=== PATIENT | male | born 1945 | race Caucasian/White ===

== ENCOUNTER 2016-11-21 13:29 | Outpatient (CLI) | payer MEDICARE ==
[2016-11-21 13:49] LABS: #Basophils 0.1 thou/uL (0.0-0.2); #Eosinphils 0.2 thou/uL (0.0-0.7); #Lymphocytes 2.4 thou/uL (1.20-3.40); #Monocytes 0.6 thou/uL (0.11-0.59); %Basophils 1.8 % (0.0-1.0); %Eosinophils 2.7 % (0.0-10.0); %Lymphocytes 29.1 % (21.0-51.0); %Monocytes 7.1 % (0.0-10.0); %Neutrophils 59.4 % (42.0-75.0); Hemoglobin 11.3 g/dL (14.0-18.0); Mean Corpuscular HGB CONC 31.6 g/dL (32.0-36.0); Mean Corpuscular Hemoglobin 26.9 pg (27.0-31.0); Mean Platelet Volume 5.8 fL (7.4-10.4); Platelet Count 376 thou/uL (130-400); RBC Distribution Width 12.8 % (11.5-14.5); White Blood Cell (WBC) Count 8.4 thou/uL (4.8-10.8)
== END 2016-11-21 13:30 | disposition home or self-care (01) ==
LOC: MADLAB 13:29
PROVIDERS: ATTEND Orthopaedic Surgery
DX: S40.912A Unspecified superficial injury of left shoulder, initial encounter (principal)
CPT/HCPCS: 36415; 85025; 85652; 86140

== ENCOUNTER 2016-12-16 19:00 | Inpatient (IN) | payer MEDICARE ==
[2016-12-16] MEDS ORDERED: HYDROcodone/Acetaminophen 10/325 mg Tablet PO PRN (21:03)
[2016-12-16] MEDS: HYDROcodone/Acetaminophen 10/325 mg Tablet PO PRN (22:07)
[2016-12-16] MEDS: diphenhydrAMINE HCl 25 MG CAP PO PRN (22:30)
[2016-12-17] MEDS: diphenhydrAMINE HCl 25 MG CAP PO PRN ×3 (04:25→20:42)
[2016-12-17] MEDS: HYDROcodone/Acetaminophen 10/325 mg Tablet PO PRN ×4 (04:26→20:38)
[2016-12-17 04:44] LABS: #Basophils 0.1 thou/uL (0.0-0.2); #Eosinphils 0.4 thou/uL (0.0-0.7); #Lymphocytes 2.9 thou/uL (1.20-3.40); #Monocytes 0.5 thou/uL (0.11-0.59); #Neutrophils 2.7 thou/uL (1.40-6.50); %Basophils 1.9 % (0.0-1.0); %Eosinophils 5.5 % (0.0-10.0); %Lymphocytes 43.4 % (21.0-51.0); %Monocytes 8.1 % (0.0-10.0); %Neutrophils 41.1 % (42.0-75.0); Hemoglobin 8.6 g/dL (14.0-18.0); Mean Corpuscular Hemoglobin 29.6 pg (27.0-31.0); Mean Corpuscular Volume 87.1 fl (80.0-94.0); Platelet Count 281 thou/uL (130-400); RBC Distribution Width 14.4 % (11.5-14.5); White Blood Cell (WBC) Count 6.6 thou/uL (4.8-10.8)
[2016-12-17 04:59] LABS: ALT (SGPT) 12 U/L (8-55); AST (SGOT) 20 U/L (5-34); Albumin 3.2 g/dL (3.4-4.8); Alkaline Phosphatase 120 U/L (40-150); Anion Gap 14 mmol/L (10-20); BUN (Urea Nitrogen) 9 mg/dL (8.4-25.7); Bilirubin, Total 0.4 mg/dL (0.2-1.2); Calc. Creatinine Clearance 76 mL/min (70-130); Calcium 9.1 mg/dL (7.8-10.44); Carbon Dioxide 28 mmol/L (23-31); Chloride 102 mmol/L (98-107); Estimated GFR-MDRD 72; Globulin 3.6 g/dL (2.4-3.5); Glucose 101 mg/dL (83-110); Protein, Total 6.8 g/dL (5.8-8.1); Sodium 140 mmol/L (136-145)
[2016-12-17 05:16] LABS: CRP (Inflammatory) 7.08 mg/dL (= or < 0.5)
[2016-12-17 05:17] LABS: Hemoglobin A1c 5.2 % (4.0-6.0)
[2016-12-17] MEDS ORDERED: HYDROcodone/Acetaminophen 10/325 mg Tablet PO PRN ×2 (08:15)
[2016-12-17] MEDS ORDERED: cefTRIAXone\\ROCEPHIN 2 GM VIAL IVPB SCH (08:15)
[2016-12-17] MEDS ORDERED: DIPHENHYDRAMINE HCL 50 MG PO PRN (08:15)
[2016-12-17] MEDS: Multivit, Therapeutic 1 TAB PO SCH (08:56)
[2016-12-17] MEDS: Folic Acid 1 MG TAB PO SCH (08:56)
[2016-12-17] MEDS: Polyethylene Glycol 3350 17 GM Packet PO SCH (08:56)
[2016-12-17] MEDS ORDERED: Multivit, Therapeutic 1 TAB PO SCH (09:00)
[2016-12-17] MEDS ORDERED: Aspirin 325 MG TAB PO SCH (09:00)
[2016-12-17] MEDS ORDERED: Folic Acid 1 MG TAB PO SCH (09:00)
[2016-12-17] MEDS: Aspirin 325 mg Enteric Coated Tablet PO SCH (09:01)
--- NOTE | 2016-12-17 10:24 | HP ---
CHIEF COMPLAINT: Infection in the left shoulder. PRESENT ILLNESS: The patient is a 71-year-old white male who has a history of hypertension, TIAs, c hronic anemia, paroxysmal atrial fibrillation, alcoholism and chronic low back pain. The patient wa s hospitalized at [facility] from 12/11/2016 until 12/16/2016 for an infect ion in the left shoulder. The patient has had chronic pain in the left shoulder from a rotator cuff problem. He had a steroid injection in the shoulder back in 12/2015. The shoulder then developed increased pain and erythema, and required surgical drainage then by Dr. Jean, Orthopedic Surgery. The wound was drained and irrigated and culture revealed Propionibacterium acne. It was felt that the infection at that time was just in the soft tissue. However since that time the patient has doherty d continual pain and has continued to leak fluid and developed a chronic drainage sinus from that le ft shoulder. He was seen by Dr. Lima, another orthopedic surgeon, who admitted him and did an I\ T\D and excision of the sinus tract. It appeared that the wound might be much deeper and he was bro ught back to surgery on 12/13/2016 for a deep left shoulder infection that was felt to involve the j oint. The shoulder was opened and irrigated copiously with 5 liters of fluid and debrided. A drain line was inserted and then removed after 2 days. The patient has had a continual moderate amount o f serous drainage from the wound with the drain it decreased after the drain was removed, but then a fter increased movement it has been draining a little more. He has not been running any fever. The shoulder feels a little better. He was seen in consultation by Infectious Disease physician, Dr. Rosy Barajas who recommended that patient be treated for a 6-week course with IV ceftriaxone 2 grams daily for Propionibacterium acne which was cultured from the wound collected on 04/12/2016. The zeke manuel had a PICC line placed in the right upper arm on 12/12/2016. He was discharged to [facility] to the care home facility on the evening of 12/16/2016. The patient was interviewed and examined on the morning of 12/17/2016. He was able to give me a his tory of what had gone on with his shoulder and he said since his surgery and antibiotics the shoulde r feels a little better, but since the drain has been removed and with the increased movement of the arm, he said he has had increased serous type drainage from that arm. PAST HISTORY: Alcoholism, perforated duodenal ulcer and surgical repair in 2016, paroxysmal atrial fibrillation for which he is no longer taking any medication, diabetes mellitus type 2. The patient said that he had been on medicine for a while, but he had lost about 40 pounds over the last year a nd he has been checking his sugar and it was running around 120 and he had stopped his medication. He also has a history of COPD. The patient smoked for about a 15 year period, but has been off ciga rettes for 15 years. The patient has chronic low back and neck pain. The patient was hospitalized at [facility] on 04/11/2016 to 04/15/2016 for infection of t he left shoulder. While there he had a TIA manifested with weakness in the right arm and hand that resolved within a short period. He underwent CT scan of the brain which showed no acute intracrania l abnormality. CT scan of the chest showed a new lower lobe pulmonary nodule for which it was recom mended he undergo a repeat CT scan. Echocardiogram showed an EF of 55-60% with no intracardiac thro mbus or masses. MRI of the brain did not show any acute infarction or hemorrhage. His carotid Dopp ler studies showed moderate stenosis of the left internal carotid. CT scan of the chest showed a ne w left lower lobe pulmonary nodule, also showed extensive degenerative changes in both shoulders. C T scan in 10/2016 of the cervical spine showed extensive degenerative changes, no fractures. CT sca n of the lumbar spine done in 10/2016 showed degenerative changes of the lumbar spine with diffuse d egenerative disk disease, moderate stenosis at L2-3 and moderate to severe at the L3-4 level and L4- 5 level. Hospitalized in 01/2016 for perforated duodenal ulcer which he underwent surgical repair by surgeon, Dr. Jerome. PRESENT MEDICINES: Aspirin 325 mg daily, ceftriaxone 2 grams IV daily started on 12/13/2016 and jose c l continue for a full 6 weeks, Benadryl 50 mg b.i.d. as needed for allergies, folic acid 1 mg daily, hydrocodone/acetaminophen 10/325 1-2 every 4 hours as needed for pain, multivitamin 1 a day, pantop razole 40 mg daily, MiraLax 17 grams in 8 ounces of water daily, thiamine 100 mg daily. ALLERGIES: No known allergies. REVIEW OF SYSTEMS: GENERAL: The patient said that over the last couple years he has lost about 40 pounds due to change s in his eating. HEAD AND NECK: No complaints. PULMONARY: No shortness of breath. CARDIOVASCULAR: The patient said he has not had any more trouble with atrial fibrillation and he is only taking aspirin for this. : No complaints. GASTROINTESTINAL: No complaints. MUSCULOSKELETAL: The patient has chronic pain in the left shoulder, even prior to the infection. Navin soni also has chronic pain in his neck and low back. ADLs: The patient is independent of his ADLs. HABITS: Tobacco: The patient smoked for about a 15-year period but has been off of cigarettes for 15 years. Alcohol: The patient drinks he said about 4 drinks a day, usually beer and vodka. He sa ys he does this to help control the pain in his back. 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 PHYSICAL EXAMINATION: GENERAL: Shows a pleasant 71-year-old white male who is alert, oriented x3 and appears in no acute distress. He has a dressing with a little bag attached to the left shoulder to catch the drainage. VITAL SIGNS: Shows a temperature of 97 last evening and this morning it is 99, pulse 82, respiratio ns 18, O2 sat 94% on room air, blood pressure 138/66. His weight is 183 pounds. HEAD: Normocephalic and atraumatic. EYES: Pupils were equal, round, and reactive. Sclerae nonicteric. EARS: TMs are clear. NOSE: Normal. MOUTH AND THROAT: Tongue has kind of a whitish coating present. NECK: Carotids are equally strong, no bruits. Thyroid not enlarged. LUNGS: Clear. HEART: Regular rate. ABDOMEN: The patient has a midline scar with excision of the umbilicus. Scars are well healed. Ab domen is soft and nontender. EXTREMITIES: No edema. The patient has a dressing over the left shoulder with a small colostomy ba g attached and a minimal amount of serous drainage in the bag. The patient has reduced range of mot ion. IMPRESSION: 1. Left chronic shoulder infection. A. Cultures from previous drainage in 04/2016 grew Propionibacterium acne. B. Incision and drainage of wound with excision of sinus tract on 12/11/2016. C. Status post left shoulder irrigation, debridement and arthrotomy for deep shoulder infection on 12/13/[address] Lima. D. Scheduled presently on Rocephin IV for a 6 week course. 2. Diabetes mellitus type 2. A. Presently controlled with his history of weight loss with hemoglobin A1c of 5.2 and FBS of 117. 3. Bilateral severe degenerative changes of the shoulders. 4. Paroxysmal atrial fibrillation. 5. Hypertension. 6. Transient ischemic attacks. A. Initially manifested with weakness in the right arm in 04/2016. B. No recurrence. 7. History of chronic anemia. 8. History of chronic kidney disease stage 2. 9. History of alcoholism. 10. History of cigarette abuse, off of cigarettes now for 15 years. 11. Chronic low back pain secondary to lumbar spondylosis with moderate to severe stenosis at L2-L3 , L3-4, and L4-5. 12. Left lower lobe pulmonary nodule noted on CT scan on 04/11/2016. PLAN: The patient has been admitted to [facility] for a 6 week course of IV ceftriaxone. He will receive 2 grams IV daily through the PICC line in the right arm. The patient's diabetes will b e monitored. His blood pressure is mildly elevated, which he will be placed on a low dose of lisino pril. While here repeat CT scan of his chest will be performed. He is due to see Dr. Lima in 2 weeks for recheck of his shoulder and removal of sutures. We will have physical therapy work with t alexandra patient for his generalized strengthening and conditioning. His initial lab done on the morning of 12/17/2016 showed a H\T\H of 8.6 and 25.2, WBC count 6600 wit h 41% segs, 43% lymphocytes, and platelet count of 281,000. His sodium was 140, potassium 4, BUN 9, creatinine 1, glucose 117, hemoglobin A1c 5.2. C-reactive protein 7, albumin 3.2. Sed rate 76%. CODE STATUS: Full code.
[2016-12-17] MEDS ORDERED: cefTRIAXone\\ROCEPHIN 2 GM in Sodium Chloride 0.9% 100 ML IVPB SCH (13:00)
[2016-12-17] MEDS: cefTRIAXone\\ROCEPHIN 2 GM in Sodium Chloride 0.9% 100 ML IVPB SCH (13:21)
[2016-12-17] MEDS ORDERED: Lisinopril 10 MG TAB PO SCH (22:30)
[2016-12-17] MEDS ORDERED: cloNIDine HCl 0.1 MG TAB PO PRN (22:33)
[2016-12-18] MEDS: HYDROcodone/Acetaminophen 10/325 mg Tablet PO PRN ×6 (00:39→23:00)
[2016-12-18] MEDS: diphenhydrAMINE HCl 25 MG CAP PO PRN ×6 (00:40→23:01)
[2016-12-18] MEDS: Multivit, Therapeutic 1 TAB PO SCH (09:07)
[2016-12-18] MEDS: Aspirin 325 mg Enteric Coated Tablet PO SCH (09:07)
[2016-12-18] MEDS: Folic Acid 1 MG TAB PO SCH (09:07)
[2016-12-18] MEDS: Polyethylene Glycol 3350 17 GM Packet PO SCH (09:08)
[2016-12-18] MEDS: Lisinopril 10 MG TAB PO SCH (09:08)
[2016-12-18] MEDS: cefTRIAXone\\ROCEPHIN 2 GM in Sodium Chloride 0.9% 100 ML IVPB SCH (12:29)
--- NOTE | 2016-12-18 15:17 | PRG ---
DATE OF SERVICE: 12/18/2016 SUBJECTIVE: Patient said he is feeling better today. Yesterday, he is worried because he was not r eceiving his blood pressure medicine. He was placed on lisinopril 10 mg that was started last eveni joi. He also had clonidine 0.1 mg p.o. that he does use on a p.r.n. basis, this was reordered. He a lso asked about his diabetic medicines. His diabetic medicines he has not been receiving. He has b een off this for some time with his weight loss. His diabetic control has been excellent with his F BS this morning only 120 and his hemoglobin A1c of 5.2. We will continue just to monitor this and n ot place him on any medication. He also asked about his vitamin, which he is receiving that is foli c acid, thiamine, and a multivitamin. He also said that for a long time he has taken Benadryl along with his [place] to relieve the itch that the hydrocodone causes. OBJECTIVE: GENERAL: The patient is sitting up on the side of the bed. The patient began eating his breakfast. He is alert, talkative, appears very comfortable and in no distress. VITAL SIGNS: His temperature is 97.7, pulse is 68, respirations 20, O2 sat 96% on room air, blood p ressure this morning is pending. Yesterday, it was 138/66. During the evening, it risen to 194/88. LUNGS: Clear. HEART: Regular rate. EXTREMITIES: His incision over the left shoulder, there is no drainage. Dressing is dry. The inci fabrizio extending from the dorsum of the shoulder beginning at the superior aspect of the shoulder exte nding along the anterior shoulder has sutures present and appears to be in good shape with no draina ge. His FBS this morning was 120. Culture taken here from the wound has many RBCs, few WBCs, no or ganisms seen. Culture pending. ASSESSMENT: 1. Left chronic shoulder infection. A. Culture from previous drainage in 04/2016 grew Propionibacterium acne. B. Incision and drainage of wound with excision sinus tract on 12/11/2016. C. Status post left shoulder open with debridement, arthrotomy, and irrigation of the deep infe ction on 12/13/[address] Lima. Natasha. On Rocephin for 6 weeks. E. Improved with no drainage. 2. Diabetes mellitus type 2. A. Presently controlled with his history of weight loss with hemoglobin A1c of 5.2 and FBS of 1 17. B. FBS this morning 120 on no medications. 3. Bilateral severe degenerative changes of the shoulders. 4. Paroxysmal atrial fibrillation. A. Rate controlled on aspirin remains in normal sinus rhythm. 5. Hypertension. 6. Transient ischemic attacks. A. Initially manifested with weakness in the right arm in 04/2016. B. No recurrence. 7. History of chronic anemia. 8. History of chronic kidney disease stage 2. 9. History of alcoholism. 10. History of cigarette abuse, off of cigarettes now for 15 years. 11. Chronic low back pain secondary to lumbar spondylosis with moderate to severe stenosis at L2-L3 , L3-4, and L4-5. 12. Left lower lobe pulmonary nodule noted on CT scan on 04/11/2016. PLAN: Continue present care. Continue IV Rocephin. Physical therapy will be working with the marifer ent. Recheck blood count in the morning and electrolytes.
[2016-12-19] MEDS: HYDROcodone/Acetaminophen 10/325 mg Tablet PO PRN ×5 (04:55→21:13)
[2016-12-19] MEDS: diphenhydrAMINE HCl 25 MG CAP PO PRN ×5 (04:56→21:16)
[2016-12-19 05:23] LABS: Anion Gap 14 mmol/L (10-20); BUN (Urea Nitrogen) 13 mg/dL (8.4-25.7); Calc. Creatinine Clearance 65 mL/min (70-130); Calcium 9.4 mg/dL (7.8-10.44); Carbon Dioxide 26 mmol/L (23-31); Chloride 103 mmol/L (98-107); Estimated GFR-MDRD 60; Glucose 96 mg/dL (83-110); Potassium 4.3 mmol/L (3.5-5.1); Sodium 139 mmol/L (136-145)
[2016-12-19 05:42] LABS: Eosinophils 6 % (0-10); Hemoglobin 9.3 g/dL (14.0-18.0); Lymphocytes 37 % (21-51); MDiff Complete? YES; Mean Corpuscular HGB CONC 32.4 g/dL (32.0-36.0); Mean Corpuscular Hemoglobin 28.4 pg (27.0-31.0); Mean Corpuscular Volume 87.5 fl (80.0-94.0); Mean Platelet Volume 6.1 fL (7.4-10.4); Monocytes 3 % (0-10); Neutrophil 37 % (42-75); PLT Morphology Comment Appears Adequate; Platelet Count 371 thou/uL (130-400); RBC Distribution Width 14.3 % (11.5-14.5); Reactive Lymphocytes 17 % (0-10); Red Blood Cell (RBC) Count 3.29 mill/uL (4.70-6.10); White Blood Cell (WBC) Count 6.8 thou/uL (4.8-10.8)
[2016-12-19] MEDS: Aspirin 325 mg Enteric Coated Tablet PO SCH (09:11)
[2016-12-19] MEDS: Folic Acid 1 MG TAB PO SCH (09:11)
[2016-12-19] MEDS: Multivit, Therapeutic 1 TAB PO SCH (09:11)
[2016-12-19] MEDS: Polyethylene Glycol 3350 17 GM Packet PO SCH (09:12)
[2016-12-19] MEDS: Lisinopril 10 MG TAB PO SCH (09:15)
--- NOTE | 2016-12-19 10:57 | PRG ---
DATE OF SERVICE: 12/19/2016 SUBJECTIVE: The patient said his shoulder still hurts, but not as much. He is not having any drain age from the shoulder. Prior to this surgery and an antibiotics, he had been having drainage in lar ge amounts for months. Overall, he is feeling a little better. OBJECTIVE: The patient is sitting up on the side of his bed. He is alert, talkative, appears in no distress. His vital signs shows a temperature of 97.6, pulse 67, blood pressure 126/61, respiratio ns 20, O2 saturation 97% on room air. His lungs are clear. Heart, regular rate. Incision over the left shoulder is doing well. There is no drainage. There is a little redness to the skin over the inferior aspect of the incision. His lab shows a hemoglobin and hematocrit of 9.3 and 28.8, white cell count 6800 with a sedimentation rate of 76. Sodium 139, potassium 4.3, BUN 13, creatinine 1.19 with a GFR of 60. FBS is 111. ASSESSMENT: 1. Left chronic shoulder infection. A. Culture from previous I\T\D in 04/2016 grew Propionibacterium acne. B. Incision and drainage of wound with excision sinus tract on 12/11/2016. C. Status post left shoulder opening with debridement, arthrotomy and irrigation of deep infection on 12/13/[address] Lima. Natasha. On Rocephin IV for 6 weeks. He improved with no drainage. 2. Diabetes type 2. A. Controlled on diet alone with his history of weight loss. Hemoglobin A1c 5.2. B. FBS this morning 111. 3. Bilateral severe degenerative arthritis in the shoulders. 4. Paroxysmal atrial fibrillation. A. Rate controlled and on aspirin and remains in sinus rhythm. 5. Hypertension. 6. Transient ischemic attack. A. Initially manifest with weakness of right arm in 04/2016. B. No recurrence. 7. Chronic anemia. A. Improved with hemoglobin of 9.3 8. Chronic kidney disease stage 2, GFR 60. 9. History of alcoholism. 10. History of cigarette abuse. Off cigarettes now for over 15 years. 11. Chronic low back pain secondary to lumbar spondylosis with moderate to severe stenosis at L2-3 level, L3-4 level and L4-5 level. 12. Left lower lobe pulmonary nodule noted on CT scan on 04/11/2016. PLAN: Continue present care. We will arrange for CT scan of the chest for followup on the nodule. Continue physical therapy.
[2016-12-19] MEDS: cefTRIAXone\\ROCEPHIN 2 GM in Sodium Chloride 0.9% 100 ML IVPB SCH (12:59)
[2016-12-20] MEDS: HYDROcodone/Acetaminophen 10/325 mg Tablet PO PRN ×5 (03:25→19:51)
[2016-12-20] MEDS: diphenhydrAMINE HCl 25 MG CAP PO PRN ×5 (03:26→19:52)
[2016-12-20] MEDS: Lisinopril 10 MG TAB PO SCH (08:37)
[2016-12-20] MEDS: Polyethylene Glycol 3350 17 GM Packet PO SCH (08:38)
[2016-12-20] MEDS: Folic Acid 1 MG TAB PO SCH (08:38)
[2016-12-20] MEDS: Multivit, Therapeutic 1 TAB PO SCH (08:38)
[2016-12-20] MEDS: Aspirin 325 mg Enteric Coated Tablet PO SCH (08:38)
--- NOTE | 2016-12-20 12:40 | PRG ---
DATE OF SERVICE: 12/20/2016 SUBJECTIVE: The patient said he is doing okay. He has had little bruising over the dorsum of the l eft hand where he has previously had blood drawn. He has a little soreness in the dorsal left forea rm. He said the left shoulder feels about the same. OBJECTIVE: The patient is sitting up in bed, alert, talkative, and appears in no distress. His tem p is 96.9, pulse 65, respirations 20, blood pressure 120/60, O2 saturation 97%. Lungs are clear. H eart; regular rate. Left shoulder; the incision has a small serosanguineous drainage on the dressin g. The shoulder has a little pinkness around the incision, there is a little puffiness to the shoul zafar I suspect from possible buildup of an effusion. The area does not seem to be particularly tende r. The patient has a small bruise on the dorsum of the left hand that has a little greenish discolo ration. His FBS this morning was 91. ASSESSMENT: 1. Left chronic shoulder infection. A. Culture from the previous I\T\D in 04/2016 grew Propionibacterium acne. B. Incision drains the wound with excision of sinus tract on 12/11/2016. C. Status post left shoulder opening with debridement, arthrotomy and irrigation of deep infection on 12/13/2016 with drain that was gradually removed after a couple of days. D. On Rocephin IV for 6 weeks, he developed a little redness and effusion. 2. Diabetes type 2. A. Controlled on diet alone with history of weight loss, hemoglobin A1c 5.2. B. FBS today was 91. 3. 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 4. Paroxysmal atrial fibrillation. A. Rate controlled and on aspirin. The patient remains in sinus rhythm. The patient previously had stopped anticoagulants. 5. Hypertension. 6. Transient ischemic attacks. A. Initially manifest with weakness in the right arm 04/2016. B. No recurrence. 7. Chronic anemia. A. Improved hemoglobin of 9.3. 8. Chronic kidney disease stage 2. Her most recent GFR is 60. 9. History of alcoholism. 10. History of cigarette abuse. Off of cigarettes now for over 15 years. 11. Chronic low back pain secondary to lumbar spondylosis with moderate to severe spinal stenosis a t L2-L3, L3-L4, and L4-5 levels. PLAN: Continue IV antibiotics. Will apply Gaymar pump for moist heat to the left arm, may apply it also to the shoulder. We will observe the shoulder. If it develops increased pinkness or redness or effusion, will need Dr. Lima to recheck him. If this has expanding effusion, may require carri park.
[2016-12-20] MEDS: cefTRIAXone\\ROCEPHIN 2 GM in Sodium Chloride 0.9% 100 ML IVPB SCH (13:33)
[2016-12-21] MEDS: HYDROcodone/Acetaminophen 10/325 mg Tablet PO PRN ×6 (00:19→21:48)
[2016-12-21] MEDS: diphenhydrAMINE HCl 25 MG CAP PO PRN ×6 (00:20→21:49)
[2016-12-21] MEDS: Polyethylene Glycol 3350 17 GM Packet PO SCH (08:08)
[2016-12-21] MEDS: Aspirin 325 mg Enteric Coated Tablet PO SCH (08:08)
[2016-12-21] MEDS: Lisinopril 10 MG TAB PO SCH (08:08)
[2016-12-21] MEDS: Multivit, Therapeutic 1 TAB PO SCH (08:08)
[2016-12-21] MEDS: Folic Acid 1 MG TAB PO SCH (08:08)
[2016-12-21] MEDS: cefTRIAXone\\ROCEPHIN 2 GM in Sodium Chloride 0.9% 100 ML IVPB SCH (12:56)
--- NOTE | 2016-12-21 14:03 | PRG ---
DATE OF SERVICE: 12/21/2016 SUBJECTIVE: The patient states his shoulder feels better today. Nurses said last night, there was a lot of drainage from the shoulder of the serosanguineous fluid. He has had no fever. OBJECTIVE: GENERAL: The patient is sitting on bedside. He is alert and appears comfortable and in no distress . VITAL SIGNS: His temperature is 98.1, pulse 66, blood pressure 105/52, respirations 20, O2 sat 93% on room air. LUNGS: Clear. HEART: Regular rate MUSCULOSKELETAL: Left shoulder, the dressing was removed. There was a small amount of serous drain age on the dressing. The shoulder overall looks better, it is less swelled, did not feel fluctuant, the pinkness is less. There is a little induration on the inferior area below the incision and the re is just a little induration in this region. No fluid to be expressed through the incision, which seems to be healing well. ASSESSMENT: 1. Left chronic shoulder infection. A. Culture from previous I\T\D in 04/2016 grew Propionibacterium acnes. B. Incision and drainage of the wound with excision of the sinus tract on 12/11/2016. C. Status post left shoulder arthrotomy with debridement and irrigation of deep infection on 2016 with a drain in place that was gradually advancing, removed. D. On Rocephin IV for 6 weeks. He developed some increased fluid in the shoulder with some local r edness on 12/20/2016. The area is drenched and shoulder looks better today with less pinkness and l ess swelling as of 12/21. 2. Diabetes type 2. A. Controlled on diet alone with history of weight loss and with hemoglobin A1c of 5.2. FBS 116. 3. 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 4. Paroxysmal atrial fibrillation. A. Rate controlled and on aspirin. The patient remains in sinus rhythm. The patient previously doherty d stopped his anticoagulants. 5. Hypertension. 6. Transient ischemic attack. A. Initially manifest with weakness in the right arm, 04/2016. B. No recurrence. 7. Chronic anemia. A. Improved. 8. Chronic kidney disease stage 2. Most recent GFR was 60. 9. History of alcoholism. 10. History of cigarette abuse, off cigarettes now for over [address] scan of the chest on 04/11/2016 showed a small left lower lobe nodule. 12. Chronic low back pain secondary to lumbar spondylosis with moderate to severe stenosis at L2-L3 , L3-L4 and L4-L5. PLAN: Continue IV antibiotics and shoulder overall looks a little better today. We will visit eduard watts, Thursday with Dr. Lima, arrange for him to see him in followup during this hospitalization. We will arrange for CT scan of the chest for followup on the pulmonary nodule. Dietitian had recomm ended liberalization of diet and switching him to a regular diet, which will be done.
[2016-12-22] MEDS: HYDROcodone/Acetaminophen 10/325 mg Tablet PO PRN ×5 (01:54→21:24)
[2016-12-22] MEDS: diphenhydrAMINE HCl 25 MG CAP PO PRN ×4 (01:55→21:24)
[2016-12-22] MEDS: Folic Acid 1 MG TAB PO SCH (08:10)
[2016-12-22] MEDS: Aspirin 325 mg Enteric Coated Tablet PO SCH (08:10)
[2016-12-22] MEDS: Lisinopril 10 MG TAB PO SCH ×2 (08:10→08:17)
[2016-12-22] MEDS: Multivit, Therapeutic 1 TAB PO SCH (08:10)
[2016-12-22] MEDS: Polyethylene Glycol 3350 17 GM Packet PO SCH (08:11)
--- NOTE | 2016-12-22 09:10 | PRG ---
DATE OF SERVICE: 12/22/2016 SUBJECTIVE: The patient said his shoulder feels better. He said it is not as swelled. He can see more definition in the shoulder. OBJECTIVE: The patient is sitting up on the side of his bed. He is alert and appears comfortable i n no distress. His temp is 97.6, pulse 75, blood pressure 99/54, respirations 18, O2 sat 97%. Lung s are clear. Heart; regular rate. Left shoulder; the swelling continues to reduce. The pinkness i s less around the shoulder and the induration inferior to the incision is resolved. Overall, the sh oulder looks better. There was only a tiny spot of the serous drainage on the dressing. The should er was not tender to palpation. ASSESSMENT: 1. Left chronic shoulder infection. A. Culture from previous incision and drainage in 04/21/2016 grew Propionibacterium acne. B. Incision and drainage of the wound with excision of a sinus tract on 12/11/2016. C. Status post left shoulder arthrotomy with debridement and copious irrigation of the deep infecti on on 12/13/2016 with a drain placed that was advanced and removed. D. On Rocephin IV for 6 weeks. He had developed some increased swelling and redness and induration around the shoulder, this drained some and now overall the shoulder looks better with only a little mild swelling that is decreased and the redness is reduced to just a light pinkness as of 7. 2. Diabetes type 2. A. Controlled on diet alone since his weight loss with a hemoglobin of 5.2. 3. Bilateral severe degenerative arthritis of the shoulder. 4. Paroxysmal atrial fibrillation. A. Rate controlled and on aspirin. The patient remains in sinus rhythm. The patient previously had stopped his anticoagulants. 5. Hypertension. 6. Transient ischemic attack. A. Initially manifest with weakness in the right arm in 04/21/2016. B. No recurrence. 7. Chronic anemia. A. Improved. 8. Chronic kidney disease stage 2, recent GFR 60. 9. History of alcoholism. 10. History of cigarette abuse. Off of cigarettes for [address] of the chest shows a small left lower lobe nodule done on 04/11/2016. 12. Chronic low back pain secondary to lumbar spondylosis with moderate to severe stenosis at L2-3, L3-4 and L4-5. PLAN: The patient's shoulder looks better. The swelling and the redness is all markedly diminished and looks to be resolving. His incision is healing. Sutures are still present. There is no drain age through the wound. We will continue the antibiotics. We will talk to Dr. Lima to give him a n update. He is due to see him on 01/01/2017.
[2016-12-22] MEDS: cefTRIAXone\\ROCEPHIN 2 GM in Sodium Chloride 0.9% 100 ML IVPB SCH (12:10)
[2016-12-23] MEDS: diphenhydrAMINE HCl 25 MG CAP PO PRN ×5 (04:00→20:51)
[2016-12-23] MEDS: HYDROcodone/Acetaminophen 10/325 mg Tablet PO PRN ×5 (04:00→20:51)
[2016-12-23] MEDS: Multivit, Therapeutic 1 TAB PO SCH (09:12)
[2016-12-23] MEDS: Aspirin 325 mg Enteric Coated Tablet PO SCH (09:12)
[2016-12-23] MEDS: Lisinopril 10 MG TAB PO SCH (09:12)
[2016-12-23] MEDS: Folic Acid 1 MG TAB PO SCH (09:12)
[2016-12-23] MEDS: Polyethylene Glycol 3350 17 GM Packet PO SCH (09:21)
--- NOTE | 2016-12-23 09:35 | PRG ---
DATE OF SERVICE: 12/23/2016 SUBJECTIVE: The patient said he is feeling better. Shoulder feels better. There has been no drain age. OBJECTIVE: The patient is sitting up preparing to eat his breakfast. He is alert and appears comfo rtable and in no distress. His temperature is 98.1, pulse 74, respirations 16, O2 saturation 98%, b lood pressure 110/63. His lungs are clear. Heart; regular rate. Left shoulder, there is a little redness around the shoulder. No worse than what it had been. There is no increased swelling and no drainage. His FBS is pending, yesterday it was 96 and before supper 109. ASSESSMENT: 1. Left chronic shoulder infection. A. Culture from the previous incision and drainage on 04/21/2016 group Propionibacterium acne. B. Incision and drainage of the wound with excision of the sinus tract on 12/11/2016. C. Status post left shoulder arthrotomy with debridement and copious irrigation of the deep infecti on on 12/13/2016 with a drain placed and advanced and removed. D. On IV Rocephin for 6 weeks. The increased swelling and redness is gradually abating as of 12/23. 2. Diabetes type 2. A. Controlled on diet alone since his weight loss. Hemoglobin A1c recently was 5.2. 3. 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 4. Paroxysmal atrial fibrillation. A. Rate controlled and on aspirin. Patient had discontinued his anticoagulant. The patient remains in sinus rhythm. 5. Hypertension. 6. Transient ischemic attacks. A. Initially presented with weakness in the right arm 04/21/2016. B. No recurrence. 7. Chronic anemia. 8. Chronic kidney disease stage 2. 9. History of alcoholism. A. Remains off alcohol since admission on 12/11/2016. 10. History of cigarette abuse off cigarettes now for [address] scan of the chest showed small left lower lobe nodule done on 04/11/2016. 11. Chronic low back pain secondary to lumbar spondylosis with moderate to severe stenosis at L2-3, L3-4 and L4-5. PLAN: I visited with Dr. Lima, the orthopedic surgeon, yesterday regarding patient's shoulder. He recommended just continuing exactly what we are doing, including the IV antibiotics. He will be here on the and will see the patient then, remove sutures. If shoulder condition were to get w pat then he will be happy to see him prior to that at his office.
[2016-12-23] MEDS: cefTRIAXone\\ROCEPHIN 2 GM in Sodium Chloride 0.9% 100 ML IVPB SCH (12:46)
[2016-12-24] MEDS: diphenhydrAMINE HCl 25 MG CAP PO PRN ×5 (04:31→21:32)
[2016-12-24] MEDS: HYDROcodone/Acetaminophen 10/325 mg Tablet PO PRN ×5 (04:32→21:32)
[2016-12-24] MEDS: Aspirin 325 mg Enteric Coated Tablet PO SCH (08:48)
[2016-12-24] MEDS: Lisinopril 10 MG TAB PO SCH (08:48)
[2016-12-24] MEDS: Folic Acid 1 MG TAB PO SCH (08:49)
[2016-12-24] MEDS: Multivit, Therapeutic 1 TAB PO SCH (08:49)
[2016-12-24] MEDS: Polyethylene Glycol 3350 17 GM Packet PO SCH (08:49)
[2016-12-24] MEDS: cefTRIAXone\\ROCEPHIN 2 GM in Sodium Chloride 0.9% 100 ML IVPB SCH (13:02)
[2016-12-25] MEDS: diphenhydrAMINE HCl 25 MG CAP PO PRN ×6 (01:42→22:29)
[2016-12-25] MEDS: HYDROcodone/Acetaminophen 10/325 mg Tablet PO PRN ×6 (01:42→22:30)
[2016-12-25] MEDS: Folic Acid 1 MG TAB PO SCH (09:15)
[2016-12-25] MEDS: Lisinopril 10 MG TAB PO SCH (09:15)
[2016-12-25] MEDS: Multivit, Therapeutic 1 TAB PO SCH (09:16)
[2016-12-25] MEDS: Polyethylene Glycol 3350 17 GM Packet PO SCH (09:16)
[2016-12-25] MEDS: Aspirin 325 mg Enteric Coated Tablet PO SCH (09:16)
[2016-12-25] MEDS: cefTRIAXone\\ROCEPHIN 2 GM in Sodium Chloride 0.9% 100 ML IVPB SCH (13:15)
--- NOTE | 2016-12-25 18:03 | PRG ---
DATE OF SERVICE: 12/25/2016 SUBJECTIVE: The patient said he is feeling better. His left shoulder feels better. He is starting to exercise both shoulders more and this is helping him. He has not had any fever. OBJECTIVE: GENERAL: Patient is lying down, head elevated, breathing. He looks very comfortable and in no dist ress. VITAL SIGNS: His temperature is 98.9, pulse 72, blood pressure 116/59, respirations 20, O2 sat 98% on room air. LUNGS: Clear. HEART: Regular rate. EXTREMITIES: No edema on left shoulder. The redness is all fading, resolving. There is still just a little swelling and mild induration inferior to the incision just on the anterior edge of the axi lla. Area is nontender. Motion of the arm is improving. ASSESSMENT: 1. Left chronic shoulder infection. A. Culture from previous incision and drainage on 04/21/2016 grew propionibacterium acne. B. Incision and drainage of the wound with excision of sinus tracts, 12/11/2016. C. Status post left shoulder arthrotomy with debridement and copious irrigation of the deep infecti on on 12/13/2016 with a drain placed that was advanced and removed. D. On IV Rocephin for 6 weeks. E. Improved as of 12/25/2016. 2. Diabetes type 2. A. Controlled on diet alone since his weight loss. Hemoglobin A1c recently was 5.2. 3. 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 4. Paroxysmal atrial fibrillation. A. Rate controlled and on aspirin. Patient discontinues anticoagulant. Patient remains in sinus rh ythm. 5. Hypertension, controlled. 6. Transient ischemic attack. A. Initially presented with weakness in the right arm, 04/21/2016. B. No recurrence. 7. Chronic anemia. 8. Chronic kidney disease stage II. 9. History of alcoholism. A. Remains off the alcohol since admission on 12/11/2016. 10. History of cigarette abuse, off cigarettes for [address] scan of the chest showed small left lower lobe nodule down on 04/11/2016. 12. Chronic low back pain secondary to lumbar spondylosis with moderate to severe stenosis at L2-L3 , L3-L4 and L4-L5. PLAN: The patient continues to improve. We will continue present care. Continue the IV medication . Continue physical therapy. Recheck lab work and sed rate in the morning. We will later arrange for followup CT scan of the chest.
[2016-12-25] MEDS ORDERED: Nitroglycerin 0.4 MG TAB (25 Tab Bottle) ONE (22:37)
[2016-12-26] MEDS: HYDROcodone/Acetaminophen 10/325 mg Tablet PO PRN ×5 (03:36→21:32)
[2016-12-26] MEDS: diphenhydrAMINE HCl 25 MG CAP PO PRN ×3 (03:38→21:33)
[2016-12-26 05:18] LABS: #Basophils 0.1 thou/uL (0.0-0.2); #Eosinphils 0.2 thou/uL (0.0-0.7); #Lymphocytes 2.1 thou/uL (1.20-3.40); #Monocytes 0.6 thou/uL (0.11-0.59); #Neutrophils 2.6 thou/uL (1.40-6.50); %Basophils 1.4 % (0.0-1.0); %Lymphocytes 37.2 % (21.0-51.0); %Monocytes 10.9 % (0.0-10.0); %Neutrophils 46.5 % (42.0-75.0); Hemoglobin 8.4 g/dL (14.0-18.0); Mean Corpuscular HGB CONC 31.6 g/dL (32.0-36.0); Mean Corpuscular Hemoglobin 27.4 pg (27.0-31.0); Mean Corpuscular Volume 86.5 fl (80.0-94.0); Mean Platelet Volume 6.4 fL (7.4-10.4); Platelet Count 236 thou/uL (130-400); RBC Distribution Width 14.2 % (11.5-14.5); Red Blood Cell (RBC) Count 3.08 mill/uL (4.70-6.10); White Blood Cell (WBC) Count 5.7 thou/uL (4.8-10.8)
[2016-12-26 05:35] LABS: Anion Gap 14 mmol/L (10-20); BUN (Urea Nitrogen) 17 mg/dL (8.4-25.7); CRP (Inflammatory) 6.75 mg/dL (= or < 0.5); Calc. Creatinine Clearance 51 mL/min (70-130); Calcium 9.1 mg/dL (7.8-10.44); Carbon Dioxide 24 mmol/L (23-31); Chloride 104 mmol/L (98-107); Estimated GFR-MDRD 59; Glucose 115 mg/dL (83-110); Potassium 4.4 mmol/L (3.5-5.1); Sodium 138 mmol/L (136-145)
[2016-12-26] MEDS: Multivit, Therapeutic 1 TAB PO SCH (07:53)
[2016-12-26] MEDS: Aspirin 325 mg Enteric Coated Tablet PO SCH (07:53)
[2016-12-26] MEDS: Folic Acid 1 MG TAB PO SCH (07:54)
[2016-12-26] MEDS: Lisinopril 10 MG TAB PO SCH (07:55)
[2016-12-26] MEDS: Polyethylene Glycol 3350 17 GM Packet PO SCH (07:57)
--- NOTE | 2016-12-26 10:02 | PRG ---
DATE OF SERVICE: 12/26/2016 SUBJECTIVE: The patient said he feels better today. Last night he was hurting some in the chest an d it extended down a little into the left lateral anterior chest, but resolved with rest and his tsering n medication. Today he feels better. OBJECTIVE: The patient is sitting up eating his breakfast. He appears in no distress. His vital s igns show a temperature of 99.6, pulse 86, blood pressure 126/58, respirations 18, O2 saturation 98% . His lungs are clear. Heart, regular rate. Incision over the left anterior shoulder healing well . There is no drainage on the dressing from the wound. The surrounding redness looks much less and abating. The swelling is resolving. There is a tissue inferior to the incision toward the axilla is looser and not as tight, induration has resolved. His lab shows an H\T\H of 8.4 and 26.6, WBC co unt 5700 with 47% neutrophils, 37% lymphocytes, and platelet count of 238. Sed rate 93. Sodium 138 , potassium 4.4, BUN 17, creatinine 1.2, glucose 115. C-reactive protein 6.75. ASSESSMENT: 1. Left chronic shoulder infection. A. Culture from previous incision and drainage on 04/21/2016 grew Propionibacterium acne. B. Complicated by chronic pain, swelling and drainage. C. Incision drainage of the wound with excision of sinus tract 12/11/2016. D. Status post left shoulder arthrotomy with debridement and copious irrigation of the deep infecti on on 12/13/2016 with a drain placed that was advanced and removed. E. On IV Rocephin for 6 weeks. F. Improved as of 12/26/2016. 2. Diabetes type 2. A. Controlled on diet alone since his weight loss. Hemoglobin A1c recently 5.2. 3. 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 4. Paroxysmal atrial fibrillation. A. Rate controlled and on aspirin. The patient discontinued anticoagulant, remains in sinus rhythm . 5. Hypertension, controlled. 6. Transient ischemic attack. A. Initially presented with weakness in the right arm 04/21/2016. B. No recurrence. 7. Chronic anemia. A. Hemoglobin 8.4 as of 12/26/2016. 8. Chronic kidney disease stage 2. A. GFR 59 as of 12/26/2016. 9. History of alcoholism. A. Remains off alcohol since admission on 12/11/2016. 10. History of cigarette abuse. Off of cigarette for [address] scan of the chest shows small left lower lobe nodule done on 04/11/2016. 12. Chronic low back pain secondary to lumbar spondylosis with moderate to severe stenosis at L2-3, L3-4 and L4-5. PLAN: Continue present care. Continue PT.
[2016-12-26] MEDS: cefTRIAXone\\ROCEPHIN 2 GM in Sodium Chloride 0.9% 100 ML IVPB SCH (12:50)
[2016-12-27] MEDS: HYDROcodone/Acetaminophen 10/325 mg Tablet PO PRN ×5 (01:22→22:08)
[2016-12-27] MEDS: diphenhydrAMINE HCl 25 MG CAP PO PRN ×5 (01:26→22:11)
[2016-12-27] MEDS: Aspirin 325 mg Enteric Coated Tablet PO SCH (07:37)
[2016-12-27] MEDS: Multivit, Therapeutic 1 TAB PO SCH (07:37)
[2016-12-27] MEDS: Polyethylene Glycol 3350 17 GM Packet PO SCH (07:37)
[2016-12-27] MEDS: Lisinopril 10 MG TAB PO SCH (07:38)
[2016-12-27] MEDS: Folic Acid 1 MG TAB PO SCH (07:38)
[2016-12-27] MEDS: cefTRIAXone\\ROCEPHIN 2 GM in Sodium Chloride 0.9% 100 ML IVPB SCH (12:46)
[2016-12-28] MEDS: HYDROcodone/Acetaminophen 10/325 mg Tablet PO PRN ×5 (03:00→21:47)
[2016-12-28] MEDS: diphenhydrAMINE HCl 25 MG CAP PO PRN ×5 (03:04→21:47)
[2016-12-28] MEDS: Folic Acid 1 MG TAB PO SCH (08:58)
[2016-12-28] MEDS: Aspirin 325 mg Enteric Coated Tablet PO SCH (08:58)
[2016-12-28] MEDS: Lisinopril 10 MG TAB PO SCH (08:59)
[2016-12-28] MEDS: Multivit, Therapeutic 1 TAB PO SCH (09:00)
[2016-12-28] MEDS: Polyethylene Glycol 3350 17 GM Packet PO SCH (09:01)
[2016-12-28] MEDS: cefTRIAXone\\ROCEPHIN 2 GM in Sodium Chloride 0.9% 100 ML IVPB SCH (13:00)
[2016-12-29] MEDS: diphenhydrAMINE HCl 25 MG CAP PO PRN ×6 (01:47→22:00)
[2016-12-29] MEDS: HYDROcodone/Acetaminophen 10/325 mg Tablet PO PRN ×6 (01:47→22:00)
--- NOTE | 2016-12-29 08:42 | PRG ---
DATE OF SERVICE: 12/29/2016 SUBJECTIVE: The patient said his shoulder is a little sore, but overall feeling better. The patien t said that he had a form indicating that he had previously had some stools for occult blood that we re positive. He has not had any history that he knows of any gross blood in the stools. It has bee n many years since he had a colonoscopy. The patient was informed about the finding on the CT scan from April, said he did not know there was a little nodule present on that CT scan in that left l ower lobe. 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 OBJECTIVE: The patient is alert, appears very comfortable and in no distress. His temp 97.9, pulse 79, respirations 20, O2 sat 96%, blood pressure 100/57. Lungs are clear. Heart; regular rate. Le ft shoulder, the redness is almost all resolved. There is still just a little edema on the inferior aspect of the incision. The incision is healing well. There is no drainage. Dressing dry. FBS 1 15. ASSESSMENT: 1. Left chronic shoulder infection. A. Culture from previous incision and drainage on 04/21/2016 grew Propionibacterium acne. B. Complicated by chronic pain, swelling, and drainage. C. Incision and drainage of the wound with excision of the sinus tract, 12/11/2016. D. Status post left shoulder arthrotomy with debridement and copious irrigation of the deep infectio n on 12/13/2016 with a drain placed and then advanced and removed. E. On IV Rocephin for 6 weeks, improved as of 12/29/2016. 2. Diabetes type 2. A. Controlled on diet alone since his weight loss. Hemoglobin A1c recently 5.2. FBS today 114. 3. 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 4. Paroxysmal atrial fibrillation. A. Rate controlled and on aspirin. The patient previously had stopped other anticoagulant. 5. Hypertension, controlled. 6. History of transient ischemic attacks. A. Initially presented with weakness in the right arm 04/2016. B. No recurrence. 7. Chronic anemia. A. Hemoglobin 8.4 on 12/26/2016. 8. Chronic kidney disease stage 2. A. GFR 59 as of 12/26/2016. 9. History of alcoholism. A. Remains off of the alcohol since his admission on 12/11/2016. 10. History of cigarette abuse. A. Off of cigarettes for [address] scan of the chest showed small left lower lobe nodule done 04/11/2016. 12. Chronic low back pain secondary to lumbar spondylosis with moderate to severe stenosis at L2-3, L3-4, L4-5. 13. History of positive occult blood. 14. History of asbestos exposure. PLAN: 1. Continue the IV Rocephin. We will repeat stools for occult blood. Later arrange for colonoscop y. 2. We will arrange CT scan of the chest with contrast for left lower lobe nodule on CT scan 016. 3. Patient to see his orthopedic surgeon, Dr. Lima, , 01/01/2017.
[2016-12-29] MEDS: Folic Acid 1 MG TAB PO SCH (09:54)
[2016-12-29] MEDS: Aspirin 325 mg Enteric Coated Tablet PO SCH (09:54)
[2016-12-29] MEDS: Lisinopril 10 MG TAB PO SCH (09:55)
[2016-12-29] MEDS: Multivit, Therapeutic 1 TAB PO SCH (09:55)
[2016-12-29] MEDS: cefTRIAXone\\ROCEPHIN 2 GM in Sodium Chloride 0.9% 100 ML IVPB SCH (13:02)
[2016-12-29] MEDS ORDERED: Iopamidol 370 76% 100 ML VIAL ONE (13:16)
--- NOTE | 2016-12-29 13:57 | CT ---
EXAM: CHEST CT WITH CONTRAST: COMPARISON: 04/11/16. HISTORY: Followup pulmonary nodule. TECHNIQUE: Chest CT is performed with contrast. Coronal reformatted images are submitted for interpretation. FINDINGS: No mediastinal mass, lymphadenopathy, or hematoma. Heart size is normal. No pericardial fluid. Ce ntral pulmonary arteries are patent. Visualized aorta has a normal caliber. No periaortic fat stra nding. Peripheral calcifications associated with a hypodensity involving the posterior superior left kidney measuring 4.8 x 3.9 cm. 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 Interrogation incomplete. There is a 9 mm nonobstructing calculus in the left intrarenal collecting system. There is a hypodensity with a punctate calcification in the right kidney with an attenuation coefficient of 10 Hounsfield units diane ggesting a type II Bosniak cyst measuring 3.3 x 4.5 cm. There are scattered nonspecific central abdominal mesentery lymph nodes. Trachea and central bronchi are patent. Minimal atelectatic changes. There is a 4 mm nodule in the right lower lobe. Additional nodules are not appreciated. No pleural effusion or pneumothorax. The previously noted nodule in the left lower lobe is not appreciated on the current exam. No osteoblastic or osteolytic lesions. There is progression of obstructive change secondary to aseptic left shoulder joint. There is destr uction of the humeral head and glenoid identified. There are reactive lymph nodes in the left axill a. There is a peripherally enhancing centrally hypodense fluid collection measuring 3.2 x 2.3 cm. IMPRESSION: 1. 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 2. Stable 3 mm nodule in the right lower lobe. 3. Interval absence of a previously noted 5 mm nodule in the left lower lobe. 4. Progression of changes secondary to a septic joint involving the left shoulder. There is strand ing of the subcutaneous fat. There is evidence of a joint effusion. There are destructive changes in the proximal humerus and glenoid. There is a well-circumscribed centrally hypodense collection a nterior to the joint space measuring 3.2 x 2.3 cm which may represent a small infected fluid collect ion. Reactive lymph nodes in the left axilla is noted. POS: [facility]
[2016-12-30] MEDS: diphenhydrAMINE HCl 25 MG CAP PO PRN ×6 (02:00→22:08)
[2016-12-30] MEDS: HYDROcodone/Acetaminophen 10/325 mg Tablet PO PRN ×6 (02:00→22:09)
[2016-12-30] MEDS: Polyethylene Glycol 3350 17 GM Packet PO SCH ×2 (07:39→08:46)
[2016-12-30] MEDS: Multivit, Therapeutic 1 TAB PO SCH (08:46)
[2016-12-30] MEDS: Aspirin 325 mg Enteric Coated Tablet PO SCH (08:46)
[2016-12-30] MEDS: Folic Acid 1 MG TAB PO SCH (08:46)
[2016-12-30] MEDS: Lisinopril 10 MG TAB PO SCH (08:46)
[2016-12-30] MEDS: cefTRIAXone\\ROCEPHIN 2 GM in Sodium Chloride 0.9% 100 ML IVPB SCH (13:17)
[2016-12-31] MEDS: diphenhydrAMINE HCl 25 MG CAP PO PRN ×4 (07:29→21:38)
[2016-12-31] MEDS: HYDROcodone/Acetaminophen 10/325 mg Tablet PO PRN ×4 (07:29→21:38)
[2016-12-31] MEDS: Folic Acid 1 MG TAB PO SCH (08:43)
[2016-12-31] MEDS: Aspirin 325 mg Enteric Coated Tablet PO SCH (08:43)
[2016-12-31] MEDS: Multivit, Therapeutic 1 TAB PO SCH (08:43)
[2016-12-31] MEDS: Lisinopril 10 MG TAB PO SCH (08:44)
[2016-12-31] MEDS: Polyethylene Glycol 3350 17 GM Packet PO SCH (08:45)
--- NOTE | 2016-12-31 09:06 | PRG ---
DATE OF SERVICE: 12/31/2016 SUBJECTIVE: The patient said he is feeling better. Last night he slept through the night, did not have to get his 2 a.m. pain medicine. He says he is moving his shoulders a little better. OBJECTIVE: The patient is alert, appears in no distress. His temp 97.4, pulse 84, respirations 16, O2 sat 96% on room air, blood pressure 129/56. Weight 146. Lungs are clear. Heart; regular rate. Left shoulder incision is dry. There is no drainage, no drainage on the dressing. There is only a slight redness around the superior part of the shoulder. The swelling around the shoulder is dimi nishing, he is moving the shoulder a little better. CT scan of the chest showed that the previous n oted nodule in the left lower lobe was not seen. He has some minimal stable appearing nodule of the right lower lobe. There is cyst in the kidney. There are some progressive change in the left shou lder and a little swelling in the subcutaneous tissue and fat. ASSESSMENT: 1. Left chronic shoulder infection. A. Culture from previous incision and drainage on 04/21/2016 grew Propionibacterium acne. B. Complicated by chronic pain, swelling, and drainage. C. Incision and drainage of the wound with excision of the sinus tract on 12/11/2016. D. Status post left shoulder arthrotomy with debridement and copious irrigation of the deep infectio n on 12/13/2016 with a drain placed and advanced and removed. E. On IV Rocephin for 6 weeks, overall the patient is improving. 2. Diabetes type 2, controlled on diet alone since his weight loss. Hemoglobin A1c recently 5.2. 3. 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 4. Paroxysmal atrial fibrillation. A. Rate controlled and on aspirin. The patient previously had stopped anticoagulants. 5. Hypertension, controlled. 6. History of transient ischemic attack. A. Initially presented with weakness in the right arm 04/2016. B. No recurrence. 7. Chronic anemia. 8. Chronic kidney disease stage 2. 9. History of alcoholism. A. Remains off of the alcohol since admission of 12/11/2016. 10. History of cigarette abuse. A. Remains off cigarettes for over 15 years. 11. Left lower lobe nodule seen on CT scan of 04/11/2016, has resolved and not seen on repeat CT sc an from 12/29/2016. 12. Chronic low back pain secondary to lumbar spondylosis with moderate to severe stenosis at L2-3, L3-4, L4-5. 13. History of positive for occult blood. 14. History of asbestos exposure. PLAN: Continue the IV Rocephin. The patient to see his orthopedic surgeon, Dr. Lima, tomorrow 0 01/01/2017. We will repeat lab studies in the morning and recheck sed rate and CRP.
[2016-12-31 09:53] LABS: ALT (SGPT) 17 U/L (8-55); AST (SGOT) 33 U/L (5-34); Albumin 3.8 g/dL (3.4-4.8); Alkaline Phosphatase 107 U/L (40-150); Anion Gap 14 mmol/L (10-20); BUN (Urea Nitrogen) 18 mg/dL (8.4-25.7); Bilirubin, Total 0.3 mg/dL (0.2-1.2); Calc. Creatinine Clearance 52 mL/min (70-130); Carbon Dioxide 25 mmol/L (23-31); Chloride 103 mmol/L (98-107); Estimated GFR-MDRD 60; Globulin 4.2 g/dL (2.4-3.5); Glucose 116 mg/dL (83-110); Potassium 4.1 mmol/L (3.5-5.1); Sodium 138 mmol/L (136-145)
[2016-12-31] MEDS: cefTRIAXone\\ROCEPHIN 2 GM in Sodium Chloride 0.9% 100 ML IVPB SCH (13:52)
[2017-01-01] MEDS: HYDROcodone/Acetaminophen 10/325 mg Tablet PO PRN ×5 (02:00→19:33)
[2017-01-01] MEDS: diphenhydrAMINE HCl 25 MG CAP PO PRN ×5 (02:01→19:34)
[2017-01-01 06:33] LABS: Hemoglobin 8.7 g/dL (14.0-18.0); Mean Corpuscular HGB CONC 31.2 g/dL (32.0-36.0); Mean Corpuscular Hemoglobin 26.7 pg (27.0-31.0); Mean Corpuscular Volume 85.5 fl (80.0-94.0); Mean Platelet Volume 7.2 fL (7.4-10.4); Platelet Count 259 thou/uL (130-400); RBC Distribution Width 13.6 % (11.5-14.5); Red Blood Cell (RBC) Count 3.25 mill/uL (4.70-6.10); White Blood Cell (WBC) Count 5.8 thou/uL (4.8-10.8)
[2017-01-01 07:09] LABS: Eosinophils 2 % (0-10); Lymphocytes 44 % (21-51); MDiff Complete? YES; Manual Diff?? YES; Monocytes 4 % (0-10); Neutrophil 48 % (42-75)
[2017-01-01 07:10] LABS: Anisocytosis SLIGHT = 6-15 cells (100X) (0-5/hpf); PLT Morphology Comment Appears Adequate
[2017-01-01] MEDS: Multivit, Therapeutic 1 TAB PO SCH (08:56)
[2017-01-01] MEDS: Lisinopril 10 MG TAB PO SCH (08:56)
[2017-01-01] MEDS: Polyethylene Glycol 3350 17 GM Packet PO SCH (08:57)
[2017-01-01] MEDS: Folic Acid 1 MG TAB PO SCH (08:57)
[2017-01-01] MEDS: Aspirin 325 mg Enteric Coated Tablet PO SCH (08:57)
[2017-01-01] MEDS: cefTRIAXone\\ROCEPHIN 2 GM in Sodium Chloride 0.9% 100 ML IVPB SCH (12:07)
[2017-01-02] MEDS: diphenhydrAMINE HCl 25 MG CAP PO PRN ×6 (01:13→22:18)
[2017-01-02] MEDS: HYDROcodone/Acetaminophen 10/325 mg Tablet PO PRN ×6 (01:13→22:19)
[2017-01-02] MEDS: Aspirin 325 mg Enteric Coated Tablet PO SCH (08:30)
[2017-01-02] MEDS: Multivit, Therapeutic 1 TAB PO SCH (08:30)
[2017-01-02] MEDS: Lisinopril 10 MG TAB PO SCH (08:30)
[2017-01-02] MEDS: Folic Acid 1 MG TAB PO SCH (08:30)
[2017-01-02] MEDS: Polyethylene Glycol 3350 17 GM Packet PO SCH (08:32)
--- NOTE | 2017-01-02 12:20 | PRG ---
DATE OF SERVICE: 01/02/2017 SUBJECTIVE: The patient said he is feeling better. The shoulder is feeling better. He did see his orthopedic surgeon, Dr. Lima, yesterday. The sutures were removed and Dr. Lima was happy wit h his progress and recommended completion of the 6-week course of the IV antibiotics. He plans on s eeing him in followup on 02/09/2017. OBJECTIVE: The patient is alert and appears very comfortable, in no distress. His temperature is 9 7.6, pulse 81, respirations 18, O2 sat 97% on room air, blood pressure 143/67. Lungs are clear. He art, regular rate. Extremities, no edema. Left shoulder, his incision is healing well, all of the sutures have been removed. There is a little pinkness around the shoulder and a little firmness to the tissue inferior aspect of the incision from some local edema. Overall, the shoulder looks alfredo r. His lab done yesterday showed a hemoglobin of 8.7 and 27.8, WBC count of 5800 with 48% segs, 44% lymphocytes, and platelet count of 258,000. Sed rate stable at 93. His C-reactive protein was 5.5 . ASSESSMENT: 1. Left chronic shoulder infection. A. Culture from previous incision and drainage on 04/21/2016 grew Propionibacterium acne. B. Complicated by chronic pain, swelling and drainage. C. Incision and drainage of the wound with excision of the sinus tract, 12/11/2016. D. Status post left shoulder arthrotomy with debridement and copious irrigation of the deep infectio n on 12/13/2016 with a drain placed and advanced and removed. E. The sutures were removed on 01/01/2017. F. On IV Rocephin for 6 weeks. G. Overall, patient is improving. 2. Diabetes type 2, controlled on diet alone since his weight loss. Hemoglobin A1c recently 5.2. 3. 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 4. Paroxysmal atrial fibrillation. A. Rate controlled and on aspirin. The patient previously had stopped anticoagulants. 5. Hypertension, controlled. 6. History of transient ischemic attack initially presenting with weakness on the right arm 04/2016 . B. No recurrence. 7. Chronic anemia. A. Hemoglobin up to 8.6 as of 01/01/2017. 8. Chronic kidney disease stage 2. 9. History of alcoholism. A. Remains off alcohol since admission on 12/11/2016. 10. History of cigarette abuse. Off cigarettes for at least 15 years. 11. Left lower lobe nodule seen on CT scan 04/11/2016 has resolved, not seen on repeat CT scan on 0 12/29/2016. 12. Chronic low back pain secondary to lumbar spondylosis with moderate to severe stenosis at L2-3, L3-4 and L4-5. 13. History of asbestos exposure. 14. History of positive stool for occult blood. A. Occult blood tests are pending. PLAN: Continue IV Rocephin. Continue physical therapy.
[2017-01-02] MEDS: cefTRIAXone\\ROCEPHIN 2 GM in Sodium Chloride 0.9% 100 ML IVPB SCH (12:38)
[2017-01-03] MEDS: diphenhydrAMINE HCl 25 MG CAP PO PRN ×4 (07:25→20:18)
[2017-01-03] MEDS: HYDROcodone/Acetaminophen 10/325 mg Tablet PO PRN ×4 (07:26→20:17)
[2017-01-03] MEDS: Lisinopril 10 MG TAB PO SCH (08:40)
[2017-01-03] MEDS: Multivit, Therapeutic 1 TAB PO SCH (08:40)
[2017-01-03] MEDS: Folic Acid 1 MG TAB PO SCH (08:40)
[2017-01-03] MEDS: Aspirin 325 mg Enteric Coated Tablet PO SCH (08:40)
[2017-01-03] MEDS: Polyethylene Glycol 3350 17 GM Packet PO SCH (08:40)
[2017-01-03] MEDS: cefTRIAXone\\ROCEPHIN 2 GM in Sodium Chloride 0.9% 100 ML IVPB SCH (13:48)
[2017-01-04] MEDS: HYDROcodone/Acetaminophen 10/325 mg Tablet PO PRN ×6 (00:22→21:32)
[2017-01-04] MEDS: diphenhydrAMINE HCl 25 MG CAP PO PRN ×6 (00:23→21:33)
[2017-01-04] MEDS: Lisinopril 10 MG TAB PO SCH (09:18)
[2017-01-04] MEDS: Multivit, Therapeutic 1 TAB PO SCH (09:18)
[2017-01-04] MEDS: Folic Acid 1 MG TAB PO SCH (09:18)
[2017-01-04] MEDS: Aspirin 325 mg Enteric Coated Tablet PO SCH (09:19)
[2017-01-04] MEDS: Polyethylene Glycol 3350 17 GM Packet PO SCH (09:19)
[2017-01-04] MEDS: cefTRIAXone\\ROCEPHIN 2 GM in Sodium Chloride 0.9% 100 ML IVPB SCH (13:14)
[2017-01-05] MEDS: HYDROcodone/Acetaminophen 10/325 mg Tablet PO PRN ×6 (01:50→23:02)
[2017-01-05] MEDS: diphenhydrAMINE HCl 25 MG CAP PO PRN ×6 (01:51→23:03)
[2017-01-05] MEDS: Lisinopril 10 MG TAB PO SCH (08:34)
[2017-01-05] MEDS: Aspirin 325 mg Enteric Coated Tablet PO SCH (08:34)
[2017-01-05] MEDS: Polyethylene Glycol 3350 17 GM Packet PO SCH (08:34)
[2017-01-05] MEDS: Multivit, Therapeutic 1 TAB PO SCH (08:34)
[2017-01-05] MEDS: Folic Acid 1 MG TAB PO SCH (08:35)
[2017-01-05] MEDS: cefTRIAXone\\ROCEPHIN 2 GM in Sodium Chloride 0.9% 100 ML IVPB SCH (12:46)
--- NOTE | 2017-01-05 13:14 | PRG ---
DATE OF SERVICE: 01/05/2017 SUBJECTIVE: The patient said he is doing alright. He thinks he is moving that left shoulder a mary le more. He said there is a little swelling on the top part of the shoulder, but there has been no drainage. OBJECTIVE: The patient is lying in bed. He is awake, alert. He got up and sat on the side of the bed and looks comfortable. His vital signs show a temperature of 97.7, pulse 80, blood pressure 123 /60, respirations 18, O2 sat 97% on room air. Lungs are clear. Heart, regular rate. Left shoulder , there is a little swelling around the anterior shoulder, a little slight pink to reddish discolora tion. On the superior aspect of the incision there was a little more swelling and for about a centi meter and a half the incision has turned very dark. There is no drainage. Palpation did not disclo se any type of tenderness. His FBS this morning was 100. ASSESSMENT: 1. Left chronic shoulder infection. A. Culture from the previous incision and drainage on 04/21/2016 group Propionibacterium acne. B. Complicated by chronic pain, swelling, and drainage. C. Incision and drainage of the wound with excision of the sinus tract on 12/11/2016. D. Status post left shoulder arthrotomy with debridement and copious irrigation of the deep infecti on on 12/13/2016 with a drain placed and advanced and removed. E. Sutures were removed on 01/01/2017. F. On IV Rocephin for 6 weeks. G: The patient is developing a little increased swelling over the incisions superiorly with a littl e darkening of a centimeter and a half of the most superior portion of the incision as of 01/05/2017 . 2. Diabetes type 2, controlled on diet alone since weight loss. Recent hemoglobin A1c 52. 3. 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 4. Paroxysmal atrial fibrillation. A. Rate controlled and on aspirin. B. Previously stopped his anticoagulants. 5. Hypertension, controlled. 6. History of transient ischemic attack, stable, no recurrence since initial episode in 04/2016 pre senting with temporary weakness on the right side. 7. Chronic anemia. A. Hemoglobin up to 8.6 as of 01/01/2017. 8. Chronic kidney disease stage 2. 9. History of alcoholism. A. Remains off alcohol since 12/11/2016. 10. Left lower lobe nodule seen on CT scan from 04/11/2016. Repeat CT scan of 12/29/2016 showed re solution of his nodule. 11. Chronic low back pain secondary to lumbar spondylosis with moderate to severe stenosis at L2-3, L3-4 and L4-5 level. 12. History of asbestos exposure. 13. History stool for occult blood being positive. A. Occult blood test pending. PLAN: Continue IV antibiotics. Continue to watch this area. If the swelling increases we will arr diya for Dr. Lima to resee the patient.
[2017-01-05] MEDS: Mag-Al Plus 1200 MG/1200 MG/120 MG/30 ML UDCUP PO PRN ×2 (15:16→18:36)
[2017-01-06] MEDS: diphenhydrAMINE HCl 25 MG CAP PO PRN ×5 (02:53→20:13)
[2017-01-06] MEDS: HYDROcodone/Acetaminophen 10/325 mg Tablet PO PRN ×5 (02:53→20:11)
[2017-01-06] MEDS: Mag-Al Plus 1200 MG/1200 MG/120 MG/30 ML UDCUP PO PRN ×2 (08:27→15:19)
[2017-01-06] MEDS: Aspirin 325 mg Enteric Coated Tablet PO SCH (08:29)
[2017-01-06] MEDS: Multivit, Therapeutic 1 TAB PO SCH (08:29)
[2017-01-06] MEDS: Folic Acid 1 MG TAB PO SCH (08:29)
[2017-01-06] MEDS: Lisinopril 10 MG TAB PO SCH (08:29)
[2017-01-06] MEDS: Polyethylene Glycol 3350 17 GM Packet PO SCH (08:31)
--- NOTE | 2017-01-06 09:23 | PRG ---
DATE OF SERVICE: 01/06/2017 SUBJECTIVE: The patient said he is having more soreness in his left shoulder. OBJECTIVE: The patient is sitting up on the side of the bed. He is able to move the left shoulder, but says it just hurts a little more with movement. His vital signs shows temperature of 97.9, pul se 76, blood pressure 132/60, respirations 18, O2 saturation 98% on room air. His left shoulder, th e little increased redness and pinkness that was present yesterday has abated. He still has a swell ing, it is localized, just at the superior aspect of the incision. The area of swelling is about th e size of the tip of the thumb, that is about 1-1/2 - 2 centimeters in diameter and it feels a littl e fluctuant. The incision in that portion is blackish. There is no drainage from that area. ASSESSMENT: 1. Left chronic shoulder infection. A. Culture from previous incision and drainage on 04/21/2016 grew Propionibacterium acne. B. Complicated by chronic pain, swelling and drainage. C. Incision and drainage of the wounds with excision of the sinus tract on 12/11/2016. D. Status post left shoulder arthrotomy with debridement and copious irrigation of the deep infecti on on 12/13/2016 with drain placed and advanced and removed. E. Sutures removed on 01/01/2017. F. On IV Rocephin for 6 weeks, started on 12/11/2016. G. The patient developing increased swelling with an area of fluctuance over the superior aspect of the incision with some increased pain with also a pocket of swelling on the medial side of the inci fabrizio as of 01/06/2017. PLAN: 1. Continue the IV Rocephin. 2. Will arrange for Dr. Lima to recheck on the patient due to the increased swelling with an are a of fluctuance on the superior aspect of the wound.
[2017-01-06] MEDS: cefTRIAXone\\ROCEPHIN 2 GM in Sodium Chloride 0.9% 100 ML IVPB SCH (13:30)
--- NOTE | 2017-01-06 18:17 | PRG ---
DATE OF SERVICE: 01/06/2017 SUBJECTIVE: Just before noon today, patient bumped the right shoulder and the expanding swelled are a on the top of the right shoulder ruptured, the nurse said it drained a large amount of pus and ser osanguineous fluid. Patient says it feels better since this has happened. The nurse , as previousl y instructed, has collected cultures from the wound. I inspected the wound soon after this occurre d and patient has some moderate amount of serous drainage on the small dressing that has been applie d. The most superior aspect of the incision that was blackened has for a length of about 7 mm, and there is a serous drainage coming from this area. The swelling that was over this area ea rlier has flattened out. The patient said the area feels better. There is no surrounding redness. ASSESSMENT: 1. Left chronic shoulder infection. A. Culture from previous incision and drainage on 04/21/2016 grew Propionibacterium acnes. B. Complicated by chronic pain, swelling, and draining sinus tract. C. Incision and drainage of the wound with excision of the sinus tract on 12/11/2016. D. Status post left shoulder arthrotomy with debridement and copious irrigation of the deep infection on 12/13/2016 with drain placed, and advanced and removed. E. Sutures removed on 01/01/2017. F. On IV Rocephin for 6 weeks, started on 12/11/2016. G. The expanding swelling over the left superior aspect of the incision has ruptured and draine d a moderate to large amount of pus and now serosanguineous fluid flattening the area. I susp ect this represents a reopening up of chronic sinus tract. PLAN: Culture, sensitivity, and Gram stain were taken from the wound that opened and drained. I sp mandy with Dr. Lima, orthopedic surgeon, who had been scheduled to see him tomorrow. In visiting w ith him, he wants to delay this a few days to give a chance for the culture and sensitivity to retur n. He will then see the patient to make further decisions on management and more probably confer [facility] Infectious Disease specialist, Dr. Barajas. For now, we will continue to clean the wound and dress this wound with gauze dressing, and for now, we will continue the Rocephin. Any modification in an tibiotics will await results of cultures.
[2017-01-07] MEDS: HYDROcodone/Acetaminophen 10/325 mg Tablet PO PRN (00:09)
[2017-01-07] MEDS: diphenhydrAMINE HCl 25 MG CAP PO PRN ×3 (00:11→20:25)
[2017-01-07] MEDS ORDERED: HYDROcodone/Acetaminophen 7.5/325 mg Tablet PO PRN (06:33)
[2017-01-07] MEDS: Multivit, Therapeutic 1 TAB PO SCH (09:00)
[2017-01-07] MEDS: Folic Acid 1 MG TAB PO SCH (09:00)
[2017-01-07] MEDS: Aspirin 325 mg Enteric Coated Tablet PO SCH (09:00)
[2017-01-07] MEDS: Lisinopril 10 MG TAB PO SCH (09:00)
[2017-01-07] MEDS: HYDROcodone/Acetaminophen 7.5/325 mg Tablet PO PRN ×3 (09:01→19:04)
[2017-01-07] MEDS: Polyethylene Glycol 3350 17 GM Packet PO SCH (09:03)
[2017-01-07] MEDS: cefTRIAXone\\ROCEPHIN 2 GM in Sodium Chloride 0.9% 100 ML IVPB SCH (14:12)
--- NOTE | 2017-01-07 18:47 | PRG ---
DATE OF SERVICE: 01/07/2017 SUBJECTIVE: The patient said he is feeling little better today. The shoulder feels better. OBJECTIVE: GENERAL: The patient is sitting up in bed. He is alert and appears comfortable and in no distress. VITAL SIGNS: Shows a temperature 98.1, pulse 67, blood pressure 104/55, respirations 20, and O2 sat uration 94% on room air. LUNGS: Clear. HEART: Regular rate. EXTREMITIES: Left shoulder, the redness has resolved. The swelling on the superior aspect of the in cision has flattened out. The patient has some moderate amount of serous drainage on the dressing. The culture taken from the drainage from the right shoulder shows moderate amount of epithelial jeannette ls, moderate amount of WBCs, no organism seen, no growth at 12 hours. ASSESSMENT: 1. Left chronic shoulder infection. A. Culture from previous incision and drainage on 04/21/2016, grew propionibacterium acne. B. Complicated by chronic pain, swelling and draining sinus tract. C. Incision and drainage of the wound with excision of the sinus tract on 12/11/2016. D. Status post left shoulder arthrotomy with debridement and copious irrigation of the deep infecti on on 12/13/2016 with drain placed, advanced and removed. E. Cultures taken on 12/11/2016, aerobic and anaerobic had no growth. F. Sutures were removed on 01/01/2017. G. On IV Rocephin for 6 weeks, started on 12/11/2016. H. Expanding swelling over the superior aspect of the incision that ruptured and drained moderate a mount of pus and serosanguineous fluid on 01/06/2017. PLAN: Today, the shoulder looks better. The swelling over the superior aspect of the incision look s better. There is still moderate amount of serous drainage. The culture at 12 hours from the woun d taken on 01/06/2017 has no growth after other information obtained on this. The patient will be s een again by Dr. Lima, the orthopedic surgeon, he probably will arrange for consultation again [facility] Infectious Disease physician, Dr. Barajas. In the interval, we will continue the IV Rocephin and l ocal bandaging of the wound.
[2017-01-08] MEDS: diphenhydrAMINE HCl 25 MG CAP PO PRN ×4 (05:18→22:30)
[2017-01-08] MEDS: HYDROcodone/Acetaminophen 7.5/325 mg Tablet PO PRN ×5 (05:20→22:30)
[2017-01-08] MEDS: Folic Acid 1 MG TAB PO SCH (10:17)
[2017-01-08] MEDS: Aspirin 325 mg Enteric Coated Tablet PO SCH (10:17)
[2017-01-08] MEDS: Lisinopril 10 MG TAB PO SCH (10:17)
[2017-01-08] MEDS: Multivit, Therapeutic 1 TAB PO SCH (10:18)
[2017-01-08] MEDS: Polyethylene Glycol 3350 17 GM Packet PO SCH (10:19)
[2017-01-08 10:21] LABS: #Basophils 0.1 thou/uL (0.0-0.2); #Eosinphils 0.3 thou/uL (0.0-0.7); #Lymphocytes 2.3 thou/uL (1.20-3.40); #Monocytes 0.6 thou/uL (0.11-0.59); %Basophils 2.3 % (0.0-1.0); %Eosinophils 6.1 % (0.0-10.0); %Lymphocytes 42.2 % (21.0-51.0); %Monocytes 11.5 % (0.0-10.0); %Neutrophils 37.9 % (42.0-75.0); Hemoglobin 9.6 g/dL (14.0-18.0); Mean Corpuscular HGB CONC 32.9 g/dL (32.0-36.0); Mean Corpuscular Hemoglobin 27.4 pg (27.0-31.0); Mean Corpuscular Volume 83.4 fl (80.0-94.0); Mean Platelet Volume 6.6 fL (7.4-10.4); Platelet Count 288 thou/uL (130-400); RBC Distribution Width 13.6 % (11.5-14.5); Red Blood Cell (RBC) Count 3.52 mill/uL (4.70-6.10); White Blood Cell (WBC) Count 5.3 thou/uL (4.8-10.8)
[2017-01-08 10:57] LABS: Anion Gap 15 mmol/L (10-20); BUN (Urea Nitrogen) 25 mg/dL (8.4-25.7); Calc. Creatinine Clearance 62 mL/min (70-130); Calcium 9.8 mg/dL (7.8-10.44); Carbon Dioxide 22 mmol/L (23-31); Chloride 104 mmol/L (98-107); Estimated GFR-MDRD 60; Glucose 124 mg/dL (83-110); Potassium 4.3 mmol/L (3.5-5.1); Sodium 137 mmol/L (136-145)
[2017-01-08] MEDS: cefTRIAXone\\ROCEPHIN 2 GM in Sodium Chloride 0.9% 100 ML IVPB SCH (13:21)
[2017-01-09] MEDS: diphenhydrAMINE HCl 25 MG CAP PO PRN ×5 (05:15→21:01)
[2017-01-09] MEDS: HYDROcodone/Acetaminophen 7.5/325 mg Tablet PO PRN ×5 (05:15→21:01)
[2017-01-09] MEDS: Aspirin 325 mg Enteric Coated Tablet PO SCH (09:08)
[2017-01-09] MEDS: Folic Acid 1 MG TAB PO SCH (09:08)
[2017-01-09] MEDS: Multivit, Therapeutic 1 TAB PO SCH (09:09)
[2017-01-09] MEDS: Lisinopril 10 MG TAB PO SCH (09:09)
[2017-01-09] MEDS: Polyethylene Glycol 3350 17 GM Packet PO SCH (09:41)
[2017-01-09] MEDS: cefTRIAXone\\ROCEPHIN 2 GM in Sodium Chloride 0.9% 100 ML IVPB SCH (12:22)
--- NOTE | 2017-01-09 23:06 | PRG ---
DATE OF SERVICE: 01/09/2017 SUBJECTIVE: The patient said his arm is feeling better. He is moving it more. OBJECTIVE: GENERAL: The patient is sitting up on the side of the bed. He is alert, appears very comfortable, in no distress. VITAL SIGNS: Show a temperature of 97.9, pulse 64, blood pressure 114/56, respirations 18, O2 sat 9 5% on room air. LUNGS: Clear. HEART: Regular rate. EXTREMITIES: Left shoulder, but looks much better. There is no redness. The patient has very smal l open area along the most superior aspect of the incision that is no more than 5 mm. This area is flattened and very clean. There is moderate amount of serous drainage on the dressing. The arm was not tender to palpate. LABORATORY DATA: His FBS was 98. Culture from the shoulder has no growth at 3 days. ASSESSMENT: 1. Left chronic shoulder infection. A. Culture from the previous incision and drainage on 04/21/2016, grew Propionibacterium acne. B. Complicated by chronic pain, swelling, and chronic sinus tract. C. Incision and drainage of the wound with excision of the sinus tract on 12/11/2016. D. Status post left shoulder arthrotomy with debridement and copious irrigation of the deep infecti on on 12/13/2016 with drain placement, advanced and removed. E. Culture taken on 12/11/2016, aerobic and anaerobic had no growth. F. Sutures removed 01/01/2017. G. On IV Rocephin for 6 weeks starting on 12/11/2016 and due to complete on 01/22/2017. H. Expanding swelling over the superior aspect of the incision with rupture and drainage on 017. I. Wound continues to drain a serous fluid, but overall, the redness and swelling has resolved and arm looks much better with culture from 01/06/2017, no growth at 3 days. 2. History of diabetes mellitus. A. On no medication and diabetes has not required any treatment since his weight loss from 240 poun ds to 175. PLAN: I visited with patient and let him know that overall his shoulder looks much better. The swe lling and redness has all gone out of it. He continues to have a moderate amount of serous drainage . We will continue the IV antibiotics and we will schedule the patient be rechecked by Dr. Lima for recheck on this wound. In visiting with the patient, he said that he used to weigh 240 pounds, but after his , due to the grief and depression, he lost down to his present weight of arou nd 175. With weight loss, his diabetes has essentially resolved. We will continue the IV Rocephin, continue the physical therapy. The patient seem to be very comfortable on his present pain regimen and doing well on the hydrocodone 7.5. He takes Benadryl with this, which helps. He as an outpati ent was drinking the alcohol to try to help control the pain because he could not get the pain medic ine, suggested that he try to reduce the pain medicine to no more often than every 6 hours, and then this will be a very livable program to use as an outpatient for his chronic pain from his shoulders and his low back.
[2017-01-10] MEDS: HYDROcodone/Acetaminophen 7.5/325 mg Tablet PO PRN ×5 (04:02→20:22)
[2017-01-10] MEDS: diphenhydrAMINE HCl 25 MG CAP PO PRN ×5 (04:02→20:22)
[2017-01-10] MEDS: Folic Acid 1 MG TAB PO SCH (08:58)
[2017-01-10] MEDS: Aspirin 325 mg Enteric Coated Tablet PO SCH (08:58)
[2017-01-10] MEDS: Multivit, Therapeutic 1 TAB PO SCH (08:59)
[2017-01-10] MEDS: Lisinopril 10 MG TAB PO SCH (08:59)
[2017-01-10] MEDS: Polyethylene Glycol 3350 17 GM Packet PO SCH (08:59)
[2017-01-10] MEDS: cefTRIAXone\\ROCEPHIN 2 GM in Sodium Chloride 0.9% 100 ML IVPB SCH (12:29)
[2017-01-11] MEDS: HYDROcodone/Acetaminophen 7.5/325 mg Tablet PO PRN ×4 (07:37→21:19)
[2017-01-11] MEDS: diphenhydrAMINE HCl 25 MG CAP PO PRN ×4 (07:38→21:20)
[2017-01-11] MEDS: Lisinopril 10 MG TAB PO SCH (08:50)
[2017-01-11] MEDS: Multivit, Therapeutic 1 TAB PO SCH (08:50)
[2017-01-11] MEDS: Aspirin 325 mg Enteric Coated Tablet PO SCH (08:51)
[2017-01-11] MEDS: Folic Acid 1 MG TAB PO SCH (08:51)
[2017-01-11] MEDS: Polyethylene Glycol 3350 17 GM Packet PO SCH (08:51)
[2017-01-11] MEDS: cefTRIAXone\\ROCEPHIN 2 GM in Sodium Chloride 0.9% 100 ML IVPB SCH (13:13)
[2017-01-12] MEDS: HYDROcodone/Acetaminophen 7.5/325 mg Tablet PO PRN ×5 (02:55→20:34)
[2017-01-12] MEDS: diphenhydrAMINE HCl 25 MG CAP PO PRN ×4 (02:56→16:12)
[2017-01-12] MEDS: Folic Acid 1 MG TAB PO SCH (09:02)
[2017-01-12] MEDS: Lisinopril 10 MG TAB PO SCH (09:03)
[2017-01-12] MEDS: Aspirin 325 mg Enteric Coated Tablet PO SCH (09:03)
[2017-01-12] MEDS: Polyethylene Glycol 3350 17 GM Packet PO SCH (09:04)
[2017-01-12] MEDS: Multivit, Therapeutic 1 TAB PO SCH (09:04)
--- NOTE | 2017-01-12 11:58 | PRG ---
DATE OF SERVICE: 01/12/2017 SUBJECTIVE: The patient said he is feeling better. He is moving his arm better. He has had no fev er. Nurses report the drainage from that shoulder has been less. OBJECTIVE: Patient is sitting up on the edge of the bed. He is alert and appears very comfortable and in no distress. His vital signs shows a temperature of 97.3, pulse 65, blood pressure 130/66, r espirations 20, O2 sat 96% on room air. His weight 174. Lungs are clear. Heart, regular rate. Hi s left shoulder has no redness. There is moderate amount of serous drainage on the dressing. There is about 5 mm area with the incision, most superiorly is open where the drainage is coming from are a is nontender. ASSESSMENT: 1. Left chronic shoulder infection. A. Culture from previous incision and drainage on 04/21/2016 grew Propionibacterium acne. B. Complicated by chronic pain, swelling, and chronic sinus tract. C. Incision and drainage of the wound with excision of sinus tract on 12/12/2015. D. Status post left shoulder arthrotomy with debridement and copious irrigation of the deep infecti on on 12/13/2016 with drain placed and advanced and removed. E. Culture taken on 12/11/2016, aerobic and anaerobic no growth. F. Sutures removed on 01/01/2017. G. On IV Rocephin for 6 weeks starting on 12/11/2016, will complete on 01/22/2017. H. Expanding area of swelling over the most superior aspect of the incision has ruptured and draine d on 01/06/2017. I. Wound culture taken on 01/06/2017 has no growth. J. Wound looks still draining a moderate amount of serous drainage. Overall, the shoulder looks be tter with no redness and decreased pain as of 01/12/2017. 2. History of diabetes mellitus. A. On no medication and diabetes has not required any treatment since his weight has decreased from 240 to 175. 3. Hypertension, controlled. 4. History of transient ischemic attack. A. Initially presenting with weakness in the right arm on 04/2016. B. No recurrence. 5. Chronic anemia. 6. Chronic kidney disease stage 2. 7. History of alcoholism. A. Patient using alcohol for control of pain. B. He has been off the alcohol since admission on 12/11/2016. 8. Left lower lobe nodule seen on CT scan of 04/11/2016 has resolved and not seen on repeat CT scan on 12/29/2016. 9. Chronic low back pain secondary to lumbar spondylosis with moderate to severe stenosis at L2-L3, L3-L4 and L4-L5 level, history of asbestos exposure, history of positive stools for occult blood. A. First hemoccult stool negative, reported on 01/11/2017. PLAN: Overall, patient is doing better, the shoulder looks better, but he continues to have a littl e serous drainage. We will schedule him to be rechecked by his surgeon when he is here for his clin ic I think later this week. We will continue the IV antibiotics due to continue this to 01/22/2017. Continue physical therapy.
[2017-01-12] MEDS: cefTRIAXone\\ROCEPHIN 2 GM in Sodium Chloride 0.9% 100 ML IVPB SCH (13:50)
[2017-01-12] MEDS ORDERED: diphenhydrAMINE HCl 25 MG CAP ONE (16:05)
[2017-01-13] MEDS: HYDROcodone/Acetaminophen 7.5/325 mg Tablet PO PRN ×5 (03:27→20:56)
[2017-01-13] MEDS: diphenhydrAMINE HCl 25 MG CAP PO PRN ×4 (07:46→20:56)
[2017-01-13] MEDS: Folic Acid 1 MG TAB PO SCH (08:56)
[2017-01-13] MEDS: Lisinopril 10 MG TAB PO SCH (08:56)
[2017-01-13] MEDS: Multivit, Therapeutic 1 TAB PO SCH (08:57)
[2017-01-13] MEDS: Aspirin 325 mg Enteric Coated Tablet PO SCH (08:57)
[2017-01-13] MEDS: Polyethylene Glycol 3350 17 GM Packet PO SCH (08:57)
[2017-01-13] MEDS: Mag-Al Plus 1200 MG/1200 MG/120 MG/30 ML UDCUP PO PRN (09:01)
[2017-01-13] MEDS: cefTRIAXone\\ROCEPHIN 2 GM in Sodium Chloride 0.9% 100 ML IVPB SCH (14:10)
[2017-01-14] MEDS: HYDROcodone/Acetaminophen 7.5/325 mg Tablet PO PRN ×5 (05:09→21:05)
[2017-01-14] MEDS: diphenhydrAMINE HCl 25 MG CAP PO PRN ×5 (05:10→21:05)
[2017-01-14 05:27] LABS: ALT (SGPT) 29 U/L (8-55); AST (SGOT) 45 U/L (5-34); Albumin 3.8 g/dL (3.4-4.8); Alkaline Phosphatase 126 U/L (40-150); Anion Gap 14 mmol/L (10-20); BUN (Urea Nitrogen) 25 mg/dL (8.4-25.7); Bilirubin, Total Less than 0.3 mg/dL (0.2-1.2); Calc. Creatinine Clearance 60 mL/min (70-130); Calcium 9.9 mg/dL (7.8-10.44); Carbon Dioxide 26 mmol/L (23-31); Chloride 104 mmol/L (98-107); Estimated GFR-MDRD 58; Globulin 4.2 g/dL (2.4-3.5); Glucose 111 mg/dL (83-110); Potassium 4.9 mmol/L (3.5-5.1); Sodium 139 mmol/L (136-145)
[2017-01-14 05:36] LABS: Hemoglobin 10.2 g/dL (14.0-18.0); Mean Corpuscular HGB CONC 33.1 g/dL (32.0-36.0); Mean Corpuscular Hemoglobin 27.4 pg (27.0-31.0); Mean Corpuscular Volume 82.8 fl (80.0-94.0); Mean Platelet Volume 6.3 fL (7.4-10.4); Platelet Count 261 thou/uL (130-400); RBC Distribution Width 13.5 % (11.5-14.5); Red Blood Cell (RBC) Count 3.73 mill/uL (4.70-6.10); White Blood Cell (WBC) Count 5.4 thou/uL (4.8-10.8)
[2017-01-14 05:37] LABS: Band 1 % (5-11); Eosinophils 15 % (0-10); Hypochromia SLIGHT = 6-15 cells (100X) (0-5/hpf); Lymphocytes 52 % (21-51); MDiff Complete? YES; Monocytes 2 % (0-10); Neutrophil 30 % (42-75); PLT Morphology Comment Appears Adequate
[2017-01-14 05:38] LABS: RBC Morphology ABNORMAL
[2017-01-14] MEDS: Multivit, Therapeutic 1 TAB PO SCH (09:09)
[2017-01-14] MEDS: Aspirin 325 mg Enteric Coated Tablet PO SCH (09:09)
[2017-01-14] MEDS: Polyethylene Glycol 3350 17 GM Packet PO SCH (09:09)
[2017-01-14] MEDS: Lisinopril 10 MG TAB PO SCH (09:09)
[2017-01-14] MEDS: Folic Acid 1 MG TAB PO SCH (09:09)
[2017-01-14] MEDS: cefTRIAXone\\ROCEPHIN 2 GM in Sodium Chloride 0.9% 100 ML IVPB SCH (13:19)
[2017-01-14] MEDS: Mag-Al Plus 1200 MG/1200 MG/120 MG/30 ML UDCUP PO PRN (17:01)
[2017-01-15] MEDS: diphenhydrAMINE HCl 25 MG CAP PO PRN ×5 (02:48→20:16)
[2017-01-15] MEDS: HYDROcodone/Acetaminophen 7.5/325 mg Tablet PO PRN ×6 (02:49→20:16)
[2017-01-15] MEDS: Polyethylene Glycol 3350 17 GM Packet PO SCH (09:24)
[2017-01-15] MEDS: Lisinopril 10 MG TAB PO SCH (09:25)
[2017-01-15] MEDS: Multivit, Therapeutic 1 TAB PO SCH (09:25)
[2017-01-15] MEDS: Aspirin 325 mg Enteric Coated Tablet PO SCH (09:26)
[2017-01-15] MEDS: Folic Acid 1 MG TAB PO SCH (09:27)
[2017-01-15] MEDS: cefTRIAXone\\ROCEPHIN 2 GM in Sodium Chloride 0.9% 100 ML IVPB SCH (12:22)
[2017-01-16] MEDS: diphenhydrAMINE HCl 25 MG CAP PO PRN ×5 (05:18→23:10)
[2017-01-16] MEDS: HYDROcodone/Acetaminophen 7.5/325 mg Tablet PO PRN ×5 (05:18→23:06)
[2017-01-16] MEDS: Lisinopril 10 MG TAB PO SCH (08:44)
[2017-01-16] MEDS: Aspirin 325 mg Enteric Coated Tablet PO SCH (08:45)
[2017-01-16] MEDS: Folic Acid 1 MG TAB PO SCH (08:45)
[2017-01-16] MEDS: Polyethylene Glycol 3350 17 GM Packet PO SCH (08:46)
[2017-01-16] MEDS: Multivit, Therapeutic 1 TAB PO SCH (08:46)
--- NOTE | 2017-01-16 11:31 | PRG ---
DATE OF SERVICE: 01/16/2017 SUBJECTIVE: The patient said he is doing better. He is using his shoulder more and it is not hurti ng. He said he is still having the drainage from the shoulder, but it is less and it is certainly f ar less than what it was prior to the surgery and washout on 12/13/2016. Patient was due to see Dr. Lima yesterday when he was [facility], but somehow this was mixed up and marifer ent was not taken for this appointment. This is trying to be rescheduled. OBJECTIVE: The patient is sitting up at bedside. He is alert and appears very comfortable, in no d istress. His temperature is 98.3, pulse 70, blood pressure 137/71, respirations 20, O2 sat 96%. Hi s lungs are clear. His heart, regular rate. Left shoulder, there is no redness. The swelling has resolved. On the very superior part of the wound, there is a small opening with a small amount of g ranulation tissue and a moderate amount of serous drainage on the dressing. His lab work from 01/14 showed a white cell count 5400 with 30% segs, 52% lymphocytes. H\T\H of 10.2 and 30.9. His s edimentation rate has dropped to 68. His FBS is 127. His GFR 58. ASSESSMENT: 1. Left chronic shoulder infection. A. Culture from previous incision and drainage on 04/21/2016 grew Propionibacterium acne. B. Complicated by chronic pain, swelling, and chronic sinus tract. C. Incision and drainage of the wound with excision of sinus tract on 01/11/2017. D. Status post left shoulder arthrotomy with debridement and copious irrigation of the deep infecti on on 12/13/2016. Drain was placed and then advanced and removed. E. Culture taken on a 12/11/2016, aerobic and anaerobic, no growth. F. Sutures were removed on 01/01/2017. G. On IV Rocephin for 6 weeks, started on 12/11/2016 and will complete on 01/22/2017. H. Expanding area of swelling over the most superior aspect of the incision that ruptured and drain ed on 01/06/2017. I. Wound cultures taken on 01/06/2017, no growth. J. Wound continues to improve with all the redness resolved, but still has a small amount of serous drainage from the small opening at the superior part of the incision. 2. History of diabetes on no medication. The patient has not required any treatment since his weig ht loss from 240 to 175. Hemoglobin A1c most recently was 5.2. 3. Hypertension, controlled. 4. History of transient ischemic attack. A. Initially presented with weakness in the right arm on 04/29/2016. B. No recurrence. 5. Chronic anemia. A. Improved. Hemoglobin now up to 10.3 6. Chronic kidney disease stage 2. 7. History of alcoholism. A. The patient was using alcohol for control of pain. B. Has been off the alcohol since admission on 12/11/2016. 8. Left lower lobe nodule seen on CT scan from 04/11/2016 has resolved. This was not seen on repea t CT scan on 12/29/2016. 9. Chronic low back pain secondary to lumbar spondylosis with moderate to severe stenosis at L2-L3, L3-L4, and L4-L5. PLAN: Overall, the patient looks better. He continues to have the serous drainage, but this contin ues to diminish. The shoulder looks better, he is using the arm better. He is due to complete the IV ceftriaxone on 01/22/2017 and then will be placed on chronic suppressive antibiotics orally. We will arrange for the patient to be seen by Dr. Lima. Continue physical therapy. The patient's s ed rate has dropped to 63.
[2017-01-16] MEDS: cefTRIAXone\\ROCEPHIN 2 GM in Sodium Chloride 0.9% 100 ML IVPB SCH (13:10)
[2017-01-17] MEDS: diphenhydrAMINE HCl 25 MG CAP PO PRN ×5 (03:08→22:01)
[2017-01-17] MEDS: HYDROcodone/Acetaminophen 7.5/325 mg Tablet PO PRN ×5 (03:09→22:00)
[2017-01-17] MEDS: Multivit, Therapeutic 1 TAB PO SCH (08:52)
[2017-01-17] MEDS: Folic Acid 1 MG TAB PO SCH (08:52)
[2017-01-17] MEDS: Aspirin 325 mg Enteric Coated Tablet PO SCH (08:52)
[2017-01-17] MEDS: Lisinopril 10 MG TAB PO SCH (08:53)
[2017-01-17] MEDS: Polyethylene Glycol 3350 17 GM Packet PO SCH (08:53)
[2017-01-17] MEDS: cefTRIAXone\\ROCEPHIN 2 GM in Sodium Chloride 0.9% 100 ML IVPB SCH (13:38)
[2017-01-18] MEDS: HYDROcodone/Acetaminophen 7.5/325 mg Tablet PO PRN ×5 (03:57→22:07)
[2017-01-18] MEDS: diphenhydrAMINE HCl 25 MG CAP PO PRN ×5 (03:57→22:08)
[2017-01-18] MEDS: Lisinopril 10 MG TAB PO SCH (09:22)
[2017-01-18] MEDS: Folic Acid 1 MG TAB PO SCH (09:22)
[2017-01-18] MEDS: Polyethylene Glycol 3350 17 GM Packet PO SCH (09:22)
[2017-01-18] MEDS: Aspirin 325 mg Enteric Coated Tablet PO SCH (09:22)
[2017-01-18] MEDS: Multivit, Therapeutic 1 TAB PO SCH (09:22)
[2017-01-18] MEDS: cefTRIAXone\\ROCEPHIN 2 GM in Sodium Chloride 0.9% 100 ML IVPB SCH (14:06)
--- NOTE | 2017-01-18 19:13 | PRG ---
DATE OF SERVICE: 01/18/2017 SUBJECTIVE: The patient said that he is feeling better. His shoulder feels better. He is trying t o use a little bit more. He is still having some drainage out of the shoulder, but overall this is far less than what it had been prior to his hospitalization and surgery on 12/11/2016. The patient is scheduled to see Dr. Lima, the orthopedic surgeon, tomorrow and his son will be taking him for that appointment. OBJECTIVE: GENERAL: The patient is sitting up at edge of the bed. Overall, he is feeling very good. VITAL SIGNS: His temperature is 98.2, pulse 69, respirations 20, O2 saturation 95%, blood pressure 110/63. LUNGS: Clear. HEART: Regular rate. EXTREMITIES: His left shoulder, there is no swelling or redness, the most superior aspect of the in cision has a small open area with a small amount of granulation tissue. The dressing that was appli ed yesterday has a 3 cm spot of serosanguineous drainage. Bloods probably coming from some with gra nulation tissue. ASSESSMENT: 1. Left chronic shoulder infection. A. Culture from previous incision and drainage on 04/21/2016 grew Propionibacterium acne. B. Complicated by chronic pain, swelling, and chronic sinus tract. C. Incision and drainage of the wound with excision of sinus tract on 01/11/2017. D. Status post left shoulder arthrotomy with debridement and copious irrigation of the deep infection on 12/13/2016. Drain was placed and then advanced and removed. E. Culture taken on a 12/11/2016, aerobic and anaerobic, no growth. F. Sutures were removed on 01/01/2017. G. On IV Rocephin for 6 weeks, started on 12/11/2016 and will complete on 01/22/2017. H. Expanding area of swelling over the most superior aspect of the incision that ruptured and d rained on 01/06/2017. I. Wound cultures taken on 01/06/2017, no growth. J. Shoulder overall is improved. He still has a small amount of serosanguineous drainage comin g from the wound, but the redness has resolved. The pain in his shoulder is much less and he is moving the shoulder more as of 01/18/2017. 2. History of diabetes on no medication. The patient has not required any treatment since his weig ht loss from 240 to 175. Hemoglobin A1c most recently was 5.2. 3. Hypertension, controlled. 4. History of transient ischemic attack. A. Initially presented with weakness in the right arm on 04/29/2016. B. No recurrence. 5. Chronic anemia. A. Improved. Hemoglobin now up to 10.3 6. Chronic kidney disease stage 2. 7. History of alcoholism. A. The patient was using alcohol for control of pain. B. Has been off the alcohol since admission on 12/11/2016. 8. Left lower lobe nodule seen on CT scan from 04/11/2016 has resolved. This was not seen on repea t CT scan on 12/29/2016. 9. Chronic low back pain secondary to lumbar spondylosis with moderate to severe stenosis at L2-L3, L3-L4, and L4-L5. PLAN: The patient will be continued on ceftriaxone until 01/22/2017. He wants to try to go home la ter that day if possible. The patient will then be switched to oral antibiotic that he will probabl y have to stay on it indefinitely. The patient said at home, when he had it, he would use hydrocodo ne 10/325, one 3-4 times a day and this worked fine for him to control shoulder and low back pain. The patient is scheduled to see Dr. Lima in the morning. His son is going to be taking him there . Continue the physical therapy.
[2017-01-19] MEDS: diphenhydrAMINE HCl 25 MG CAP PO PRN ×4 (07:33→23:14)
[2017-01-19] MEDS: HYDROcodone/Acetaminophen 7.5/325 mg Tablet PO PRN ×4 (07:33→23:14)
[2017-01-19] MEDS: Aspirin 325 mg Enteric Coated Tablet PO SCH (08:53)
[2017-01-19] MEDS: Folic Acid 1 MG TAB PO SCH (08:53)
[2017-01-19] MEDS: Multivit, Therapeutic 1 TAB PO SCH (08:54)
[2017-01-19] MEDS: Lisinopril 10 MG TAB PO SCH (08:54)
[2017-01-19] MEDS: Polyethylene Glycol 3350 17 GM Packet PO SCH (08:55)
[2017-01-19] MEDS: cefTRIAXone\\ROCEPHIN 2 GM in Sodium Chloride 0.9% 100 ML IVPB SCH (14:45)
[2017-01-19 21:04] VITALS: BMI 25.1
[2017-01-20] MEDS: HYDROcodone/Acetaminophen 7.5/325 mg Tablet PO PRN ×3 (07:46→16:29)
[2017-01-20] MEDS: diphenhydrAMINE HCl 25 MG CAP PO PRN ×4 (07:47→20:46)
[2017-01-20] MEDS: Folic Acid 1 MG TAB PO SCH (08:22)
[2017-01-20] MEDS: Aspirin 325 mg Enteric Coated Tablet PO SCH (08:22)
[2017-01-20] MEDS: Multivit, Therapeutic 1 TAB PO SCH (08:22)
[2017-01-20] MEDS: Lisinopril 10 MG TAB PO SCH (08:22)
[2017-01-20] MEDS: Polyethylene Glycol 3350 17 GM Packet PO SCH (08:23)
[2017-01-20] MEDS: cefTRIAXone\\ROCEPHIN 2 GM in Sodium Chloride 0.9% 100 ML IVPB SCH (12:36)
[2017-01-20] MEDS: HYDROcodone/Acetaminophen 10/325 mg Tablet PO PRN (20:45)
--- NOTE | 2017-01-20 23:44 | PRG ---
DATE OF SERVICE: 01/20/2017 SUBJECTIVE: The patient saw Dr. Lima, his orthopedic surgeon yesterday. Dr. Lima was perplex ed by the continuous drainage of the shoulder and has advised the patient that he should complete th e 6-week course of the ceftriaxone which will complete on 01/12. Since all the cultures have had no growth, he does not feel like the patient needs to be continued on any additional long-term antibio tics. After his discharge, he will arrange for an MRI of the shoulder and then follow up. In the i nterval, he will continue and complete the 6-week course of ceftriaxone, completed on 01/12 and then will follow up with Dr. Lima. I talked with the patient and he said that at home he was getting back on hydrocodone 10/325 one 3-4 times a day. We will switch patient off of the 7.5/325 one to t wo every 4 hours to the schedule that he will be on at home. OBJECTIVE: The patient is alert and appears in no distress. His temp is 98.7, pulse 66, respiratio ns 18, O2 sat 96% on room air, and blood pressure 133/65. ASSESSMENT: 1. Left chronic shoulder infection. A. Culture from previous incision and drainage on 04/21/2016 grew Propionibacterium acne. B. Complicated by chronic pain, swelling, and chronic sinus tract. C. Incision and drainage of the wound with excision of sinus tract on 01/11/2017. D. Status post left shoulder arthrotomy with debridement and copious irrigation of the deep infection on 12/13/2016. Drain was placed and then advanced and removed. E. Culture taken on a 12/11/2016, aerobic and anaerobic, no growth. F. Sutures were removed on 01/01/2017. G. On IV Rocephin for 6 weeks, started on 12/11/2016 and will complete on 01/22/2017. H. Expanding area of swelling over the most superior aspect of the incision that ruptured and d rained on 01/06/2017. I. Wound cultures taken on 01/06/2017, no growth. J. The redness and swelling of the shoulder was resolved, but he still has a little serosanguin eous drainage from the most superior portion of the wound as of 01/20/2017. 2. History of diabetes on no medication. The patient has not required any treatment since his weig ht loss from 240 to 175. Hemoglobin A1c most recently was 5.2. 3. Hypertension, controlled. 4. History of transient ischemic attack. A. Initially presented with weakness in the right arm on 04/29/2016. B. No recurrence. 5. Chronic anemia. A. Improved. Hemoglobin now up to 10.3 6. Chronic kidney disease stage 2. 7. History of alcoholism. A. The patient was using alcohol for control of pain. B. Has been off the alcohol since admission on 12/11/2016. 8. Left lower lobe nodule seen on CT scan from 04/11/2016 has resolved. This was not seen on repea t CT scan on 12/29/2016. 9. Chronic low back pain secondary to lumbar spondylosis with moderate to severe stenosis at L2-L3, L3-L4, and L4-L5. PLAN: We will complete the ceftriaxone 6-week course on 01/12/2017 and then probably remove his PIC C line and let him go home later that day. The patient will not be sent out on any antibiotics. In visiting with the patient, he felt he would do fine on the hydrocodone 10/325 one 3-4 times a day. We will switch him to just see how he tolerates this.
[2017-01-21] MEDS: diphenhydrAMINE HCl 25 MG CAP PO PRN ×4 (07:22→23:51)
[2017-01-21] MEDS: HYDROcodone/Acetaminophen 10/325 mg Tablet PO PRN ×4 (07:22→23:51)
[2017-01-21] MEDS: Multivit, Therapeutic 1 TAB PO SCH (08:30)
[2017-01-21] MEDS: Folic Acid 1 MG TAB PO SCH (08:30)
[2017-01-21] MEDS: Aspirin 325 mg Enteric Coated Tablet PO SCH (08:31)
[2017-01-21] MEDS: Lisinopril 10 MG TAB PO SCH (08:31)
[2017-01-21] MEDS: Polyethylene Glycol 3350 17 GM Packet PO SCH (08:32)
[2017-01-21] MEDS: cefTRIAXone\\ROCEPHIN 2 GM in Sodium Chloride 0.9% 100 ML IVPB SCH (12:44)
[2017-01-22] MEDS: HYDROcodone/Acetaminophen 10/325 mg Tablet PO PRN ×2 (06:04→12:57)
[2017-01-22] MEDS: diphenhydrAMINE HCl 25 MG CAP PO PRN ×2 (06:04→12:58)
[2017-01-22 08:10] VITALS: BP 121/58; TEMP 98.5
[2017-01-22] MEDS: Multivit, Therapeutic 1 TAB PO SCH (09:01)
[2017-01-22] MEDS: Aspirin 325 mg Enteric Coated Tablet PO SCH (09:01)
[2017-01-22] MEDS: Lisinopril 10 MG TAB PO SCH (09:01)
[2017-01-22] MEDS: Polyethylene Glycol 3350 17 GM Packet PO SCH (09:02)
[2017-01-22] MEDS: Folic Acid 1 MG TAB PO SCH (09:02)
[2017-01-22] MEDS: cefTRIAXone\\ROCEPHIN 2 GM in Sodium Chloride 0.9% 100 ML IVPB SCH (12:58)
--- NOTE | 2017-01-23 02:21 | DIS ---
DATE OF ADMISSION: 12/16/2016 DATE OF DISCHARGE: 01/22/2017 ADDENDUM: 1. Left chronic shoulder infection. A. Culture from previous incision and drainage on 04/21/2016 grew Propionibacterium acne. B. Complicated by chronic pain, swelling, and chronic sinus tract. C. Incision and drainage of the wound with excision of sinus tract on 01/11/2017. D. Status post left shoulder arthrotomy with debridement and copious irrigation of the deep infection on 12/13/2016. Drain was placed and then advanced and removed. E. Culture taken on a 12/11/2016, aerobic and anaerobic, no growth. F. Sutures were removed on 01/01/2017. G. Completed a 6-week course of IV Rocephin that was started on 12/11/2016 and completed on . H. Expanding area of swelling over the most superior aspect of the incision that ruptured and d rained on 01/06/2017. I. Wound cultures taken on 01/06/2017, no growth. J. Redness has all resolved from the arm. Patient maintains an area of serous drainage from a small opening in the superior aspect of the incision of a serosanguineous drainage and is developing a lit tle bit more swelling in the inferior aspect of the shoulder anteriorly with no redness and no increased pain as o f 01/22/2017. K. Due to have an MRI of the shoulder on 01/23/2017 and then follow up with his surgeon, Dr. Ale atkins. 2. History of diabetes on no medication. The patient has not required any treatment since his weig ht loss from 240 to 175. Hemoglobin A1c most recently was 5.2. 3. Hypertension, controlled. 4. History of transient ischemic attack. A. Initially presented with weakness in the right arm on 04/29/2016. B. No recurrence. 5. Chronic anemia. A. Improved. Hemoglobin now up to 10.3 6. Chronic kidney disease stage 2. 7. History of alcoholism. A. The patient was using alcohol for control of pain. B. Has been off the alcohol since admission on 12/11/2016. 8. Left lower lobe nodule seen on CT scan from 04/11/2016 has resolved. This was not seen on repea t CT scan on 12/29/2016. 9. Chronic low back pain secondary to lumbar spondylosis with moderate to severe stenosis at L2-L3, L3-L4, and L4-L5. SUMMARY: Patient is a 71-year-old white male who has a history of a chronic infection in the left s ulder. He initially underwent an incision and drainage on 04/21/2016 and culture at that time gre w Propionibacterium acne. Following this, the wound seemed to heal, but then developed a chronic dr tang sinus tract, pain, and swelling. He represented to this hospital for increased pain and swel ling and at [facility] on 12/11/2016 underwent an incision and drainage and excision of t he sinus tract on 01/11/2017. Cultures from that procedure had no growth, these were aerobic and an aerobic. He was taken to surgery on 12/13/2016 and underwent a left shoulder arthrotomy with debrid ement of necrotic of any nonviable tissue, copious irrigation and closure of the wound, drain was pl aced and advanced and removed. He was started on IV Rocephin with recommendations from the Orthoped ic Surgeon, Dr. Lima and Infectious Disease Physician, Dr. Barajas, that he remain on IV Rocephin f or a total of 6 weeks. Patient was transferred to [facility] to extended care fo r completion of the 6 weeks of IV antibiotics and was admitted here on 12/16/2016. Historically, zeke manuel had diabetes mellitus, but he had gone over several months after the loss of his , a weigh t loss from 240 to 175. With this tremendous weight loss that he has been able to maintain, his hem oglobin A1c dropped to 5.2 and his FBS is usually around 100-110. He is on no medication. He also has a history of hypertension that has been controlled and a history of a TIA presenting with right- arm weakness in 04/2016. Workup at that time was unrevealing and he has had no recurrence. He has a history of chronic anemia, also has history of some mild chronic kidney disease, stage 2. He has chronic low back pain secondary to lumbar spondylosis with [id number] stenosis at L2-L3, L3- L4, and L4-L5 level. He said that he had been drinking too much alcohol to try to help control the pain prior to his hospitalization. Since his hospitalization, he has had no alcohol and his pain is sues seemed to have been adequately addressed. He also was found in 04/2016 to have a left lower lo be lung nodule. Repeat CT scan on 12/29/2016 showed that this had resolved, it also showed the shou naidaers had severe degenerative changes in both shoulders. HOSPITAL COURSE: Patient was treated with IV Rocephin 2 g daily through a PICC line in the right ar m and completed his 6-week course on 01/22/2017, after this the PICC line from the right arm was rem mariam. During the hospitalization, the incision healed and the sutures were all removed. He did dev elop an area of increased swelling, although over the most superior aspect of the incision that was drained. Culture of this had no growth, the arm gradually looked better and better, the redness and pinkness resolved and the swelling improved. At the last few days prior to his discharge, he did d evelop a little bit more swelling just inferior medial to the incision, but that area was nontender. It is felt that this is all from accumulation of the fluid in the joint. He continued to have ser osanguineous drainage from the most superior small opening in the incision. He has seen Dr. Lima in followup on a couple of occasions, one for remove the sutures and in followup after this drainag e developed and cultures came back with no growth. Dr. Lima has recommended completion of the IV antibiotics and then discharged him on on no antibiotics. He asked him to schedule for an MRI of the left shoulder on 01/23/2017, and then he will see him in followup. He will reevaluate nii colvin and tried to determine why he continues to have this persistent drainage with negative cultures. During his hospitalization, Physical Therapy worked with him and he was fully ambulatory and fully able to manage all his ADLs. His pain from the shoulders and his low back was managed with hydrocod one at home. He said he had used the hydrocodone 10/325 one tablet 3-4 times a day and this is what he will be sent home on. Patient has had no alcohol since his admission and said he had used this for help with control of his pain and he is warned to have not drink any alcohol with pain medicine, which he says he will not do that he will not drink any alcohol. The patient back seemed to be bridget sonably controlled. His diabetes showed very good control. His hemoglobin A1c was 5.2 and his fast ing blood sugars usually were less than 110 on fasting and on no medication and this was due to the marked improvement in his glucose and hemoglobin A1c is secondary to the weight loss. The patient h as chronic anemia. The hemoglobin was in the 8, but by 01/14/2017, it was up to 10.2 with normal in dices and normal white cell count, normal platelet count. His sed rate had been up as high as 104, but on 01/14 it was down to 68. His renal function on 01/14 showed a creatinine of 1.2, BUN 25, and a GFR of 58. His liver studies were normal. Albumin 3.8. By 01/22, patient's condition was stabl e. Such that felt he could be discharged after he completes his last dose of Rocephin and the PICC line removed. DISPOSITION: DIET: Regular diet. ACTIVITIES: As tolerated. Wound care cleaned the left draining wound site on the left shoulder wit h just soap and water daily and apply an overlying dressing and this should be changed daily. MEDICATIONS: Aspirin 325 mg daily; folic acid 1 mg daily; hydrocodone 10/325 one 4 times a day as n eeded, #60 prescribed with no refills; lisinopril 10 mg daily; MiraLax 17 g in 8 ounces of water akbar ly; thiamine 100 mg daily. FOLLOWUP: The patient is scheduled for an MRI of the left shoulder on 01/23/2017, then he will sche dule to see his Orthopedics Surgeon, Dr. Lima. Patient will follow up in my office within 2 week s. CODE STATUS: FULL CODE.
== END 2017-01-22 15:11 | disposition home health service, planned readmission (86) | DRG 550 ==
LOC: UNDOADMIN 19:00 → MADMS 19:00 → UNDOADMIN 12-22 01:01 → MADMS 12-22 01:01
PROVIDERS: ADMIT Family Medicine; ATTEND Family Medicine
DX: M00.812 Arthritis due to other bacteria, left shoulder (principal); I48.0 Paroxysmal atrial fibrillation; J44.9 Chronic obstructive pulmonary disease, unspecified; E11.9 Type 2 diabetes mellitus without complications; I12.9 Hypertensive chronic kidney disease with stage 1 through stage 4 chronic kidney disease, or unspecified chronic kidney disease; B96.89 Other specified bacterial agents as the cause of diseases classified elsewhere; L70.8 Other acne; M54.5 Low back pain; G89.29 Other chronic pain; M13.811 Other specified arthritis, right shoulder; D64.9 Anemia, unspecified; F10.20 Alcohol dependence, uncomplicated; M47.896 Other spondylosis, lumbar region; N18.2 Chronic kidney disease, stage 2 (mild); R63.4 Abnormal weight loss; Z86.73 Personal history of transient ischemic attack (TIA), and cerebral infarction without residual deficits; Z87.891 Personal history of nicotine dependence; Z79.82 Long term (current) use of aspirin; Z68.25 Body mass index [BMI] 25.0-25.9, adult
CPT/HCPCS: 36415; 36416; 71260; 80048; 80053; 82274; 83036; 85025; 85652; 86140; 87070; 87205; A4216; G8978-GP-CI; G8978-GP-CJ; G8979-GP-CI; J0696; J1642; J7050

== ENCOUNTER 2017-05-27 17:18 | Outpatient (CLI) | payer MEDICARE ==
--- NOTE | 2017-05-27 18:19 | RAD ---
FOUR VIEWS OF THE RIGHT SHOULDER 05/27/17 HISTORY: Patient fell six days ago and now has persistent right shoulder pain. FINDINGS: There is prominent right acromioclavicular joint osteoarthritis. There is also right glenohumeral ost eoarthropathy with prominent osteophytes seen. There is irregularity of the superior aspect of the gl enoid with what appears to be a prominent osseous excrescence in this region, but similar appearance was seen on a prior chest x-ray on 02/06/16 and findings are likely related to prominent glenohumeral osteoarthropathy as opposed to an acute fracture. However, given irregularity in this region, an acut e fracture of the superior glenoid cannot be entirely excluded on the basis of this exam. In addition , there appears to be posterior right shoulder dislocation. No additional osseous abnormality is seen . IMPRESSION: 1. Evidence for right posterior shoulder dislocation. 2. Irregularity of the superior aspect of the glenoid which may be related to prominent degenera tive changes, but there is a subtle lucency seen, and while this may be related to prominent degenera tive changes, a superimposed acute fracture cannot be entirely excluded. CT scan of the right shoulde r is recommended for further evaluation. 3. Above findings discussed with Dr. Montgomery on 05/27/[address] scan recommended. POS: [facility]
[2017-05-27 18:27] LABS: #Basophils 0.1 thou/uL (0.0-0.2); #Eosinphils 0.1 thou/uL (0.0-0.7); #Lymphocytes 2.2 thou/uL (1.20-3.40); #Monocytes 0.5 thou/uL (0.11-0.59); #Neutrophils 4.2 thou/uL (1.40-6.50); %Basophils 1.6 % (0.0-1.0); %Eosinophils 1.5 % (0.0-10.0); %Lymphocytes 30.7 % (21.0-51.0); %Monocytes 6.5 % (0.0-10.0); %Neutrophils 59.8 % (42.0-75.0); Hemoglobin 11.5 g/dL (14.0-18.0); Mean Corpuscular HGB CONC 31.1 g/dL (32.0-36.0); Mean Corpuscular Hemoglobin 24.9 pg (27.0-31.0); Mean Corpuscular Volume 80.2 fl (80.0-94.0); Mean Platelet Volume 6.5 fL (7.4-10.4); Platelet Count 349 thou/uL (130-400); RBC Distribution Width 14.5 % (11.5-14.5)
[2017-05-27 18:29] LABS: Manual Diff?? NO
[2017-05-27 18:33] LABS: ALT (SGPT) 12 U/L (8-55); AST (SGOT) 25 U/L (5-34); Albumin 4.1 g/dL (3.4-4.8); Alkaline Phosphatase 109 U/L (40-150); Anion Gap 19 mmol/L (10-20); BUN (Urea Nitrogen) 23 mg/dL (8.4-25.7); Bilirubin, Direct 0.2 mg/dL (0.1-0.3); Bilirubin, Total 0.3 mg/dL (0.2-1.2); Calc. Creatinine Clearance 0 mL/min (70-130); Calcium 9.8 mg/dL (7.8-10.44); Carbon Dioxide 19 mmol/L (23-31); Chloride 103 mmol/L (98-107); Estimated GFR-MDRD 57; Glucose 109 mg/dL (83-110); Potassium 5.1 mmol/L (3.5-5.1); Protein, Total 7.8 g/dL (5.8-8.1); Sodium 136 mmol/L (136-145)
[2017-05-27 20:27] LABS: CRP (Inflammatory) 10.01 mg/dL (= or < 0.5)
== END 2017-05-27 17:19 | disposition home or self-care (01) ==
LOC: MADRAD 17:18
PROVIDERS: ATTEND Family Medicine
DX: M25.511 Pain in right shoulder (principal); D63.8 Anemia in other chronic diseases classified elsewhere; M86.9 Osteomyelitis, unspecified; I10 Essential (primary) hypertension; S43.004A Unspecified dislocation of right shoulder joint, initial encounter
CPT/HCPCS: 36415; 80048; 80076; 85025; 85652; 86140

== ENCOUNTER 2017-05-29 15:01 | Outpatient (CLI) | payer MEDICARE ==
--- NOTE | 2017-06-01 07:32 | CT ---
CT RIGHT SHOULDER NONCONTRAST: HISTORY: Abnormal radiograph. Posterior shoulder dislocation. FINDINGS: There is approximately 50% posterior dislocation of the right humeral head in relation to the glenoid with a small divot where the posterior osseous glenoid abuts the base of the humeral head. Just pos terior to the superior margin of the osseous glenoid, a well-circumscribed 1.7 cm ossification is pre sent and accounts for the lesion seen on recent CT exam. There is osteophytosis of the acromioclavicular and glenohumeral joints. Fluid distends the joint ca psule and projects anteriorly. There is marked elevation of the humeral head with retraction of the muscles and tendons of the supraspinatus and infraspinatus. The subscapularis is also atrophied. IMPRESSION: 1. Chronic-appearing posterior dislocation of the right shoulder with an old, well corticated revers e Bankart osseous fragment. 2. Chronic large rotator cuff tear with retraction and atrophy. 3. Osteoarthritis of the shoulder. POS: [facility]
== END 2017-05-29 15:02 | disposition home or self-care (01) ==
LOC: MADCT 15:01
PROVIDERS: ATTEND Family Medicine
DX: S43.02 Posterior subluxation and dislocation of humerus (principal); R93.8 Abnormal findings on diagnostic imaging of other specified body structures; M75.101 Unspecified rotator cuff tear or rupture of right shoulder, not specified as traumatic; M19.011 Primary osteoarthritis, right shoulder

== ENCOUNTER 2017-07-08 10:30 | Inpatient (IN) | payer MEDICARE ==
[2017-07-08] MEDS ORDERED: HYDROcodone/Acetaminophen 10/325 mg Tablet PO PRN (12:11)
[2017-07-08] MEDS ORDERED: diphenhydrAMINE 25 MG CAP PO PRN (12:11)
[2017-07-08] MEDS: HYDROcodone/Acetaminophen 10/325 mg Tablet PO PRN ×3 (12:37→20:27)
[2017-07-08] MEDS ORDERED: Vancomycin HCl 1 GM in Premix Bag 1 BAG IVPB SCH (16:00)
[2017-07-08] MEDS ORDERED: Sodium Chloride 0.9% 10 ML ONE (16:27)
[2017-07-08] MEDS: Vancomycin HCl 1 GM in Sodium Chloride 0.9% 250 ML 250 ML IVPB SCH (16:30)
--- NOTE | 2017-07-08 20:27 | HP ---
DATE OF ADMISSION: 07/08/2017 CHIEF COMPLAINT: Needs IV antibiotics for an infected right shoulder, but he has had surgery. PRESENT ILLNESS: Patient is a 71-year-old white male who has a history of a chronic infection of the left shoulder. Initially, this began with chronic left shoulder pain for which he received a steroid injection in 12/2015. This later developed an infection in the left shoulder for which he underwent an incision and drainage on 04/21/2016, cultures at that time grew propionibacterium acne. He did well for a while after the I&D, but then gradually developed chronic swelling and drainage from the left shoulder. He was rehospitalized because of this repeat swelling and drainage and underwent an incision and drainage on 12/11/[address] Gilberto Lima, orthopedic surgeon. He was taken back to surgery 2 days later and underwent an arthrotomy with debridement and copious irrigation of the deep infection. Culture taken at that time had no growth. Patient was treated for a 6-week course of IV Rocephin, which the propionibacterium acne was sensitive to per recommendation of Dr. Barajas with Infectious Disease. During that time, he was on the antibiotics. He did develop some increased swelling and drainage from the shoulder that healed back over. Cultures taken of the drainage, had no growth. Upon completion of his 6-week course of IV antibiotics with Rocephin, he was discharged and saw Dr. Lima in followup. MRI of the shoulder was performed, which showed extensive rotator cuff abnormality, fluid in the left shoulder joint and enhanced abnormal signal in the humeral head consistent with osteomyelitis. Patient was readmitted to [facility] on 02/17/[address] Lima operated on the shoulder and did an arthrotomy with irrigation and debridement and curettage and debridement of the humeral head, beads of antibiotics string of vancomycin and tobramycin were placed in the wound. He was taken back again to surgery on 02/19/2017 underwent an incision and drainage of the left shoulder and removal of the seroma and again cleaned out the humeral head with copious washings. Culture at that time grew Staph aureus that was methicillin sensitive. Dr. Barajas, Infectious Disease recommended the patient be treated with IV cefazolin for an 8-week course, along with rifampin. Patient was treated at [facility] for this 8-week course of oral rifampin and IV cefazolin. Patient was transferred to [facility] on 02/23 to 02/24 for this 8-week course and was discharged on 2016. At day 36 on this cefazolin, he developed an urticarial rash that became generalized and was felt to be secondary to adverse reaction to the cefazolin or possibly to rifampin. A consult with Dr. Barajas and cefazolin and rifampin were stopped and he completed the remaining 20 days on vancomycin. Patient did well. The shoulder looks better. There was no drainage and no redness and the swelling resolved. He had very limited motion in that shoulder. Patient was discharged on Cipro 500 mg that he was instructed to take for 3 months and then daily indefinitely. Since his discharge on 04/17/2017, patient has had a fall with dislocation of the right shoulder, necessitating a closed reduction of the right shoulder with general anesthesia that was done by Dr. Lima on 2017. A repeat MRI was done of the left shoulder that showed fluid collection around the left shoulder with probable abscess and further changes and destruction in the humeral head from the osteomyelitis. Patient was readmitted to [facility] on 07/02/[address] Lima took him to surgery for left shoulder osteomyelitis was subcutaneous abscess and failure previous treatment. The shoulder had swelled and become more painful and draining. Patient underwent a left humeral head resection, incision and drainage of the left shoulder wound and abscess and placement with a prostalac antibiotic spacer per antibiotic spacer and then the wound was drained with the cultures, multiple cultures, aerobic, anaerobic, and AFB were taken. The aerobic and anaerobic cultures had no growth. The stains for AFB were negative. AFB cultures pending. The patient did well postop and the wound was healing well. The Two drains were removed from the shoulder. On 07/08/2017, Dr. Barajas has recommended that patient received another 6-week course of antibiotics for this chronic osteomyelitis that initially, he had recommended Rocephin, but in review of his allergies to cefazolin with the severe urticaria. I have spoken with Dr. Barajas today 07/08, reminded him of this allergy and he recommended discontinuation of the vancomycin through his PICC line that was placed in the right arm on 07/07/2017. This vancomycin should be given for 6-week course, which will complete on 07/20/2017. Patient was transferred to [facility] for these IV antibiotics and was admitted on 07/08/2017. Patient was seen and visited with on the day of his admission and he was able to review with me what had occurred. He said he is feeling better. He says he is using his pain medicine about every 4 hours for his shoulder and back pain, which is chronic. Patient said that when he was in the hospital before he had had an episode of atrial fib. He has had no recurrence, so initially he was placed on Eliquis and then due to cost this was switched to Xarelto, but then this too was not affordable. He had seen Dr. Vanessa, control room helper, and he remained in a sinus rhythm. It was elected to cover him with aspirin 325 mg 2 tablets daily as supposed to the Eliquis stopped the Xarelto. Patient has not had any recurrence of this. PAST HISTORY: Hospitalized at [facility] from 07/02/2017 to 2017 for left shoulder osteomyelitis and subcutaneous abscess with failure previous surgeries and IV antibiotics for which he underwent a left humeral head resection and placement of the prostalac antibiotic spacer and was treated with IV vancomycin. A PICC line was placed in the right arm on 07/07/2017. Patient had dislocation of the right shoulder from a fall in 05/30/2017 for which he underwent MRI, which showed severe right rotator cuff arthropathy with posterior shoulder dislocation and glenoid fracture. Patient underwent a closed reduction of that right shoulder. The shoulder is doing better. Hospitalized at [facility] from 03/12/2017 to 04/17/2017 for the chronic osteomyelitis of the left shoulder and underwent an 8-week course of IV antibiotics. Initial 36 days with cefazolin and rifampin that was stopped due to generalized urticaria and 8-week course complete with vancomycin. Patient has a history of diabetes, but has had a significant weight loss and was able to stop all medications. Patient has had a history of paroxysmal atrial fibrillation and has been in sinus rhythm. Could not afford the anticoagulants did not want to take Coumadin has been managed with metoprolol and aspirin. Patient has hypertension. He has a history of anemia of chronic illness, history of alcoholism, but has been off the alcohol during these hospitalizations, COPD, chronic low back pain secondary to lumbar spondylosis with moderate to severe stenosis at L2-L3, L3-L4, L4-L5 level and with chronic pain. Patient has gastroesophageal reflux disease that has been controlled. Patient has a history of a ruptured duodenal ulcer that was repaired. He has had exploratory laparotomy at the age of 14, was not sure for what reason. PRESENT MEDICINES: Aspirin 325 mg 2 daily, diphenhydramine 50 mg b.i.d. as needed, hydrocodone/acetaminophen 10/325 one to two every 4 hours as needed for pain, lisinopril 5 mg daily, lorazepam 1 mg b.i.d., pantoprazole 40 mg daily, vancomycin 1 gram IV daily. ALLERGIES: CEFAZOLIN causes urticaria, RIFAMPIN possible urticaria; was taking the CEFAZOLIN and RIFAMPIN when he had the urticaria. REVIEW OF SYSTEMS: Patient says he has not had any fever. He does not think his weight has changed. Head, neck, eye, nose, and throat: No complaints. Pulmonary: No shortness of breath. Cardiovascular: No chest pain. No palpitation, no racing sensation of the heart. GI occasionally. Patient has some reflux. He has done better with pantoprazole. : No complaints. Musculoskeletal: The patient has very limited motion in the left shoulder, has limitation of motion in the right shoulder, but better since he has had a dislocated right shoulder reduced. HABITS: Patient has a history alcoholism, but has been off the alcohol during these multiple hospitalizations. TOBACCO: None. 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 Patient is a . ADLs: The patient is independent of his ADLs. PHYSICAL EXAMINATION: GENERAL: Shows a pleasant 71-year-old white male who is sitting on the side of his bed. He is alert, talkative, appears comfortable in no distress. VITAL SIGNS: His temperature is 99, pulse 78, respirations 20, O2 sat 96% on room air, blood pressure 152/68. His weight is 181. HEAD: Normocephalic and atraumatic. EYES: Pupils were equal, round, and reactive. Sclerae nonicteric. EARS: TMs are clear. NOSE: Normal. MOUTH AND THROAT: Normal. NECK: Carotids are equal and strong, no bruits. Thyroid not enlarged. LUNGS: Clear. HEART: Regular rate. No murmurs. ABDOMEN: Left shoulder. There is a dressing over the left shoulder. The nurses changed this vertical incision on the anterior left shoulder. He said it had a little serosanguineous drainage from two sites where the Trell-Askew drains had been removed earlier today. There was no surrounding redness. The patient has very limited motion in the left shoulder. Right shoulder, there is a bony crepitation over the shoulder. There is limited motion in that right shoulder. ABDOMEN: Soft, no organomegaly, no areas of tenderness. NEUROLOGIC: Patient alert, oriented x3. He has no focal weakness, but limitations of motion and strength in both upper extremities from the shoulder pathology. IMPRESSION: 1. Chronic osteomyelitis of the left shoulder. A. Status failure to respond to previous I&D's, arthrotomies and debridement of the humeral head and multiple termite treater courses of IV antibiotics including Vancomycin, Rocephin, cefazolin which he had a reaction to with urticaria. B. Status post left humeral head resection and incision and drainage of soft tissue abscess with placement of a Prostalac antibiotic spacer on 07/02/2017 by orthopedic surgeon, Dr. Gilberto Lima. C. Cultures taken at the time of surgery including aerobic, anaerobic have no growth. AFB cultures negative. AFB stains negative. AFB cultures pending. D. Hospitalized for a 6-week course of IV vancomycin, controlled. 2. Hypertension, controlled. 3. Paroxysmal atrial fibrillation. A. Rate controlled. B. On aspirin as could not afford to take Eliquis or Xarelto and never placed on Coumadin. 4. History of transient ischemic attack. A. Initially presented with weakness in the right arm on . B. No recurrence. 5. Anemia of chronic illness. 6. History of alcoholism. A. Patient has been off the alcohol during these recent hospitalizations. 7. Chronic obstructive pulmonary disease. 8. History of diabetes. A. Presently on no medication. B. Hemoglobin A1c on 05/08/2017 was 5.6. 9. Chronic low back pain secondary to lumbar spondylosis with moderate to severe stenosis at L2-L3 level, L3-L4 level and L4-L5 level. 10. Right rotator cuff arthropathy with history of posterior shoulder dislocation and glenoid fracture from a fall 05/2017. A. Status post closed reduction to 06/11/2017. PLAN: Patient has been admitted to [facility] for 6-week course of IV antibiotics. Initially it was recommended that he will be placed on the Rocephin 2 grams IV daily through the PICC line that in the right arm. Patient has a history of significant reaction, urticaria with the cefazolin. Had continued the vancomycin 1 gram IV daily, which would have been reduced recently to daily due to the elevation of his vancomycin level. I spoke with Dr. Barajas and discussed this allergy with him and he has recommended that we continue the vancomycin IV daily for a 6-week course. We will have physical therapy work with patient. We will continue his present medicines. We will check labwork weekly to include CBC, basic metabolic panel, C-reactive protein, sedimentation rate, and vancomycin trough level. CODE STATUS: FULL CODE. MTDD
[2017-07-08] MEDS: Lorazepam 1 MG TAB PO SCH (20:28)
[2017-07-09] MEDS: HYDROcodone/Acetaminophen 10/325 mg Tablet PO PRN ×6 (00:32→23:48)
[2017-07-09 05:05] LABS: #Basophils 0.1 thou/uL (0.0-0.2); #Eosinphils 0.3 thou/uL (0.0-0.7); #Lymphocytes 2.2 thou/uL (1.20-3.40); #Monocytes 0.4 thou/uL (0.11-0.59); #Neutrophils 1.8 thou/uL (1.40-6.50); %Basophils 1.5 % (0.0-1.0); %Eosinophils 5.3 % (0.0-10.0); %Lymphocytes 45.5 % (21.0-51.0); %Neutrophils 38.7 % (42.0-75.0); Hemoglobin 7.6 g/dL (14.0-18.0); Mean Corpuscular HGB CONC 32.4 g/dL (32.0-36.0); Mean Corpuscular Hemoglobin 25.8 pg (27.0-31.0); Mean Corpuscular Volume 79.5 fl (80.0-94.0); Mean Platelet Volume 6.4 fL (7.4-10.4); Platelet Count 203 thou/uL (130-400); Red Blood Cell (RBC) Count 2.97 mill/uL (4.70-6.10); White Blood Cell (WBC) Count 4.8 thou/uL (4.8-10.8)
[2017-07-09 05:16] LABS: ALT (SGPT) 10 U/L (8-55); AST (SGOT) 19 U/L (5-34); Albumin 3.5 g/dL (3.4-4.8); Alkaline Phosphatase 79 U/L (40-150); Anion Gap 13 mmol/L (10-20); BUN (Urea Nitrogen) 16 mg/dL (8.4-25.7); Bilirubin, Total 0.2 mg/dL (0.2-1.2); Calc. Creatinine Clearance 59 mL/min (70-130); Calcium 9.1 mg/dL (7.8-10.44); Carbon Dioxide 25 mmol/L (23-31); Chloride 108 mmol/L (98-107); Estimated GFR-MDRD 54; Globulin 2.8 g/dL (2.4-3.5); Glucose 86 mg/dL (83-110); Potassium 4.5 mmol/L (3.5-5.1); Protein, Total 6.3 g/dL (5.8-8.1); Sodium 141 mmol/L (136-145)
[2017-07-09] MEDS: Metoprolol Tartrate 25 MG TAB PO SCH (08:27)
[2017-07-09] MEDS: Lisinopril 5 MG TAB PO SCH (08:27)
[2017-07-09] MEDS: Aspirin 325 mg Enteric Coated Tablet PO SCH (08:28)
[2017-07-09] MEDS: Lorazepam 1 MG TAB PO SCH ×2 (08:28→20:08)
[2017-07-09] MEDS ORDERED: diphenhydrAMINE 25 MG CAP PO PRN (09:30)
--- NOTE | 2017-07-09 11:09 | PRG ---
DATE OF SERVICE: 07/09/2017 SUBJECTIVE: The patient said he is doing okay. He says his pain is managed. He had no complaint. He has no shortness of breath or chest pain this morning. OBJECTIVE: The patient is sitting up on side of his bed. He is alert, appears very comfortable in n o distress. His temperature was 99.3 during the night, pulse 70, respirations 20, O2 sat 96% on room air, blood pressure 152/68. His left shoulder has a dressing that is dry. There is no staining on the dressing. His lungs were clear. Heart, regular rate. Extremities: No edema. Lab shows an H&H of 76 and 23.6 with white blood cell count of 4800 with 39% segs, 46% lymphocytes, a nd platelet count of 203,000. Sodium 141, potassium 4.5, BUN 16, creatinine of 1.3, GFR 54, glucose 86, albumin 3.5. ASSESSMENT: 1. Chronic osteomyelitis of the left shoulder. A. Status failure to respond to previous I&D's, arthrotomies and debridement of the humeral head and multiple fdc courses of IV antibiotics including Rocephin, cefazolin, which he had a reaction to urticaria and vancomycin. B. Status post left humeral head resection and incision and drainage of soft tissue abscess with hoang cement of a prostalac antibiotic spacer on 07/02/2017 by orthopedic surgeon, Dr. Gilberto Lima. C. Cultures taken at the time of surgery including aerobic, anaerobic have no growth. AFB cultures negative. AFB stains negative. AFB cultures pending. D. Hospitalized for a 6-week course of IV vancomycin, controlled. 2. Hypertension, controlled. 3. Paroxysmal atrial fibrillation. A. Rate controlled. B. On aspirin as could not afford to take Eliquis or Xarelto and never placed on Coumadin. 4. History of transient ischemic attack. A. Initially presented with weakness in the right arm on . B. No recurrence. 5. Anemia of chronic illness. A. Hemoglobin 7.6 as of 07/09/2017 as a result of his chronic anemia and recent surgical resection o f the left proximal humerus. Presently asymptomatic. 6. History of alcoholism. A. Patient has been off the alcohol during these recent hospitalizations. 7. Chronic obstructive pulmonary disease. 8. History of diabetes. A. Presently on no medication. B. Hemoglobin A1c on 05/08/2017 was 5.6. 9. Chronic low back pain secondary to lumbar spondylosis with moderate to severe stenosis at L2-L3 l evel, L3-L4 level and L4-L5 level. 10. Right rotator cuff arthropathy with history of posterior shoulder dislocation and glenoid fractu re from a fall 05/2017. A. Status post closed reduction to 06/11/2017. PLAN: The patient's condition is stable. He is receiving the vancomycin daily through the PICC line in the right arm. We will recheck CBC in the morning. If this is any lower, will require transfusi on. Physical Therapy will see the patient and work with him on general conditioning and gentle range of motion of the arms within his capabilities.
[2017-07-09 12:29] LABS: CRP (Inflammatory) 2.74 mg/dL (= or < 0.5)
[2017-07-09] MEDS: Vancomycin HCl 1 GM in Sodium Chloride 0.9% 250 ML 250 ML IVPB SCH (15:44)
[2017-07-09] MEDS: diphenhydrAMINE 25 MG CAP PO PRN (23:49)
[2017-07-10] MEDS: diphenhydrAMINE 25 MG CAP PO PRN ×4 (03:52→20:20)
[2017-07-10] MEDS: HYDROcodone/Acetaminophen 10/325 mg Tablet PO PRN ×4 (03:53→20:19)
[2017-07-10 05:04] LABS: #Basophils 0.1 thou/uL (0.0-0.2); #Eosinphils 0.3 thou/uL (0.0-0.7); #Monocytes 0.4 thou/uL (0.11-0.59); %Basophils 1.6 % (0.0-1.0); %Eosinophils 6.2 % (0.0-10.0); %Lymphocytes 41.6 % (21.0-51.0); %Monocytes 9.4 % (0.0-10.0); %Neutrophils 41.2 % (42.0-75.0); Hemoglobin 7.7 g/dL (14.0-18.0); Mean Corpuscular HGB CONC 32.4 g/dL (32.0-36.0); Mean Corpuscular Hemoglobin 25.7 pg (27.0-31.0); Mean Corpuscular Volume 79.2 fl (80.0-94.0); Mean Platelet Volume 6.5 fL (7.4-10.4); Platelet Count 217 thou/uL (130-400); RBC Distribution Width 15.2 % (11.5-14.5); White Blood Cell (WBC) Count 4.7 thou/uL (4.8-10.8)
[2017-07-10] MEDS: Lisinopril 5 MG TAB PO SCH (09:17)
[2017-07-10] MEDS: Aspirin 325 mg Enteric Coated Tablet PO SCH (09:17)
[2017-07-10] MEDS: Lorazepam 1 MG TAB PO SCH ×2 (09:17→20:18)
[2017-07-10] MEDS: Metoprolol Tartrate 25 MG TAB PO SCH (09:18)
--- NOTE | 2017-07-10 11:09 | PRG ---
DATE OF SERVICE: 07/10/2017 SUBJECTIVE: The patient said he is doing good today. He was hungry and ate all of his breakfast. Navin soni is working with physical therapy. OBJECTIVE: The patient is sitting up in his bed. He is able to get up and walk around in his room w ith no assistance. He looks very comfortable, in no distress. His temperature is 98, pulse 70, resp irations 16, O2 sat 98% on room air, blood pressure 158/77. Lungs are clear. Heart, regular rate. Dressing over the left shoulder was removed. There is no drainage on the dressing. The incision loo ks like it is healing well. There is no redness. His labs shows H&H of 7.7 and 23.8, white cell cou nt 4700 with an MCV of 79, platelet count of 217, 41% segs, 42% lymphocytes. Sedimentation rate 57. CRP was 2.74. ASSESSMENT: 1. Chronic osteomyelitis of the left shoulder. A. Status failure to respond to previous I&D's, arthrotomies and debridement of the humeral head and multiple jail courses of IV antibiotics including Rocephin, cefazolin, which he had a reaction to urticaria and vancomycin. B. Status post left humeral head resection and incision and drainage of soft tissue abscess with hoang cement of a prostalac antibiotic spacer on 07/02/2017 by orthopedic surgeon, Dr. Gilberto Lima. C. Cultures taken at the time of surgery including aerobic, anaerobic have no growth. AFB cultures negative. AFB stains negative. AFB cultures pending. D. Hospitalized for a 6-week course of IV vancomycin, controlled. E. Left shoulder incision is healing. There is no redness, no drainage as of 07/10/2017. 2. Hypertension, controlled. 3. Paroxysmal atrial fibrillation. A. Rate controlled. B. On aspirin as could not afford to take Eliquis or Xarelto and never placed on Coumadin. 4. History of transient ischemic attack. A. Initially presented with weakness in the right arm on . B. No recurrence. 5. Anemia of chronic illness. A. Hemoglobin 7.6 as of 07/09/2017 as a result of his chronic anemia and recent surgical resection o f the left proximal humerus. Presently asymptomatic. B. Hemoglobin 7.7 as of 07/10/2017. Asymptomatic. 6. History of alcoholism. A. Patient has been off the alcohol during these recent hospitalizations. 7. Chronic obstructive pulmonary disease. 8. History of diabetes. A. Presently on no medication. B. Hemoglobin A1c on 05/08/2017 was 5.6. 9. Chronic low back pain secondary to lumbar spondylosis with moderate to severe stenosis at L2-L3 l evel, L3-L4 level and L4-L5 level. 10. Right rotator cuff arthropathy with history of posterior shoulder dislocation and glenoid fractu re from a fall 05/2017. A. Status post closed reduction to 06/11/2017. PLAN: Continue present care. The patient due to see Dr. Lima, his orthopedic surgeon, in follow up on 07/22/2017 and tentatively remove the sutures unless they are already removed prior to that. W e will continue physical therapy. I talked with the patient about need for as he is improving to gr adually do a cut back on his pain medication. The patient will try to start cutting this. On Thursday07/13/2017 we will start trying a gradual roll back on these pain pills by maybe cutting the interva l to every 5 hours instead of every 4.
[2017-07-10 15:29] LABS: Vancomycin, Trough 14.6 ug/mL
[2017-07-10] MEDS ORDERED: Vancomycin HCl 750 MG VIAL ONE (15:56)
[2017-07-10] MEDS: Vancomycin HCl 1 GM in Sodium Chloride 0.9% 250 ML 250 ML IVPB SCH (16:02)
[2017-07-10] MEDS ORDERED: Sodium Chloride 0.9% 10 ML ONE (18:12)
[2017-07-11] MEDS: diphenhydrAMINE 25 MG CAP PO PRN ×5 (00:14→20:18)
[2017-07-11] MEDS: HYDROcodone/Acetaminophen 10/325 mg Tablet PO PRN ×5 (00:14→20:17)
[2017-07-11] MEDS: Lorazepam 1 MG TAB PO SCH ×2 (07:52→20:16)
[2017-07-11] MEDS: Aspirin 325 mg Enteric Coated Tablet PO SCH (07:53)
[2017-07-11] MEDS: Lisinopril 5 MG TAB PO SCH (07:53)
[2017-07-11] MEDS: Metoprolol Tartrate 25 MG TAB PO SCH (07:53)
[2017-07-11] MEDS: Vancomycin HCl 1 GM in Sodium Chloride 0.9% 250 ML 250 ML IVPB SCH (15:19)
[2017-07-12] MEDS: diphenhydrAMINE 25 MG CAP PO PRN ×5 (00:33→20:09)
[2017-07-12] MEDS: HYDROcodone/Acetaminophen 10/325 mg Tablet PO PRN ×5 (00:33→20:09)
[2017-07-12 05:21] LABS: #Basophils 0.1 thou/uL (0.0-0.2); #Eosinphils 0.3 thou/uL (0.0-0.7); #Lymphocytes 2.1 thou/uL (1.20-3.40); #Monocytes 0.4 thou/uL (0.11-0.59); #Neutrophils 2.3 thou/uL (1.40-6.50); %Basophils 1.8 % (0.0-1.0); %Lymphocytes 40.1 % (21.0-51.0); %Monocytes 8.5 % (0.0-10.0); %Neutrophils 43.6 % (42.0-75.0); Hemoglobin 8.7 g/dL (14.0-18.0); Mean Corpuscular HGB CONC 31.8 g/dL (32.0-36.0); Mean Corpuscular Hemoglobin 25.3 pg (27.0-31.0); Mean Corpuscular Volume 79.4 fl (80.0-94.0); Mean Platelet Volume 6.4 fL (7.4-10.4); Platelet Count 230 thou/uL (130-400); RBC Distribution Width 14.7 % (11.5-14.5); Red Blood Cell (RBC) Count 3.46 mill/uL (4.70-6.10); White Blood Cell (WBC) Count 5.2 thou/uL (4.8-10.8)
[2017-07-12] MEDS: Aspirin 325 mg Enteric Coated Tablet PO SCH (07:49)
[2017-07-12] MEDS: Lisinopril 5 MG TAB PO SCH (07:50)
[2017-07-12] MEDS: Lorazepam 1 MG TAB PO SCH ×2 (07:50→20:09)
[2017-07-12] MEDS: Metoprolol Tartrate 25 MG TAB PO SCH (07:50)
[2017-07-12] MEDS: Vancomycin HCl 1 GM in Sodium Chloride 0.9% 250 ML 250 ML IVPB SCH (15:31)
[2017-07-13] MEDS: HYDROcodone/Acetaminophen 10/325 mg Tablet PO PRN ×4 (04:22→20:23)
[2017-07-13] MEDS: diphenhydrAMINE 25 MG CAP PO PRN ×2 (04:23→20:23)
[2017-07-13] MEDS: Lorazepam 1 MG TAB PO SCH ×2 (08:01→20:23)
[2017-07-13] MEDS: Metoprolol Tartrate 25 MG TAB PO SCH (08:02)
[2017-07-13] MEDS: Aspirin 325 mg Enteric Coated Tablet PO SCH (08:02)
[2017-07-13] MEDS: Lisinopril 5 MG TAB PO SCH (08:02)
--- NOTE | 2017-07-13 08:07 | PRG ---
DATE OF SERVICE: 07/13/2017 SUBJECTIVE: The patient said he noticed a little redness around the left shoulder. He says he still has his chronic pain in both shoulders and low back, very reluctant to do any type of reduction in h is pain medication. He is receiving the hydrocodone about every 4 hours. OBJECTIVE: The patient is sitting up in bed, alert, appears comfortable in no distress. Temp 98.6, pulse 70, respirations 18, O2 sat 94% on room air, blood pressure 167/88. Lungs, clear. Heart, regul ar rate. Left shoulder; the patient has a little redness over the anterior border of the left axilla that extends down into the upper forearm a little bit. That area is a little bit warm. There is no fluctuance in that region. There is no drainage from the incision. His H&H yesterday was up to 8.7 and 27.4, WBC count 5200 with 44% segs, 40% lymphocytes, and platelet count of 230,000. Vancomycin level drawn yesterday pending. ASSESSMENT: 1. Chronic osteomyelitis of the left shoulder. A. Status failure to respond to previous I&D's, arthrotomies and debridement of the humeral head and multiple senior care courses of IV antibiotics including Rocephin, cefazolin, which he had a reaction to urticaria and vancomycin. B. Status post left humeral head resection and incision and drainage of soft tissue abscess with hoang cement of a prostalac antibiotic spacer on 07/02/2017 by orthopedic surgeon, Dr. Gilberto Lima. C. Cultures taken at the time of surgery including aerobic, anaerobic have no growth. AFB cultures negative. AFB stains negative. AFB cultures pending. D. Hospitalized for a 6-week course of IV vancomycin, controlled. E. Left shoulder incision healing. There is some redness over the lower edge of the incision that e xtends to the anterior border of the axilla and a little into the left arm. The area is a little war m. There is no fluctuance as of 07/13/2017. 2. Hypertension, controlled. 3. Paroxysmal atrial fibrillation. A. Rate controlled. B. On aspirin as could not afford to take Eliquis or Xarelto and never placed on Coumadin. 4. History of transient ischemic attack. A. Initially presented with weakness in the right arm on . B. No recurrence. 5. Anemia of chronic illness. A. Hemoglobin 7.6 as of 07/09/2017 as a result of his chronic anemia and recent surgical resection o f the left proximal humerus. Presently asymptomatic. B. Hemoglobin up to 8.7 as of 07/12/2017. Asymptomatic. 6. History of alcoholism. A. Patient has been off the alcohol during these recent hospitalizations. 7. Chronic obstructive pulmonary disease. 8. History of diabetes. A. Presently on no medication. B. Hemoglobin A1c on 05/08/2017 was 5.6. 9. Chronic low back pain secondary to lumbar spondylosis with moderate to severe stenosis at L2-L3 l evel, L3-L4 level and L4-L5 level. 10. Right rotator cuff arthropathy with history of posterior shoulder dislocation and glenoid fractu re from a fall 05/2017. A. Status post closed reduction to 06/11/2017. PLAN: Will continue present care. Will recheck lab work in the morning and watch the area of rednes s. If this increases we will arrange for patient to be rechecked by Dr. Lima.
[2017-07-13 15:27] LABS: Vancomycin, Trough 11.2 ug/mL
[2017-07-13] MEDS: Vancomycin HCl 1 GM in Sodium Chloride 0.9% 250 ML 250 ML IVPB SCH (16:11)
[2017-07-14] MEDS: diphenhydrAMINE 25 MG CAP PO PRN ×2 (03:50→21:28)
[2017-07-14] MEDS: Vancomycin HCl 750 MG in Sodium Chloride 0.9% 250 ML 250 ML IVPB SCH ×2 (03:50→16:08)
[2017-07-14] MEDS: HYDROcodone/Acetaminophen 10/325 mg Tablet PO PRN ×5 (03:50→21:27)
[2017-07-14 05:22] LABS: #Basophils 0.1 thou/uL (0.0-0.2); #Eosinphils 0.3 thou/uL (0.0-0.7); #Monocytes 0.5 thou/uL (0.11-0.59); #Neutrophils 2.1 thou/uL (1.40-6.50); %Basophils 2.9 % (0.0-1.0); %Eosinophils 6.1 % (0.0-10.0); %Lymphocytes 39.5 % (21.0-51.0); %Monocytes 10.5 % (0.0-10.0); Anisocytosis MODERATE=16-30 cells (100X) (0-5/hpf); Elliptocytes SLIGHT = 2-5 cells (100X) (0-1/hpf); Hemoglobin 8.9 g/dL (14.0-18.0); Hypochromia MODERATE=16-30 cells (100X) (0-5/hpf); MDiff Complete? YES; Mean Corpuscular HGB CONC 30.9 g/dL (32.0-36.0); Mean Corpuscular Hemoglobin 24.7 pg (27.0-31.0); Mean Corpuscular Volume 80.1 fl (80.0-94.0); Mean Platelet Volume 6.6 fL (7.4-10.4); PLT Morphology Comment Appears Adequate; Platelet Count 258 thou/uL (130-400); Poikilocytosis MODERATE=16-30 cells (100X) (0-5/hpf); RBC Distribution Width 14.7 % (11.5-14.5); RBC Morphology Abnormal; Red Blood Cell (RBC) Count 3.61 mill/uL (4.70-6.10)
[2017-07-14 05:38] LABS: Anion Gap 15 mmol/L (10-20); BUN (Urea Nitrogen) 14 mg/dL (8.4-25.7); Calc. Creatinine Clearance 67 mL/min (70-130); Calcium 9.5 mg/dL (7.8-10.44); Carbon Dioxide 23 mmol/L (23-31); Chloride 106 mmol/L (98-107); Estimated GFR-MDRD 66; Glucose 106 mg/dL (83-110); Sodium 140 mmol/L (136-145)
--- NOTE | 2017-07-14 08:56 | PRG ---
DATE OF SERVICE: 07/14/2017 SUBJECTIVE: The patient says he feels better, had a good night. OBJECTIVE: The patient lying in bed. He is alert, appears in no distress. His temperature 98, puls e 71, respirations 20, O2 saturation 94% on room air, blood pressure 133/70. Lungs are clear. Heart , regular rate. Left shoulder, the incision is healing. There is no drainage from the incision. Th e redness and pinkness that was just inferior to the incision extending to the anterior axillary fold looks much better. The wound is no longer pink. It is just kind of a brawny color. There is sligh t induration in that area, but no fluctuance. The area is nontender. Lab shows an and shows an H&H of 8.9 and 28.9, white cell count 5000, 41% segs, 40% lymphocytes, and a platelet count of 258,000. Sed rate 77. Sodium 140, potassium 4, BUN 14, creatinine 1.1, GFR 66. CRP pending. Trough level of vancomycin yesterday was 11.2. ASSESSMENT: 1. Chronic osteomyelitis of the left shoulder. A. Status failure to respond to previous I&D's, arthrotomies and debridement of the humeral head and multiple assisted courses of IV antibiotics including Rocephin, cefazolin, which he had a reaction to urticaria and vancomycin. B. Status post left humeral head resection and incision and drainage of soft tissue abscess with placement of a prostalac antibiotic spacer on 07/02/2017 by orthopedic surgeon, Dr. Gilberto atkins. C. Cultures taken at the time of surgery including aerobic, anaerobic have no growth. AFB cultu res negative. AFB stains negative. AFB cultures pending. D. Hospitalized for a 6-week course of IV vancomycin, controlled. E. Left shoulder incision healing. No drainage. The little redness just below the incision to the anterior axillary line is fading and looks better as of 07/14/2017. There is no increased warmth or t enderness. 2. Hypertension, controlled. 3. Paroxysmal atrial fibrillation. A. Rate controlled. B. On aspirin as could not afford to take Eliquis or Xarelto and never placed on Coumadin. 4. History of transient ischemic attack. A. Initially presented with weakness in the right arm on . B. No recurrence. 5. Anemia of chronic illness. A. Hemoglobin 7.6 as of 07/09/2017 as a result of his chronic anemia and recent surgical resecti on of the left proximal humerus. Presently asymptomatic. B. Hemoglobin up to 8.9 as of 07/14/2017. Asymptomatic. 6. History of alcoholism. A. Patient has been off the alcohol during these recent hospitalizations. 7. Chronic obstructive pulmonary disease. 8. History of diabetes. A. Presently on no medication. B. Hemoglobin A1c on 05/08/2017 was 5.6. 9. Chronic low back pain secondary to lumbar spondylosis with moderate to severe stenosis at L2-L3 l evel, L3-L4 level and L4-L5 level. 10. Right rotator cuff arthropathy with history of posterior shoulder dislocation and glenoid fractur e from a fall 05/2017. A. Status post closed reduction to 06/11/2017. PLAN: Continue present care. The pharmacy has adjusted the vancomycin from 1 gram q.24 hours to 75 0 mg every 12 hours in response to a low vancomycin level. Continue physical therapy.
[2017-07-14] MEDS: Metoprolol Tartrate 25 MG TAB PO SCH (09:14)
[2017-07-14] MEDS: Aspirin 325 mg Enteric Coated Tablet PO SCH (09:14)
[2017-07-14] MEDS: Lisinopril 5 MG TAB PO SCH (09:14)
[2017-07-14] MEDS: Lorazepam 1 MG TAB PO SCH ×2 (09:14→21:28)
[2017-07-14 12:20] LABS: CRP (Inflammatory) 4.73 mg/dL (= or < 0.5)
[2017-07-15] MEDS: HYDROcodone/Acetaminophen 10/325 mg Tablet PO PRN ×5 (01:26→19:46)
[2017-07-15] MEDS: diphenhydrAMINE 25 MG CAP PO PRN ×5 (01:27→19:47)
[2017-07-15] MEDS: Vancomycin HCl 750 MG in Sodium Chloride 0.9% 250 ML 250 ML IVPB SCH ×2 (03:26→15:13)
[2017-07-15] MEDS: Lisinopril 5 MG TAB PO SCH (08:03)
[2017-07-15] MEDS: Metoprolol Tartrate 25 MG TAB PO SCH (08:03)
[2017-07-15] MEDS: Lorazepam 1 MG TAB PO SCH ×2 (08:03→21:51)
[2017-07-15] MEDS: Aspirin 325 mg Enteric Coated Tablet PO SCH (08:03)
[2017-07-15] MEDS: Multivit, Therapeutic 1 TAB PO SCH (09:17)
[2017-07-15 15:55] LABS: Vancomycin, Trough 16.9 ug/mL
[2017-07-16] MEDS: HYDROcodone/Acetaminophen 10/325 mg Tablet PO PRN ×5 (01:25→21:56)
[2017-07-16] MEDS: diphenhydrAMINE 25 MG CAP PO PRN ×5 (01:26→21:56)
[2017-07-16] MEDS: Vancomycin HCl 750 MG in Sodium Chloride 0.9% 250 ML 250 ML IVPB SCH ×2 (03:08→15:14)
[2017-07-16] MEDS: Lisinopril 5 MG TAB PO SCH (07:37)
[2017-07-16] MEDS: Aspirin 325 mg Enteric Coated Tablet PO SCH (07:37)
[2017-07-16] MEDS: Metoprolol Tartrate 25 MG TAB PO SCH (07:38)
[2017-07-16] MEDS: Lorazepam 1 MG TAB PO SCH ×2 (07:38→20:19)
[2017-07-16] MEDS: Multivit, Therapeutic 1 TAB PO SCH (07:38)
--- NOTE | 2017-07-16 08:39 | PRG ---
DATE OF SERVICE: 07/16/2017 SUBJECTIVE: The patient said he is doing okay. He still has some pain. He is trying to stretch his hydrocodone a little bit. He says on occasion, he has gone four and a half to 5 hours. He did ask for some tramadol, maybe to use in between. I explained to him at this point, we will need to try to work only with the hydrocodone and gradually taper this as he has continued to improve. We will use the Gaymar pump for his shoulders and his back as this has helped him. OBJECTIVE: The patient is alert, talkative, appears very comfortable, in no distress. Temp 98.1, pu lse 80, respirations 20, O2 saturation 97% on room air, blood pressure 130/67. Lungs are clear. Hea rt; regular rate. Left shoulder incision healing well. The patient has just a little brawny discolo ration of the skin of the area of the anterior axillary fold, a little into the upper arm. The indur ation is much less and is soft. There is no fluctuance. The area is nontender and there is no incre ased heat. His vancomycin level yesterday, trough level was up to 16.9 which is in therapeutic range for osteomyelitis on the vancomycin 750 mg IV q.12 hours. ASSESSMENT: 1. Chronic osteomyelitis of the left shoulder. A. Status failure to respond to previous I&D's, arthrotomies and debridement of the humeral head and multiple alf courses of IV antibiotics including Rocephin, cefazolin, which he had a reaction to urticaria and vancomycin. B. Status post left humeral head resection and incision and drainage of soft tissue abscess with placement of a prostalac antibiotic spacer on 07/02/2017 by orthopedic surgeon, Dr. Gilberto atkins. C. Cultures taken at the time of surgery including aerobic, anaerobic have no growth. AFB cultu res negative. AFB stains negative. AFB cultures pending. D. Hospitalized for a 6-week course of IV vancomycin, controlled. E. The left shoulder incision healing. There is no drainage. The patient is a little mild on b rawny discoloration of the skin over the anterior axillary fold. There is no fluctuance and the area is not warm or ten zafar. Overall looks better as of 07/16/2017. 2. Hypertension, controlled. 3. Paroxysmal atrial fibrillation. A. Rate controlled. B. On aspirin as could not afford to take Eliquis or Xarelto and never placed on Coumadin. 4. History of transient ischemic attack. A. Initially presented with weakness in the right arm on . B. No recurrence. 5. Anemia of chronic illness. A. Hemoglobin 7.6 as of 07/09/2017 as a result of his chronic anemia and recent surgical resecti on of the left proximal humerus. Presently asymptomatic. B. Hemoglobin up to 8.9 as of 07/14/2017. Asymptomatic. 6. History of alcoholism. A. Patient has been off the alcohol during these recent hospitalizations. 7. Chronic obstructive pulmonary disease. 8. History of diabetes. A. Presently on no medication. B. Hemoglobin A1c on 05/08/2017 was 5.6. 9. Chronic low back pain secondary to lumbar spondylosis with moderate to severe stenosis at L2-L3 l evel, L3-L4 level and L4-L5 level. 10. Right rotator cuff arthropathy with history of posterior shoulder dislocation and glenoid fractur e from a fall 05/2017. A. Status post closed reduction to 06/11/2017. PLAN: We will continue present care. I have asked the patient to try to stretch his hydrocodone out . At a little later date we will try to increase the interval between pain pills, but at this time w ill let him try to voluntarily do this. I will not add the tramadol. We will use the Gaymar pump on his back or shoulders as he needs. In the past this has been beneficial. Continue the TRI moreira
[2017-07-17] MEDS: HYDROcodone/Acetaminophen 10/325 mg Tablet PO PRN ×5 (02:04→19:42)
[2017-07-17] MEDS: diphenhydrAMINE 25 MG CAP PO PRN ×5 (02:05→19:42)
[2017-07-17] MEDS: Vancomycin HCl 750 MG in Sodium Chloride 0.9% 250 ML 250 ML IVPB SCH ×2 (03:27→15:31)
[2017-07-17] MEDS: Lisinopril 5 MG TAB PO SCH (08:13)
[2017-07-17] MEDS: Aspirin 325 mg Enteric Coated Tablet PO SCH (08:13)
[2017-07-17] MEDS: Lorazepam 1 MG TAB PO SCH ×2 (08:14→19:45)
[2017-07-17] MEDS: Metoprolol Tartrate 25 MG TAB PO SCH (08:14)
[2017-07-17] MEDS: Multivit, Therapeutic 1 TAB PO SCH (08:14)
--- NOTE | 2017-07-17 09:50 | PRG ---
DATE OF SERVICE: 07/17/2017 SUBJECTIVE: The patient said he is doing okay today. He is using the Gaymar pump for moist heat to different areas of the soreness and it does help. The patient has asked for a day pass tomorrow whic h will be given. OBJECTIVE: The patient is sitting up on the side of the bed. He is alert, appears comfortable in no distress. His temperature 98.2, pulse 69, respirations 20, O2 saturation 94% on room air, blood pre ssure 102/53. Lungs are clear. Heart, regular rate. Extremities, no edema. Left shoulder incision healing well. There is no drainage. There is no redness, nor increased heat, a little induration j ust inferior to the incision is softening. There is no fluctuance nor tenderness. Overall, the shou lder looks better. ASSESSMENT: 1. Chronic osteomyelitis of the left shoulder. A. Status failure to respond to previous I&D's, arthrotomies and debridement of the humeral head and multiple residential courses of IV antibiotics including Rocephin, cefazolin, which he had a reaction to urticaria and vancomycin. B. Status post left humeral head resection and incision and drainage of soft tissue abscess with placement of a prostalac antibiotic spacer on 07/02/2017 by orthopedic surgeon, Dr. Gilberto atkins. C. Cultures taken at the time of surgery including aerobic, anaerobic have no growth. AFB cultu res negative. AFB stains negative. AFB cultures pending. D. Hospitalized for a 6-week course of IV vancomycin, controlled. E. The left shoulder incision healing. There is no drainage. The patient is a little mild on b rawny discoloration of the skin over the anterior axillary fold. There is no fluctuance and the area is not warm or ten zafar. Overall looks better as of 07/17/2017. 2. Hypertension, controlled. 3. Paroxysmal atrial fibrillation. A. Rate controlled. B. On aspirin as could not afford to take Eliquis or Xarelto and never placed on Coumadin. 4. History of transient ischemic attack. A. Initially presented with weakness in the right arm on . B. No recurrence. 5. Anemia of chronic illness. A. Hemoglobin 7.6 as of 07/09/2017 as a result of his chronic anemia and recent surgical resecti on of the left proximal humerus. Presently asymptomatic. B. Hemoglobin up to 8.9 as of 07/14/2017. Asymptomatic. 6. History of alcoholism. A. Patient has been off the alcohol during these recent hospitalizations. 7. Chronic obstructive pulmonary disease. 8. History of diabetes. A. Presently on no medication. B. Hemoglobin A1c on 05/08/2017 was 5.6. 9. Chronic low back pain secondary to lumbar spondylosis with moderate to severe stenosis at L2-L3 l evel, L3-L4 level and L4-L5 level. 10. Right rotator cuff arthropathy with history of posterior shoulder dislocation and glenoid fractur e from a fall 05/2017. A. Status post closed reduction to 06/11/2017. PLAN: Continue present care. Continue to use the Gaymar pump as needed. Continue the IV vancomycin . The patient may go out tomorrow for a day pass. He will be gone in between time for his vancomyci n injections.
[2017-07-18] MEDS: diphenhydrAMINE 25 MG CAP PO PRN ×3 (00:20→20:51)
[2017-07-18] MEDS: HYDROcodone/Acetaminophen 10/325 mg Tablet PO PRN ×4 (00:21→19:30)
[2017-07-18 03:32] LABS: Vancomycin, Trough 16.3 ug/mL
[2017-07-18] MEDS: Vancomycin HCl 750 MG in Sodium Chloride 0.9% 250 ML 250 ML IVPB SCH ×3 (03:53→19:29)
[2017-07-18] MEDS: Lorazepam 1 MG TAB PO SCH ×2 (08:32→20:51)
[2017-07-18] MEDS: Aspirin 325 mg Enteric Coated Tablet PO SCH (08:32)
[2017-07-18] MEDS: Metoprolol Tartrate 25 MG TAB PO SCH (08:32)
[2017-07-18] MEDS: Lisinopril 5 MG TAB PO SCH (08:33)
[2017-07-18] MEDS: Multivit, Therapeutic 1 TAB PO SCH (08:33)
[2017-07-19] MEDS: HYDROcodone/Acetaminophen 10/325 mg Tablet PO PRN ×4 (05:25→19:54)
[2017-07-19] MEDS: diphenhydrAMINE 25 MG CAP PO PRN ×2 (05:27→19:56)
[2017-07-19] MEDS: Vancomycin HCl 750 MG in Sodium Chloride 0.9% 250 ML 250 ML IVPB SCH ×2 (05:28→16:09)
[2017-07-19] MEDS: Multivit, Therapeutic 1 TAB PO SCH (09:01)
[2017-07-19] MEDS: Aspirin 325 mg Enteric Coated Tablet PO SCH (09:01)
[2017-07-19] MEDS: Lorazepam 1 MG TAB PO SCH ×2 (09:02→19:55)
[2017-07-19] MEDS: Metoprolol Tartrate 25 MG TAB PO SCH (09:02)
[2017-07-19] MEDS: Lisinopril 5 MG TAB PO SCH (09:02)
[2017-07-20] MEDS: diphenhydrAMINE 25 MG CAP PO PRN ×5 (02:44→20:51)
[2017-07-20] MEDS: HYDROcodone/Acetaminophen 10/325 mg Tablet PO PRN ×5 (02:44→20:51)
[2017-07-20 03:27] LABS: Vancomycin, Trough 16.8 ug/mL
[2017-07-20] MEDS: Vancomycin HCl 750 MG in Sodium Chloride 0.9% 250 ML 250 ML IVPB SCH ×2 (04:03→16:02)
[2017-07-20] MEDS: Aspirin 325 mg Enteric Coated Tablet PO SCH (08:22)
[2017-07-20] MEDS: Lorazepam 1 MG TAB PO SCH ×2 (08:23→20:51)
[2017-07-20] MEDS: Lisinopril 5 MG TAB PO SCH (08:23)
[2017-07-20] MEDS: Metoprolol Tartrate 25 MG TAB PO SCH (08:23)
[2017-07-20] MEDS: Multivit, Therapeutic 1 TAB PO SCH (08:23)
--- NOTE | 2017-07-20 09:23 | PRG ---
DATE OF SERVICE: 07/20/2017 SUBJECTIVE: The patient said he is doing good. His shoulder is feeling pretty good. He did go home for a few hours on a pass on Thursday07/18/2017 and enjoyed it. He is due to be seen in follow up by Dr. Lima, his orthopedic surgeon, on 07/22/2017. OBJECTIVE: The patient is sitting up in bed. He is alert, appears comfortable in no distress. Temp 98.6, pulse 81, respirations 20, O2 saturation 97% on room air, blood pressure 146/64. Lungs are cl ear. Heart, regular rate. The left shoulder incision is healing well. There is just a little mild discoloration of the skin, a brawnsy color, but there is no increased heat. The skin is a little sof ter. There is minimal induration. There is no drainage, no swelling in the shoulder. His last vanc omycin level on 07/20/2017 was 16.8, which in a therapeutic range with him on vancomycin 750 mg twice a day. ASSESSMENT: 1. Chronic osteomyelitis of the left shoulder. A. Status failure to respond to previous I&D's, arthrotomies and debridement of the humeral head and multiple moth exterminator courses of IV antibiotics including Rocephin, cefazolin, which he had a reaction to urticaria and vancomycin. B. Status post left humeral head resection and incision and drainage of soft tissue abscess with placement of a prostalac antibiotic spacer on 07/02/2017 by orthopedic surgeon, Dr. Gilberto atkins. C. Cultures taken at the time of surgery including aerobic, anaerobic have no growth. AFB cultu res negative. AFB stains negative. AFB cultures pending. D. Hospitalized for a 6-week course of IV vancomycin, controlled. E. Incision on the left shoulder healing. There is no drainage. The patient's vancomycin level is therapeutic as of 07/20/2017. 2. Hypertension, controlled. 3. Paroxysmal atrial fibrillation. A. Rate controlled. B. On aspirin as could not afford to take Eliquis or Xarelto and never placed on Coumadin. 4. History of transient ischemic attack. A. Initially presented with weakness in the right arm on . B. No recurrence. 5. Anemia of chronic illness. A. Hemoglobin 7.6 as of 07/09/2017 as a result of his chronic anemia and recent surgical resecti on of the left proximal humerus. Presently asymptomatic. B. Hemoglobin up to 8.9 as of 07/14/2017. Asymptomatic. 6. History of alcoholism. A. Patient has been off the alcohol during these recent hospitalizations. 7. Chronic obstructive pulmonary disease. 8. History of diabetes. A. Presently on no medication. B. Hemoglobin A1c on 05/08/2017 was 5.6. 9. Chronic low back pain secondary to lumbar spondylosis with moderate to severe stenosis at L2-L3 l evel, L3-L4 level and L4-L5 level. 10. Right rotator cuff arthropathy with history of posterior shoulder dislocation and glenoid fractur e from a fall 05/2017. A. Status post closed reduction to 06/11/2017. PLAN: Continue present care. Continue the IV vancomycin. The patient is scheduled to see Dr. Edgardo putnam on Thursday07/22/2017.
[2017-07-21] MEDS: HYDROcodone/Acetaminophen 10/325 mg Tablet PO PRN ×6 (00:54→23:57)
[2017-07-21] MEDS: diphenhydrAMINE 25 MG CAP PO PRN ×6 (00:54→23:56)
[2017-07-21] MEDS: Vancomycin HCl 750 MG in Sodium Chloride 0.9% 250 ML 250 ML IVPB SCH ×2 (04:08→16:12)
[2017-07-21] MEDS: Lisinopril 5 MG TAB PO SCH (08:23)
[2017-07-21] MEDS: Metoprolol Tartrate 25 MG TAB PO SCH (08:24)
[2017-07-21] MEDS: Lorazepam 1 MG TAB PO SCH ×2 (08:24→20:00)
[2017-07-21] MEDS: Aspirin 325 mg Enteric Coated Tablet PO SCH (08:24)
[2017-07-21] MEDS: Multivit, Therapeutic 1 TAB PO SCH (08:24)
[2017-07-22] MEDS: Vancomycin HCl 750 MG in Sodium Chloride 0.9% 250 ML 250 ML IVPB SCH ×2 (03:53→17:27)
[2017-07-22] MEDS: diphenhydrAMINE 25 MG CAP PO PRN ×5 (03:54→22:04)
[2017-07-22] MEDS: HYDROcodone/Acetaminophen 10/325 mg Tablet PO PRN ×5 (03:55→22:04)
[2017-07-22] MEDS: Multivit, Therapeutic 1 TAB PO SCH (07:59)
[2017-07-22] MEDS: Lorazepam 1 MG TAB PO SCH ×2 (08:00→20:53)
[2017-07-22] MEDS: Lisinopril 5 MG TAB PO SCH (08:01)
[2017-07-22] MEDS: Aspirin 325 mg Enteric Coated Tablet PO SCH (08:01)
[2017-07-22] MEDS: Metoprolol Tartrate 25 MG TAB PO SCH (08:02)
--- NOTE | 2017-07-22 08:40 | PRG ---
DATE OF SERVICE: 07/22/2017 SUBJECTIVE: The patient said his shoulder is feeling a little better. He has no complaint this morn ing. OBJECTIVE: The patient is alert, walking around in his room ad sakshi. He appears very comfortable, in no distress. His vital signs show a temperature of 98.1, pulse 79, respirations 20, O2 sat 96% on r oom air, blood pressure 124/65. Lungs are clear. Heart; regular rate. Left shoulder incision heali ng well. There is no drainage. There is very light purplish discoloration of the skin just along th e anterior axillary fold. The tissue is softening up. The area is nontender. Overall, the shoulder looks better. There is no effusion. His last vancomycin trough level on 07/20/2017 was 16.8, which remains therapeutic. ASSESSMENT: 1. Chronic osteomyelitis of the left shoulder. A. Status failure to respond to previous I&D's, arthrotomies and debridement of the humeral head and multiple jail courses of IV antibiotics including Rocephin, cefazolin, which he had a reaction to urticaria and vancomycin. B. Status post left humeral head resection and incision and drainage of soft tissue abscess with placement of a prostalac antibiotic spacer on 07/02/2017 by orthopedic surgeon, Dr. Gilberto atkins. C. Cultures taken at the time of surgery including aerobic, anaerobic have no growth. AFB cultu res negative. AFB stains negative. AFB cultures pending. D. Hospitalized for a 6-week course of IV vancomycin, controlled. E. The incision of the left shoulder healing. There is no drainage. The shoulder looks better with no effusion. Vancomycin level therapeutic as of 07/22/2017. 2. Hypertension, controlled. 3. Paroxysmal atrial fibrillation. A. Rate controlled. B. On aspirin as could not afford to take Eliquis or Xarelto and never placed on Coumadin. 4. History of transient ischemic attack. A. Initially presented with weakness in the right arm on . B. No recurrence. 5. Anemia of chronic illness. A. Hemoglobin 7.6 as of 07/09/2017 as a result of his chronic anemia and recent surgical resecti on of the left proximal humerus. Presently asymptomatic. B. Hemoglobin up to 8.9 as of 07/14/2017. Asymptomatic. 6. History of alcoholism. A. Patient has been off the alcohol during these recent hospitalizations. 7. Chronic obstructive pulmonary disease. 8. History of diabetes. A. Presently on no medication. B. Hemoglobin A1c on 05/08/2017 was 5.6. 9. Chronic low back pain secondary to lumbar spondylosis with moderate to severe stenosis at L2-L3 l evel, L3-L4 level and L4-L5 level. 10. Right rotator cuff arthropathy with history of posterior shoulder dislocation and glenoid fractur e from a fall 05/2017. A. Status post closed reduction to 06/11/2017. PLAN: The patient overall seems to be improving. We will continue present care. Continue the IV va ncomycin. The patient is scheduled to see Dr. Lima, his orthopedic surgeon, this afternoon. We w ill recheck a CBC, CMP, sed rate and CRP tomorrow.
[2017-07-22 10:56] LABS: ALT (SGPT) 12 U/L (8-55); AST (SGOT) 22 U/L (5-34); Albumin 3.9 g/dL (3.4-4.8); Alkaline Phosphatase 83 U/L (40-150); Anion Gap 16 mmol/L (10-20); BUN (Urea Nitrogen) 15 mg/dL (8.4-25.7); Bilirubin, Total 0.2 mg/dL (0.2-1.2); Calc. Creatinine Clearance 0 mL/min (70-130); Calcium 9.5 mg/dL (7.8-10.44); Carbon Dioxide 23 mmol/L (23-31); Chloride 107 mmol/L (98-107); Estimated GFR-MDRD 56; Globulin 3.7 g/dL (2.4-3.5); Glucose 115 mg/dL (83-110); Potassium 4.4 mmol/L (3.5-5.1); Protein, Total 7.6 g/dL (5.8-8.1); Sodium 142 mmol/L (136-145)
[2017-07-23] MEDS: HYDROcodone/Acetaminophen 10/325 mg Tablet PO PRN ×5 (04:27→21:00)
[2017-07-23] MEDS: diphenhydrAMINE 25 MG CAP PO PRN ×5 (04:28→21:00)
[2017-07-23] MEDS: Vancomycin HCl 750 MG in Sodium Chloride 0.9% 250 ML 250 ML IVPB SCH ×2 (04:30→16:14)
--- NOTE | 2017-07-23 08:43 | PRG ---
DATE OF SERVICE: 07/23/2017 SUBJECTIVE: The patient said he is doing alright this morning, just having some pain in his low back . He had an appointment with Dr. Lima, his orthopedic surgeon, yesterday. Sutures were removed. Dr. Lima was very happy with his progress and recommended completion of the IV vancomycin and he will see him in followup in about 6 weeks. OBJECTIVE: The patient is alert and appears in no distress. His vital signs shows a temperature 98. 1, pulse 83, respirations 20, O2 sat 95% on room air, blood pressure 153/63. Lungs are clear. Heart; regular rate. Left shoulder, sutures have been removed and the incision is Steri-Stripped. T here is no redness, no drainage, no effusion. There is still a very light purple discoloration of th e skin just below the incision, but this is fading and every day looks better. His lab done yesterda y showed a sodium 142, potassium of 4.4, BUN 15, creatinine 1.26, GFR 56. FBS 115, C-reactive protei n is pending. ASSESSMENT: 1. Chronic osteomyelitis of the left shoulder. A. Status failure to respond to previous I&D's, arthrotomies and debridement of the humeral head and multiple shelter courses of IV antibiotics including Rocephin, cefazolin, which he had a reaction to urticaria and vancomycin. B. Status post left humeral head resection and incision and drainage of soft tissue abscess with placement of a prostalac antibiotic spacer on 07/02/2017 by orthopedic surgeon, Dr. Gilberto atkins. C. Cultures taken at the time of surgery including aerobic, anaerobic have no growth. AFB cultu res negative. AFB stains negative. AFB cultures pending. D. Hospitalized for a 6-week course of IV vancomycin, controlled. E. Incision is healing well. Sutures were removed on 07/22/[address] Lima. There is no dr santoyo. There is no redness, a little slight light purplish discoloration on the inferior aspect of the incision is fading as of 07/23/2017. 2. Hypertension, controlled. 3. Paroxysmal atrial fibrillation. A. Rate controlled. B. On aspirin as could not afford to take Eliquis or Xarelto and never placed on Coumadin. 4. History of transient ischemic attack. A. Initially presented with weakness in the right arm on . B. No recurrence. 5. Anemia of chronic illness. A. Hemoglobin 7.6 as of 07/09/2017 as a result of his chronic anemia and recent surgical resecti on of the left proximal humerus. Presently asymptomatic. B. Hemoglobin up to 8.9 as of 07/14/2017. Asymptomatic. 6. History of alcoholism. A. Patient has been off the alcohol during these recent hospitalizations. 7. Chronic obstructive pulmonary disease. 8. History of diabetes. A. Presently on no medication. B. Hemoglobin A1c on 05/08/2017 was 5.6. 9. Chronic low back pain secondary to lumbar spondylosis with moderate to severe stenosis at L2-L3 l evel, L3-L4 level and L4-L5 level. 10. Right rotator cuff arthropathy with history of posterior shoulder dislocation and glenoid fractur e from a fall 05/2017. A. Status post closed reduction to 06/11/2017. PLAN: Continue present care. Lab for the day including CBC, CRP, sed rate pending. Continue physic al therapy.
[2017-07-23] MEDS: Multivit, Therapeutic 1 TAB PO SCH (08:44)
[2017-07-23] MEDS: Aspirin 325 mg Enteric Coated Tablet PO SCH (08:44)
[2017-07-23] MEDS: Lorazepam 1 MG TAB PO SCH ×2 (08:45→20:20)
[2017-07-23] MEDS: Lisinopril 5 MG TAB PO SCH (08:45)
[2017-07-23] MEDS: Metoprolol Tartrate 25 MG TAB PO SCH (08:45)
[2017-07-23 09:59] LABS: %Basophils 1.4 % (0.0-1.0); %Eosinophils 5.5 % (0.0-10.0); %Lymphocytes 35.9 % (21.0-51.0); %Monocytes 7.2 % (0.0-10.0); Hemoglobin 8.5 g/dL (14.0-18.0); Mean Corpuscular HGB CONC 31.5 g/dL (32.0-36.0); Mean Corpuscular Hemoglobin 24.6 pg (27.0-31.0); Mean Corpuscular Volume 78.1 fL (80.0-94.0); Mean Platelet Volume 6.4 fL (7.4-10.4); Platelet Count 259 thou/uL (130-400); RBC Distribution Width 14.1 % (11.5-14.5); Red Blood Cell (RBC) Count 3.46 mill/uL (4.70-6.10); White Blood Cell (WBC) Count 5.3 thou/uL (4.8-10.8)
[2017-07-23 10:00] LABS: #Basophils 0.1 thou/uL (0.0-0.2); #Eosinphils 0.3 thou/uL (0.0-0.7); #Lymphocytes 1.9 thou/uL (1.20-3.40); #Monocytes 0.4 thou/uL (0.11-0.59); #Neutrophils 2.6 thou/uL (1.40-6.50)
[2017-07-24] MEDS: HYDROcodone/Acetaminophen 10/325 mg Tablet PO PRN ×5 (01:03→20:16)
[2017-07-24] MEDS: diphenhydrAMINE 25 MG CAP PO PRN ×5 (01:03→20:15)
[2017-07-24] MEDS: Vancomycin HCl 750 MG in Sodium Chloride 0.9% 250 ML 250 ML IVPB SCH ×2 (04:20→15:52)
[2017-07-24] MEDS: Multivit, Therapeutic 1 TAB PO SCH (09:03)
[2017-07-24] MEDS: Aspirin 325 mg Enteric Coated Tablet PO SCH (09:03)
[2017-07-24] MEDS: Lisinopril 5 MG TAB PO SCH (09:03)
[2017-07-24] MEDS: Metoprolol Tartrate 25 MG TAB PO SCH (09:03)
[2017-07-24] MEDS: Lorazepam 1 MG TAB PO SCH ×2 (09:04→20:15)
[2017-07-25] MEDS: Vancomycin HCl 750 MG in Sodium Chloride 0.9% 250 ML 250 ML IVPB SCH ×2 (03:36→16:02)
[2017-07-25] MEDS: HYDROcodone/Acetaminophen 10/325 mg Tablet PO PRN ×4 (03:37→20:24)
[2017-07-25] MEDS: diphenhydrAMINE 25 MG CAP PO PRN ×4 (03:37→20:24)
[2017-07-25] MEDS: Lorazepam 1 MG TAB PO SCH ×2 (07:56→20:24)
[2017-07-25] MEDS: Metoprolol Tartrate 25 MG TAB PO SCH (07:57)
[2017-07-25] MEDS: Aspirin 325 mg Enteric Coated Tablet PO SCH (07:57)
[2017-07-25] MEDS: Multivit, Therapeutic 1 TAB PO SCH (07:57)
[2017-07-25] MEDS: Lisinopril 5 MG TAB PO SCH (07:58)
--- NOTE | 2017-07-25 18:15 | PRG ---
DATE OF SERVICE: 07/25/2017 SUBJECTIVE: The patient said he is doing better. His shoulder is feeling better. 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 Shoulders are still have some pain, but overall improved. He is still using h is pain medicine. The patient wants to go on a pass for a few hours tomorrow, which he can do. OBJECTIVE: GENERAL: The patient is alert, appears very comfortable and in no distress. VITAL SIGNS: Show a temperature of 97.9, pulse 75, blood pressure 153/73, earlier 134/73, respiratio ns 18, O2 sat 94% on room air. LUNGS: Clear. HEART: Regular rate. EXTREMITIES: Left shoulder incision healing well. There is no redness or drainage. There is a mary le pinkness around the shoulder, but the tissue is getting softer. There is no effusion. No areas o f fluctuance. ASSESSMENT: 1. Chronic osteomyelitis of the left shoulder. A. Incision healing well. Sutures removed on 07/22/[address] Lima. Overall, the shoulder looks better. There is slight pinkness to the surrounding tissue and tissue is softer as of 07/25/2017. B. Status post left humeral head resection and incision and drainage of soft tissue abscess with placement of a prostalac antibiotic spacer on 07/02/2017 by orthopedic surgeon, Dr. Gilberto atkins. C. Cultures taken at the time of surgery including aerobic, anaerobic have no growth. AFB cultu res negative. AFB stains negative. AFB cultures pending. D. Hospitalized for a 6-week course of IV vancomycin, controlled. E. Incision is healing well. Sutures were removed on 07/22/[address] Lima. There is no dr santoyo. There is no redness, a little slight light purplish discoloration on the inferior aspect of the incision is fading as of 07/23/2017. 2. Hypertension, controlled. 3. Paroxysmal atrial fibrillation. A. Rate controlled. B. On aspirin as could not afford to take Eliquis or Xarelto and never placed on Coumadin. 4. History of transient ischemic attack. A. Initially presented with weakness in the right arm on . B. No recurrence. 5. Anemia of chronic illness. A. Hemoglobin 7.6 as of 07/09/2017 as a result of his chronic anemia and recent surgical resecti on of the left proximal humerus. Presently asymptomatic. B. Hemoglobin up to 8.9 as of 07/14/2017. Asymptomatic. 6. History of alcoholism. A. Patient has been off the alcohol during these recent hospitalizations. 7. Chronic obstructive pulmonary disease. 8. History of diabetes. A. Presently on no medication. B. Hemoglobin A1c on 05/08/2017 was 5.6. 9. Chronic low back pain secondary to lumbar spondylosis with moderate to severe stenosis at L2-L3 l evel, L3-L4 level and L4-L5 level. 10. Right rotator cuff arthropathy with history of posterior shoulder dislocation and glenoid fractur e from a fall 05/2017. A. Status post closed reduction to 06/11/2017. PLAN: Continue IV vancomycin. Continue present care.
[2017-07-26] MEDS: diphenhydrAMINE 25 MG CAP PO PRN ×4 (01:19→20:38)
[2017-07-26] MEDS: HYDROcodone/Acetaminophen 10/325 mg Tablet PO PRN ×4 (01:19→20:38)
[2017-07-26] MEDS ORDERED: Vancomycin HCl 750 MG VIAL ONE (04:09)
[2017-07-26] MEDS: Vancomycin HCl 750 MG in Sodium Chloride 0.9% 250 ML 250 ML IVPB SCH ×2 (04:18→15:36)
[2017-07-26] MEDS: Aspirin 325 mg Enteric Coated Tablet PO SCH (08:15)
[2017-07-26] MEDS: Lorazepam 1 MG TAB PO SCH ×2 (08:16→20:37)
[2017-07-26] MEDS: Multivit, Therapeutic 1 TAB PO SCH (08:16)
[2017-07-26] MEDS: Metoprolol Tartrate 25 MG TAB PO SCH (08:16)
[2017-07-26] MEDS: Lisinopril 5 MG TAB PO SCH (08:16)
[2017-07-27] MEDS: Vancomycin HCl 750 MG in Sodium Chloride 0.9% 250 ML 250 ML IVPB SCH ×2 (03:32→16:05)
[2017-07-27] MEDS: diphenhydrAMINE 25 MG CAP PO PRN ×5 (03:33→19:55)
[2017-07-27] MEDS: HYDROcodone/Acetaminophen 10/325 mg Tablet PO PRN ×5 (03:33→19:55)
[2017-07-27] MEDS: Lorazepam 1 MG TAB PO SCH ×2 (07:34→19:55)
[2017-07-27] MEDS: Aspirin 325 mg Enteric Coated Tablet PO SCH (07:35)
[2017-07-27] MEDS: Lisinopril 5 MG TAB PO SCH (07:36)
[2017-07-27] MEDS: Metoprolol Tartrate 25 MG TAB PO SCH (07:36)
[2017-07-27] MEDS: Multivit, Therapeutic 1 TAB PO SCH (07:36)
--- NOTE | 2017-07-27 08:55 | PRG ---
DATE OF SERVICE: 07/27/2017 SUBJECTIVE: The patient said he is doing alright this morning, has a little soreness in his shoulder and chronic pain in his back, but he is managing in controlling this. OBJECTIVE: The patient is alert, appears comfortable in no distress. His temp 97.9, pulse 66, respi rations 20, O2 sat 96%, blood pressure 138/64. Lungs are clear. Heart, regular rate. Left shoulder incision healing well. There is no effusion. There is no redness. There is a mild pink discolorat ion around the wound, but this is gradually diminishing. The tissue is softer. The patient's vancomycin level as of 07/27/2017 was 18, which is still in a therapeutic range for the osteomyelitis. ASSESSMENT: 1. Chronic osteomyelitis of the left shoulder. A. Incision healing well. Sutures removed on 07/22/[address] Lima. Overall, the shoulder l ooks better. There is slight pinkness to the surrounding tissue and tissue is softer as of 07/25/2017. B. Status post left humeral head resection and incision and drainage of soft tissue abscess with placement of a prostalac antibiotic spacer on 07/02/2017 by orthopedic surgeon, Dr. Gilberto atkins. C. Cultures taken at the time of surgery including aerobic, anaerobic have no growth. AFB cultur es negative. AFB stains negative. AFB cultures pending. D. Hospitalized for a 6-week course of IV vancomycin, controlled. E. Incision healing well. There is no redness or drainage. Overall, the shoulder looks better. Vancomycin level is therapeutic at 18. 2. Hypertension, controlled. 3. Paroxysmal atrial fibrillation. A. Rate controlled. B. On aspirin as could not afford to take Eliquis or Xarelto and never placed on Coumadin. 4. History of transient ischemic attack. A. Initially presented with weakness in the right arm on . B. No recurrence. 5. Anemia of chronic illness. A. Hemoglobin 7.6 as of 07/09/2017 as a result of his chronic anemia and recent surgical resecti on of the left proximal humerus. Presently asymptomatic. B. Hemoglobin up to 8.9 as of 07/14/2017. Asymptomatic. 6. History of alcoholism. A. Patient has been off the alcohol during these recent hospitalizations. 7. Chronic obstructive pulmonary disease. 8. History of diabetes. A. Presently on no medication. B. Hemoglobin A1c on 05/08/2017 was 5.6. 9. Chronic low back pain secondary to lumbar spondylosis with moderate to severe stenosis at L2-L3 l evel, L3-L4 level and L4-L5 level. 10. Right rotator cuff arthropathy with history of posterior shoulder dislocation and glenoid fractur e from a fall 05/2017. A. Status post closed reduction to 06/11/2017. PLAN: Continue present care. Continue IV vancomycin. The patient scheduled for a 6-week course of this which will complete on 08/20/2017.
[2017-07-28] MEDS: Vancomycin HCl 750 MG in Sodium Chloride 0.9% 250 ML 250 ML IVPB SCH ×2 (03:47→16:01)
[2017-07-28] MEDS: diphenhydrAMINE 25 MG CAP PO PRN ×6 (03:48→20:36)
[2017-07-28] MEDS: HYDROcodone/Acetaminophen 10/325 mg Tablet PO PRN ×6 (03:51→20:36)
[2017-07-28] MEDS: Multivit, Therapeutic 1 TAB PO SCH (08:04)
[2017-07-28] MEDS: Metoprolol Tartrate 25 MG TAB PO SCH (08:04)
[2017-07-28] MEDS: Aspirin 325 mg Enteric Coated Tablet PO SCH (08:04)
[2017-07-28] MEDS: Lisinopril 5 MG TAB PO SCH (08:05)
[2017-07-28] MEDS: Lorazepam 1 MG TAB PO SCH ×2 (08:06→20:36)
[2017-07-29] MEDS: diphenhydrAMINE 25 MG CAP PO PRN ×6 (00:32→21:03)
[2017-07-29] MEDS: HYDROcodone/Acetaminophen 10/325 mg Tablet PO PRN ×6 (00:32→21:03)
[2017-07-29] MEDS: Vancomycin HCl 750 MG in Sodium Chloride 0.9% 250 ML 250 ML IVPB SCH ×2 (03:54→16:14)
[2017-07-29] MEDS: Aspirin 325 mg Enteric Coated Tablet PO SCH (08:29)
[2017-07-29] MEDS: Lorazepam 1 MG TAB PO SCH ×2 (08:30→21:03)
[2017-07-29] MEDS: Metoprolol Tartrate 25 MG TAB PO SCH (08:30)
[2017-07-29] MEDS: Multivit, Therapeutic 1 TAB PO SCH (08:30)
[2017-07-29] MEDS: Lisinopril 5 MG TAB PO SCH (08:30)
[2017-07-29 13:42] LABS: ALT (SGPT) 11 U/L (8-55); AST (SGOT) 19 U/L (5-34); Albumin 3.8 g/dL (3.4-4.8); Alkaline Phosphatase 93 U/L (40-150); Anion Gap 17 mmol/L (10-20); BUN (Urea Nitrogen) 15 mg/dL (8.4-25.7); Bilirubin, Total 0.2 mg/dL (0.2-1.2); Calc. Creatinine Clearance 63 mL/min (70-130); Calcium 9.6 mg/dL (7.8-10.44); Carbon Dioxide 24 mmol/L (23-31); Chloride 104 mmol/L (98-107); Estimated GFR-MDRD 61; Globulin 3.5 g/dL (2.4-3.5); Glucose 159 mg/dL (83-110); Potassium 4.1 mmol/L (3.5-5.1); Protein, Total 7.3 g/dL (5.8-8.1); Sodium 141 mmol/L (136-145)
--- NOTE | 2017-07-29 14:37 | PRG ---
DATE OF SERVICE: 07/29/2017 SUBJECTIVE: The patient thinks he is doing pretty good, says shoulder is doing better. OBJECTIVE: GENERAL: The patient is lying in bed. He is alert, appears very comfortable, in no distress. VITAL SIGNS: Temperature 97.8, pulse 70, blood pressure 119/60, respirations 18 and O2 sat 96% on ro om air. LUNGS: Clear. HEART: Regular rate. EXTREMITIES: Left shoulder, there is no effusion present. Incision healing. There is no drainage. The patient has a very slight pinkish discoloration of the skin, but this is looking better every da y. Tissue is becoming softer. ASSESSMENT: 1. Chronic osteomyelitis of the left shoulder. A. Incision healing well. Sutures removed on 07/22/[address] Lima. Overall, the shoulder l ooks better. There is slight pinkness to the surrounding tissue and tissue is softer as of 07/25/2017. B. Status post left humeral head resection and incision and drainage of soft tissue abscess with placement of a prostalac antibiotic spacer on 07/02/2017 by orthopedic surgeon, Dr. Gilberto atkins. C. Cultures taken at the time of surgery including aerobic, anaerobic have no growth. AFB cultur es negative. AFB stains negative. AFB cultures pending. D. Hospitalized for a 6-week course of IV vancomycin, controlled. E. Incision healing. There is no redness nor drainage. Shoulder has no effusion. Continues to improve. Continues on his 6-week course of IV vancomycin as of 07/29. 2. Hypertension, controlled. 3. Paroxysmal atrial fibrillation. A. Rate controlled. B. On aspirin as could not afford to take Eliquis or Xarelto and never placed on Coumadin. 4. History of transient ischemic attack. A. Initially presented with weakness in the right arm on . B. No recurrence. 5. Anemia of chronic illness. A. Hemoglobin 7.6 as of 07/09/2017 as a result of his chronic anemia and recent surgical resecti on of the left proximal humerus. Presently asymptomatic. B. Hemoglobin up to 8.9 as of 07/14/2017. Asymptomatic. 6. History of alcoholism. A. Patient has been off the alcohol during these recent hospitalizations. 7. Chronic obstructive pulmonary disease. 8. History of diabetes. A. Presently on no medication. B. Hemoglobin A1c on 05/08/2017 was 5.6. 9. Chronic low back pain secondary to lumbar spondylosis with moderate to severe stenosis at L2-L3 l evel, L3-L4 level and L4-L5 level. 10. Right rotator cuff arthropathy with history of posterior shoulder dislocation and glenoid fractur e from a fall 05/2017. A. Status post closed reduction to 06/11/2017. PLAN: Continue present care of this with patient about reducing the interval of his pain medicine. He said he would like to put this off until early next week. We will try since he is doing overall b richie to reduce the interval of his pain medicine to 5 hour intervals.
[2017-07-30] MEDS: diphenhydrAMINE 25 MG CAP PO PRN ×4 (01:55→20:35)
[2017-07-30] MEDS: HYDROcodone/Acetaminophen 10/325 mg Tablet PO PRN ×4 (01:55→20:34)
[2017-07-30] MEDS: Vancomycin HCl 750 MG in Sodium Chloride 0.9% 250 ML 250 ML IVPB SCH ×2 (03:27→15:57)
[2017-07-30 06:49] LABS: Hemoglobin 8.4 g/dL (14.0-18.0); Mean Corpuscular HGB CONC 30.7 g/dL (32.0-36.0); Mean Corpuscular Hemoglobin 23.8 pg (27.0-31.0); Mean Corpuscular Volume 77.7 fL (80.0-94.0); White Blood Cell (WBC) Count 5.6 thou/uL (4.8-10.8)
[2017-07-30 06:50] LABS: #Basophils 0.1 thou/uL (0.0-0.2); #Eosinphils 0.3 thou/uL (0.0-0.7); #Lymphocytes 2.2 thou/uL (1.20-3.40); #Monocytes 0.4 thou/uL (0.11-0.59); #Neutrophils 2.6 thou/uL (1.40-6.50); %Basophils 1.8 % (0.0-1.0); %Eosinophils 5.4 % (0.0-10.0); %Lymphocytes 38.4 % (21.0-51.0); %Monocytes 7.7 % (0.0-10.0); %Neutrophils 46.8 % (42.0-75.0); Mean Platelet Volume 6.6 fL (7.4-10.4); Platelet Count 287 thou/uL (130-400); RBC Distribution Width 13.9 % (11.5-14.5)
[2017-07-30] MEDS: Multivit, Therapeutic 1 TAB PO SCH (07:55)
[2017-07-30] MEDS: Aspirin 325 mg Enteric Coated Tablet PO SCH (07:55)
[2017-07-30] MEDS: Lorazepam 1 MG TAB PO SCH ×2 (07:55→20:35)
[2017-07-30] MEDS: Lisinopril 5 MG TAB PO SCH (07:55)
[2017-07-30] MEDS: Metoprolol Tartrate 25 MG TAB PO SCH (07:55)
[2017-07-31] MEDS: HYDROcodone/Acetaminophen 10/325 mg Tablet PO PRN ×5 (03:38→22:03)
[2017-07-31] MEDS: diphenhydrAMINE 25 MG CAP PO PRN ×5 (03:40→22:04)
[2017-07-31] MEDS: Vancomycin HCl 750 MG in Sodium Chloride 0.9% 250 ML 250 ML IVPB SCH ×2 (03:42→15:48)
[2017-07-31] MEDS: Multivit, Therapeutic 1 TAB PO SCH (09:44)
[2017-07-31] MEDS: Aspirin 325 mg Enteric Coated Tablet PO SCH (09:45)
[2017-07-31] MEDS: Lorazepam 1 MG TAB PO SCH ×2 (09:46→20:11)
[2017-07-31] MEDS: Lisinopril 5 MG TAB PO SCH (09:46)
[2017-07-31] MEDS: Metoprolol Tartrate 25 MG TAB PO SCH (09:47)
[2017-07-31] MEDS ORDERED: Nitroglycerin 0.4 MG TAB (25 Tab Bottle) ONE (10:58)
[2017-07-31 12:19] LABS: CKMB 0.8 ng/mL (0-6.6); Troponin I Less than 0.010 ng/mL (< 0.028)
--- NOTE | 2017-07-31 12:24 | PRG ---
DATE OF SERVICE: 07/31/2017 SUBJECTIVE: This morning, the patient had an episode of a sharp shooting pain in the left anterior c hest just around the nipple area. It has had seemed to get worse with deep inspiration and patient w as given a nitroglycerin. He did not see really remarkable change, but the pain is gradually fading and resolving. The patient said that just a little soreness that he has had before there, but this m orning it seemed to be more accentuated. OBJECTIVE: GENERAL: Presently, patient is lying in bed, looks comfortable in no distress and not really having any pain. VITAL SIGNS: His temperature was 98.5, pulse 90, blood pressure 119/60, O2 sat 98%. LUNGS: His lungs were clear. HEART: Regular rate. CHEST WALL: The patient has some mild tenderness just medial to the left nipple. There is no rednes s, no bony crepitation or air crepitation. His electrocardiogram shows normal sinus rhythm with a rate of 98. The EKG is normal. ASSESSMENT: Episode of chest pain, musculoskeletal origin. PLAN: Pain is all resolving. We will check set of cardiac enzymes. The patient is presently comfor table.
--- NOTE | 2017-07-31 15:01 | PRG ---
DATE OF SERVICE: 07/31/2017 SUBJECTIVE: The patient said he is doing fine. He had no complaint, he says he still has some pain in the shoulders and in the low back, but this is managed. He is up ad sakshi. OBJECTIVE: The patient is alert, appears comfortable in no distress. His temperature is 98.6, pulse 76, respirations 20, O2 saturation 94%, blood pressure 120/63. His lungs are clear. Heart; regular rate. Left shoulder, there is no effusion present. Incision is healing well. There is no drainage . The is a little mild pinkness to the tissue, but unchanged. His lab from yesterday shows an H&H o f 8.4 and 27.2, white blood cell count 5600 with 47% segs, 38% lymphocytes, and platelet count of 287 . Sed rate down to 70, CRP down to 3.67, sodium 141, potassium 4.1, BUN 15, creatinine 1.18, GFR 61. Glucose 159. Last vancomycin level from 07/27/2017 was 18, which is therapeutic. ASSESSMENT: 1. Chronic osteomyelitis of the left shoulder. A. Incision healing well. Sutures removed on 07/22/[address] Lima. Overall, the shoulder l ooks better. There is slight pinkness to the surrounding tissue and tissue is softer as of 07/25/2017. B. Status post left humeral head resection and incision and drainage of soft tissue abscess with placement of a prostalac antibiotic spacer on 07/02/2017 by orthopedic surgeon, Dr. Gilberto atkins. C. Cultures taken at the time of surgery including aerobic, anaerobic have no growth. AFB cultur es negative. AFB stains negative. AFB cultures pending. D. Hospitalized for a 6-week course of IV vancomycin, controlled. E. Gradual improvement. Sed rate down to 70, CRP down to 3.65. He remains on the IV vancomycin with therapeutic trough level as of 07/31/2017. 2. Hypertension, controlled. 3. Paroxysmal atrial fibrillation. A. Rate controlled. B. On aspirin as could not afford to take Eliquis or Xarelto and never placed on Coumadin. 4. History of transient ischemic attack. A. Initially presented with weakness in the right arm on . B. No recurrence. 5. Anemia of chronic illness. A. Hemoglobin 7.6 as of 07/09/2017 as a result of his chronic anemia and recent surgical resecti on of the left proximal humerus. Presently asymptomatic. B. Hemoglobin of 8.4 as of 07/31/2017, asymptomatic. 6. History of alcoholism. A. Patient has been off the alcohol during these recent hospitalizations. 7. Chronic obstructive pulmonary disease. 8. History of diabetes. A. Presently on no medication. B. Hemoglobin A1c on 05/08/2017 was 5.6. 9. Chronic low back pain secondary to lumbar spondylosis with moderate to severe stenosis at L2-L3 l evel, L3-L4 level and L4-L5 level. 10. Right rotator cuff arthropathy with history of posterior shoulder dislocation and glenoid fractur e from a fall 05/2017. A. Status post closed reduction to 06/11/2017. PLAN: Continue the IV vancomycin scheduled to complete 6-week course on 08/20/2017.
[2017-08-01] MEDS: HYDROcodone/Acetaminophen 10/325 mg Tablet PO PRN ×5 (02:05→19:39)
[2017-08-01] MEDS: diphenhydrAMINE 25 MG CAP PO PRN ×5 (02:05→19:39)
[2017-08-01] MEDS: Vancomycin HCl 750 MG in Sodium Chloride 0.9% 250 ML 250 ML IVPB SCH ×2 (03:00→15:40)
[2017-08-01] MEDS: Aspirin 325 mg Enteric Coated Tablet PO SCH (08:40)
[2017-08-01] MEDS: Lisinopril 5 MG TAB PO SCH (08:40)
[2017-08-01] MEDS: Lorazepam 1 MG TAB PO SCH ×2 (08:41→20:30)
[2017-08-01] MEDS: Metoprolol Tartrate 25 MG TAB PO SCH (08:41)
[2017-08-01] MEDS: Multivit, Therapeutic 1 TAB PO SCH (08:41)
[2017-08-02] MEDS: HYDROcodone/Acetaminophen 10/325 mg Tablet PO PRN ×5 (02:06→23:38)
[2017-08-02] MEDS: diphenhydrAMINE 25 MG CAP PO PRN ×5 (02:07→23:39)
[2017-08-02] MEDS: Vancomycin HCl 750 MG in Sodium Chloride 0.9% 250 ML 250 ML IVPB SCH ×2 (03:07→15:34)
[2017-08-02] MEDS: Lorazepam 1 MG TAB PO SCH ×2 (09:14→20:49)
[2017-08-02] MEDS: Lisinopril 5 MG TAB PO SCH (09:15)
[2017-08-02] MEDS: Metoprolol Tartrate 25 MG TAB PO SCH (09:15)
[2017-08-02] MEDS: Aspirin 325 mg Enteric Coated Tablet PO SCH (09:15)
[2017-08-02] MEDS: Multivit, Therapeutic 1 TAB PO SCH (09:15)
[2017-08-02 15:46] LABS: Vancomycin, Trough 16.6 ug/mL
[2017-08-03] MEDS: HYDROcodone/Acetaminophen 10/325 mg Tablet PO PRN ×4 (04:27→19:49)
[2017-08-03] MEDS: diphenhydrAMINE 25 MG CAP PO PRN ×3 (04:27→19:49)
[2017-08-03] MEDS: Vancomycin HCl 750 MG in Sodium Chloride 0.9% 250 ML 250 ML IVPB SCH ×2 (04:28→16:01)
[2017-08-03] MEDS ORDERED: HYDROcodone/Acetaminophen 10/325 mg Tablet PO PRN (08:07)
[2017-08-03] MEDS: Lorazepam 1 MG TAB PO SCH ×2 (08:49→20:24)
[2017-08-03] MEDS: Multivit, Therapeutic 1 TAB PO SCH (08:50)
[2017-08-03] MEDS: Aspirin 325 mg Enteric Coated Tablet PO SCH (08:50)
[2017-08-03] MEDS: Lisinopril 5 MG TAB PO SCH (08:50)
[2017-08-03] MEDS: Metoprolol Tartrate 25 MG TAB PO SCH (08:50)
--- NOTE | 2017-08-03 09:46 | PRG ---
DATE OF SERVICE: 08/03/2017 SUBJECTIVE: The patient says he is doing good. He is feeling better. His shoulder feels better. Navin soni has not had any more episodes of left anterior chest pain. OBJECTIVE: The patient is lying in bed, alert, appears very comfortable, and in no distress. His vi tresa signs show a temperature of 97.9, pulse 72, respirations 18, O2 saturation 97%, blood pressure 12 4/57. His lungs are clear. Heart, regular rate. Left shoulder, there is no effusion. There is no tenderness. There is no increased warmth or discoloration to the skin. ASSESSMENT: 1. Chronic osteomyelitis of the left shoulder. A. Continued gradual improvement and continues on his 6-week course of vancomycin as of 8, completion 08/20/2017. B. Status post left humeral head resection and incision and drainage of soft tissue abscess with placement of a prostalac antibiotic spacer on 07/02/2017 by orthopedic surgeon, Dr. Gilberto atkins. C. Cultures taken at the time of surgery including aerobic, anaerobic have no growth. AFB cultur es negative. AFB stains negative. AFB cultures pending. D. Hospitalized for a 6-week course of IV vancomycin, controlled. E. Gradual improvement. Sed rate down to 70, CRP down to 3.65. He remains on the IV vancomycin with therapeutic trough level as of 07/31/2017. 2. Hypertension, controlled. 3. Paroxysmal atrial fibrillation. A. Rate controlled. B. On aspirin as could not afford to take Eliquis or Xarelto and never placed on Coumadin. 4. History of transient ischemic attack. A. Initially presented with weakness in the right arm on . B. No recurrence. 5. Anemia of chronic illness. A. Hemoglobin 7.6 as of 07/09/2017 as a result of his chronic anemia and recent surgical resecti on of the left proximal humerus. Presently asymptomatic. B. Hemoglobin of 8.4 as of 07/31/2017, asymptomatic. 6. History of alcoholism. A. Patient has been off the alcohol during these recent hospitalizations. 7. Chronic obstructive pulmonary disease. 8. History of diabetes. A. Presently on no medication. B. Hemoglobin A1c on 05/08/2017 was 5.6. 9. Chronic low back pain secondary to lumbar spondylosis with moderate to severe stenosis at L2-L3 l evel, L3-L4 level and L4-L5 level. 10. Right rotator cuff arthropathy with history of posterior shoulder dislocation and glenoid fractur e from a fall 05/2017. A. Status post closed reduction to 06/11/2017. 11. Episode of left anterior chest wall pain on 07/31/2017 with negative cardiac enzymes and normal E KG. A. No recurrence as of 07/31/2017. PLAN: Continue present care visit with patient about the need to try to cut back on pain medication. He is willing. We will reduce the hydrocodone to no more often than every 5 hours. We will try to gradually shift him down to no more often than every 6 hours.
[2017-08-03 22:49] VITALS: BMI 26.3
[2017-08-04] MEDS: HYDROcodone/Acetaminophen 10/325 mg Tablet PO PRN ×5 (01:04→21:15)
[2017-08-04] MEDS: diphenhydrAMINE 25 MG CAP PO PRN ×5 (01:04→21:16)
[2017-08-04] MEDS: Vancomycin HCl 750 MG in Sodium Chloride 0.9% 250 ML 250 ML IVPB SCH ×2 (03:41→16:17)
[2017-08-04] MEDS: Multivit, Therapeutic 1 TAB PO SCH (08:18)
[2017-08-04] MEDS: Aspirin 325 mg Enteric Coated Tablet PO SCH (08:18)
[2017-08-04] MEDS: Lorazepam 1 MG TAB PO SCH ×2 (08:18→20:06)
[2017-08-04] MEDS: Lisinopril 5 MG TAB PO SCH (08:18)
[2017-08-04] MEDS: Metoprolol Tartrate 25 MG TAB PO SCH (08:18)
[2017-08-05] MEDS ORDERED: Vancomycin HCl 750 MG VIAL ONE (03:09)
[2017-08-05] MEDS: Vancomycin HCl 750 MG in Sodium Chloride 0.9% 250 ML 250 ML IVPB SCH ×2 (03:22→15:57)
[2017-08-05] MEDS: HYDROcodone/Acetaminophen 10/325 mg Tablet PO PRN ×4 (03:22→19:46)
[2017-08-05] MEDS: diphenhydrAMINE 25 MG CAP PO PRN ×4 (03:22→19:47)
[2017-08-05] MEDS: Metoprolol Tartrate 25 MG TAB PO SCH (08:20)
[2017-08-05] MEDS: Multivit, Therapeutic 1 TAB PO SCH (08:21)
[2017-08-05] MEDS: Aspirin 325 mg Enteric Coated Tablet PO SCH (08:22)
[2017-08-05] MEDS: Lorazepam 1 MG TAB PO SCH ×2 (08:22→20:31)
[2017-08-05] MEDS: Lisinopril 5 MG TAB PO SCH (08:22)
[2017-08-05 09:29] LABS: ALT (SGPT) 12 U/L (8-55); AST (SGOT) 18 U/L (5-34); Albumin 3.8 g/dL (3.4-4.8); Alkaline Phosphatase 83 U/L (40-150); Anion Gap 14 mmol/L (10-20); BUN (Urea Nitrogen) 23 mg/dL (8.4-25.7); Bilirubin, Total 0.3 mg/dL (0.2-1.2); Calc. Creatinine Clearance 72 mL/min (70-130); Calcium 9.7 mg/dL (7.8-10.44); Carbon Dioxide 24 mmol/L (23-31); Chloride 106 mmol/L (98-107); Estimated GFR-MDRD 70; Globulin 3.5 g/dL (2.4-3.5); Glucose 134 mg/dL (83-110); Potassium 4.1 mmol/L (3.5-5.1); Protein, Total 7.3 g/dL (5.8-8.1); Sodium 140 mmol/L (136-145)
--- NOTE | 2017-08-05 15:02 | PRG ---
DATE OF SERVICE: 08/05/2017 SUBJECTIVE: The patient said he is doing good. He is still up ad sakshi. He is having no problems wit h his injections. His pain medicine has been reduced to no more often than every 5 hours, which he s eemed to be tolerating. OBJECTIVE: The patient is alert, appears very comfortable, in no distress. His temperature 98, puls e 78, respirations 20, O2 sat 96% on room air, blood pressure 136/81. Lungs are clear. Heart; regul ar rate. Left shoulder; no effusion, no redness, no increased heat. Incision well healed. Very mcbride ited range of motion. The patient's last vancomycin trough level on 08/02/2017 was 16.6. ASSESSMENT: 1. Chronic osteomyelitis of the left shoulder. A. Continued gradual improvement and continues on his 6-week course of vancomycin as of 08/01/19 18, completion 08/20/2017. B. Status post left humeral head resection and incision and drainage of soft tissue abscess with placement of a prostalac antibiotic spacer on 07/02/2017 by orthopedic surgeon, Dr. Gilberto atkins. C. Cultures taken at the time of surgery including aerobic, anaerobic have no growth. AFB cultu res negative. AFB stains negative. AFB cultures pending. D. Hospitalized for a 6-week course of IV vancomycin, controlled. E. Continued gradual improvement. Vancomycin trough level remains in a therapeutic level as of 08/05/2017. 2. Hypertension, controlled. 3. Paroxysmal atrial fibrillation. A. Rate controlled. B. On aspirin as could not afford to take Eliquis or Xarelto and never placed on Coumadin. 4. History of transient ischemic attack. A. Initially presented with weakness in the right arm on . B. No recurrence. 5. Anemia of chronic illness. A. Hemoglobin 7.6 as of 07/09/2017 as a result of his chronic anemia and recent surgical resecti on of the left proximal humerus. Presently asymptomatic. B. Hemoglobin of 8.4 as of 07/31/2017, asymptomatic. 6. History of alcoholism. A. Patient has been off the alcohol during these recent hospitalizations. 7. Chronic obstructive pulmonary disease. 8. History of diabetes. A. Presently on no medication. B. Hemoglobin A1c on 05/08/2017 was 5.6. 9. Chronic low back pain secondary to lumbar spondylosis with moderate to severe stenosis at L2-L3 l evel, L3-L4 level and L4-L5 level. 10. Right rotator cuff arthropathy with history of posterior shoulder dislocation and glenoid fractur e from a fall 05/2017. A. Status post closed reduction to 06/11/2017. 11. Episode of left anterior chest wall pain on 07/31/2017 with negative cardiac enzymes and normal E KG. A. No recurrence as of 08/05/2017. PLAN: Continue present care. Continue IV vancomycin, target day for completion of the vancomycin is 08/20/2017.
[2017-08-06] MEDS: HYDROcodone/Acetaminophen 10/325 mg Tablet PO PRN ×4 (03:18→19:08)
[2017-08-06] MEDS: diphenhydrAMINE 25 MG CAP PO PRN ×4 (03:19→19:09)
[2017-08-06] MEDS: Vancomycin HCl 750 MG in Sodium Chloride 0.9% 250 ML 250 ML IVPB SCH ×2 (04:03→15:57)
[2017-08-06 05:59] LABS: #Basophils 0.1 thou/uL (0.0-0.2); #Eosinphils 0.3 thou/uL (0.0-0.7); #Lymphocytes 2.1 thou/uL (1.20-3.40); #Monocytes 0.3 thou/uL (0.11-0.59); #Neutrophils 2.7 thou/uL (1.40-6.50); %Basophils 1.7 % (0.0-1.0); %Eosinophils 5.9 % (0.0-10.0); %Monocytes 5.7 % (0.0-10.0); %Neutrophils 48.7 % (42.0-75.0); Hemoglobin 8.8 g/dL (14.0-18.0); Mean Corpuscular HGB CONC 32.9 g/dL (32.0-36.0); Mean Corpuscular Hemoglobin 25.1 pg (27.0-31.0); Mean Corpuscular Volume 76.5 fL (80.0-94.0); Mean Platelet Volume 6.8 fL (7.4-10.4); Platelet Count 221 thou/uL (130-400); RBC Distribution Width 14.1 % (11.5-14.5); White Blood Cell (WBC) Count 5.5 thou/uL (4.8-10.8)
[2017-08-06 06:00] LABS: Anisocytosis SLIGHT = 6-15 cells (100X) (0-5/hpf); Hypochromia MODERATE=16-30 cells (100X) (0-5/hpf); Ovalocytes MODERATE= 6-15 cells (100X) (0-1/hpf); PLT Morphology Comment Appears Adequate; Poikilocytosis SLIGHT = 6-15 cells (100X) (0-5/hpf); RBC Morphology Abnormal
[2017-08-06] MEDS: Lorazepam 1 MG TAB PO SCH ×2 (08:11→20:02)
[2017-08-06] MEDS: Aspirin 325 mg Enteric Coated Tablet PO SCH (08:11)
[2017-08-06] MEDS: Lisinopril 5 MG TAB PO SCH (08:11)
[2017-08-06] MEDS: Multivit, Therapeutic 1 TAB PO SCH (08:12)
[2017-08-06] MEDS: Metoprolol Tartrate 25 MG TAB PO SCH (08:12)
[2017-08-07] MEDS: diphenhydrAMINE 25 MG CAP PO PRN ×5 (01:16→22:49)
[2017-08-07] MEDS: HYDROcodone/Acetaminophen 10/325 mg Tablet PO PRN ×5 (01:16→22:48)
[2017-08-07] MEDS: Vancomycin HCl 750 MG in Sodium Chloride 0.9% 250 ML 250 ML IVPB SCH ×2 (03:01→16:01)
[2017-08-07] MEDS: Aspirin 325 mg Enteric Coated Tablet PO SCH (09:01)
[2017-08-07] MEDS: Lisinopril 5 MG TAB PO SCH (09:02)
[2017-08-07] MEDS: Multivit, Therapeutic 1 TAB PO SCH (09:02)
[2017-08-07] MEDS: Lorazepam 1 MG TAB PO SCH ×2 (09:02→20:29)
[2017-08-07] MEDS: Metoprolol Tartrate 25 MG TAB PO SCH (09:03)
--- NOTE | 2017-08-07 12:59 | PRG ---
DATE OF SERVICE: 08/07/2017 SUBJECTIVE: The patient said he is doing better. He is feeling better. He is tolerating the reduct ion in the pain medicine to no more often than every 5 hours. He says he is not even taking it that often. He did ask for a pass to go out either Thursday or Thursday. OBJECTIVE: GENERAL: The patient is alert, appears very comfortable and in no distress. VITAL SIGNS: His vital signs show a temperature of 99, pulse 74, blood pressure 136/76, respirations were 20, O2 sat 95% on room air. LUNGS: Clear. HEART: Regular rate. MUSCULOSKELETAL: Left shoulder, there is no increased heat, no effusion. Incision healed. There is no redness. He has limited range of motion in that left shoulder. ASSESSMENT: 1. Chronic osteomyelitis of the left shoulder. A. Continued gradual improvement and continues on his 6-week course of vancomycin as of 08/01/19 18, completion 08/20/2017. B. Status post left humeral head resection and incision and drainage of soft tissue abscess with placement of a prostalac antibiotic spacer on 07/02/2017 by orthopedic surgeon, Dr. Gilberto atkins. C. Cultures taken at the time of surgery including aerobic, anaerobic have no growth. AFB cultu res negative. AFB stains negative. AFB cultures pending. D. Hospitalized for a 6-week course of IV vancomycin, controlled. E. Continual gradual improvement. Vancomycin trough levels remained therapeutic. The patient's CRP and sed rate are still elevated as of 08/07/2017. 2. Hypertension, controlled. 3. Paroxysmal atrial fibrillation. A. Rate controlled. B. On aspirin as could not afford to take Eliquis or Xarelto and never placed on Coumadin. 4. History of transient ischemic attack. A. Initially presented with weakness in the right arm on . B. No recurrence. 5. Anemia of chronic illness. A. Hemoglobin 7.6 as of 07/09/2017 as a result of his chronic anemia and recent surgical resecti on of the left proximal humerus. Presently asymptomatic. B. Hemoglobin of 8.4 as of 07/31/2017, asymptomatic. 6. History of alcoholism. A. Patient has been off the alcohol during these recent hospitalizations. 7. Chronic obstructive pulmonary disease. 8. History of diabetes. A. Presently on no medication. B. Hemoglobin A1c on 05/08/2017 was 5.6. 9. Chronic low back pain secondary to lumbar spondylosis with moderate to severe stenosis at L2-L3 l evel, L3-L4 level and L4-L5 level. 10. Right rotator cuff arthropathy with history of posterior shoulder dislocation and glenoid fractur e from a fall 05/2017. A. Status post closed reduction to 06/11/2017. 11. Episode of left anterior chest wall pain on 07/31/2017 with negative cardiac enzymes and normal E KG. A. No recurrence as of 08/07/2017. PLAN: Overall, patient is doing well. He is scheduled to continue to complete his vancomycin 6-week course on 08/20/2017. Will need to be placed on oral antibiotics for suppression. Next week, we wi ll again cut back on the interval of his pain medicine to 6 hours, which he thinks he will be able to do fine. The patient will be able to go out for a pass either tomorrow, Thursday or Thursday.
[2017-08-08] MEDS: diphenhydrAMINE 25 MG CAP PO PRN ×4 (03:53→22:30)
[2017-08-08] MEDS: HYDROcodone/Acetaminophen 10/325 mg Tablet PO PRN ×4 (03:53→22:30)
[2017-08-08] MEDS: Vancomycin HCl 750 MG in Sodium Chloride 0.9% 250 ML 250 ML IVPB SCH ×2 (03:54→15:28)
[2017-08-08] MEDS: Aspirin 325 mg Enteric Coated Tablet PO SCH (07:28)
[2017-08-08] MEDS: Lorazepam 1 MG TAB PO SCH ×2 (07:29→21:03)
[2017-08-08] MEDS: Multivit, Therapeutic 1 TAB PO SCH (07:29)
[2017-08-08] MEDS: Lisinopril 5 MG TAB PO SCH (07:29)
[2017-08-08] MEDS: Metoprolol Tartrate 25 MG TAB PO SCH (07:29)
[2017-08-09] MEDS: diphenhydrAMINE 25 MG CAP PO PRN ×2 (03:30→08:33)
[2017-08-09] MEDS: HYDROcodone/Acetaminophen 10/325 mg Tablet PO PRN ×2 (03:30→08:31)
[2017-08-09] MEDS: Vancomycin HCl 750 MG in Sodium Chloride 0.9% 250 ML 250 ML IVPB SCH ×2 (03:32→17:10)
[2017-08-09 06:02] VITALS: TEMP 97.7
[2017-08-09] MEDS: Multivit, Therapeutic 1 TAB PO SCH (08:30)
[2017-08-09] MEDS: Lisinopril 5 MG TAB PO SCH (08:31)
[2017-08-09] MEDS: Aspirin 325 mg Enteric Coated Tablet PO SCH (08:32)
[2017-08-09] MEDS: Metoprolol Tartrate 25 MG TAB PO SCH (08:33)
[2017-08-09] MEDS: Lorazepam 1 MG TAB PO SCH (08:33)
[2017-08-09 08:35] VITALS: BP 136/76
[2017-08-09 17:20] LABS: Vancomycin, Trough 18.1 ug/mL
--- NOTE | 2017-08-10 13:58 | DIS ---
DATE OF ADMISSION: 07/08/2017 LEFT AGAINST MEDICAL ADVICE: 08/09/2017 FINAL DIAGNOSES: 1. Chronic osteomyelitis of the left shoulder. A. Continued gradual improvement and continues on his 6-week course of vancomycin as of 08/01/19 18, completion 08/20/2017. B. Status post left humeral head resection and incision and drainage of soft tissue abscess with placement of a prostalac antibiotic spacer on 07/02/2017 by orthopedic surgeon, Dr. Gilberto atkins. C. Cultures taken at the time of surgery including aerobic, anaerobic have no growth. AFB cultu res negative. AFB stains negative. AFB cultures pending. D. Hospitalized for a 6-week course of IV vancomycin, controlled. E. Continual gradual improvement. Vancomycin trough levels remained therapeutic. The patient's CRP and sed rate are still elevated as of 08/07/2017. F. Completed 31 days of a 42-day schedule of vancomycin. The patient decided that he had had en ough and left AMA on 08/09/2017. 2. Hypertension, controlled. 3. Paroxysmal atrial fibrillation. A. Rate controlled. B. On aspirin as could not afford to take Eliquis or Xarelto and never placed on Coumadin. 4. History of transient ischemic attack. A. Initially presented with weakness in the right arm on . B. No recurrence. 5. Anemia of chronic illness. A. Hemoglobin 7.6 as of 07/09/2017 as a result of his chronic anemia and recent surgical resecti on of the left proximal humerus. Presently asymptomatic. B. Hemoglobin of 8.4 as of 07/31/2017, asymptomatic. 6. History of alcoholism. A. The patient took a short pass from the hospital on 08/09/2017 and came back inebriated and de cided to leave the hospital AMA as of 08/09/2017. 7. Chronic obstructive pulmonary disease. 8. History of diabetes. A. Presently on no medication. B. Hemoglobin A1c on 05/08/2017 was 5.6. 9. Chronic low back pain secondary to lumbar spondylosis with moderate to severe stenosis at L2-L3 l evel, L3-L4 level and L4-L5 level. 10. Right rotator cuff arthropathy with history of posterior shoulder dislocation and glenoid fractur e from a fall 05/2017. A. Status post closed reduction to 06/11/2017. 11. Episode of left anterior chest wall pain on 07/31/2017 with negative cardiac enzymes and normal E KG. A. No recurrence as of 08/07/2017. SUMMARY: The patient is a 71-year-old white male who has a history of chronic infection of the left shoulder that began with an injection of steroids in the shoulder in 12/2015. Since then he has had recurring abscess of the shoulder requiring repeat drainage. He has required arthrotomy and washouts of the shoulder and prolonged courses of IV antibiotics. Eventually he developed extensive osteomye litis of the left shoulder was subcutaneous abscess and failure to all previous treatment efforts. T he patient was hospitalized at [facility] on 07/02/2017 and underwent left humeral head re section, incision and drainage of the left shoulder wound and abscess and placement of a prosthetic a ntibiotic spacer. Multiple cultures of the wound had no growth. AFB stains were negative. AFB cult ures were pending. The Infectious Disease physician recommended a 6-week course of IV Rocephin. The patient had allergies to the cefazolin was severe urticaria. Dr. Barajas subsequently recommended the patient be treated with a 6-week course of IV vancomycin. A PICC line was placed in his right arm o n 07/07/2017 and the patient was transferred to [facility] extended care. The patient has a hi story of diabetes, but this has been controlled on diet alone. He had gone through a period of exten sive weight loss and with the weight loss the diabetes did not require any treatment. He also has a history of paroxysmal atrial fibrillation. He was not able to afford the Eliquis or Xarelto and did not want to take Coumadin. He subsequently has been treated with aspirin. He has a history of anemi a of chronic illness. He has COPD and a history of alcoholism. He has chronic low back pain seconda ry to lumbar spondylosis with moderate to severe stenosis at L2-3, L3-4 and L4-5 levels. He has had a right rotator cuff arthropathy and history of posterior shoulder dislocation and glenoid fracture f rom a fall in 05/30/2017. This required a closed reduction on 06/11/2017. The patient was admitted to [facility] for a 6-week course of IV antibiotics on 07/08/2017. Th e patient's vancomycin dosage was administered through his PICC line and dose was adjusted to keep hi s vancomycin trough level in a therapeutic range. The patient's incision gradually healed and after 2 weeks, Dr. Lima removed his sutures and the incision all healed. Overall, the left shoulder loo ked very well. There was no redness, no effusion. He had very limited motion in that left shoulder. His pain gradually decreased, although he had still the chronic pain in his right shoulder and righ t low back. His pain was managed initially with his hydrocodone 10/325 and he was taking this pretty regularly every 4 hours. This was reduced to every 5 hours as his pain was diminishing and he seeme d to tolerate this fine, with the intent to gradually move this back to every 6 hours. He was given lorazepam 1 mg twice a day if needed for any anxiety. Overall, he improved. He has anemia of chroni c illness and during his hospitalization for his surgery required transfusions. His hemoglobin has r emained stable in the 8s during this admission. The patient had an episode of anterior chest wall pa in on 07/31/2017. His cardiac enzymes were negative. His EKG was normal. He had no recurrence of t his. The patient was gradually progressing and was allowed on several occasions short passes from [facility] which he complied with. On 08/09/2017 for Maria, he was also allowed a pass in between h is dose of antibiotics. When he returned from his pass he was very belligerent toward the nurses, ve ry mouthy to the nurses. His speech was slow. He was threatening to ofelia because the shoulder had be en infected. He was very verbally assaultive with the nurses and the laborer shellfish processing. With his permission, a blood alcohol level was done and was elevated to 182 mg per deciliter. Due to the alcoholic inebr iation his pain medicine lorazepam was ordered not to be given and repeat alcohol level would be draw n the following morning. Once this had returned to normal and levels were negative, then these medic vernon could be resumed for his pain and anxiety. The patient later decided that he had had enough and he wanted his PICC line out. He did not want any more antibiotics, he had had enough and he was ravi ving AMA. The nursing cloth napping supervisor visited with him and explained the potential consequences, but he s aid he was leaving. He asked that his PICC line be removed. Family member came and would pick him u p and had asked that patient follow back up with his surgeon, Dr. Lima and Dr. Barajas. The patient was not discharged on any medication. The patient left AMA. The patient only completed 31 of the 42 days of the vancomycin.
== END 2017-08-09 19:57 | disposition left against medical advice (07) | DRG 541 ==
LOC: MADMS 10:30
PROVIDERS: ADMIT Family Medicine; ATTEND Family Medicine
DX: M86.612 Other chronic osteomyelitis, left shoulder (principal); I48.0 Paroxysmal atrial fibrillation; D63.8 Anemia in other chronic diseases classified elsewhere; G89.29 Other chronic pain; F10.229 Alcohol dependence with intoxication, unspecified; E11.9 Type 2 diabetes mellitus without complications; J44.9 Chronic obstructive pulmonary disease, unspecified; I10 Essential (primary) hypertension; M47.896 Other spondylosis, lumbar region; M48.061 Spinal stenosis, lumbar region without neurogenic claudication; K21.9 Gastro-esophageal reflux disease without esophagitis; M19.011 Primary osteoarthritis, right shoulder; R07.89 Other chest pain; Y90.6 Blood alcohol level of 120-199 mg/100 ml; Z86.73 Personal history of transient ischemic attack (TIA), and cerebral infarction without residual deficits; Z88.1 Allergy status to other antibiotic agents; Z79.82 Long term (current) use of aspirin; Z79.899 Other long term (current) drug therapy
CPT/HCPCS: 36415; 80048; 80053; 80202; 80307; 82553; 84484; 85025; 85652; 86140; A4216; G8978-GP-CI; G8979-GP-CI; J1642; J3370; J7050

== ENCOUNTER 2017-08-17 14:53 | Inpatient (IN) | payer MEDICARE ==
[2017-08-17] MEDS ORDERED: Prevnar 13-Val Conj/PF 0.5 ML SYRINGE IM ONE (18:45)
[2017-08-17] MEDS ORDERED: HYDROcodone/Acetaminophen 7.5/325 mg Tablet PO PRN (20:11)
[2017-08-17] MEDS: Docusate 100 MG CAP PO SCH (20:26)
[2017-08-17] MEDS: HYDROcodone/Acetaminophen 7.5/325 mg Tablet PO PRN (20:26)
[2017-08-17] MEDS: Heparin 5,000 UNITS/ML VIAL SC SCH (20:28)
[2017-08-17] MEDS: diphenhydrAMINE 25 MG CAP PO PRN (20:29)
[2017-08-17] MEDS: Vancomycin HCl 750 MG in Sodium Chloride 0.9% 250 ML 250 ML IVPB SCH (20:31)
[2017-08-18] MEDS: diphenhydrAMINE 25 MG CAP PO PRN ×6 (00:19→21:08)
[2017-08-18] MEDS: HYDROcodone/Acetaminophen 7.5/325 mg Tablet PO PRN ×6 (00:19→21:10)
[2017-08-18 02:40] VITALS: BMI 27.3
[2017-08-18] MEDS: Vancomycin HCl 750 MG in Sodium Chloride 0.9% 250 ML 250 ML IVPB SCH ×2 (07:58→19:57)
[2017-08-18] MEDS: Docusate 100 MG CAP PO SCH ×2 (07:59→21:08)
[2017-08-18] MEDS: Lisinopril 5 MG TAB PO SCH (07:59)
[2017-08-18] MEDS: Multivit, Therapeutic 1 TAB PO SCH (07:59)
[2017-08-18] MEDS: Aspirin 325 MG TAB PO SCH (08:00)
[2017-08-18] MEDS: Heparin 5,000 UNITS/ML VIAL SC SCH ×2 (08:00→21:08)
[2017-08-18] MEDS ORDERED: Metoprolol Tartrate 25 MG TAB PO SCH (09:00)
[2017-08-18] MEDS: Metoprolol Tartrate 25 MG TAB PO SCH ×2 (09:02→21:07)
--- NOTE | 2017-08-18 11:14 | HP ---
CHIEF COMPLAINT: Infection in the left shoulder. PRESENT ILLNESS: The patient is a 71-year-old white male who has a history of a chronic infection in the left shoulder. Initially, this began with chronic pain in the shoulder for which he received a steroid injection in 12/2015. This later developed an infection of the shoulder for which he underwe nt an incision and drainage on 04/21/2016. At that time the cultures grew propionibacterium acne. Navin soni did well for a while after the incision and drainage, but then developed chronic swelling and drain age from the shoulder. He was rehospitalized for this and underwent incision and drainage on [address] Gilberto Lima, orthopedic surgeon. Two days later, he was taken back to surgery for fur ther debridement including arthrotomy, copious irrigation of the deep infection, culture then showed no growth. The patient received a 6 week course of IV Rocephin, presumably for the propionibacterium acne per recommendations of Dr. Barajas, Infectious Disease. Following a 6-week course of antibiotics he developed again swelling in the shoulder. MRI showed extensive rotator cuff abnormality and flui d in the left shoulder joint and enhanced signal in the humeral head consistent with an osteomyelitis . The patient was readmitted on 02/17/[address] Lima did have another arthrotomy with irrigati on and debridement, curettage and debridement of the humeral head with application of antibiotic bead s of vancomycin, tobramycin in the wound. He required repeat operation on 02/19/2017 for incision an d drainage of the seroma and again the humeral head was copiously irrigated. Culture at that time gr ew Staph aureus sensitive to methicillin. Dr. Barajas, Infectious Disease recommended an 8-week course of IV cefazolin. The patient received the cefazolin and oral rifampin, but developed an extensive u rticarial rash from the antibiotics. His antibiotics were stopped after 36 days of the cefazolin and the rifampin was stopped. He was placed on vancomycin and completed 20 additional days. The patien t did well and the shoulder looked better. He was discharged on Cipro. After that, he had a fall an d dislocated his right shoulder that required a closed reduction on 06/11/2017. Repeat MRI done of t he left shoulder at that time due to increasing swelling of the shoulder showed fluid collection arou nd the shoulder with probable abscess and changes of the humeral head consistent with osteomyelitis. The patient was readmitted at [facility] on 07/02/2017 for osteomyelitis of the shoulder th at had failed repeated antibiotics and surgeries. The patient underwent drainage of the soft tissue abscess and then underwent left humeral head resection and placement of an antibiotic spacer. Multip le cultures, aerobic, anaerobic, and AFB stain and cultures were taken. Cultures had no growth. AFB stains were negative. AFB cultures pending. The patient was recommended to receive a 6-week course of IV vancomycin for the osteomyelitis. He was transferred to [facility] for the IV antibiotic s to be given through a PICC line in the right arm. The patient was hospitalized at [facility] from 07/08/2017 to 08/09/2017. He completed 31 of 42 days scheduled vancomycin. He had been given a pass on 08/09/2017, but he came back very inebriated with a blood alcohol level of 182. He was barry y belligerent. His pain medicine and lorazepam was all to be held until the alcohol completely clear ed from his system. The patient became more belligerent and opted to leave [place] on 08/09/2017. The p atient after he sobered up gradually became very weak and was nauseated, was aching, got to where he felt like he was going to . He was readmitted to [facility] on 08/12/2017 until 2007 for dehydration secondary to narcotic withdrawal prompted by him leaving [facility] agains t medical advice after being inebriated. He also was noted to have increasing puffiness around the l eft shoulder. The patient was hospitalized there, rehydrated, started back on a reduced dose of narc otics with resolution of his symptoms. He was re-seen by Dr. Lima, his orthopedic surgeon, and Dr Deshawn Barajas, his Infectious Disease doctor. MRI of the left shoulder was again done that was showing jericho e fluid collection. An ultrasound-guided aspiration of the left shoulder was done on 08/16/2017 and 30 mL of blood tinged brown fluid was aspirated and sent for culture and examination. The culture doherty d no growth at 24 hours. There were a few WBCs on microscopic exam and RBCs, no organisms were seen. His AFB cultures have come back with no growth. Dr. Barajas, Infectious Disease physician, has recom mended that the patient completed his 6-week course of vancomycin, which will require an additional 4 days here at [facility] and then be placed on doxycycline 100 mg b.i.d. indefinitely. The pat ient is due to be followed back up with Dr. Barajas and Dr. Lima. The patient was admitted late af ternoon of the day of admission at [facility]. The patient was seen early on the morning of 08/18/2017. The patient reviewed with me what had happe aaron to him since he left the hospital here at [facility] on 08/09/2017. He was very apologetic and said he felt much better. He said when he reentered [facility] he thought he was going to , he was very dehydrated and was withdrawing from the narcotics. He is doing much better. He is on a reduced dose of the hydrocodone and he is not on the lorazepam. He is feeling better and he is very agreeable not to go out on any passes and very committed to not going back on the alcohol. He understands that he will receive 4 days of the IV vancomycin and then be switched to oral doxycycl ine with an anticipated discharge of Thursday08/22/2017. The patient said he feels better. He said his shoulder is just a little sore from the aspiration. PAST HISTORY: Last hospitalized at [facility] from 08/12/2017 to 08/17/2017 for dehydrati on from acute narcotic withdrawal from his leaving the hospital AM without any narcotics. Subsequen tly, he has had some puffiness in the shoulder. MRI showed fluid collection, aspiration done on 12/2017 showed 30 mL of a blood tinged brown fluid that has no growth to date. He was transferred to [facility] on 08/17/2017 for 4 days of IV vancomycin completing his 6 week course. Hospitalize d at [facility] from 07/08/2017 until 08/09/2017 for chronic osteomyelitis of the left shoulder . Receiving IV vancomycin through a right PICC line, left [place] on 08/09/2017 after he became intoxica michelle on a home pass with alcoholic intoxication. He left the hospital AMA, had completed 31 of 42 day s of IV vancomycin. Hospitalized at [facility] from 07/02/2017 to 07/08/2017 for left magdalena ulder osteomyelitis and subcutaneous abscess with failed previous surgeries and IV antibiotics for wh ich he underwent a left humeral head resection and placement of a Prostalac antibiotic spacer and the n was placed on IV vancomycin. PICC line placed in the right arm 07/07/2017. Dislocation of the rig ht shoulder from a fall on 05/30/2017, MRI of that shoulder showed severe right rotator cuff arthropa thy and posterior shoulder dislocation with glenoid fracture. [facility] from 03/12/2017 to 04/17/2017 for chronic osteomyelitis of the left shoulde r, underwent an 8-week course of IV antibiotics. The initial 36 days with cefazolin for methicillin sensitive Staph and rifampin, but this was switched to vancomycin due to an urticarial eruption and c ompleted the 8-week course with vancomycin. The patient has a history of diabetes, but had significa nt weight loss after the loss of his spouse and the diabetes no longer required any medication. He h as a history of paroxysmal atrial fibrillation for which he has been in sinus rhythm. He could not a fford anticoagulants and did not want to take Coumadin. He has been managed with metoprolol and aspi rin. The patient has hypertension, anemia of chronic illness, history of alcoholism, COPD, chronic l ow back pain secondary to lumbar spondylosis with moderate to severe stenosis at L2-3, L3-4, and L4-5 , GERD, history of a ruptured duodenal ulcer and repair. He had exploratory laparotomy at the age of 14, but unsure for what reason. PRESENT MEDICATIONS: Vancomycin 1 gram IV through a PICC line in the right arm q.12h., will complete a 6-week course on 08/21/2017, lisinopril 5 mg daily, docusate sodium 100 mg b.i.d., Benadryl 25 mg every 4 hours as needed, usually takes this with his pain medicine, hydrocodone/acetaminophen 7.5/325 one or 2 every 4 hours as needed, metoprolol tartrate 12.5 mg b.i.d., presently only taking once a d ay, multivitamin daily. ALLERGIES: CEFAZOLIN causes urticaria. RIFAMPIN possible urticaria. The patient was taken the rifa mpin along with the cefazolin when he developed the urticaria. REVIEW OF SYSTEMS: The patient said he has had no fever. He said he has lost a little weight recent ly, but has regained this. HEAD AND NECK: No complaints. PULMONARY: No complaints. GASTROINTESTINAL: The patient said he has been just a little nauseated the last few days, but this g etting a lot better. : No complaints. MUSCULOSKELETAL: The patient has chronic low back pain, left shoulder is feeling better. He has barry y limited motion in both shoulders. HABITS: The patient has a history of alcoholism and on a pass on 08/09/2017 from the hospital had be come inebriated with alcohol, left the hospital AMA. Tobacco; none. 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 He is a . PHYSICAL EXAMINATION: GENERAL: Shows a very pleasant 71-year-old white male who was in his room sitting up on the side of the bed. He is an alert, oriented x3, talkative, and appears comfortable in no distress. VITAL SIGNS: His temp 97.1, pulse 85, respirations 18, O2 sat 97% on room air, blood pressure 124/59 . His weight is 184. HEAD: Normocephalic and atraumatic. EYES: Pupils were equal, round, and reactive. Sclerae nonicteric. EARS: TMs are clear. NOSE: Normal. MOUTH AND THROAT: Normal. NECK: Carotids are equal and strong, no bruits. Thyroid not enlarged. LUNGS: Clear. HEART: Regular rate. ABDOMEN: Soft, nontender. SHOULDERS: Left shoulder; incision is well healed. There is a small puncture site with the skin a l ittle blue around this. There is no drainage. There is no increased heat. The patient has very mcbride ited motion of the left shoulder. Right shoulder, there is no redness, swelling, very limited motion . EXTREMITIES: Lower extremities: No edema. NEURO: Alert, oriented x3. Affect seems happy. There is no focal weakness. IMPRESSION: 1. Chronic osteomyelitis of the left shoulder. A. Failure to respond to previous I&Ds, arthrotomies and debridement of the humeral head and multipl e long courses of IV antibiotics including vancomycin, Rocephin, and cefazolin. Cefazolin caused an urticarial eruption and was stopped. B. Status post left humeral head resection and incision and drainage of soft tissue abscess with hoang cement of a Prostalac antibiotic spacer on 07/02/2017 by orthopedic surgeon, Dr. Gilberto Lima. C. Cultures taken at the time of surgery on 07/02/2017 including aerobic, anaerobic have no growth. AFB cultures are negative. AFB stains negative D. Completed 31 of 42-day course of IV vancomycin and left the hospital against medical advice after he had been out on a pass and was inebriated, interrupting the 6-week course. Readmitted to [facility] on 08/12/2017 until 08/17/2017 IV antibiotics with vancomycin reinitiated. E. He was fluid collection in the left shoulder, ultrasound guided aspiration on 08/16/2017 had a b rown serosanguineous fluid that has no growth. F. Admitted at [facility] on 08/17/2017 for 4 days more of IV vancomycin completing his 6-wee k course of vancomycin. 2. Hypertension, controlled. 3. Paroxysmal atrial fibrillation. A. Rate controlled. B. On aspirin. Could not afford the Eliquis or Xarelto and did not want to take Coumadin. C. Presently asymptomatic. 4. History of transient ischemic attacks. A. Initially presenting with weakness in the right arm in 04/2016. B. No recurrence. 5. Anemia of chronic illness. 6. History of alcoholism. A. Episode of alcoholic inebriation when he was out from the hospital on a pass on 08/09/2017, and r eturning to the hospital he left against medical advice. B. Readmitted to the hospital at [facility] from 08/12/2017 to 08/17/2017 with dehydratio n from narcotic withdrawal after leaving the hospital AMA on 08/09/2017. C. Presently off the alcohol and committed to remaining off. 7. Chronic obstructive pulmonary disease. 8. History of diabetes. A. Presently on no medication. B. Hemoglobin A1c on 05/08/2017 was 5.6. 9. Chronic low back pain secondary to lumbar spondylosis with moderate to severe stenosis at L2-3, L 3-4 and L4-5 level. 10. Right rotator cuff arthropathy with history of posterior shoulder dislocation and glenoid fractu re from a fall requiring closed reduction on 06/11/2017. PLAN: The patient has been readmitted to [facility] for 4 days of IV vancomycin, which will co mplete his 6-week course of vancomycin. There was a little fluid collection in the shoulder that was aspirated and to date no growth. The patient will complete his vancomycin on 08/21/2017, anticipate removal of the PICC line on 08/22/2017 and placement on oral antibiotics using doxycycline 100 mg b. i.d. indefinitely. Once he goes home he will need to follow up with Dr. Lima, his orthopedic surg zion and Dr. Barajas his Infectious Disease physician. While in the hospital the patient will not be gi tej any passes since he got into trouble with alcohol on the last pass. His narcotics have been redu camille, the lorazepam has been stopped. The patient is on heparin for DVT prophylaxis. See orders.
[2017-08-18 19:34] LABS: Vancomycin, Trough 19.8 ug/mL
[2017-08-19] MEDS: HYDROcodone/Acetaminophen 7.5/325 mg Tablet PO PRN ×6 (01:10→22:10)
[2017-08-19] MEDS: diphenhydrAMINE 25 MG CAP PO PRN ×6 (01:11→22:09)
[2017-08-19 05:28] LABS: ALT (SGPT) 14 U/L (8-55); AST (SGOT) 18 U/L (5-34); Albumin 3.8 g/dL (3.4-4.8); Alkaline Phosphatase 84 U/L (40-150); Anion Gap 16 mmol/L (10-20); BUN (Urea Nitrogen) 19 mg/dL (8.4-25.7); Bilirubin, Total 0.4 mg/dL (0.2-1.2); Calc. Creatinine Clearance 64 mL/min (70-130); Calcium 9.4 mg/dL (7.8-10.44); Carbon Dioxide 22 mmol/L (23-31); Chloride 108 mmol/L (98-107); Estimated GFR-MDRD 58; Globulin 3.1 g/dL (2.4-3.5); Glucose 121 mg/dL (83-110); Potassium 4.6 mmol/L (3.5-5.1); Protein, Total 6.9 g/dL (5.8-8.1); Sodium 141 mmol/L (136-145)
[2017-08-19 05:34] LABS: #Neutrophils 2.7 thou/uL (1.40-6.50); %Basophils 1.8 % (0.0-1.0); %Eosinophils 4.5 % (0.0-10.0); %Lymphocytes 39.5 % (21.0-51.0); %Monocytes 9.4 % (0.0-10.0); %Neutrophils 44.8 % (42.0-75.0); Hemoglobin 8.2 g/dL (14.0-18.0); Hypochromia SLIGHT = 6-15 cells (100X) (0-5/hpf); MDiff Complete? YES; Mean Corpuscular HGB CONC 32.9 g/dL (32.0-36.0); Mean Corpuscular Hemoglobin 24.7 pg (27.0-31.0); Mean Corpuscular Volume 74.9 fl (80.0-94.0); Mean Platelet Volume 6.7 fL (7.4-10.4); Microcytosis SLIGHT = 6-15 cells (100X) (0-5/hpf); Ovalocytes SLIGHT = 2-5 cells (100X) (0-1/hpf); PLT Morphology Comment Appears Adequate; Platelet Count 230 thou/uL (130-400); RBC Distribution Width 15.7 % (11.5-14.5); RBC Morphology Abnormal; Red Blood Cell (RBC) Count 3.33 mill/uL (4.70-6.10)
[2017-08-19] MEDS: Metoprolol Tartrate 25 MG TAB PO SCH ×2 (08:24→20:07)
[2017-08-19] MEDS: Vancomycin HCl 750 MG in Sodium Chloride 0.9% 250 ML 250 ML IVPB SCH ×2 (08:24→19:59)
[2017-08-19] MEDS: Lisinopril 5 MG TAB PO SCH (08:24)
[2017-08-19] MEDS: Aspirin 325 MG TAB PO SCH (08:24)
[2017-08-19] MEDS: Multivit, Therapeutic 1 TAB PO SCH (08:24)
[2017-08-19] MEDS: Heparin 5,000 UNITS/ML VIAL SC SCH ×2 (08:25→20:00)
[2017-08-19] MEDS: Docusate 100 MG CAP PO SCH ×2 (08:26→20:01)
[2017-08-19] MEDS ORDERED: Ferrous Sulfate 325 MG TAB PO SCH (08:30)
[2017-08-19] MEDS: Ferrous Sulfate 325 MG TAB PO SCH ×2 (09:21→17:05)
[2017-08-19 11:37] LABS: Hemoglobin A1c 5.7 % (4.0-6.0)
[2017-08-19 12:17] LABS: CRP (Inflammatory) 4.86 mg/dL (= or < 0.5)
--- NOTE | 2017-08-19 13:45 | PRG ---
DATE OF SERVICE: 08/19/2017 SUBJECTIVE: The patient said he is doing alright, but he noticed that there is a little increased pu ffiness in that left shoulder and he feels just a little soreness. There has been no drainage. OBJECTIVE: The patient is sitting up on the side of the bed, working on his computer. He is alert, appears very comfortable, and was talkative. Vital signs show a temperature 98.6, pulse 73, respirat ions 20, O2 saturation 97% on room air, blood pressure 126/59. Lungs are clear. Heart, regular rate . Lower extremities, no edema. Left shoulder, well-healed. Part of the left shoulder, just above t he axillary fold, anteriorly there is increasing puffiness with some increasing effusion in the left shoulder. The puncture site is kind of purplish, but is sealed over. There is no drainage from this . The distention is more than yesterday. There is no increased heat. LABORATORY DATA: Labs shows an H and H of 8.2 and 24.9, white cell count 6000, with 45% segs, 40% ly mphocytes, and a platelet count of 230,000. Sed rate 60. Sodium 141, potassium 4.6, BUN 19, creatin ine 1.2, glucose 121. Liver panel normal. Albumin 3.8. C-reactive protein pending. Vancomycin tro ugh level 19.8. ASSESSMENT: 1. Chronic osteomyelitis of the left shoulder. A. Failure to respond to previous I&Ds, arthrotomies and debridement of the humeral head and multipl e long courses of IV antibiotics including vancomycin, Rocephin, and cefazolin. Cefazolin caused an urticarial eruption and was stopped. B. Status post left humeral head resection and incision and drainage of soft tissue abscess with hoang cement of a Prostalac antibiotic spacer on 07/02/2017 by orthopedic surgeon, Dr. Gilberto Lima. C. Cultures taken at the time of surgery on 07/02/2017 including aerobic, anaerobic have no growth. AFB cultures are negative. AFB stains negative D. Completed 31 of 42-day course of IV vancomycin and left the hospital against medical advice after he had been out on a pass and was inebriated, interrupting the 6-week course. Readmitted to [facility] on 08/12/2017 until 08/17/2017 IV antibiotics with vancomycin reinitiated. E. He was fluid collection in the left shoulder, ultrasound guided aspiration on 08/16/2017 had a b rown serosanguineous fluid that has no growth. F. [facility] 08/17[facility]2017 for 4 days more of IV vancomycin completing his 6-wee k course of vancomycin. G. Increase in effusion of the left shoulder. 2. Hypertension, controlled. 3. Paroxysmal atrial fibrillation. A. Rate controlled. B. On aspirin. Could not afford the Eliquis or Xarelto and did not want to take Coumadin. C. Presently asymptomatic. 4. History of transient ischemic attacks. A. Initially presenting with weakness in the right arm in 04/2016. B. No recurrence. 5. Anemia of chronic illness. A. Hemoglobin 8.4 as of 08/19/2017. 6. History of alcoholism. A. Episode of alcoholic inebriation when he was out from the hospital on a pass on 08/09/2017, and r eturning to the hospital he left against medical advice. B. Readmitted to the hospital at [facility] from 08/12/2017 to 08/17/2017 with dehydratio n from narcotic withdrawal after leaving the hospital AMA on 08/09/2017. C. Presently off the alcohol and committed to remaining off. 7. Chronic obstructive pulmonary disease. 8. History of diabetes. A. Presently on no medication. B. Hemoglobin A1c on 05/08/2017 was 5.6. 9. Chronic low back pain secondary to lumbar spondylosis with moderate to severe stenosis at L2-3, L 3-4 and L4-5 level. 10. Right rotator cuff arthropathy with history of posterior shoulder dislocation and glenoid fractu re from a fall requiring closed reduction on 06/11/2017. PLAN: We will check a serum ferritin level. We will try patient on iron supplementation. Continue the IV vancomycin. The patient has 3 remaining days and then will be switched to doxycycline orally. We will arrange for patient after his discharge to be rechecked by his orthopedic surgeon. He does have the expanding effusion on that left shoulder today. There has been no growth from the aspirate of the shoulder at 72 hours. This wound may spontaneously drain if this continues to enlarge.
[2017-08-20] MEDS: diphenhydrAMINE 25 MG CAP PO PRN ×6 (02:10→22:46)
[2017-08-20] MEDS: HYDROcodone/Acetaminophen 7.5/325 mg Tablet PO PRN ×6 (02:10→22:45)
[2017-08-20 07:24] LABS: #Neutrophils 2.4 thou/uL (1.40-6.50); %Basophils 1.6 % (0.0-1.0); %Eosinophils 5.2 % (0.0-10.0); %Monocytes 10.6 % (0.0-10.0); %Neutrophils 40.6 % (42.0-75.0); Hemoglobin 8.8 g/dL (14.0-18.0); Mean Corpuscular HGB CONC 32.4 g/dL (32.0-36.0); Mean Corpuscular Hemoglobin 24.5 pg (27.0-31.0); Mean Corpuscular Volume 75.5 fL (80.0-94.0); Mean Platelet Volume 5.9 fL (7.4-10.4); Platelet Count 253 thou/uL (130-400); RBC Distribution Width 15.9 % (11.5-14.5); Red Blood Cell (RBC) Count 3.58 mill/uL (4.70-6.10); White Blood Cell (WBC) Count 5.9 thou/uL (4.8-10.8)
[2017-08-20 07:25] LABS: #Basophils 0.1 thou/uL (0.0-0.2); #Eosinphils 0.3 thou/uL (0.0-0.7); #Lymphocytes 2.5 thou/uL (1.20-3.40); #Monocytes 0.6 thou/uL (0.11-0.59); Hypochromia SLIGHT = 6-15 cells (100X) (0-5/hpf); Macrocytosis SLIGHT = 6-15 cells (100X) (0-5/hpf); Microcytosis SLIGHT = 6-15 cells (100X) (0-5/hpf); Ovalocytes SLIGHT = 2-5 cells (100X) (0-1/hpf); PLT Morphology Comment Appears Adequate
[2017-08-20] MEDS: Vancomycin HCl 750 MG in Sodium Chloride 0.9% 250 ML 250 ML IVPB SCH ×2 (08:47→20:06)
[2017-08-20] MEDS: Aspirin 325 MG TAB PO SCH (08:49)
[2017-08-20] MEDS: Metoprolol Tartrate 25 MG TAB PO SCH ×2 (08:50→20:12)
[2017-08-20] MEDS: Lisinopril 5 MG TAB PO SCH (08:50)
[2017-08-20] MEDS: Ferrous Sulfate 325 MG TAB PO SCH ×2 (08:50→17:04)
[2017-08-20] MEDS: Multivit, Therapeutic 1 TAB PO SCH (08:50)
[2017-08-20] MEDS: Docusate 100 MG CAP PO SCH ×2 (08:50→20:11)
[2017-08-20] MEDS: Heparin 5,000 UNITS/ML VIAL SC SCH ×2 (08:58→20:10)
--- NOTE | 2017-08-20 09:58 | PRG ---
DATE OF SERVICE: 08/20/2017 SUBJECTIVE: The patient says he is feeling alright, he just has a little pressure sensation in the l eft shoulder. There has been no drainage from the shoulder. He has had no fever. OBJECTIVE: The patient is sitting up on side of the bed. He is alert, looks comfortable, in no dist ress. His temperature is 97.9, pulse 68, respirations 20, O2 saturation 97% on room air, blood press ure 125/72. Lungs were clear. Heart, regular rate. Lower extremities, no edema. His left shoulder incision well healed. There is no redness. There is no increased heat. The shoulder is developing enlarging effusion of the shoulder. The shoulder though was nontender. The puncture site when the shoulder was aspirated recently is purplish and a little distended, but no drainage from this. Cultu re from the aspirate of the shoulder done on 08/15/2017 has no growth at 72 hours. A new dressing wa s applied to the previous puncture site from the joint aspiration. ASSESSMENT: 1. Chronic osteomyelitis of the left shoulder. A. Failure to respond to previous I&Ds, arthrotomies and debridement of the humeral head and multipl e long courses of IV antibiotics including vancomycin, Rocephin, and cefazolin. Cefazolin caused an urticarial eruption and was stopped. B. Status post left humeral head resection and incision and drainage of soft tissue abscess with hoang cement of a Prostalac antibiotic spacer on 07/02/2017 by orthopedic surgeon, Dr. Gilberto Lima. C. Cultures taken at the time of surgery on 07/02/2017 including aerobic, anaerobic have no growth. AFB cultures are negative. AFB stains negative D. Completed 31 of 42-day course of IV vancomycin and left the hospital against medical advice after he had been out on a pass and was inebriated, interrupting the 6-week course. Readmitted to [facility] on 08/12/2017 until 08/17/2017 IV antibiotics with vancomycin reinitiated. E. Left shoulder developing gradually enlarging effusion with no increased heat or redness as of 04/2018. The ultrasound guided aspiration done on 08/15/2017 has no growth. F. Admitted at [facility] on 08/17/2017 for 4 days of IV vancomycin to complete his 6-week co urse of vancomycin. The patient will complete the 6-week course tomorrow 08/21/2017. G. Effusion on the left shoulder mildly larger as of 08/20/2017. 2. Hypertension, controlled. 3. Paroxysmal atrial fibrillation. A. Rate controlled. B. On aspirin. Could not afford the Eliquis or Xarelto and did not want to take Coumadin. C. Presently asymptomatic. 4. History of transient ischemic attacks. A. Initially presenting with weakness in the right arm in 04/2016. B. No recurrence. 5. Anemia of chronic illness. A. Hemoglobin 8.4 as of 08/19/2017. 6. History of alcoholism. A. Episode of alcoholic inebriation when he was out from the hospital on a pass on 08/09/2017, and r eturning to the hospital he left against medical advice. B. Readmitted to the hospital at [facility] from 08/12/2017 to 08/17/2017 with dehydratio n from narcotic withdrawal after leaving the hospital AMA on 08/09/2017. C. Presently off the alcohol and committed to remaining off. 7. Chronic obstructive pulmonary disease. 8. History of diabetes. A. Presently on no medication. B. Hemoglobin A1c on 05/08/2017 was 5.6. 9. Chronic low back pain secondary to lumbar spondylosis with moderate to severe stenosis at L2-3, L 3-4 and L4-5 level. 10. Right rotator cuff arthropathy with history of posterior shoulder dislocation and glenoid fractu re from a fall requiring closed reduction on 06/11/2017. PLAN: Continue the IV vancomycin. This will complete tomorrow. The patient will later follow up [facility] Dr. Lima, his orthopedic surgeon, and his Infectious Disease physician, Dr. Barajas.
[2017-08-20 17:11] LABS: Iron 22 ug/dL (65-175); Iron Binding Capacity, Total 336 mcg/dL (261-462)
[2017-08-20 19:22] LABS: Vancomycin, Trough 19.4 ug/mL
[2017-08-21] MEDS: HYDROcodone/Acetaminophen 7.5/325 mg Tablet PO PRN ×6 (02:45→23:37)
[2017-08-21] MEDS: diphenhydrAMINE 25 MG CAP PO PRN ×6 (02:45→23:37)
[2017-08-21] MEDS: Vancomycin HCl 750 MG in Sodium Chloride 0.9% 250 ML 250 ML IVPB SCH ×2 (06:59→19:38)
[2017-08-21] MEDS: Ferrous Sulfate 325 MG TAB PO SCH (06:59)
[2017-08-21] MEDS: Lisinopril 5 MG TAB PO SCH (08:35)
[2017-08-21] MEDS: Heparin 5,000 UNITS/ML VIAL SC SCH ×2 (08:35→20:48)
[2017-08-21] MEDS: Multivit, Therapeutic 1 TAB PO SCH (08:35)
[2017-08-21] MEDS: Aspirin 325 MG TAB PO SCH (08:35)
[2017-08-21] MEDS: Docusate 100 MG CAP PO SCH ×2 (08:35→20:49)
[2017-08-21] MEDS: Metoprolol Tartrate 25 MG TAB PO SCH ×2 (08:36→20:49)
--- NOTE | 2017-08-21 11:24 | PRG ---
DATE OF SERVICE: 08/21/2017 SUBJECTIVE: The patient said he is feeling better. He said he is still aware of the little swelling in the left shoulder. He says it really does not cause him much pain. He still takes his pain medi cine, though for his chronic low back pain and some discomfort in the shoulders, but this seems to be well controlled. He is looking forward to his discharge in the morning. OBJECTIVE: The patient is sitting up on the side of the bed. He is alert, appears very comfortable, in no distress. His temp 98.1, pulse 68, respirations 16, O2 sat 97 on room air, blood pressure 150 /70. Earlier it was 133/63. Lungs were clear. Heart, regular rate. Extremities, no edema. Left s houlder incision healed. The patient has some puffiness on the anterior left shoulder from the effus ion. This looks about like it was yesterday. There is no redness or increased heat. His serum ferr itin level was 45, TIBC 336. Serum iron 22. Vancomycin trough level was last done on 08/20/2017 and it was 19.4. ASSESSMENT: 1. Chronic osteomyelitis of the left shoulder. A. Failure to respond to previous I&Ds, arthrotomies and debridement of the humeral head and multipl e long courses of IV antibiotics including vancomycin, Rocephin, and cefazolin. Cefazolin caused an urticarial eruption and was stopped. B. Status post left humeral head resection and incision and drainage of soft tissue abscess with hoang cement of a Prostalac antibiotic spacer on 07/02/2017 by orthopedic surgeon, Dr. Gilberto Lima. C. Cultures taken at the time of surgery on 07/02/2017 including aerobic, anaerobic have no growth. AFB cultures are negative. AFB stains negative D. Completed 31 of 42-day course of IV vancomycin and left the hospital against medical advice after he had been out on a pass and was inebriated, interrupting the 6-week course. Readmitted to [facility] on 08/12/2017 until 08/17/2017 IV antibiotics with vancomycin reinitiated. E. Left shoulder developing gradually enlarging effusion with no increased heat or redness as of 04/2018. The ultrasound guided aspiration done on 08/15/2017 has no growth. F. Admitted at [facility] on 08/17/2017 for 4 days of IV vancomycin to complete his 6-week co urse of vancomycin. The patient will complete the 6-week course tomorrow 08/21/2017. G. Effusion of the left shoulder stable as of 08/21/2017. 2. Hypertension, controlled. 3. Paroxysmal atrial fibrillation. A. Rate controlled. B. On aspirin. Could not afford the Eliquis or Xarelto and did not want to take Coumadin. C. Presently asymptomatic. 4. History of transient ischemic attacks. A. Initially presenting with weakness in the right arm in 04/2016. B. No recurrence. 5. Anemia of chronic illness secondary to chronic inflammation. A. Hemoglobin 8.8 on 08/20/2017, serum ferritin level 45. 6. History of alcoholism. A. Episode of alcoholic inebriation when he was out from the hospital on a pass on 08/09/2017, and r eturning to the hospital he left against medical advice. B. Readmitted to the hospital at [facility] from 08/12/2017 to 08/17/2017 with dehydratio n from narcotic withdrawal after leaving the hospital AMA on 08/09/2017. C. Presently off the alcohol and committed to remaining off. 7. Chronic obstructive pulmonary disease. 8. History of diabetes. A. Presently on no medication. B. Hemoglobin A1c on 05/08/2017 was 5.6. 9. Chronic low back pain secondary to lumbar spondylosis with moderate to severe stenosis at L2-3, L 3-4 and L4-5 level. 10. Right rotator cuff arthropathy with history of posterior shoulder dislocation and glenoid fractu re from a fall requiring closed reduction on 06/11/2017. PLAN: The patient will receive his last dose of IV vancomycin this evening. In the morning we will remove the PICC line and place him on doxycycline 100 mg b.i.d. and then he will be discharged and fo llow up with Dr. Barajas, Infectious Disease physician and Dr. Lima, his orthopedic surgeon.
--- NOTE | 2017-08-21 15:35 | DIS ---
DATE OF ADMISSION: 08/17/2017 DATE OF DISCHARGE: 08/20/2017 FINAL DIAGNOSES: 1. Chronic osteomyelitis of the left shoulder. A. Failure to respond to previous I&Ds, arthrotomies and debridement of the humeral head and multipl e long courses of IV antibiotics including vancomycin, Rocephin, and cefazolin. Cefazolin caused an urticarial eruption and was stopped. B. Status post left humeral head resection and incision and drainage of soft tissue abscess with hoang cement of a Prostalac antibiotic spacer on 07/02/2017 by orthopedic surgeon, Dr. Gliberto Lima. C. Cultures taken at the time of surgery on 07/02/2017 including aerobic, anaerobic have no growth. AFB cultures are negative. AFB stains negative D. Completed 31 of 42-day course of IV vancomycin and left the hospital against medical advice after he had been out on a pass and was inebriated, interrupting the 6-week course. Readmitted to [facility] [place] on 08/12/2017 until 08/17/2017 IV antibiotics with vancomycin reinitiated. E. Left shoulder developing gradually enlarging effusion with no increased heat or redness as of 04/2018. The ultrasound guided aspiration done on 08/15/2017 has no growth. F. Admitted at [facility] on 08/17/2017 for 4 days of IV vancomycin to complete his 6-week co urse of vancomycin. The patient will complete the 6-week course tomorrow 08/21/2017. G. Fusion of the left shoulder, stable as of 08/21/2017. 2. Hypertension, controlled. 3. Paroxysmal atrial fibrillation. A. Rate controlled. B. On aspirin. Could not afford the Eliquis or Xarelto and did not want to take Coumadin. C. Presently asymptomatic. 4. History of transient ischemic attacks. A. Initially presenting with weakness in the right arm in 04/2016. B. No recurrence. 5. Anemia of chronic illness secondary to chronic inflammation. A. Hemoglobin 8.8 on 08/20/2017 with a serum ferritin of 46. 6. History of alcoholism. A. Episode of alcoholic inebriation when he was out from the hospital on a pass on 08/09/2017, and r eturning to the hospital he left against medical advice. B. Readmitted to the hospital at [facility] from 08/12/2017 to 08/17/2017 with dehydratio n from narcotic withdrawal after leaving the hospital AMA on 08/09/2017. C. Presently off the alcohol and committed to remaining off. 7. Chronic obstructive pulmonary disease. 8. History of diabetes. A. Presently on no medication. B. Hemoglobin A1c on 05/08/2017 was 5.6. 9. Chronic low back pain secondary to lumbar spondylosis with moderate to severe stenosis at L2-3, L 3-4 and L4-5 level. 10. Right rotator cuff arthropathy with history of posterior shoulder dislocation and glenoid fractu re from a fall requiring closed reduction on 06/11/2017. SUMMARY: The patient is a 71-year-old white male who was rehospitalized at [facility] in [facility] medical center on 08/17/2017 to complete a 6-week course of IV vancomycin for chronic osteomyelitis of his left shoulder. This 6-week course of IV vancomycin was initiated on 07/08/2017, but was interrupted when left on a pass and come back very inebriated and elected to leave the hospital against medical a dvice on 08/10/2017. He required readmission at [facility] on 08/13/2017 with dehydration, nausea, generalized pain that was felt to be secondary to his narcotic withdrawal. He was readmitted at [facility], hydrated and replaced on his narcotics for his chronic pain from his shoul ders and severe degenerative back disease. He did very well and was reevaluated by his orthopedic diane rgeon, Dr. Lima, and his Infectious Disease physician, Dr. Barajas, who recommended that he complete his 6-week course of IV vancomycin for the osteomyelitis of the left shoulder. The patient had a re peat CT scan of the left shoulder that showed an effusion. This was re-aspirated removing 30 mL of b rown serosanguineous fluid that has had no growth. This was done on 08/15/2017 with removal of 30 mL of fluid. The patient was transferred to [facility] to [facility] on 08/17/2017 for an add ition of 4 days of IV vancomycin, which will complete his 6-week course of IV vancomycin. A PICC moshe e was placed in his right arm prior to his admission here at [facility]. The plans are upon co mpletion of the vancomycin, place him on doxycycline 100 mg b.i.d. indefinitely. The patient has a history of chronic osteomyelitis of the left shoulder. He has failed response to p revious incision and drainage. Arthrotomies with debridement and washout and multiple long courses o f IV antibiotics including vancomycin, Rocephin, and cefazolin. The cefazolin had to be stopped due to urticarial eruption. The patient eventually required resection of the left humeral head and incis ion and drainage of soft tissue abscess and placement of the Prostalac Antibiotic Spacer on [address] Lima. The cultures from the shoulder including aerobic and anaerobic had been negative. The AFB stains have been negative and the AFB cultures have been negative. Re-aspiration of the fus ion of the left shoulder on 08/15/2017 has had no growth. The patient readmitted to [facility] to complete the 6-week course of IV antibiotics. The patient is receiving his lower dose of hydroco done for his severe lumbar spondylosis with moderate to severe stenosis at the L2-L3, L3-L4 and L4-L5 level and also for the chronic osteomyelitis of the left shoulder and right rotator cuff arthropathy . HOSPITAL COURSE: The patient was readmitted to [facility] on 08/17/2017. He had a PICC line i n the right arm through he was receiving vancomycin 1 gram IV q.12 hours. This was scheduled for an additional 4 days, to be completed on the evening of 08/21/2017. The patient received this without a ny difficulty. His trough levels were therapeutic. His sedimentation rate on 08/19/2017 was 60 and his CRP was 4.86. The patient has anemia of chronic illness from his chronic inflammation. His last H and H on 08/20/2017 was 8.8 and his serum ferritin level was 46. The patient had no problems duri ng his hospitalization. He was apologetic for his behavior during last admission where he had gone o n a pass and came back inebriated and then left AMA. The patient's pain has been well controlled in the hospital on a lower dose of hydrocodone. He has been receiving the hydrocodone/acetaminophen 7.5 /325 two tablets about every 4 hours as needed. He will be discharged on the hydrocodone. The inten tion is for the patient to receive his last dose of vancomycin on the evening of 08/21/2017 and on morning of 08/22/2017. His PICC line will be stopped and he will be placed on doxycycline 100 mg b .i.d. and then he will be discharged in follow up with Dr. Lima, orthopedic surgeon and Dr. Barajas, Infectious Disease physician. DISPOSITION: DIET: Regular diet. Warned the patient not to drink any alcohol. ACTIVITIES: As tolerated. MEDICATIONS: Doxycycline 100 mg b.i.d. indefinitely, aspirin 325 mg daily, diphenhydramine 25 mg ailyn ry 4 hours as needed and usually takes this with his pain medicine, docusate sodium 100 mg b.i.d., hy drocodone/acetaminophen 7.5/325 1-2 every 6 hours as needed for pain, lisinopril 5 mg daily, multivit melissa 1 a day. FOLLOW UP: The patient will need to be seen by Dr. Lima within 2 weeks, his orthopedic surgeon; Natasha Barajas, his Infectious Disease physician within 2 weeks. We will see the patient follow up in 2 we eks.
[2017-08-22] MEDS: HYDROcodone/Acetaminophen 7.5/325 mg Tablet PO PRN (05:44)
[2017-08-22] MEDS: diphenhydrAMINE 25 MG CAP PO PRN (05:45)
[2017-08-22 06:41] VITALS: TEMP 98.7
[2017-08-22] MEDS: Vancomycin HCl 750 MG in Sodium Chloride 0.9% 250 ML 250 ML IVPB SCH (07:45)
[2017-08-22] MEDS: Metoprolol Tartrate 25 MG TAB PO SCH (07:46)
[2017-08-22] MEDS: Aspirin 325 MG TAB PO SCH (07:46)
[2017-08-22] MEDS: Docusate 100 MG CAP PO SCH (07:46)
[2017-08-22] MEDS: Lisinopril 5 MG TAB PO SCH (07:47)
[2017-08-22] MEDS: Multivit, Therapeutic 1 TAB PO SCH (07:47)
[2017-08-22] MEDS: Heparin 5,000 UNITS/ML VIAL SC SCH (07:47)
[2017-08-22 08:52] VITALS: BP 129/67
[2017-08-22] MEDS ORDERED: Doxycycline 100 MG CAP PO SCH (09:00)
--- NOTE | 2017-08-22 09:57 | PRG ---
DATE OF SERVICE: 08/22/2017 SUBJECTIVE: The patient received his last dose of IV vancomycin last evening and completed a 6-week course. This morning, he was started on the doxycycline. He says he is feeling fine. He is ready t o go home. OBJECTIVE: GENERAL: The patient is alert, appears comfortable in no distress. VITAL SIGNS: Temperature is 98.7, pulse 76, respirations 16, O2 sat 98% on room air, blood pressure 120/60. LUNGS: Clear. HEART: Regular rate. EXTREMITIES: No edema. Left shoulder, the effusion that is apparent anteriorly is stable. ASSESSMENT AND PLAN: The patient is doing very well. Has completed a 6-week course of vancomycin an d has started his doxycycline 100 mg twice a day, which he will take indefinitely. Arrangements have been made for his appointment to see Dr. Lima and Dr. Barajas. See discharge summary. PICC line w ill be removed prior to his discharge.
== END 2017-08-22 11:15 | disposition home or self-care (01) | DRG 638 ==
LOC: MADMS 16:15
PROVIDERS: ADMIT Family Medicine; ATTEND Family Medicine
DX: E11.69 Type 2 diabetes mellitus with other specified complication (principal); M86.612 Other chronic osteomyelitis, left shoulder; I48.0 Paroxysmal atrial fibrillation; D63.8 Anemia in other chronic diseases classified elsewhere; I10 Essential (primary) hypertension; F10.20 Alcohol dependence, uncomplicated; M47.896 Other spondylosis, lumbar region; M48.061 Spinal stenosis, lumbar region without neurogenic claudication; K21.9 Gastro-esophageal reflux disease without esophagitis; Z86.73 Personal history of transient ischemic attack (TIA), and cerebral infarction without residual deficits; E11.618 Type 2 diabetes mellitus with other diabetic arthropathy; M25.412 Effusion, left shoulder
CPT/HCPCS: 36415; 80053; 80202; 82728; 83036; 83540; 83550; 85025; 85652; 86140; A4216; J1644; J3370; J7050

== ENCOUNTER 2017-09-23 13:16 | Inpatient (IN) | payer MEDICARE ==
[2017-09-23] MEDS ORDERED: HYDROcodone/Acetaminophen 7.5/325 mg Tablet PO PRN ×2 (18:30→19:18)
[2017-09-23] MEDS: HYDROcodone/Acetaminophen 7.5/325 mg Tablet PO PRN ×2 (19:21→23:20)
[2017-09-23] MEDS: cefTRIAXone\\ROCEPHIN 2 GM VIAL IVPB SCH (19:22)
[2017-09-23] MEDS: Famotidine 20 MG TAB PO SCH (20:03)
[2017-09-24] MEDS: HYDROcodone/Acetaminophen 7.5/325 mg Tablet PO PRN ×2 (03:20→07:21)
[2017-09-24 05:42] LABS: ALT (SGPT) 13 U/L (8-55); AST (SGOT) 18 U/L (5-34); Albumin 3.5 g/dL (3.4-4.8); Alkaline Phosphatase 83 U/L (40-150); Anion Gap 14 mmol/L (10-20); BUN (Urea Nitrogen) 12 mg/dL (8.4-25.7); Bilirubin, Total Less than 0.2 mg/dL (0.2-1.2); Calc. Creatinine Clearance 72 mL/min (70-130); Calcium 9.7 mg/dL (7.8-10.44); Carbon Dioxide 25 mmol/L (23-31); Chloride 106 mmol/L (98-107); Estimated GFR-MDRD 72; Globulin 2.9 g/dL (2.4-3.5); Potassium 4.1 mmol/L (3.5-5.1); Protein, Total 6.4 g/dL (5.8-8.1); Sodium 141 mmol/L (136-145)
[2017-09-24 05:45] LABS: Glucose 98 mg/dL (83-110)
[2017-09-24 05:49] LABS: #Basophils 0.1 thou/uL (0.0-0.2); #Eosinphils 0.4 thou/uL (0.0-0.7); #Lymphocytes 2.5 thou/uL (1.20-3.40); #Monocytes 0.4 thou/uL (0.11-0.59); #Neutrophils 2.2 thou/uL (1.40-6.50); %Basophils 1.6 % (0.0-1.0); %Eosinophils 7.4 % (0.0-10.0); %Lymphocytes 45.1 % (21.0-51.0); %Monocytes 6.6 % (0.0-10.0); %Neutrophils 39.2 % (42.0-75.0); Hemoglobin 7.7 g/dL (14.0-18.0); Mean Corpuscular HGB CONC 32.9 g/dL (32.0-36.0); Mean Corpuscular Hemoglobin 24.9 pg (27.0-31.0); Mean Corpuscular Volume 75.6 fl (80.0-94.0); Platelet Count 237 thou/uL (130-400); RBC Distribution Width 15.6 % (11.5-14.5); Red Blood Cell (RBC) Count 3.11 mill/uL (4.70-6.10); White Blood Cell (WBC) Count 5.6 thou/uL (4.8-10.8)
[2017-09-24 05:50] LABS: Anisocytosis MODERATE=16-30 cells (100X) (0-5/hpf); Hypochromia MODERATE=16-30 cells (100X) (0-5/hpf); MDiff Complete? YES; Microcytosis SLIGHT = 6-15 cells (100X) (0-5/hpf); PLT Morphology Comment Appears Adequate; Poikilocytosis MODERATE=16-30 cells (100X) (0-5/hpf); RBC Morphology Abnormal
--- NOTE | 2017-09-24 06:27 | HP ---
Admitted to [facility] on 09/23/2017. 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 PRESENT ILLNESS: The patient is a 71-year-old white male who has a history of chronic osteomyelitis of the left shoulder involving the humeral head and some of the glenoid. This was initiated from a s teroid injection in 12/2015. He has undergone multiple procedures for this initially with I and Ds a nd later I and Ds with arthrotomies and repeated courses of IV antibiotics. Initially cultures grew a Propionibacterium acne sensitive to Rocephin, which he has received on several courses. He subsequ ently has grown methicillin-sensitive Staph aureus from the wound for which he has been treated again with prolonged IV antibiotics. After each course, he has had gradual reaccumulation of fluid in the left shoulder and MRI has shown fluid on the shoulder and evidence of osteoarthritis. The patient's orthopedic surgeon, Dr. Gilberto Lima who has picked up on the patient much after the infection had started and has had arthrotomies on several occasions. Eventually with these recurrent infections, the patient underwent a left humeral head resection and incision and drainage of soft tissue abscess with placement of Prostalac antibiotic spacer on 07/02/2017. Cultures at that time including anaerob ic, aerobic, and AFB cultures were all negative. He was hospitalized afterwards with a 6-week course of IV vancomycin. The patient continued to have elevation in sed rate and CRPs and gradually had re currence of fluid in the joint. He required rehospitalization on 08/26 until 09/01 for septic should er and required wound to be reopened, the spacer was removed, and the wound was copiously washed out. The patient's subcutaneous tissue and skin were left open and a wound VAC was placed. He was then transferred to [facility] for wound care with the wound VAC where he remained until 09/18/19. He was on doxycycline 100 mg b.i.d. and Augmentin 875 mg twice a day. The wound initially impro chavo, but then on 09/17, the center part of the wound developed serosanguineous yellow-tinged fluid th at had burst through the center part of the wound. Wound was probed with a cotton swab and deep into the joint space. The patient was transferred back to [facility] where he was admitted fr 09/17/2017 until 09/23/2017. He underwent initial re-opening of the wound on 09/18/2017 with debr idement, washout, and application of a wound VAC by Dr. Lima's partner [facility]. Patient was taken back to surgery again on 09/21/2017 for the septic left shoulder with chronic osteomyelitis and the wound was irrigated and debrided with resection of the proximal humerus. The wound was cultured and then a wound VAC was applied deep in the wound with the intention of the wound being left open and healed by secondary intention with the use of the wound VAC. The patient's cult ure from the wound grew Staph epidermidis that was sensitive to vancomycin and Serratia marcescens, w hich was sensitive to Rocephin and Cipro. Patient was seen again by Infectious Disease physician, Dr Deshawn Barajas who recommended that patient remained on the IV Rocephin 2 grams daily and vancomycin 1.25 grams IV daily until 11/17/2017. After that, he will be placed on Cipro and minocycline for an other 3 months. During this time, he is to have weekly CBC, CMP, CRP, and sed rate, and he will be s een in followup by Dr. Barajas and Dr. Lima. The patient has been doing well after the surgery, jus t having pain in that left shoulder and he was transferred to [facility] for IV antibiotics unt ca 11/17 and also for wound VAC care. The patient was seen soon after his arrival and said that his shoulder is little sore, but he has bee n doing okay. It seemed to be past history, most recent hospitalization at [facility] 09/17/2017 until 09/23/2017 for a chronic osteomyelitis of the left shoulder involving the humeral head and glenoid and so for recurrent septic joint with cultures growing Staph epi, sensitive to vanc omycin and Serratia marcescens, sensitive to Rocephin and Cipro. Patient underwent initial opening o f the wound, washout, debridement on 09/18 and then on 09/21 through another opening the wound, irrig ation and debridement, resection of the proximal humerus and cultures and application of a wound VAC. The patient has had multiple other surgeries and long courses of hospitalizations for this chronic osteomyelitis. He underwent left humeral head resection with placement of Prostalac antibiotic space r on 07/02/[address] Gilberto Lima. On 08/26 due to recurrent septic shoulder, he underwent arthr otomy with removal of the Prostalac antibiotic spacer. See his previous history and physical and dis charge summary for more complete outline of his care for the shoulder. The patient also has a histor y of alcoholism and during his hospitalization, he has been off the alcohol, but during the admission from 07/08 to 08/09/2017, he had gone out on past and came back inebriated with very high alcohol le jeffrey and he left the hospital AMA. He subsequently was readmitted at [facility] from 08/13 to 08/17 for dehydration and withdrawal symptoms that he had not had any of his pain medication with hydration and his symptoms all abated. Patient also has a history of hypertension, paroxysmal atria l fibrillation that is rate controlled. He has been only on aspirin. He could not afford Eliquis or Xarelto and did not want to take Coumadin. The rate has been controlled. He has had a TIA in 04/29 16, presented with weakness in the right arm. He has had no recurrence. He has a chronic normocytic anemia, COPD, chronic pain from his shoulders and from lumbar spondylosis with tltyttwn-av-htqicy st enosis at L2-L3, L3-L4, and L4-L5 level. The patient has chronic rotator cuff arthrotomy of the righ t shoulder and had a fall resulting in a posterior dislocation of right shoulder in 05/30/2017. He u nderwent a closed reduction on 06/11/2017. Patient has a history of diabetes mellitus type 2, but doherty d significant weight loss, which resulted in normalization of his blood sugar and hemoglobin A1c, has not required any medication for treatment. Patient has had gastroesophageal reflux disease, history of a ruptured duodenal ulcer that was repaired, exploratory laparotomy at the age of 14, not sure fo r what reason. PRESENT MEDICATIONS: Vancomycin 1.25 grams IV daily, initiated 09/18/2017, will need to continue unt il 11/17/2017. Rocephin 2 grams IV daily, initiated around 09/18, will need to continue until 2017. Aspirin 325 mg daily, Pepcid 20 mg b.i.d., [place] 7.5 mg 1 every 4 hours as needed, lisinopril 5 mg daily, Lopressor 25 mg daily, multivitamin daily, Florastor 250 mg daily, Zoloft 50 mg daily. ALLERGIES: CEFAZOLIN, causes urticaria; RIFAMPIN, possible urticaria. The patient was taken both th jay if urticaria occurs. He has since been able to take Rocephin without any difficulty. REVIEW OF SYSTEMS: The patient has had no fever. Head and Neck: No complaints. Pulmonary: No com plaints. Cardiovascular: No chest pain. Gastrointestinal: No complaints. Musculoskeletal: The p atient is very limited motion in both of his shoulders. He has some chronic pain in the shoulders an d he has chronic low back pain that he controls with hydrocodone. HABITS: Tobacco none. Alcohol: The patient has a history of alcohol abuse. He says he has used th is to help control some of his chronic pain. During his hospitalization, he has been off the alcohol , but had episodes where he became inebriated when taking the break during the hospitalization and le ft AMA on 08/09/2017. SOCIAL HISTORY: The patient is a . 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 Ordinarily, he can manage his ADLs, but needs help with his instrumental ADLs. PHYSICAL EXAMINATION: GENERAL: A 71-year-old white male who is sitting on his hospital bed. He is alert, talkative, orien michelle x3, and recognizes me. He was able to review with me the history of what has occurred most recen tly during this hospitalization in [place]. VITAL SIGNS: Temperature of 98.1, blood pressure 122/80, respirations 20, O2 saturation 97%. The pa tient had additional falls and came in 0130 hours. HEAD: Normocephalic. EYES: Pupils are equal, round, and reactive. EARS: TMs are clear. NOSE: Normal. MOUTH AND THROAT: Normal. NECK: Regular rhythm, no bruits. Thyroid not enlarged. LUNGS: Clear. HEART: Irregularly irregular rhythm. ABDOMEN: Soft. No organomegaly nor areas of tenderness. EXTREMITIES: Lower extremities, no edema. Shoulders have very limited motion, particularly in the l eft shoulder. On the left shoulder, the patient has a wound with a wound VAC present, some wound cou ld be inspected. Pictures were taken to see the pictures. The patient has a very large wound from t he left anterior shoulder extending down the proximal shaft of the arm, the proximal area extends juan c p into the joint and the wound VAC had gone down deep into the joint. This will be replaced with wet -to-dry dressing for tonight and physical therapy. We will replace the wound VAC in the morning. Ra dial pulse present in the arms. NEUROLOGIC: The patient is alert, oriented x3, has a weakness in his arms from the recent surgery. Otherwise, no focal weakness. IMPRESSION: 1. Recurrent septic left shoulder with a history of a chronic osteomyelitis of the left humerus and glenoid. A. Hospitalized at [facility] from 09/17 until 09/23/2017, where he underwent a left shou lder irrigation, debridement, and wound VAC placement. Then on 09/21/2017, he underwent repeat surge ry on the left shoulder with irrigation and debridement and resection of the proximal humeral osteomy elitis, wound left open, and wound VAC placed. B. Cultures from the wound from 09/18, grew Serratia marcescens, sensitive to Rocephin and se Keila cond organism that grew Staphylococcus epidermidis, sensitive to vancomycin. C. We will require the Rocephin 2 grams IV daily and vancomycin 1.25 grams daily until 11/17/2017. The open wound will require wound care with wound VAC. 2. Chronic osteomyelitis of the left shoulder. A. Initiated from a steroid injection in 12/2015. B. Has undergone repeated incision and drainage and arthrotomies. C. Has undergone multiple courses of IV antibiotics. D. Cultures initially grew Propionibacterium acne, but subsequent cultures have been negative up unt il cultures taken on 09/18/2017. E. Status post left humeral head resection and placement of a Prostalac antibiotic spacer 07/02/2017 . F. Status post recurrence of septic joint, requiring reopening of the wound with removal of the Pros talac spacer. G. Again recurrent septic shoulder, requiring further resection of the proximal shaft, it is mention ed under #1 on 09/18 and 09/21/2017. 3. Hypertension, controlled. 4. Paroxysmal atrial fibrillation. A. On aspirin and could not afford to take Eliquis or Xarelto and did not want to take Coumadin. 5. History of transient ischemic attack. A. Initially presented with weakness of the right arm on 04/10/2016. B. No recurrence. 6. Normocytic anemia, chronic. 7. History of alcoholism. 8. Chronic obstructive pulmonary disease. 9. History of diabetes. A. Presently on no medication. B. Hemoglobin A1c and glucose have normalized since patient went through a large weight loss. Hemog lobin A1c in 04/26 was 5.6. 10. Chronic low back pain secondary to lumbar spondylosis and ihginsmv-ne-njvztx stenosis at the L2- L3 level, L3-L4 level, and L4-L5 level. 11. Right rotator cuff arthrotomy with very limited motion in the right shoulder. 12. Depression. PLAN: The patient has been transferred to [facility] for wound care using the wound VAC with t he intent to allow this recurrent infection to heal by secondary intention. The patient's cultures t rod on 09/18/2017, grew the Staph epi, sensitive to vancomycin and the Serratia marcescens, sensitiv e to Rocephin and Cipro. The patient will be on the vancomycin and the Rocephin until 09/17/2017. H e will require weekly CBC, CMP, sed rate, and CRP. He will need to see Dr. Lima in followup and a lso Dr. Barajas. See orders.
[2017-09-24] MEDS ORDERED: HYDROcodone/Acetaminophen 10/325 mg Tablet PO PRN (07:37)
[2017-09-24] MEDS ORDERED: Prevnar 13-Val Conj/PF 0.5 ML SYRINGE IM ONE (09:00)
[2017-09-24] MEDS: Lisinopril 5 MG TAB PO SCH (09:02)
[2017-09-24] MEDS: Famotidine 20 MG TAB PO SCH ×2 (09:02→19:44)
[2017-09-24] MEDS: Aspirin 325 MG TAB PO SCH (09:02)
[2017-09-24] MEDS: Metoprolol Tartrate 25 MG TAB PO SCH (09:03)
[2017-09-24] MEDS: Multivit, Therapeutic 1 TAB PO SCH (09:03)
[2017-09-24] MEDS: Saccharomyces boulardii 250 MG CAP PO SCH (09:03)
[2017-09-24] MEDS: diphenhydrAMINE 25 MG CAP PO PRN ×4 (09:07→23:21)
[2017-09-24] MEDS: HYDROcodone/Acetaminophen 10/325 mg Tablet PO PRN ×4 (11:24→23:22)
--- NOTE | 2017-09-24 11:44 | PRG ---
DATE OF SERVICE: 09/24/2017 SUBJECTIVE: The patient said he has been very sore in the shoulder. The hydrocodone/ acetaminophen of 7.5/325, 1-2, said it is not holding him. He said he had been receiving the 10/325. He said that after all the surgery, he has been more sore than usual and with the dressing changes. He would lik e to go back to the 10s at least for a few days. OBJECTIVE: GENERAL: The patient is sitting up in bed. He is alert and appears in no distress. VITAL SIGNS: Shows a temperature of 97.3, pulse 76, respirations 18, O2 sat 97% on room air, blood p ressure 127/59, sed rate 69. LUNGS: Clear. HEART: Regular rate. EXTREMITIES: Left shoulder, dressing on that. His wound VAC has arrived and physical therapy will r edress the wound today and apply the wound VAC. Lower extremities, no edema. LABORATORY DATA: Shows H and H of 7.7 and 23.5, white cell count 5300 with 40% segs, 45% lymphocytes , platelet count 237. Sodium 141, potassium 4.1, BUN 12, creatinine 1.01, GFR 72. C-reactive protei n pending and sed rate pending. CRP pending. ASSESSMENT: 1. Recurrent septic left shoulder with a history of a chronic osteomyelitis of the left humerus and glenoid. A. Hospitalized at [facility] from 09/17 until 09/23/2017, where he underwent a left shou lder irrigation, debridement, and wound VAC placement. Then on 09/21/2017, he underwent repeat surge ry on the left shoulder with irrigation and debridement and resection of the proximal humeral osteomy elitis, wound left open, and wound VAC placed. B. Cultures from the wound from 09/18, grew Serratia marcescens, sensitive to Rocephin and Cipro, se cond organism that grew Staphylococcus epidermidis, sensitive to vancomycin. C. We will require the Rocephin 2 grams IV daily and vancomycin 1.25 grams daily until 11/17/2017. The open wound will require wound care with wound VAC. 2. Chronic osteomyelitis of the left shoulder. A. Initiated from a steroid injection in 12/2015. B. Has undergone repeated incision and drainage and arthrotomies. C. Has undergone multiple courses of IV antibiotics. D. Cultures initially grew Propionibacterium acne, but subsequent cultures have been negative up unt il cultures taken on 09/18/2017. E. Status post left humeral head resection and placement of a Prostalac antibiotic spacer 07/02/2017 . F. Status post recurrence of septic joint, requiring reopening of the wound with removal of the Pros talac spacer. G. Again recurrent septic shoulder, requiring further resection of the proximal shaft, it is mention ed under #1 on 09/18 and 09/21/2017. 3. Hypertension, controlled. 4. Paroxysmal atrial fibrillation. A. On aspirin and could not afford to take Eliquis or Xarelto and did not want to take Coumadin. 5. History of transient ischemic attack. A. Initially presented with weakness of the right arm on 04/10/2016. B. No recurrence. 6. Normocytic anemia, chronic. A. Some drop in the hemoglobin to 7.7 from recent surgery as of 09/24/2017. 7. History of alcoholism. 8. Chronic obstructive pulmonary disease. 9. History of diabetes. A. Presently on no medication. B. Hemoglobin A1c and glucose have normalized since patient went through a large weight loss. Hemog lobin A1c in 04/26 was 5.6. 10. Chronic low back pain secondary to lumbar spondylosis and txxcevep-aq-ofzhwg stenosis at the L2- L3 level, L3-L4 level, and L4-L5 level. 11. Right rotator cuff arthrotomy with very limited motion in the right shoulder. 12. Depression. PLAN: The patient's pain is not quite adequately controlled. We will boost his medicine up to the h ydrocodone/acetaminophen 10/325, 1-2 every 4 hours as needed for pain. We will use this at least for a few days and then start cutting back. The wound VAC will be initiated today. On his arrival last night, the wound VAC have not arrived and wet-to-dry packing was used until the wound VAC can be vlad lied today. EKG will be done this morning.
[2017-09-24 11:47] LABS: CRP (Inflammatory) 2.77 mg/dL (= or < 0.5)
[2017-09-24] MEDS ORDERED: Sterile Water Irrigation 250 ML BOT ONE (12:00)
[2017-09-24] MEDS: cefTRIAXone\\ROCEPHIN 2 GM VIAL IVPB SCH (18:05)
[2017-09-24] MEDS: Senokot S 8.6-50 MG TAB PO PRN (19:31)
[2017-09-25] MEDS: diphenhydrAMINE 25 MG CAP PO PRN ×6 (03:36→23:57)
[2017-09-25] MEDS: HYDROcodone/Acetaminophen 10/325 mg Tablet PO PRN ×6 (03:37→23:57)
[2017-09-25] MEDS: Saccharomyces boulardii 250 MG CAP PO SCH (07:44)
[2017-09-25] MEDS: Senokot S 8.6-50 MG TAB PO PRN (07:44)
[2017-09-25] MEDS: Aspirin 325 MG TAB PO SCH (07:44)
[2017-09-25] MEDS: Multivit, Therapeutic 1 TAB PO SCH (07:45)
[2017-09-25] MEDS: Metoprolol Tartrate 25 MG TAB PO SCH (07:45)
[2017-09-25] MEDS: Lisinopril 5 MG TAB PO SCH (07:46)
[2017-09-25] MEDS: Famotidine 20 MG TAB PO SCH ×2 (07:46→19:58)
[2017-09-25 08:18] LABS: Vancomycin, Trough 17.5 ug/mL
[2017-09-25] MEDS: Vancomycin HCl 500 MG in Sodium Chloride 0.9% 100 ML IVPB SCH (09:55)
[2017-09-25] MEDS: Vancomycin HCl 750 MG in Sodium Chloride 0.9% 250 ML 250 ML IVPB SCH (09:56)
[2017-09-25 11:08] LABS: #Basophils 0.1 thou/uL (0.0-0.2); #Eosinphils 0.5 thou/uL (0.0-0.7); #Lymphocytes 2.9 thou/uL (1.20-3.40); #Monocytes 0.4 thou/uL (0.11-0.59); #Neutrophils 2.3 thou/uL (1.40-6.50); %Basophils 1.6 % (0.0-1.0); %Eosinophils 8.4 % (0.0-10.0); %Lymphocytes 46.4 % (21.0-51.0); %Monocytes 7.2 % (0.0-10.0); %Neutrophils 36.5 % (42.0-75.0); Anisocytosis SLIGHT = 6-15 cells (100X) (0-5/hpf); Elliptocytes SLIGHT = 2-5 cells (100X) (0-1/hpf); Hypochromia SLIGHT = 6-15 cells (100X) (0-5/hpf); MDiff Complete? YES; Mean Corpuscular HGB CONC 31.2 g/dL (32.0-36.0); Mean Corpuscular Hemoglobin 23.8 pg (27.0-31.0); Mean Corpuscular Volume 76.3 fl (80.0-94.0); Mean Platelet Volume 5.5 fL (7.4-10.4); Microcytosis SLIGHT = 6-15 cells (100X) (0-5/hpf); Platelet Count 284 thou/uL (130-400); Poikilocytosis SLIGHT = 6-15 cells (100X) (0-5/hpf); RBC Distribution Width 15.5 % (11.5-14.5); Red Blood Cell (RBC) Count 3.35 mill/uL (4.70-6.10); White Blood Cell (WBC) Count 6.2 thou/uL (4.8-10.8)
[2017-09-25] MEDS: cefTRIAXone\\ROCEPHIN 2 GM VIAL IVPB SCH (18:11)
[2017-09-26] MEDS: diphenhydrAMINE 25 MG CAP PO PRN ×5 (04:10→20:31)
[2017-09-26] MEDS: HYDROcodone/Acetaminophen 10/325 mg Tablet PO PRN ×5 (04:10→20:32)
[2017-09-26] MEDS: Multivit, Therapeutic 1 TAB PO SCH (08:19)
[2017-09-26] MEDS: Saccharomyces boulardii 250 MG CAP PO SCH (08:19)
[2017-09-26] MEDS: Aspirin 325 MG TAB PO SCH (08:19)
[2017-09-26] MEDS: Famotidine 20 MG TAB PO SCH ×2 (08:19→20:31)
[2017-09-26] MEDS: Metoprolol Tartrate 25 MG TAB PO SCH (08:19)
[2017-09-26] MEDS: Lisinopril 5 MG TAB PO SCH (08:19)
[2017-09-26] MEDS: Vancomycin HCl 750 MG in Sodium Chloride 0.9% 250 ML 250 ML IVPB SCH (09:00)
[2017-09-26] MEDS: Vancomycin HCl 500 MG in Sodium Chloride 0.9% 100 ML IVPB SCH (10:02)
[2017-09-26] MEDS: cefTRIAXone\\ROCEPHIN 2 GM VIAL IVPB SCH (19:20)
[2017-09-27] MEDS: HYDROcodone/Acetaminophen 10/325 mg Tablet PO PRN ×6 (00:45→23:58)
[2017-09-27] MEDS: diphenhydrAMINE 25 MG CAP PO PRN ×6 (00:46→23:58)
[2017-09-27] MEDS: Aspirin 325 MG TAB PO SCH (09:15)
[2017-09-27] MEDS: Metoprolol Tartrate 25 MG TAB PO SCH (09:15)
[2017-09-27] MEDS: Lisinopril 5 MG TAB PO SCH (09:16)
[2017-09-27] MEDS: Multivit, Therapeutic 1 TAB PO SCH (09:16)
[2017-09-27] MEDS: Famotidine 20 MG TAB PO SCH ×2 (09:16→19:57)
[2017-09-27] MEDS: Saccharomyces boulardii 250 MG CAP PO SCH (09:17)
[2017-09-27] MEDS: Vancomycin HCl 500 MG in Sodium Chloride 0.9% 100 ML IVPB SCH (10:53)
[2017-09-27] MEDS: Vancomycin HCl 750 MG in Sodium Chloride 0.9% 250 ML 250 ML IVPB SCH (10:53)
--- NOTE | 2017-09-27 13:56 | PRG ---
DATE OF SERVICE: 09/25/2017 SUBJECTIVE: The patient said he is doing okay. He did request Senokot S to take 2 daily as needed. He has been more constipated. Usually, this works well for him. He said there was no drainage in t he wound VAC. This morning, he says his appetite is good. He is enjoying the food here. OBJECTIVE: GENERAL: The patient lying in bed, vancomycin is infusing. He looks comfortable. VITAL SIGNS: His vital signs show a temperature of 98.2, pulse 82, respirations 20, O2 sat 95% on ro om air, and blood pressure 116/58. LABORATORY DATA: CBC has been ordered for followup on the report of hemoglobin of 7.7 yesterday, but is pending. Vancomycin trough level today was 17.7, which is therapeutic for the osteomyelitis. ASSESSMENT: 1. Recurrent septic left shoulder with a history of a chronic osteomyelitis of the left humerus and glenoid. A. Hospitalized at [facility] from 09/17 until 09/23/2017, where he underwent a left shou lder irrigation, debridement, and wound VAC placement. Then on 09/21/2017, he underwent repeat surge ry on the left shoulder with irrigation and debridement and resection of the proximal humeral osteomy elitis, wound left open, and wound VAC placed. B. Cultures from the wound from 09/18, grew Serratia marcescens, sensitive to Rocephin and Cipro, se cond organism that grew Staphylococcus epidermidis, sensitive to vancomycin. C. We will require the Rocephin 2 grams IV daily and vancomycin 1.25 grams daily until 11/17/2017. The open wound will require wound care with wound VAC. D. The patient remains afebrile. There is no drainage in the wound VAC today. IV Rocephin and vanc omycin. He receives daily as of 09/25/2017. 2. Chronic osteomyelitis of the left shoulder. A. Initiated from a steroid injection in 12/2015. B. Has undergone repeated incision and drainage and arthrotomies. C. Has undergone multiple courses of IV antibiotics. D. Cultures initially grew Propionibacterium acne, but subsequent cultures have been negative up unt il cultures taken on 09/18/2017. E. Status post left humeral head resection and placement of a Prostalac antibiotic spacer 07/02/2017 . F. Status post recurrence of septic joint, requiring reopening of the wound with removal of the Pros talac spacer. G. Again recurrent septic shoulder, requiring further resection of the proximal shaft, it is mention ed under #1 on 09/18 and 09/21/2017. 3. Hypertension, controlled. 4. Paroxysmal atrial fibrillation. A. On aspirin and could not afford to take Eliquis or Xarelto and did not want to take Coumadin. B. EKG on 09/24/2017 showed atrial fibrillation with a rare PVC with a rate of 73. C. Rate controlled as of 09/25/2017. 5. History of transient ischemic attack. A. Initially presented with weakness of the right arm on 04/10/2016. B. No recurrence. 6. Normocytic anemia, chronic. A. Some drop in the hemoglobin to 7.7 from recent surgery as of 09/24/2017. 7. History of alcoholism. 8. Chronic obstructive pulmonary disease. 9. History of diabetes. A. Presently on no medication. B. Hemoglobin A1c and glucose have normalized since patient went through a large weight loss. Hemog lobok A1c in 04/26 was 5.6. 10. Chronic low back pain secondary to lumbar spondylosis and nvyyhrnh-qt-codzdu stenosis at the L2- L3 level, L3-L4 level, and L4-L5 level. 11. Right rotator cuff arthrotomy with very limited motion in the right shoulder. 12. Depression. PLAN: Continue the IV Rocephin and vancomycin. Continue wound VAC care. Repeat CBC ordered, luke snow
[2017-09-27] MEDS: cefTRIAXone\\ROCEPHIN 2 GM VIAL IVPB SCH (19:05)
[2017-09-28] MEDS: diphenhydrAMINE 25 MG CAP PO PRN ×4 (04:04→19:48)
[2017-09-28] MEDS: HYDROcodone/Acetaminophen 10/325 mg Tablet PO PRN ×4 (04:05→19:48)
[2017-09-28] MEDS: Famotidine 20 MG TAB PO SCH ×2 (09:22→20:29)
[2017-09-28] MEDS: Lisinopril 5 MG TAB PO SCH (09:22)
[2017-09-28] MEDS: Multivit, Therapeutic 1 TAB PO SCH (09:22)
[2017-09-28] MEDS: Metoprolol Tartrate 25 MG TAB PO SCH (09:22)
[2017-09-28] MEDS: Saccharomyces boulardii 250 MG CAP PO SCH (09:22)
[2017-09-28] MEDS: Aspirin 325 MG TAB PO SCH (09:22)
[2017-09-28 10:11] LABS: #Basophils 0.1 thou/uL (0.0-0.2); #Eosinphils 0.5 thou/uL (0.0-0.7); #Lymphocytes 2.9 thou/uL (1.20-3.40); #Monocytes 0.4 thou/uL (0.11-0.59); #Neutrophils 3.1 thou/uL (1.40-6.50); %Basophils 1.8 % (0.0-1.0); %Eosinophils 6.8 % (0.0-10.0); %Lymphocytes 41.3 % (21.0-51.0); %Monocytes 5.9 % (0.0-10.0); %Neutrophils 44.3 % (42.0-75.0); Hemoglobin 7.7 g/dL (14.0-18.0); Mean Corpuscular HGB CONC 31.1 g/dL (32.0-36.0); Mean Corpuscular Hemoglobin 23.5 pg (27.0-31.0); Mean Corpuscular Volume 75.3 fl (80.0-94.0); Mean Platelet Volume 5.2 fL (7.4-10.4); Platelet Count 308 thou/uL (130-400); RBC Distribution Width 15.1 % (11.5-14.5); White Blood Cell (WBC) Count 6.9 thou/uL (4.8-10.8)
[2017-09-28 10:12] LABS: Anisocytosis SLIGHT = 6-15 cells (100X) (0-5/hpf); Microcytosis SLIGHT = 6-15 cells (100X) (0-5/hpf)
[2017-09-28 10:13] LABS: Hypochromia SLIGHT = 6-15 cells (100X) (0-5/hpf); PLT Morphology Comment Appears Adequate; Poikilocytosis SLIGHT = 6-15 cells (100X) (0-5/hpf)
[2017-09-28 10:14] LABS: Vancomycin, Trough 18.8 ug/mL
[2017-09-28] MEDS ORDERED: Sterile Water Irrigation 250 ML BOT ONE (10:32)
[2017-09-28] MEDS: Vancomycin HCl 500 MG in Sodium Chloride 0.9% 100 ML IVPB SCH (10:48)
[2017-09-28] MEDS: Vancomycin HCl 750 MG in Sodium Chloride 0.9% 250 ML 250 ML IVPB SCH (10:48)
--- NOTE | 2017-09-28 15:29 | PRG ---
DATE OF SERVICE: 09/28/2017 SUBJECTIVE: The patient said he is doing okay, but he has a lot of soreness up in that left shoulder . Said there has been a lot more drainage from the shoulder and the wound VAC. OBJECTIVE: GENERAL: The patient is lying in bed. He is alert and appears comfortable in no distress. VITAL SIGNS: His vital signs show a temperature 98.4, pulse 83, blood pressure 126/61, respirations were 18, O2 sat 97% on room air, blood pressure 126/61. SKIN: Wound VAC drainage is 350 mL of serosanguineous fluid that is gathered over a 3-day period. T he dressing over the left shoulder is clear. The dressing over the left shoulder that is the wound V AC is intact. There is no surrounding redness. LUNGS: Clear. HEART: Regular rate. EXTREMITIES: No edema. LABORATORY DATA: His hemoglobin is 7.7, hematocrit 24.3, white cell count 6900 with 44% segs, 41% ly mphocytes, and platelet count of 308. His trough level on the vancomycin is 18.8. ASSESSMENT: 1. Recurrent septic left shoulder with a history of a chronic osteomyelitis of the left humerus and glenoid. A. Hospitalized at [facility] from 09/17 until 09/23/2017, where he underwent a left shou lder irrigation, debridement, and wound VAC placement. Then on 09/21/2017, he underwent repeat surge ry on the left shoulder with irrigation and debridement and resection of the proximal humeral osteomy elitis, wound left open, and wound VAC placed. B. Cultures from the wound from 09/18, grew Serratia marcescens, sensitive to Rocephin and se roel Pedraza organism that grew Staphylococcus epidermidis, sensitive to vancomycin. C. We will require the Rocephin 2 grams IV daily and vancomycin 1.25 grams daily until 11/17/2017. The open wound will require wound care with wound VAC. D. The patient remains afebrile. The patient has had 350 mL of serosanguineous drainage in the woun d VAC for a 3-day period as of 09/28/2017. 2. Chronic osteomyelitis of the left shoulder. A. Initiated from a steroid injection in 12/2015. B. Has undergone repeated incision and drainage and arthrotomies. C. Has undergone multiple courses of IV antibiotics. D. Cultures initially grew Propionibacterium acne, but subsequent cultures have been negative up unt il cultures taken on 09/18/2017. E. Status post left humeral head resection and placement of a Prostalac antibiotic spacer 07/02/2017 . F. Status post recurrence of septic joint, requiring reopening of the wound with removal of the Pros talac spacer. G. Again recurrent septic shoulder, requiring further resection of the proximal shaft, it is mention ed under #1 on 09/18 and 09/21/2017. 3. Hypertension, controlled. 4. Paroxysmal atrial fibrillation. A. On aspirin and could not afford to take Eliquis or Xarelto and did not want to take Coumadin. B. EKG on 09/24/2017 showed atrial fibrillation with a rare PVC with a rate of 73. C. Rate controlled as of 09/25/2017. 5. History of transient ischemic attack. A. Initially presented with weakness of the right arm on 04/10/2016. B. No recurrence. 6. Normocytic anemia, chronic. A. Some drop in the hemoglobin to 7.7 from recent surgery as of 09/24/2017. 7. History of alcoholism. 8. Chronic obstructive pulmonary disease. 9. History of diabetes. A. Presently on no medication. B. Hemoglobin A1c and glucose have normalized since patient went through a large weight loss. Hemog lobin A1c in 04/26 was 5.6. 10. Chronic low back pain secondary to lumbar spondylosis and bpukfgvl-pc-izigew stenosis at the L2- L3 level, L3-L4 level, and L4-L5 level. 11. Right rotator cuff arthrotomy with very limited motion in the right shoulder. 12. Depression. PLAN: Continue the IV Rocephin and vancomycin. Continue wound VAC therapy. Urge the patient be as active within his comfort. We will recheck CBC with his chronic anemia.
[2017-09-28] MEDS: cefTRIAXone\\ROCEPHIN 2 GM VIAL IVPB SCH (19:47)
[2017-09-29] MEDS: HYDROcodone/Acetaminophen 10/325 mg Tablet PO PRN ×6 (01:22→22:38)
[2017-09-29] MEDS: diphenhydrAMINE 25 MG CAP PO PRN ×5 (01:23→22:38)
[2017-09-29] MEDS: Aspirin 325 MG TAB PO SCH (09:26)
[2017-09-29] MEDS: Saccharomyces boulardii 250 MG CAP PO SCH (09:26)
[2017-09-29] MEDS: Lisinopril 5 MG TAB PO SCH (09:27)
[2017-09-29] MEDS: Famotidine 20 MG TAB PO SCH ×2 (09:27→20:21)
[2017-09-29] MEDS: Metoprolol Tartrate 25 MG TAB PO SCH (09:27)
[2017-09-29] MEDS: Multivit, Therapeutic 1 TAB PO SCH (09:27)
[2017-09-29] MEDS: Vancomycin HCl 750 MG in Sodium Chloride 0.9% 250 ML 250 ML IVPB SCH (12:05)
[2017-09-29] MEDS: Vancomycin HCl 500 MG in Sodium Chloride 0.9% 100 ML IVPB SCH (13:22)
[2017-09-29] MEDS: cefTRIAXone\\ROCEPHIN 2 GM VIAL IVPB SCH (18:36)
[2017-09-30] MEDS: diphenhydrAMINE 25 MG CAP PO PRN ×5 (02:47→23:47)
[2017-09-30] MEDS: HYDROcodone/Acetaminophen 10/325 mg Tablet PO PRN ×6 (02:47→23:47)
[2017-09-30] MEDS: Aspirin 325 MG TAB PO SCH (08:44)
[2017-09-30] MEDS: Lisinopril 5 MG TAB PO SCH (08:45)
[2017-09-30] MEDS: Multivit, Therapeutic 1 TAB PO SCH (08:45)
[2017-09-30] MEDS: Famotidine 20 MG TAB PO SCH ×2 (08:45→19:29)
[2017-09-30] MEDS: Metoprolol Tartrate 25 MG TAB PO SCH (08:45)
[2017-09-30] MEDS: Saccharomyces boulardii 250 MG CAP PO SCH (08:46)
[2017-09-30] MEDS: Vancomycin HCl 750 MG in Sodium Chloride 0.9% 250 ML 250 ML IVPB SCH (10:08)
[2017-09-30] MEDS: Vancomycin HCl 500 MG in Sodium Chloride 0.9% 100 ML IVPB SCH (10:14)
[2017-09-30] MEDS: cefTRIAXone\\ROCEPHIN 2 GM VIAL IVPB SCH (18:18)
[2017-09-30 18:41] LABS: ALT (SGPT) 12 U/L (8-55); AST (SGOT) 17 U/L (5-34); Albumin 3.7 g/dL (3.4-4.8); Alkaline Phosphatase 83 U/L (40-150); Anion Gap 15 mmol/L (10-20); BUN (Urea Nitrogen) 29 mg/dL (8.4-25.7); Bilirubin, Total 0.2 mg/dL (0.2-1.2); Calc. Creatinine Clearance 58 mL/min (70-130); Calcium 9.2 mg/dL (7.8-10.44); Carbon Dioxide 22 mmol/L (23-31); Chloride 106 mmol/L (98-107); Estimated GFR-MDRD 58; Globulin 3.1 g/dL (2.4-3.5); Glucose 129 mg/dL (83-110); Potassium 4.4 mmol/L (3.5-5.1); Protein, Total 6.8 g/dL (5.8-8.1); Sodium 139 mmol/L (136-145)
[2017-10-01] MEDS: diphenhydrAMINE 25 MG CAP PO PRN ×5 (03:30→20:52)
[2017-10-01] MEDS: HYDROcodone/Acetaminophen 10/325 mg Tablet PO PRN ×5 (03:30→20:53)
[2017-10-01 06:15] LABS: #Basophils 0.1 thou/uL (0.0-0.2); #Eosinphils 0.4 thou/uL (0.0-0.7); #Lymphocytes 2.5 thou/uL (1.20-3.40); #Monocytes 0.5 thou/uL (0.11-0.59); #Neutrophils 3.1 thou/uL (1.40-6.50); %Basophils 1.7 % (0.0-1.0); %Monocytes 7.6 % (0.0-10.0); %Neutrophils 46.7 % (42.0-75.0); Anisocytosis SLIGHT = 6-15 cells (100X) (0-5/hpf); Elliptocytes SLIGHT = 2-5 cells (100X) (0-1/hpf); Hemoglobin 7.2 g/dL (14.0-18.0); Hypochromia SLIGHT = 6-15 cells (100X) (0-5/hpf); MDiff Complete? YES; Mean Corpuscular HGB CONC 30.8 g/dL (32.0-36.0); Mean Corpuscular Hemoglobin 23.3 pg (27.0-31.0); Mean Corpuscular Volume 75.4 fl (80.0-94.0); Microcytosis SLIGHT = 6-15 cells (100X) (0-5/hpf); Platelet Count 275 thou/uL (130-400); Poikilocytosis SLIGHT = 6-15 cells (100X) (0-5/hpf); RBC Distribution Width 15.6 % (11.5-14.5); Red Blood Cell (RBC) Count 3.09 mill/uL (4.70-6.10); White Blood Cell (WBC) Count 6.7 thou/uL (4.8-10.8)
[2017-10-01] MEDS: Multivit, Therapeutic 1 TAB PO SCH (09:09)
[2017-10-01] MEDS: Lisinopril 5 MG TAB PO SCH (09:09)
[2017-10-01] MEDS: Famotidine 20 MG TAB PO SCH ×2 (09:10→20:52)
[2017-10-01] MEDS: Saccharomyces boulardii 250 MG CAP PO SCH (09:10)
[2017-10-01] MEDS: Aspirin 325 MG TAB PO SCH (09:10)
[2017-10-01] MEDS: Metoprolol Tartrate 25 MG TAB PO SCH (09:11)
[2017-10-01 09:31] LABS: Vancomycin, Trough 19.3 ug/mL
[2017-10-01] MEDS: Vancomycin HCl 750 MG in Sodium Chloride 0.9% 250 ML 250 ML IVPB SCH (10:14)
[2017-10-01] MEDS: Vancomycin HCl 500 MG in Sodium Chloride 0.9% 100 ML IVPB SCH (10:14)
--- NOTE | 2017-10-01 11:11 | PRG ---
DATE OF SERVICE: 09/30/2017 SUBJECTIVE: The patient said he is doing okay. He is eating good. The patient said his pain medici ne helps. He was wondering about a shop dressing change. He is far enough out and has been tolerati ng this fine with the oral medicines recommended that he be sure he has pain medicine orally at least an hour before the dressing change. OBJECTIVE: GENERAL: The patient is sitting up the bedside. He is alert, appears very comfortable, in no distre ss. VITAL SIGNS: Temp 98.2, pulse 108, respirations 18, O2 saturation 97% on room air, blood pressure 13 2/62. LUNGS: Clear. HEART: Regular rate with occasional ectopic beat. EXTREMITIES: Left shoulder, the patient is wound VAC attached to the vacuum pump that is functioning well. There is 200 mL of serosanguineous fluid in the collection chamber and there is serosanguineo us drainage in the tubing. There is no surrounding erythema around the dressing. Lower extremities have no edema. ASSESSMENT: 1. Recurrent septic left shoulder with a history of a chronic osteomyelitis of the left humerus and glenoid. A. Hospitalized at [facility] from 09/17 until 09/23/2017, where he underwent a left shou lder irrigation, debridement, and wound VAC placement. Then on 09/21/2017, he underwent repeat surge ry on the left shoulder with irrigation and debridement and resection of the proximal humeral osteomy elitis, wound left open, and wound VAC placed. B. Cultures from the wound from 09/18, grew Serratia marcescens, sensitive to Rocephin and Cipro, se cond organism that grew Staphylococcus epidermidis, sensitive to vancomycin. C. We will require the Rocephin 2 grams IV daily and vancomycin 1.25 grams daily until 11/17/2017. The open wound will require wound care with wound VAC. D. The patient remains afebrile. The patient has a 200 mL serosanguineous drainage and the wound VA C chamber for a 2-day period as of 09/30/2017. 2. Chronic osteomyelitis of the left shoulder. A. Initiated from a steroid injection in 12/2015. B. Has undergone repeated incision and drainage and arthrotomies. C. Has undergone multiple courses of IV antibiotics. D. Cultures initially grew Propionibacterium acne, but subsequent cultures have been negative up unt il cultures taken on 09/18/2017. E. Status post left humeral head resection and placement of a Prostalac antibiotic spacer 07/02/2017 . F. Status post recurrence of septic joint, requiring reopening of the wound with removal of the Pros talac spacer. G. Again recurrent septic shoulder, requiring further resection of the proximal shaft, it is mention ed under #1 on 09/18 and 09/21/2017. 3. Hypertension, controlled. 4. Paroxysmal atrial fibrillation. A. On aspirin and could not afford to take Eliquis or Xarelto and did not want to take Coumadin. B. EKG on 09/24/2017 showed atrial fibrillation with a rare PVC with a rate of 73. C. Rate controlled as of 09/30/2017. 5. History of transient ischemic attack. A. Initially presented with weakness of the right arm on 04/10/2016. B. No recurrence. 6. Normocytic anemia, chronic. A. Some drop in the hemoglobin to 7.7 from recent surgery as of 09/24/2017. 7. History of alcoholism. 8. Chronic obstructive pulmonary disease. 9. History of diabetes. A. Presently on no medication. B. Hemoglobin A1c and glucose have normalized since patient went through a large weight loss. Hemog lobin A1c in 04/26 was 5.6. 10. Chronic low back pain secondary to lumbar spondylosis and xwyfvwxm-lk-wtcwdn stenosis at the L2- L3 level, L3-L4 level, and L4-L5 level. 11. Right rotator cuff arthrotomy with very limited motion in the right shoulder. 12. Depression. A. Improved. PLAN: The patient is stable. He continues to receive the IV Rocephin and vancomycin. He continues to have a large amount of serosanguineous drainage from the shoulder. Continue the wound VAC care of your patient. We will continue on the ceftriaxone and the vancomycin until 11/17/2017. We will rep eat his weekly lab tomorrow.
[2017-10-01] MEDS: cefTRIAXone\\ROCEPHIN 2 GM VIAL IVPB SCH (18:17)
[2017-10-02] MEDS: diphenhydrAMINE 25 MG CAP PO PRN ×6 (01:30→21:18)
[2017-10-02] MEDS: HYDROcodone/Acetaminophen 10/325 mg Tablet PO PRN ×6 (01:30→21:17)
[2017-10-02] MEDS: Saccharomyces boulardii 250 MG CAP PO SCH (09:04)
[2017-10-02] MEDS: Multivit, Therapeutic 1 TAB PO SCH (09:04)
[2017-10-02] MEDS: Lisinopril 5 MG TAB PO SCH (09:04)
[2017-10-02] MEDS: Famotidine 20 MG TAB PO SCH ×2 (09:04→21:18)
[2017-10-02] MEDS: Aspirin 325 MG TAB PO SCH (09:04)
[2017-10-02] MEDS: Metoprolol Tartrate 25 MG TAB PO SCH (09:05)
[2017-10-02] MEDS: Vancomycin HCl 750 MG in Sodium Chloride 0.9% 250 ML 250 ML IVPB SCH (10:14)
[2017-10-02] MEDS: Vancomycin HCl 500 MG in Sodium Chloride 0.9% 100 ML IVPB SCH (10:16)
[2017-10-02] MEDS: Ferrous Sulfate 325 MG TAB PO SCH (17:16)
[2017-10-02] MEDS: cefTRIAXone\\ROCEPHIN 2 GM VIAL IVPB SCH (18:05)
[2017-10-02] MEDS ORDERED: Nitroglycerin 0.4 MG TAB (25 Tab Bottle) ONE (18:44)
[2017-10-02] MEDS ORDERED: Nitroglycerin 0.4 MG TAB (25 Tab Bottle) SL SCH (19:15)
[2017-10-02 19:25] LABS: CKMB 1.3 ng/mL (0-6.6)
[2017-10-03] MEDS: HYDROcodone/Acetaminophen 10/325 mg Tablet PO PRN ×5 (01:41→20:32)
[2017-10-03] MEDS: diphenhydrAMINE 25 MG CAP PO PRN ×5 (01:42→20:32)
[2017-10-03 06:35] LABS: #Basophils 0.1 thou/uL (0.0-0.2); #Eosinphils 0.4 thou/uL (0.0-0.7); #Lymphocytes 2.9 thou/uL (1.20-3.40); #Monocytes 0.5 thou/uL (0.11-0.59); #Neutrophils 2.6 thou/uL (1.40-6.50); %Basophils 2.1 % (0.0-1.0); %Eosinophils 6.6 % (0.0-10.0); %Lymphocytes 43.7 % (21.0-51.0); %Neutrophils 39.6 % (42.0-75.0); Anisocytosis MODERATE=16-30 cells (100X) (0-5/hpf); Hypochromia MODERATE=16-30 cells (100X) (0-5/hpf); MDiff Complete? YES; Mean Corpuscular HGB CONC 31.1 g/dL (32.0-36.0); Mean Corpuscular Hemoglobin 23.2 pg (27.0-31.0); Mean Corpuscular Volume 74.8 fl (80.0-94.0); Mean Platelet Volume 5.3 fL (7.4-10.4); Microcytosis MODERATE=15-30 cells (100X) (0-5/hpf); PLT Morphology Comment Appears Adequate; Platelet Count 318 thou/uL (130-400); RBC Distribution Width 15.4 % (11.5-14.5); Red Blood Cell (RBC) Count 3.46 mill/uL (4.70-6.10); White Blood Cell (WBC) Count 6.5 thou/uL (4.8-10.8)
[2017-10-03] MEDS: Ferrous Sulfate 325 MG TAB PO SCH ×2 (08:02→16:19)
[2017-10-03] MEDS: Famotidine 20 MG TAB PO SCH ×2 (08:03→20:33)
[2017-10-03] MEDS: Saccharomyces boulardii 250 MG CAP PO SCH (08:03)
[2017-10-03] MEDS: Multivit, Therapeutic 1 TAB PO SCH (08:03)
[2017-10-03] MEDS: Aspirin 325 MG TAB PO SCH (08:03)
[2017-10-03] MEDS: Metoprolol Tartrate 25 MG TAB PO SCH (08:03)
[2017-10-03] MEDS: Lisinopril 5 MG TAB PO SCH (08:04)
[2017-10-03] MEDS: Vancomycin HCl 750 MG in Sodium Chloride 0.9% 250 ML 250 ML IVPB SCH (10:29)
[2017-10-03] MEDS: Vancomycin HCl 500 MG in Sodium Chloride 0.9% 100 ML IVPB SCH (10:30)
--- NOTE | 2017-10-03 11:15 | PRG ---
DATE OF SERVICE: 10/02/2017 SUBJECTIVE: The patient thinks he is doing alright. He had no new complaint. OBJECTIVE: The patient is sitting up in bed. He is alert, appears in no distress. His temp 97.9, p ulse 103, blood pressure 132/91, respirations 16, O2 sat 95% on room air. His lungs were clear. Hea rt; irregular regular rhythm with adequate ventricular response. Extremities, no edema. Physical th erapy undressed the wound. The subcutaneous tissue looks excellent with excellent granulation tissue . The deep pocket was able be exposed by gently the upper granulation tissue that was sta rting to adhere. The patient still had 320 mL of a serosanguineous drainage in the wound VAC. Physi kassi therapist was instructed to ensure that the wound VAC is placed in the deep pocket and not in the superficial part of the wound. If the superficial part of the wound begins to close then there will be a deep pocket that will not be exteriorized and he will reaccumulate a large pocket of fluid. Ga be fully understood and was able to pack the wound deep with the wound VAC and this will help keep th e superficial part of the wound open, so that hopefully this will all heal by secondary intention fro m the deep recesses of the pocket to superficial. His lab done 10/01/2017 showed a H&H of 7.2 and 23 .3, white cell count 6700 with 67% segs, 38% lymphocytes, platelet count of 275,000. Sed rate has dr opped from 69-60. Sodium 139, potassium 4.4, BUN 29, creatinine 1.23, glucose 129, GFR 58. C-reacti ve protein has dropped from 2.7 to 1.9. This was at 3.12 on admission. Vancomycin trough level is 1 9.3, that was done yesterday. ASSESSMENT: 1. Recurrent septic left shoulder with a history of a chronic osteomyelitis of the left humerus and glenoid. A. Hospitalized at [facility] from 09/17 until 09/23/2017, where he underwent a left shou lder irrigation, debridement, and wound VAC placement. Then on 09/21/2017, he underwent repeat surge ry on the left shoulder with irrigation and debridement and resection of the proximal humeral osteomy elitis, wound left open, and wound VAC placed. B. Cultures from the wound from 09/18, grew Serratia marcescens, sensitive to Rocephin and Cipro, se cond organism that grew Staphylococcus epidermidis, sensitive to vancomycin. C. We will require the Rocephin 2 grams IV daily and vancomycin 1.25 grams daily until 11/17/2017. The open wound will require wound care with wound VAC. D. The patient remains afebrile. Wound drainage in the wound VAC is 320 mL of a serosanguineous flu id for 3 day period as of 10/02/2017. Wound looks clean. Sed rate down to 60. CRP down to 1.9. 2. Chronic osteomyelitis of the left shoulder. A. Initiated from a steroid injection in 12/2015. B. Has undergone repeated incision and drainage and arthrotomies. C. Has undergone multiple courses of IV antibiotics. D. Cultures initially grew Propionibacterium acne, but subsequent cultures have been negative up unt il cultures taken on 09/18/2017. E. Status post left humeral head resection and placement of a Prostalac antibiotic spacer 07/02/2017 . F. Status post recurrence of septic joint, requiring reopening of the wound with removal of the Pros talac spacer. G. Again recurrent septic shoulder, requiring further resection of the proximal shaft, it is mention ed under #1 on 09/18 and 09/21/2017. H. Improved. Sed rate down to 60 and CRP down to 1.9 with serosanguineous drainage from the wound a s of 10/02/2017. 3. Hypertension, controlled. 4. Paroxysmal atrial fibrillation. A. On aspirin and could not afford to take Eliquis or Xarelto and did not want to take Coumadin. B. EKG on 09/24/2017 showed atrial fibrillation with a rare PVC with a rate of 73. C. Rate controlled as of 10/02/2017. 5. History of transient ischemic attack. A. Initially presented with weakness of the right arm on 04/10/2016. B. No recurrence. 6. Normocytic anemia, chronic. A. Some drop in the hemoglobin to 7.7 from recent surgery as of 09/24/2017. B. Hemoglobin 7.2 as of 10/01/2017. 7. History of alcoholism. 8. Chronic obstructive pulmonary disease. 9. History of diabetes. A. Presently on no medication. B. Hemoglobin A1c and glucose have normalized since patient went through a large weight loss. Hemog lobin A1c in 04/26 was 5.6. 10. Chronic low back pain secondary to lumbar spondylosis and njghfkjy-my-peafor stenosis at the L2- L3 level, L3-L4 level, and L4-L5 level. 11. Right rotator cuff arthrotomy with very limited motion in the right shoulder. 12. Depression. A. Improved. PLAN: Continue the IV vancomycin and Rocephin until 11/17/2017. Continue the wound VAC. Examine th e wound with therapist during the change and wound will be packed into the deep pocket of the wound t o prevent superficial layers from closing over the deep pocket. We will continue to monitor his hemo globin, if it drops any further will need transfusion. We will arrange a consult for patient to be r echecked by his manager retirement, Dr. Vanessa and the patient will need a follow up with Dr. Lima who h ad asked to see him a month from his date he was admitted here. Continue with weekly follow up on th e blood work and continue follow up on vancomycin trough levels at least weekly.
[2017-10-03] MEDS: cefTRIAXone\\ROCEPHIN 2 GM VIAL IVPB SCH (18:00)
[2017-10-04] MEDS: HYDROcodone/Acetaminophen 10/325 mg Tablet PO PRN ×5 (01:21→20:27)
[2017-10-04] MEDS: diphenhydrAMINE 25 MG CAP PO PRN ×5 (01:21→20:28)
[2017-10-04] MEDS: Multivit, Therapeutic 1 TAB PO SCH (08:06)
[2017-10-04] MEDS: Metoprolol Tartrate 25 MG TAB PO SCH (08:06)
[2017-10-04] MEDS: Lisinopril 5 MG TAB PO SCH (08:06)
[2017-10-04] MEDS: Ferrous Sulfate 325 MG TAB PO SCH ×2 (08:06→16:17)
[2017-10-04] MEDS: Aspirin 325 MG TAB PO SCH (08:06)
[2017-10-04] MEDS: Famotidine 20 MG TAB PO SCH ×2 (08:06→20:28)
[2017-10-04] MEDS: Saccharomyces boulardii 250 MG CAP PO SCH (08:06)
[2017-10-04 09:25] LABS: Vancomycin, Trough 19.4 ug/mL
[2017-10-04] MEDS: Vancomycin HCl 500 MG in Sodium Chloride 0.9% 100 ML IVPB SCH (09:41)
[2017-10-04] MEDS: Vancomycin HCl 750 MG in Sodium Chloride 0.9% 250 ML 250 ML IVPB SCH (09:42)
--- NOTE | 2017-10-04 12:00 | PRG ---
DATE OF SERVICE: 10/03/2017 SUBJECTIVE: Patient said he is tired today. Yesterday late afternoon, he had an episode of pain in his upper anterior chest that he said, he thought maybe coming from the left shoulder. Nurses gave h im a nitroglycerin tablet and gradually this pain went away. He underwent cardiac enzymes that showe d troponin of 0.010 and CK-MB of 1.3. Patient's EKG showed atrial fibrillation with a rate of 85, on ly nonspecific ST-T wave changes. He has had no recurrence of the pain in his chest. He said he thi nks it is coming from his shoulder. Patient said he is tired today. He thought he had a little drai nage from under the dressing, but nurses said the dressing has been dry and the wound VAC does not sh ow any evidence of any leak. OBJECTIVE: GENERAL: The patient looks tired. He is a little pale, but no acute distress. VITAL SIGNS: His temperature is 97.2, pulse 96, respirations 18, O2 sat 97% on room air, blood press ure 136/82. LUNGS: Clear. HEART: Irregular regular rhythm. EXTREMITIES: No edema. The dressing over the left shoulder has the foam that sealed with overlying clear sealing dressing and the tubing was attached. There is some small amount of serosanguineous dr santoyo in the collection container of the bag. LABORATORY DATA: His hemoglobin is up to 8 and 25.8, white cell count 6,500 with 40% segs, 44% lymph ocytes, platelet count of 318. ASSESSMENT: 1. Recurrent septic left shoulder with a history of a chronic osteomyelitis of the left humerus and glenoid. A. Hospitalized at [facility] from 09/17 until 09/23/2017, where he underwent a left shou lder irrigation, debridement, and wound VAC placement. Then on 09/21/2017, he underwent repeat surge ry on the left shoulder with irrigation and debridement and resection of the proximal humeral osteomy elitis, wound left open, and wound VAC placed. B. Cultures from the wound from 09/18, grew Serratia marcescens, sensitive to Rocephin and Ciprose cond organism that grew Staphylococcus epidermidis, sensitive to vancomycin. C. We will require the Rocephin 2 grams IV daily and vancomycin 1.25 grams daily until 11/17/2017. The open wound will require wound care with wound VAC. D. Please put patient remains afebrile. He continues to have serosanguineous drainage from the woun d VAC as of 10/03/2017. 2. Chronic osteomyelitis of the left shoulder. A. Initiated from a steroid injection in 12/2015. B. Has undergone repeated incision and drainage and arthrotomies. C. Has undergone multiple courses of IV antibiotics. D. Cultures initially grew Propionibacterium acne, but subsequent cultures have been negative up unt il cultures taken on 09/18/2017. E. Status post left humeral head resection and placement of a Prostalac antibiotic spacer 07/02/2017 . F. Status post recurrence of septic joint, requiring reopening of the wound with removal of the Pros talac spacer. G. Again recurrent septic shoulder, requiring further resection of the proximal shaft, it is mention ed under #1 on 09/18 and 09/21/2017. H. Improved. Sed rate down to 60 and CRP down to 1.9 with serosanguineous drainage from the wound a s of 10/02/2017. 3. Hypertension, controlled. 4. Paroxysmal atrial fibrillation. A. On aspirin and could not afford to take Eliquis or Xarelto and did not want to take Coumadin. B. EKG on 09/24/2017 showed atrial fibrillation with a rare PVC with a rate of 73. C. EKG on 10/02/2017 still shows atrial fibrillation with rate of 85. Poor candidate for anticoagul ation due to the severe anemia and also patient is not wanting to go on anticoagulants. 5. History of transient ischemic attack. A. Initially presented with weakness of the right arm on 04/10/2016. B. No recurrence. 6. Normocytic anemia, chronic. A. Some drop in the hemoglobin to 7.7 from recent surgery as of 09/24/2017. B. Hemoglobin 7.2 as of 10/01/2017. 7. History of alcoholism. 8. Chronic obstructive pulmonary disease. 9. History of diabetes. A. Presently on no medication. B. Hemoglobin A1c and glucose have normalized since patient went through a large weight loss. Hemog lobin A1c in 04/26 was 5.6. 10. Chronic low back pain secondary to lumbar spondylosis and pzxybtcp-xt-vmpzul stenosis at the L2- L3 level, L3-L4 level, and L4-L5 level. 11. Right rotator cuff arthrotomy with very limited motion in the right shoulder. 12. Depression. A. Improved. 13. Episode of chest pain on the late evening of 10/02/2017. A. Etiology probable musculoskeletal, probably coming from the left shoulder. B. Cardiac enzymes were normal. EKG showed the atrial fib. C. No recurrence as of 10/03/2017. PLAN: Continue present care. Continue IV antibiotics. Continue wound VAC care.
[2017-10-04] MEDS: cefTRIAXone\\ROCEPHIN 2 GM VIAL IVPB SCH (18:07)
[2017-10-05] MEDS: HYDROcodone/Acetaminophen 10/325 mg Tablet PO PRN ×6 (00:28→20:56)
[2017-10-05] MEDS: diphenhydrAMINE 25 MG CAP PO PRN ×6 (00:29→20:57)
[2017-10-05] MEDS: Famotidine 20 MG TAB PO SCH ×2 (08:38→20:57)
[2017-10-05] MEDS: Multivit, Therapeutic 1 TAB PO SCH (08:38)
[2017-10-05] MEDS: Ferrous Sulfate 325 MG TAB PO SCH ×2 (08:38→16:48)
[2017-10-05] MEDS: Metoprolol Tartrate 25 MG TAB PO SCH (08:39)
[2017-10-05] MEDS: Saccharomyces boulardii 250 MG CAP PO SCH (08:39)
[2017-10-05] MEDS: Lisinopril 5 MG TAB PO SCH (08:39)
[2017-10-05] MEDS: Aspirin 325 MG TAB PO SCH (08:39)
[2017-10-05] MEDS ORDERED: Vancomycin HCl 750 MG VIAL ONE (10:10)
[2017-10-05] MEDS: Vancomycin HCl 750 MG in Sodium Chloride 0.9% 250 ML 250 ML IVPB SCH (10:19)
[2017-10-05] MEDS: Vancomycin HCl 500 MG in Sodium Chloride 0.9% 100 ML IVPB SCH (10:20)
--- NOTE | 2017-10-05 15:53 | PRG ---
DATE OF SERVICE: 10/05/2017 SUBJECTIVE: The patient says he is doing okay today. Nurses report no problems. OBJECTIVE: The patient lying in bed. Physical therapist, Axel, is changing the dressing on his left shoulder, so we have an opportunity to look at this. Patient's vital signs show a temperature of 98 , pulse 95, respirations 18, O2 sat 95% on room air, blood pressure 134/76. His lungs were clear. H eart has a regular rate. Extremities, no edema. The left shoulder, the wound VAC has been removed. There is no surrounding redness. The patient had approximately 200 mL of a serosanguineous drainage in the wound VAC collecting system. The wound on the shoulder looks better. He has good granulatio n tissue of the more superficial tissue. The deeper wound, there is a tendency for the lateral edges of the wound to adhere. These were gently so that we could see down into the deep recesse s of the wound. The deep wound recesses also look better and dry cleaner presser. The physical therapy is packi ng now with the wound VAC system that are moistened and easily slid down into the wound recesse s, more superficial areas are being kept , so these will not adhere and cover the deep reces ses. ASSESSMENT: 1. Recurrent septic left shoulder with a history of a chronic osteomyelitis of the left humerus and glenoid. A. Hospitalized at [facility] from 09/17 until 09/23/2017, where he underwent a left shou lder irrigation, debridement, and wound VAC placement. Then on 09/21/2017, he underwent repeat surge ry on the left shoulder with irrigation and debridement and resection of the proximal humeral osteomy elitis, wound left open, and wound VAC placed. B. Cultures from the wound from 09/18, grew Serratia marcescens, sensitive to Rocephin and Cipro, se cond organism that grew Staphylococcus epidermidis, sensitive to vancomycin. C. We will require the Rocephin 2 grams IV daily and vancomycin 1.25 grams daily until 11/17/2017. The open wound will require wound care with wound VAC. D. The patient remains afebrile. The wound continues to drain a serosanguineous drainage of about 2 00 mL for the last 72 hours with wound looking very clean as of 10/05/2017. 2. Chronic osteomyelitis of the left shoulder. A. Initiated from a steroid injection in 12/2015. B. Has undergone repeated incision and drainage and arthrotomies. C. Has undergone multiple courses of IV antibiotics. D. Cultures initially grew Propionibacterium acne, but subsequent cultures have been negative up unt il cultures taken on 09/18/2017. E. Status post left humeral head resection and placement of a Prostalac antibiotic spacer 07/02/2017 . F. Status post recurrence of septic joint, requiring reopening of the wound with removal of the Pros talac spacer. G. Again recurrent septic shoulder, requiring further resection of the proximal shaft, it is mention ed under #1 on 09/18 and 09/21/2017. H. Improved. Sed rate down to 60 and CRP down to 1.9 with serosanguineous drainage from the wound a s of 10/02/2017. 3. Hypertension, controlled. 4. Paroxysmal atrial fibrillation. A. On aspirin and could not afford to take Eliquis or Xarelto and did not want to take Coumadin. B. EKG on 09/24/2017 showed atrial fibrillation with a rare PVC with a rate of 73. C. EKG on 10/02/2017 still shows atrial fibrillation with rate of 85. Poor candidate for anticoagul ation due to the severe anemia and also patient is not wanting to go on anticoagulants. D. The patient has a regular rate with a pulse of 95 as of 10/05/2017. 5. History of transient ischemic attack. A. Initially presented with weakness of the right arm on 04/10/2016. B. No recurrence. 6. Normocytic anemia, chronic. A. Some drop in the hemoglobin to 7.7 from recent surgery as of 09/24/2017. B. Hemoglobin up to 8.0 as of 10/04/2017. 7. History of alcoholism. 8. Chronic obstructive pulmonary disease. 9. History of diabetes. A. Presently on no medication. B. Hemoglobin A1c and glucose have normalized since patient went through a large weight loss. Hemog lobin A1c in 04/26 was 5.6. 10. Chronic low back pain secondary to lumbar spondylosis and ulrcypjd-de-ywarwq stenosis at the L2- L3 level, L3-L4 level, and L4-L5 level. 11. Right rotator cuff arthrotomy with very limited motion in the right shoulder. 12. Depression. A. Improved. 13. Episode of chest pain on the late evening of 10/02/2017. A. Etiology probable musculoskeletal, probably coming from the left shoulder. B. Cardiac enzymes were normal. EKG showed the atrial fib. C. No recurrence as of 10/05/2017. PLAN: Continue the IV vancomycin and ceftriaxone. Continue the wound VAC changes, dressing changes every third day, ensuring that the wound is packed into the deep recesses.
[2017-10-05] MEDS: cefTRIAXone\\ROCEPHIN 2 GM VIAL IVPB SCH (18:03)
[2017-10-06] MEDS: HYDROcodone/Acetaminophen 10/325 mg Tablet PO PRN ×6 (00:58→22:02)
[2017-10-06] MEDS: diphenhydrAMINE 25 MG CAP PO PRN ×6 (00:58→22:03)
[2017-10-06] MEDS: Saccharomyces boulardii 250 MG CAP PO SCH (08:26)
[2017-10-06] MEDS: Aspirin 325 MG TAB PO SCH (08:26)
[2017-10-06] MEDS: Ferrous Sulfate 325 MG TAB PO SCH ×2 (08:26→17:05)
[2017-10-06] MEDS: Metoprolol Tartrate 25 MG TAB PO SCH (08:26)
[2017-10-06] MEDS: Multivit, Therapeutic 1 TAB PO SCH (08:26)
[2017-10-06] MEDS: Lisinopril 5 MG TAB PO SCH (08:26)
[2017-10-06] MEDS: Famotidine 20 MG TAB PO SCH ×2 (08:27→20:42)
[2017-10-06] MEDS: Vancomycin HCl 500 MG in Sodium Chloride 0.9% 100 ML IVPB SCH (11:16)
[2017-10-06] MEDS: Vancomycin HCl 750 MG in Sodium Chloride 0.9% 250 ML 250 ML IVPB SCH (11:17)
[2017-10-06] MEDS: cefTRIAXone\\ROCEPHIN 2 GM VIAL IVPB SCH (18:03)
[2017-10-07] MEDS: HYDROcodone/Acetaminophen 10/325 mg Tablet PO PRN ×5 (03:32→20:27)
[2017-10-07] MEDS: diphenhydrAMINE 25 MG CAP PO PRN ×5 (03:32→20:28)
[2017-10-07] MEDS: Ferrous Sulfate 325 MG TAB PO SCH ×2 (07:44→16:28)
[2017-10-07] MEDS: Saccharomyces boulardii 250 MG CAP PO SCH (07:44)
[2017-10-07] MEDS: Metoprolol Tartrate 25 MG TAB PO SCH (07:45)
[2017-10-07] MEDS: Lisinopril 5 MG TAB PO SCH (07:45)
[2017-10-07] MEDS: Multivit, Therapeutic 1 TAB PO SCH (07:45)
[2017-10-07] MEDS: Famotidine 20 MG TAB PO SCH ×2 (07:45→20:27)
[2017-10-07] MEDS: Aspirin 325 MG TAB PO SCH (07:46)
[2017-10-07 09:54] LABS: ALT (SGPT) 19 U/L (8-55); AST (SGOT) 25 U/L (5-34); Alkaline Phosphatase 97 U/L (40-150); Anion Gap 17 mmol/L (10-20); BUN (Urea Nitrogen) 30 mg/dL (8.4-25.7); Bilirubin, Total 0.2 mg/dL (0.2-1.2); Calc. Creatinine Clearance 61 mL/min (70-130); Calcium 9.8 mg/dL (7.8-10.44); Carbon Dioxide 22 mmol/L (23-31); Chloride 106 mmol/L (98-107); Estimated GFR-MDRD 59; Globulin 3.1 g/dL (2.4-3.5); Glucose 132 mg/dL (83-110); Potassium 4.6 mmol/L (3.5-5.1); Protein, Total 7.1 g/dL (5.8-8.1); Sodium 140 mmol/L (136-145)
[2017-10-07] MEDS: Vancomycin HCl 500 MG in Sodium Chloride 0.9% 100 ML IVPB SCH (11:02)
[2017-10-07] MEDS: Vancomycin HCl 750 MG in Sodium Chloride 0.9% 250 ML 250 ML IVPB SCH (11:02)
--- NOTE | 2017-10-07 15:22 | PRG ---
DATE OF SERVICE: 10/07/2017 SUBJECTIVE: The patient said that he did not rest well last night. He was up a lot. Apparently, th ere was a leak around the wound VAC and the system was signaling frequently. This was stabilized. T here has been no more leakage. The patient, due to have dressing change, today. The patient said he has had soreness up in the left shoulder. OBJECTIVE: GENERAL: The patient is alert, appears in no distress. VITAL SIGNS: His temperature is 98.4, pulse 93, blood pressure 113/58, respirations 20, O2 saturatio n 97% on room air. His weight is stable at 174. LUNGS: Clear. HEART: Irregularly irregular rhythm with adequate ventricular response. Left shoulder, the wound VA C is present and well-sealed with no leakage. EXTREMITIES: No edema. ASSESSMENT: 1. Recurrent septic left shoulder with a history of a chronic osteomyelitis of the left humerus and glenoid. A. Hospitalized at [facility] from 09/17 until 09/23/2017, where he underwent a left shou lder irrigation, debridement, and wound VAC placement. Then on 09/21/2017, he underwent repeat surge ry on the left shoulder with irrigation and debridement and resection of the proximal humeral osteomy elitis, wound left open, and wound VAC placed. B. Cultures from the wound from 09/18, grew Serratia marcescens, sensitive to Rocephin and Cipro, se cond organism that grew Staphylococcus epidermidis, sensitive to vancomycin. C. We will require the Rocephin 2 grams IV daily and vancomycin 1.25 grams daily until 11/17/2017. The open wound will require wound care with wound VAC. D. The patient remains afebrile. The wound continues to drain a serosanguineous fluid of approximat joi 150 mL over the last 48 hours as of 10/07/2017. 2. Chronic osteomyelitis of the left shoulder. A. Initiated from a steroid injection in 12/2015. B. Has undergone repeated incision and drainage and arthrotomies. C. Has undergone multiple courses of IV antibiotics. D. Cultures initially grew Propionibacterium acne, but subsequent cultures have been negative up unt il cultures taken on 09/18/2017. E. Status post left humeral head resection and placement of a Prostalac antibiotic spacer 07/02/2017 . F. Status post recurrence of septic joint, requiring reopening of the wound with removal of the Pros talac spacer. G. Again recurrent septic shoulder, requiring further resection of the proximal shaft, it is mention ed under #1 on 09/18 and 09/21/2017. H. Improved. Sed rate down to 60 and CRP down to 1.9 with serosanguineous drainage from the wound a s of 10/02/2017. 3. Hypertension, controlled. 4. Paroxysmal atrial fibrillation. A. On aspirin and could not afford to take Eliquis or Xarelto and did not want to take Coumadin. B. EKG on 09/24/2017 showed atrial fibrillation with a rare PVC with a rate of 73. C. EKG on 10/02/2017 still shows atrial fibrillation with rate of 85. Poor candidate for anticoagul ation due to the severe anemia and also patient is not wanting to go on anticoagulants. D. The patient has irregularly irregular rhythm with a rate of 93. 5. History of transient ischemic attack. A. Initially presented with weakness of the right arm on 04/10/2016. B. No recurrence. 6. Normocytic anemia, chronic. A. Some drop in the hemoglobin to 7.7 from recent surgery as of 09/24/2017. B. Hemoglobin up to 8.0 as of 10/04/2017. 7. History of alcoholism. 8. Chronic obstructive pulmonary disease. 9. History of diabetes. A. Presently on no medication. B. Hemoglobin A1c and glucose have normalized since patient went through a large weight loss. Hemog lobin A1c in 04/26 was 5.6. 10. Chronic low back pain secondary to lumbar spondylosis and ecftqagg-fj-htnfdg stenosis at the L2- L3 level, L3-L4 level, and L4-L5 level. 11. Right rotator cuff arthrotomy with very limited motion in the right shoulder. 12. Depression. A. Improved. 13. Episode of chest pain on the late evening of 10/02/2017. A. Etiology probable musculoskeletal, probably coming from the left shoulder. B. Cardiac enzymes were normal. EKG showed the atrial fib. C. No recurrence as of 10/05/2017. PLAN: Continue IV vancomycin and Rocephin. We will recheck his weekly lab tomorrow including sed ra te, CRP, CBC, and CMP. He is getting weekly trough levels on the vancomycin, last one on 10/04 was 1 9.4. We will , provide moist heat to use to help with achy points of his back and shoulder. Co ntinue the wound VAC.
[2017-10-07] MEDS: cefTRIAXone\\ROCEPHIN 2 GM VIAL IVPB SCH (18:00)
[2017-10-08] MEDS: HYDROcodone/Acetaminophen 10/325 mg Tablet PO PRN ×6 (00:27→21:56)
[2017-10-08] MEDS: diphenhydrAMINE 25 MG CAP PO PRN ×6 (00:27→21:56)
[2017-10-08 05:30] LABS: #Basophils 0.1 thou/uL (0.0-0.2); #Eosinphils 0.4 thou/uL (0.0-0.7); #Monocytes 0.5 thou/uL (0.11-0.59); #Neutrophils 2.5 thou/uL (1.40-6.50); %Basophils 1.6 % (0.0-1.0); %Eosinophils 7.1 % (0.0-10.0); %Lymphocytes 35.5 % (21.0-51.0); %Monocytes 9.5 % (0.0-10.0); %Neutrophils 46.3 % (42.0-75.0); Hemoglobin 7.6 g/dL (14.0-18.0); Mean Corpuscular HGB CONC 31.1 g/dL (32.0-36.0); Mean Corpuscular Hemoglobin 23.2 pg (27.0-31.0); Mean Corpuscular Volume 74.6 fl (80.0-94.0); Mean Platelet Volume 5.7 fL (7.4-10.4); Platelet Count 268 thou/uL (130-400); RBC Distribution Width 15.6 % (11.5-14.5); Red Blood Cell (RBC) Count 3.28 mill/uL (4.70-6.10); White Blood Cell (WBC) Count 5.5 thou/uL (4.8-10.8)
[2017-10-08 05:36] LABS: Hypochromia MODERATE=16-30 cells (100X) (0-5/hpf); Microcytosis MARKED = >30 cells (100X) (0-5/hpf)
[2017-10-08 05:37] LABS: Anisocytosis MODERATE=16-30 cells (100X) (0-5/hpf); Poikilocytosis SLIGHT = 6-15 cells (100X) (0-5/hpf)
[2017-10-08] MEDS: Famotidine 20 MG TAB PO SCH ×2 (08:19→21:56)
[2017-10-08] MEDS: Multivit, Therapeutic 1 TAB PO SCH (08:19)
[2017-10-08] MEDS: Ferrous Sulfate 325 MG TAB PO SCH ×2 (08:20→17:47)
[2017-10-08] MEDS: Saccharomyces boulardii 250 MG CAP PO SCH (08:20)
[2017-10-08] MEDS: Metoprolol Tartrate 25 MG TAB PO SCH (08:20)
[2017-10-08] MEDS: Aspirin 325 MG TAB PO SCH (08:20)
[2017-10-08] MEDS: Lisinopril 5 MG TAB PO SCH (08:20)
[2017-10-08] MEDS: Senokot S 8.6-50 MG TAB PO PRN (08:23)
[2017-10-08] MEDS: Vancomycin HCl 500 MG in Sodium Chloride 0.9% 100 ML IVPB SCH (10:21)
[2017-10-08] MEDS: Vancomycin HCl 750 MG in Sodium Chloride 0.9% 250 ML 250 ML IVPB SCH (10:21)
[2017-10-08] MEDS ORDERED: Activase 2 MG VIAL CATH SCH ×2 (10:45→11:30)
[2017-10-08] MEDS ORDERED: Sterile Water 10 ML ONE (13:27)
[2017-10-08] MEDS: cefTRIAXone\\ROCEPHIN 2 GM VIAL IVPB SCH (17:48)
[2017-10-09] MEDS: HYDROcodone/Acetaminophen 10/325 mg Tablet PO PRN ×5 (02:11→21:30)
[2017-10-09] MEDS: diphenhydrAMINE 25 MG CAP PO PRN ×4 (02:13→17:12)
[2017-10-09] MEDS: Lisinopril 5 MG TAB PO SCH (09:12)
[2017-10-09] MEDS: Ferrous Sulfate 325 MG TAB PO SCH ×2 (09:13→17:12)
[2017-10-09] MEDS: Aspirin 325 MG TAB PO SCH (09:13)
[2017-10-09] MEDS: Famotidine 20 MG TAB PO SCH ×2 (09:13→21:29)
[2017-10-09] MEDS: Metoprolol Tartrate 25 MG TAB PO SCH (09:13)
[2017-10-09] MEDS: Saccharomyces boulardii 250 MG CAP PO SCH (09:13)
[2017-10-09] MEDS: Multivit, Therapeutic 1 TAB PO SCH (09:13)
[2017-10-09 09:28] LABS: Vancomycin, Trough 20.2 ug/mL
[2017-10-09] MEDS: Vancomycin HCl 500 MG in Sodium Chloride 0.9% 100 ML IVPB SCH (10:37)
[2017-10-09] MEDS: Vancomycin HCl 750 MG in Sodium Chloride 0.9% 250 ML 250 ML IVPB SCH (10:37)
--- NOTE | 2017-10-09 12:23 | PRG ---
DATE OF SERVICE: 10/09/2017 SUBJECTIVE: The physical therapist has changed the wound today after 48 hours. He said that the wou nd looks better. The deep recess pocket is smaller. He has more trouble dressing this because the s ize is diminishing. The rest of the wound looks very clean. There is no odor. This was repacked wi th the foam for the wound VAC, even into the deep recesses. The drainage over the last 48 hours has been probably 50 mL of serosanguineous fluid, it is kind of thick and frothy. Overall, the drainage is getting less and less. The patient is very restless. He said he is wanting to explore alternativ es, he just cannot see himself staying here until November for the completion of the IV antibiotics. He is wanting to look at alternatives. OBJECTIVE: The patient is sitting up in bed. He is alert, appears comfortable in no distress. Temp 98.1, pulse 97, blood pressure 118/60, respirations 19, O2 sat 97%, blood pressure 118/60. Lungs ar e clear. Heart, regular rate. The patient has a new foam dressing connected to the wound VAC. Ther e is no surrounding redness. Extremities; no edema. His lab done yesterday shows H&H of 7.6 and 24.4, white cell count 5500 with 46% segs, 36% lymphocyte s, and platelet count of 268,000. Sed rate down to 48. His sodium 140, potassium 4.6, BUN 30, creat inine 1.2, GFR 59, stable. Glucose 132. His CRP has gone up from 1.9 to 3.7. ASSESSMENT: 1. Recurrent septic left shoulder with a history of a chronic osteomyelitis of the left humerus and glenoid. A. Hospitalized at [facility] from 09/17 until 09/23/2017, where he underwent a left shou lder irrigation, debridement, and wound VAC placement. Then on 09/21/2017, he underwent repeat surge ry on the left shoulder with irrigation and debridement and resection of the proximal humeral osteomy elitis, wound left open, and wound VAC placed. B. Cultures from the wound from 09/18, grew Serratia marcescens, sensitive to Rocephin and Ciprose cond organism that grew Staphylococcus epidermidis, sensitive to vancomycin. C. We will require the Rocephin 2 grams IV daily and vancomycin 1.25 grams daily until 11/17/2017. The open wound will require wound care with wound VAC. D. The patient remains afebrile. The wound is improved. The deep recess is smaller. The serosangu ineous fluid is much less, less than 50 mL for the last 48 hours as of 10/09/2017. 2. Chronic osteomyelitis of the left shoulder. A. Initiated from a steroid injection in 12/2015. B. Has undergone repeated incision and drainage and arthrotomies. C. Has undergone multiple courses of IV antibiotics. D. Cultures initially grew Propionibacterium acne, but subsequent cultures have been negative up unt il cultures taken on 09/18/2017. E. Status post left humeral head resection and placement of a Prostalac antibiotic spacer 07/02/2017 . F. Status post recurrence of septic joint, requiring reopening of the wound with removal of the Pros talac spacer. G. Again recurrent septic shoulder, requiring further resection of the proximal shaft, it is mention ed under #1 on 09/18 and 09/21/2017. H. Improved with diminished size of the deep recess and decreased drainage. Sed rate is down to 48, but CRP up to 3.7 as of 10/09/2017. 3. Hypertension, controlled. 4. Paroxysmal atrial fibrillation. A. On aspirin and could not afford to take Eliquis or Xarelto and did not want to take Coumadin. B. EKG on 09/24/2017 showed atrial fibrillation with a rare PVC with a rate of 73. C. EKG on 10/02/2017 still shows atrial fibrillation with rate of 85. Poor candidate for anticoagul ation due to the severe anemia and also patient is not wanting to go on anticoagulants. D. The patient continues to have an irregular regular rhythm with controlled rate as of 10/09/2017. 5. History of transient ischemic attack. A. Initially presented with weakness of the right arm on 04/10/2016. B. No recurrence. 6. Normocytic anemia, chronic. A. Some drop in the hemoglobin to 7.7 from recent surgery as of 09/24/2017. B. Hemoglobin up to 8.0 as of 10/04/2017. C. Hemoglobin 7.6 as of 10/08/2017. 7. History of alcoholism. 8. Chronic obstructive pulmonary disease. 9. History of diabetes. A. Presently on no medication. B. Hemoglobin A1c and glucose have normalized since patient went through a large weight loss. Hem lobin A1c in 04/26 was 5.6. 10. Chronic low back pain secondary to lumbar spondylosis and dkzlpqwv-gb-uxiarm stenosis at the L2- L3 level, L3-L4 level, and L4-L5 level. 11. Right rotator cuff arthrotomy with very limited motion in the right shoulder. 12. Depression. A. Improved. 13. Episode of chest pain on the late evening of 10/02/2017. A. Etiology probable musculoskeletal, probably coming from the left shoulder. B. Cardiac enzymes were normal. EKG showed the atrial fib. C. No recurrence as of 10/09/2017. PLAN: Continue the IV vancomycin and Rocephin, continue the wound VAC care. I visited and listened to the patient. He is becoming very restless with the repeated prolonged hospitalization and he just does not think he can stay in the hospital setting as recommended into November. We will arrange for hi m to revisit with Dr. Barajas, his Infectious Disease physician and also Dr. Lima for further recomm endations because he is asking for alternative. We will also conferred with home health to see if th is care with the continuation of the IV antibiotics and wound VAC could be done at home with home [facility]. We will recheck a CBC on Thursday10/12/2017 and continue the weekly sedimentation rate, CRP, CBC and CMV.
[2017-10-09] MEDS: cefTRIAXone\\ROCEPHIN 2 GM VIAL IVPB SCH (19:48)
[2017-10-10] MEDS: HYDROcodone/Acetaminophen 10/325 mg Tablet PO PRN ×5 (01:51→22:07)
[2017-10-10] MEDS: diphenhydrAMINE 25 MG CAP PO PRN ×5 (01:53→22:05)
[2017-10-10] MEDS: Lisinopril 5 MG TAB PO SCH (08:32)
[2017-10-10] MEDS: Famotidine 20 MG TAB PO SCH ×2 (08:32→20:04)
[2017-10-10] MEDS: Multivit, Therapeutic 1 TAB PO SCH (08:32)
[2017-10-10] MEDS: Saccharomyces boulardii 250 MG CAP PO SCH (08:33)
[2017-10-10] MEDS: Ferrous Sulfate 325 MG TAB PO SCH ×2 (08:33→18:10)
[2017-10-10] MEDS: Metoprolol Tartrate 25 MG TAB PO SCH (08:33)
[2017-10-10] MEDS: Aspirin 325 MG TAB PO SCH (08:33)
[2017-10-10] MEDS: Vancomycin HCl 500 MG in Sodium Chloride 0.9% 100 ML IVPB SCH (11:17)
[2017-10-10] MEDS: Vancomycin HCl 750 MG in Sodium Chloride 0.9% 250 ML 250 ML IVPB SCH (11:17)
[2017-10-10] MEDS: cefTRIAXone\\ROCEPHIN 2 GM VIAL IVPB SCH (19:24)
[2017-10-11] MEDS: diphenhydrAMINE 25 MG CAP PO PRN ×5 (02:21→23:13)
[2017-10-11] MEDS: HYDROcodone/Acetaminophen 10/325 mg Tablet PO PRN ×5 (02:21→23:12)
[2017-10-11] MEDS: Ferrous Sulfate 325 MG TAB PO SCH ×2 (07:09→18:00)
[2017-10-11] MEDS: Multivit, Therapeutic 1 TAB PO SCH (09:30)
[2017-10-11] MEDS: Metoprolol Tartrate 25 MG TAB PO SCH (09:30)
[2017-10-11] MEDS: Aspirin 325 MG TAB PO SCH (09:30)
[2017-10-11] MEDS: Lisinopril 5 MG TAB PO SCH (09:30)
[2017-10-11] MEDS: Famotidine 20 MG TAB PO SCH ×2 (09:31→21:03)
[2017-10-11] MEDS: Saccharomyces boulardii 250 MG CAP PO SCH (09:31)
[2017-10-11] MEDS: Vancomycin HCl 500 MG in Sodium Chloride 0.9% 100 ML IVPB SCH (12:00)
[2017-10-11] MEDS: Vancomycin HCl 750 MG in Sodium Chloride 0.9% 250 ML 250 ML IVPB SCH (12:00)
[2017-10-11] MEDS: cefTRIAXone\\ROCEPHIN 2 GM VIAL IVPB SCH (19:28)
[2017-10-12] MEDS: HYDROcodone/Acetaminophen 10/325 mg Tablet PO PRN ×4 (03:13→21:56)
[2017-10-12] MEDS: diphenhydrAMINE 25 MG CAP PO PRN ×4 (03:13→21:57)
[2017-10-12 06:20] LABS: #Basophils 0.1 thou/uL (0.0-0.2); #Eosinphils 0.4 thou/uL (0.0-0.7); #Lymphocytes 2.1 thou/uL (1.20-3.40); #Monocytes 0.6 thou/uL (0.11-0.59); %Eosinophils 8.3 % (0.0-10.0); %Lymphocytes 40.9 % (21.0-51.0); %Monocytes 11.4 % (0.0-10.0); %Neutrophils 37.5 % (42.0-75.0); Hemoglobin 7.8 g/dL (14.0-18.0); Mean Corpuscular HGB CONC 30.4 g/dL (32.0-36.0); Mean Corpuscular Hemoglobin 22.9 pg (27.0-31.0); Mean Corpuscular Volume 75.4 fl (80.0-94.0); Mean Platelet Volume 5.8 fL (7.4-10.4); Platelet Count 242 thou/uL (130-400); Red Blood Cell (RBC) Count 3.41 mill/uL (4.70-6.10); White Blood Cell (WBC) Count 5.2 thou/uL (4.8-10.8)
[2017-10-12 06:24] LABS: Anisocytosis MARKED = >30 cells (100X) (0-5/hpf); Hypochromia MARKED = >30 cells (100X) (0-5/hpf); Microcytosis MODERATE=15-30 cells (100X) (0-5/hpf); Poikilocytosis SLIGHT = 6-15 cells (100X) (0-5/hpf); Target Cells MODERATE= 6-15 cells (100X) (0-1/hpf)
[2017-10-12] MEDS: Ferrous Sulfate 325 MG TAB PO SCH ×2 (07:38→17:29)
[2017-10-12] MEDS: Famotidine 20 MG TAB PO SCH ×2 (09:09→20:55)
[2017-10-12] MEDS: Aspirin 325 MG TAB PO SCH (09:09)
[2017-10-12] MEDS: Metoprolol Tartrate 25 MG TAB PO SCH (09:09)
[2017-10-12] MEDS: Lisinopril 5 MG TAB PO SCH (09:10)
[2017-10-12] MEDS: Multivit, Therapeutic 1 TAB PO SCH (09:10)
[2017-10-12] MEDS: Saccharomyces boulardii 250 MG CAP PO SCH (09:10)
[2017-10-12] MEDS: Vancomycin HCl 750 MG in Sodium Chloride 0.9% 250 ML 250 ML IVPB SCH (11:21)
[2017-10-12] MEDS: Vancomycin HCl 500 MG in Sodium Chloride 0.9% 100 ML IVPB SCH (11:21)
--- NOTE | 2017-10-12 14:56 | PRG ---
DATE OF SERVICE: 10/12/2017 SUBJECTIVE: The patient said he is doing alright this morning, just a little sore in the shoulder. He seems very comfortable and was not agitated today. Home health did visit with him and said that piedad alexandraindy could arrange for him to receive the IV antibiotics in the home through his PICC line and do the wound VAC therapy. 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 The patient told Janene, the nurse, that he just would like to stay here another 2 weeks and then reevaluate whether to finish things up at home. Arrangements are being made for him to res ee Dr. Barajas and Dr. Lima. OBJECTIVE: The patient looks comfortable in no distress this morning His temperature is 98.1, pulse 83, respirations 18, O2 sat 96% on room air, blood pressure 113/57. Lungs are clear. Heart irregula r regular rhythm with adequate ventricular response. Extremities, no edema. The wound VAC is well s ealed on the left shoulder. There is no surrounding redness, no swelling. The patient has 250 mL of serosanguineous fluid in his wound VAC, this is probably a 5-day collection. His H&H today is 7.8 a nd 25.7, white cell count 5200 with 38% segs, 41% lymphocytes, and a platelet count of 242,000. ASSESSMENT: 1. Recurrent septic left shoulder with a history of a chronic osteomyelitis of the left humerus and glenoid. A. Hospitalized at [facility] from 09/17 until 09/23/2017, where he underwent a left shou lder irrigation, debridement, and wound VAC placement. Then on 09/21/2017, he underwent repeat surge ry on the left shoulder with irrigation and debridement and resection of the proximal humeral osteomy elitis, wound left open, and wound VAC placed. B. Cultures from the wound from 09/18, grew Serratia marcescens, sensitive to Rocephin and Ciprose cond organism that grew Staphylococcus epidermidis, sensitive to vancomycin. C. We will require the Rocephin 2 grams IV daily and vancomycin 1.25 grams daily until 11/17/2017. The open wound will require wound care with wound VAC. D. The patient remains afebrile. The wound will be dressed today. He has had 250 mL of serosanguin eous drainage over the last 5 days as of 10/12/2017. Dressing due to be changed today. 2. Chronic osteomyelitis of the left shoulder. A. Initiated from a steroid injection in 12/2015. B. Has undergone repeated incision and drainage and arthrotomies. C. Has undergone multiple courses of IV antibiotics. D. Cultures initially grew Propionibacterium acne, but subsequent cultures have been negative up unt il cultures taken on 09/18/2017. E. Status post left humeral head resection and placement of a Prostalac antibiotic spacer 07/02/2017 . F. Status post recurrence of septic joint, requiring reopening of the wound with removal of the Pros talac spacer. G. Again recurrent septic shoulder, requiring further resection of the proximal shaft, it is mention ed under #1 on 09/18 and 09/21/2017. H. Improved with diminished size of the deep recess and decreased drainage. Sed rate is down to 48, but CRP up to 3.7 as of 10/09/2017. 3. Hypertension, controlled. 4. Paroxysmal atrial fibrillation. A. On aspirin and could not afford to take Eliquis or Xarelto and did not want to take Coumadin. B. EKG on 09/24/2017 showed atrial fibrillation with a rare PVC with a rate of 73. C. EKG on 10/02/2017 still shows atrial fibrillation with rate of 85. Poor candidate for anticoagul ation due to the severe anemia and also patient is not wanting to go on anticoagulants. D. Remains in irregular, irregular rhythm with adequate rate as of 10/12/2017. 5. History of transient ischemic attack. A. Initially presented with weakness of the right arm on 04/10/2016. B. No recurrence. 6. Normocytic anemia, chronic. A. Some drop in the hemoglobin to 7.7 from recent surgery as of 09/24/2017. B. Hemoglobin up to 8.0 as of 10/04/2017. C. Hemoglobin 7.6 as of 10/08/2017. 7. History of alcoholism. 8. Chronic obstructive pulmonary disease. 9. History of diabetes. A. Presently on no medication. B. Hemoglobin A1c and glucose have normalized since patient went through a large weight loss. Hemog lobin A1c in 04/26 was 5.6. 10. Chronic low back pain secondary to lumbar spondylosis and yfmcjdaa-iw-gvoodo stenosis at the L2- L3 level, L3-L4 level, and L4-L5 level. 11. Right rotator cuff arthrotomy with very limited motion in the right shoulder. 12. Depression. A. Improved. 13. Episode of chest pain on the late evening of 10/02/2017. A. Etiology probable musculoskeletal, probably coming from the left shoulder. B. Cardiac enzymes were normal. EKG showed the atrial fib. C. No recurrence as of 10/09/2017. PLAN: The patient seems to be doing good. We will continue the wound VAC. Continue the IV antibiot ics. The patient knows that there is an option for attempted in home therapy, but for right now he i s happy just to stay put.
[2017-10-12] MEDS: cefTRIAXone\\ROCEPHIN 2 GM VIAL IVPB SCH (19:11)
[2017-10-13] MEDS: HYDROcodone/Acetaminophen 10/325 mg Tablet PO PRN ×4 (02:22→17:13)
[2017-10-13] MEDS: diphenhydrAMINE 25 MG CAP PO PRN ×4 (02:24→17:12)
[2017-10-13] MEDS: Famotidine 20 MG TAB PO SCH (08:38)
[2017-10-13] MEDS: Aspirin 325 MG TAB PO SCH (08:39)
[2017-10-13] MEDS: Lisinopril 5 MG TAB PO SCH (08:39)
[2017-10-13] MEDS: Saccharomyces boulardii 250 MG CAP PO SCH (08:39)
[2017-10-13] MEDS: Ferrous Sulfate 325 MG TAB PO SCH ×2 (08:39→17:13)
[2017-10-13] MEDS: Multivit, Therapeutic 1 TAB PO SCH (08:39)
[2017-10-13] MEDS: Metoprolol Tartrate 25 MG TAB PO SCH (08:39)
[2017-10-13 09:19] LABS: Vancomycin, Trough 17.8 ug/mL
[2017-10-13] MEDS: Vancomycin HCl 500 MG in Sodium Chloride 0.9% 100 ML IVPB SCH (11:16)
[2017-10-13] MEDS: Vancomycin HCl 750 MG in Sodium Chloride 0.9% 250 ML 250 ML IVPB SCH (11:17)
[2017-10-13] MEDS: cefTRIAXone\\ROCEPHIN 2 GM VIAL IVPB SCH (17:12)
[2017-10-14] MEDS: Famotidine 20 MG TAB PO SCH ×3 (00:10→21:41)
[2017-10-14] MEDS: HYDROcodone/Acetaminophen 10/325 mg Tablet PO PRN ×5 (03:23→21:42)
[2017-10-14] MEDS: diphenhydrAMINE 25 MG CAP PO PRN ×5 (03:24→21:42)
[2017-10-14] MEDS: Lisinopril 5 MG TAB PO SCH (08:36)
[2017-10-14] MEDS: Metoprolol Tartrate 25 MG TAB PO SCH (08:36)
[2017-10-14] MEDS: Saccharomyces boulardii 250 MG CAP PO SCH (08:36)
[2017-10-14] MEDS: Ferrous Sulfate 325 MG TAB PO SCH ×2 (08:37→17:00)
[2017-10-14] MEDS: Multivit, Therapeutic 1 TAB PO SCH (08:37)
[2017-10-14] MEDS: Aspirin 325 MG TAB PO SCH (08:37)
[2017-10-14] MEDS: Vancomycin HCl 500 MG in Sodium Chloride 0.9% 100 ML IVPB SCH (10:48)
[2017-10-14] MEDS: Vancomycin HCl 750 MG in Sodium Chloride 0.9% 250 ML 250 ML IVPB SCH (10:48)
--- NOTE | 2017-10-14 12:40 | PRG ---
DATE OF SERVICE: 10/14/2017 SUBJECTIVE: The patient said he is doing okay this morning. He was sleeping a little later than usu al. He said his shoulder pain was managed. Yesterday the wound was packed with wet-to-dry dressings and they had run out of the foam for the VAC system, but this reorder was late coming in, it should be in today and will be replaced. OBJECTIVE: The patient is alert and appears in no distress. Temp 98.6, pulse 84, respirations 20, O 2 saturation 94% on room air, blood pressure 121/73. Lungs are clear. Heart; regular rate, irregula rly irregular rhythm with adequate ventricular response. Left shoulder; his dressing is dry. Extrem ities; no edema. Vancomycin trough level yesterday was 17.8. ASSESSMENT: 1. Recurrent septic left shoulder with a history of a chronic osteomyelitis of the left humerus and glenoid. A. Hospitalized at [facility] from 09/17 until 09/23/2017, where he underwent a left shou lder irrigation, debridement, and wound VAC placement. Then on 09/21/2017, he underwent repeat surge ry on the left shoulder with irrigation and debridement and resection of the proximal humeral osteomy elitis, wound left open, and wound VAC placed. B. Cultures from the wound from 09/18, grew Serratia marcescens, sensitive to Rocephin and se Keila cond organism that grew Staphylococcus epidermidis, sensitive to vancomycin. C. We will require the Rocephin 2 grams IV daily and vancomycin 1.25 grams daily until 11/17/2017. The open wound will require wound care with wound VAC. D. The patient remains afebrile. Wound is clean. Continues to have a serosanguineous drainage as o f 10/14/2017. 2. Chronic osteomyelitis of the left shoulder. A. Initiated from a steroid injection in 12/2015. B. Has undergone repeated incision and drainage and arthrotomies. C. Has undergone multiple courses of IV antibiotics. D. Cultures initially grew Propionibacterium acne, but subsequent cultures have been negative up unt il cultures taken on 09/18/2017. E. Status post left humeral head resection and placement of a Prostalac antibiotic spacer 07/02/2017 . F. Status post recurrence of septic joint, requiring reopening of the wound with removal of the Pros talac spacer. G. Again recurrent septic shoulder, requiring further resection of the proximal shaft, it is mention ed under #1 on 09/18 and 09/21/2017. H. Remains on IV Rocephin and vancomycin and wound care as of 10/14/2017. 3. Hypertension, controlled. 4. Paroxysmal atrial fibrillation. A. On aspirin and could not afford to take Eliquis or Xarelto and did not want to take Coumadin. B. EKG on 09/24/2017 showed atrial fibrillation with a rare PVC with a rate of 73. C. EKG on 10/02/2017 still shows atrial fibrillation with rate of 85. Poor candidate for anticoagul ation due to the severe anemia and also patient is not wanting to go on anticoagulants. D. Remains in irregular, irregular rhythm with adequate rate as of 10/14/2017. 5. History of transient ischemic attack. A. Initially presented with weakness of the right arm on 04/10/2016. B. No recurrence. 6. Normocytic anemia, chronic. A. Some drop in the hemoglobin to 7.7 from recent surgery as of 09/24/2017. B. Hemoglobin up to 8.0 as of 10/04/2017. C. Hemoglobin 7.6 as of 10/08/2017. 7. History of alcoholism. 8. Chronic obstructive pulmonary disease. 9. History of diabetes. A. Presently on no medication. B. Hemoglobin A1c and glucose have normalized since patient went through a large weight loss. Hemog lobin A1c in 04/26 was 5.6. 10. Chronic low back pain secondary to lumbar spondylosis and qkcheifm-te-kqlzxh stenosis at the L2- L3 level, L3-L4 level, and L4-L5 level. 11. Right rotator cuff arthrotomy with very limited motion in the right shoulder. 12. Depression. A. Improved. 13. Episode of chest pain on the late evening of 10/02/2017. A. Etiology probable musculoskeletal, probably coming from the left shoulder. B. Cardiac enzymes were normal. EKG showed the atrial fib. C. No recurrence as of 10/14/2017. PLAN: Continue IV vancomycin and Rocephin. The patient is due to have his weekly blood work done in the morning with repeat sed rate and CRP. Continue wound care. As soon as the sponges come in for the VAC system this will be replaced.
[2017-10-14] MEDS: cefTRIAXone\\ROCEPHIN 2 GM VIAL IVPB SCH (17:01)
[2017-10-15] MEDS: diphenhydrAMINE 25 MG CAP PO PRN ×5 (02:21→21:03)
[2017-10-15] MEDS: HYDROcodone/Acetaminophen 10/325 mg Tablet PO PRN ×5 (02:21→21:02)
[2017-10-15 06:56] LABS: #Basophils 0.1 thou/uL (0.0-0.2); #Eosinphils 0.4 thou/uL (0.0-0.7); #Lymphocytes 2.3 thou/uL (1.20-3.40); #Monocytes 0.7 thou/uL (0.11-0.59); #Neutrophils 2.4 thou/uL (1.40-6.50); %Basophils 1.8 % (0.0-1.0); %Eosinophils 6.6 % (0.0-10.0); %Lymphocytes 39.7 % (21.0-51.0); %Monocytes 11.2 % (0.0-10.0); %Neutrophils 40.8 % (42.0-75.0); Anisocytosis MODERATE=16-30 cells (100X) (0-5/hpf); Elliptocytes MODERATE= 6-15 cells (100X) (0-1/hpf); Hemoglobin 8.2 g/dL (14.0-18.0); Hypochromia MODERATE=16-30 cells (100X) (0-5/hpf); MDiff Complete? YES; Mean Corpuscular HGB CONC 32.3 g/dL (32.0-36.0); Mean Corpuscular Hemoglobin 24.1 pg (27.0-31.0); Mean Corpuscular Volume 74.8 fl (80.0-94.0); Mean Platelet Volume 5.6 fL (7.4-10.4); Microcytosis SLIGHT = 6-15 cells (100X) (0-5/hpf); PLT Morphology Comment Appears Adequate; Platelet Count 242 thou/uL (130-400); Poikilocytosis MODERATE=16-30 cells (100X) (0-5/hpf); RBC Distribution Width 15.6 % (11.5-14.5); RBC Morphology Abnormal; White Blood Cell (WBC) Count 5.8 thou/uL (4.8-10.8)
[2017-10-15 07:15] LABS: ALT (SGPT) 18 U/L (8-55); AST (SGOT) 23 U/L (5-34); Albumin 3.7 g/dL (3.4-4.8); Alkaline Phosphatase 84 U/L (40-150); Anion Gap 17 mmol/L (10-20); BUN (Urea Nitrogen) 31 mg/dL (8.4-25.7); Bilirubin, Total 0.3 mg/dL (0.2-1.2); Calc. Creatinine Clearance 66 mL/min (70-130); Calcium 9.5 mg/dL (7.8-10.44); Carbon Dioxide 23 mmol/L (23-31); Chloride 106 mmol/L (98-107); Estimated GFR-MDRD 68; Globulin 3.2 g/dL (2.4-3.5); Glucose 96 mg/dL (83-110); Potassium 4.7 mmol/L (3.5-5.1); Protein, Total 6.9 g/dL (5.8-8.1); Sodium 141 mmol/L (136-145)
[2017-10-15] MEDS: Aspirin 325 MG TAB PO SCH (08:51)
[2017-10-15] MEDS: Multivit, Therapeutic 1 TAB PO SCH (08:51)
[2017-10-15] MEDS: Ferrous Sulfate 325 MG TAB PO SCH ×2 (08:51→17:06)
[2017-10-15] MEDS: Lisinopril 5 MG TAB PO SCH (08:51)
[2017-10-15] MEDS: Famotidine 20 MG TAB PO SCH ×2 (08:52→21:03)
[2017-10-15] MEDS: Metoprolol Tartrate 25 MG TAB PO SCH (08:52)
[2017-10-15] MEDS: Saccharomyces boulardii 250 MG CAP PO SCH (08:52)
[2017-10-15] MEDS: Vancomycin HCl 750 MG in Sodium Chloride 0.9% 250 ML 250 ML IVPB SCH (08:53)
[2017-10-15] MEDS: Vancomycin HCl 500 MG in Sodium Chloride 0.9% 100 ML IVPB SCH (09:47)
[2017-10-15] MEDS: cefTRIAXone\\ROCEPHIN 2 GM VIAL IVPB SCH (18:04)
[2017-10-16] MEDS: HYDROcodone/Acetaminophen 10/325 mg Tablet PO PRN ×4 (03:01→21:09)
[2017-10-16] MEDS: diphenhydrAMINE 25 MG CAP PO PRN ×4 (03:01→21:10)
[2017-10-16] MEDS: Ferrous Sulfate 325 MG TAB PO SCH ×2 (09:12→17:02)
[2017-10-16] MEDS: Aspirin 325 MG TAB PO SCH (09:13)
[2017-10-16] MEDS: Famotidine 20 MG TAB PO SCH ×2 (09:13→21:09)
[2017-10-16] MEDS: Saccharomyces boulardii 250 MG CAP PO SCH (09:13)
[2017-10-16] MEDS: Lisinopril 5 MG TAB PO SCH (09:13)
[2017-10-16] MEDS: Metoprolol Tartrate 25 MG TAB PO SCH (09:13)
[2017-10-16] MEDS: Multivit, Therapeutic 1 TAB PO SCH (09:13)
[2017-10-16] MEDS: Vancomycin HCl 750 MG in Sodium Chloride 0.9% 250 ML 250 ML IVPB SCH (09:14)
[2017-10-16] MEDS: Vancomycin HCl 500 MG in Sodium Chloride 0.9% 100 ML IVPB SCH (09:19)
--- NOTE | 2017-10-16 12:24 | PRG ---
DATE OF SERVICE: 10/16/2017 SUBJECTIVE: The patient said he is doing pretty good this morning. He has a little soreness in the left shoulder, but no more than usual. Overall, he thinks he is doing alright. OBJECTIVE: The patient lying in bed, alert, talkative, appears comfortable in no distress. His temp erature is 98.2, pulse 98, respirations 20, O2 saturation 97% on room air, blood pressure 121/63. Demarco manuel has less than 50 mL of serosanguineous drainage in the wound VAC from the left shoulder for the last 24 hours. His lungs were clear. Heart has an irregular regular rhythm. Lab from 10/15/2017 showed the H&H is up to 8.2 and 25.4, white cell count 5800 with 41% segs, 40% ly mphocytes, and a platelet count of 242,000. The sed rate is stable at 48. His BUN is 31, creatinine 1.07, GFR is up to 68. Sodium 141, potassium 4.3, glucose 96. His C-reactive protein is pending. ASSESSMENT: 1. Recurrent septic left shoulder with a history of a chronic osteomyelitis of the left humerus and glenoid. A. Hospitalized at [facility] from 09/17 until 09/23/2017, where he underwent a left shou lder irrigation, debridement, and wound VAC placement. Then on 09/21/2017, he underwent repeat surge ry on the left shoulder with irrigation and debridement and resection of the proximal humeral osteomy elitis, wound left open, and wound VAC placed. B. Cultures from the wound from 09/18, grew Serratia marcescens, sensitive to Rocephin and se Keila cond organism that grew Staphylococcus epidermidis, sensitive to vancomycin. C. We will require the Rocephin 2 grams IV daily and vancomycin 1.25 grams daily until 11/17/2017. The open wound will require wound care with wound VAC. D. The patient remains afebrile. Wound remains clean. The serosanguineous drainage is decreasing w ith less than 50 mL for the last 24 hours as of 10/16/2017. 2. Chronic osteomyelitis of the left shoulder. A. Initiated from a steroid injection in 12/2015. B. Has undergone repeated incision and drainage and arthrotomies. C. Has undergone multiple courses of IV antibiotics. D. Cultures initially grew Propionibacterium acne, but subsequent cultures have been negative up unt il cultures taken on 09/18/2017. E. Status post left humeral head resection and placement of a Prostalac antibiotic spacer 07/02/2017 . F. Status post recurrence of septic joint, requiring reopening of the wound with removal of the Pros talac spacer. G. Again recurrent septic shoulder, requiring further resection of the proximal shaft, it is mention ed under #1 on 09/18 and 09/21/2017. H. Sed rate stable at 48. CRP pending. Remains on IV Rocephin and vancomycin as of 10/16/2017. 3. Hypertension, controlled. 4. Paroxysmal atrial fibrillation. A. On aspirin and could not afford to take Eliquis or Xarelto and did not want to take Coumadin. B. EKG on 09/24/2017 showed atrial fibrillation with a rare PVC with a rate of 73. C. EKG on 10/02/2017 still shows atrial fibrillation with rate of 85. Poor candidate for anticoagul ation due to the severe anemia and also patient is not wanting to go on anticoagulants. D. Remains in irregular, irregular rhythm with adequate rate as of 10/16/2017. 5. History of transient ischemic attack. A. Initially presented with weakness of the right arm on 04/10/2016. B. No recurrence. 6. Normocytic anemia, chronic. A. Some drop in the hemoglobin to 7.7 from recent surgery as of 09/24/2017. B. Hemoglobin up to 8.0 as of 10/04/2017. C. Hemoglobin 7.6 as of 10/08/2017. Hemoglobin up to 8.2 as of 10/16/2017. 7. History of alcoholism. 8. Chronic obstructive pulmonary disease. 9. History of diabetes. A. Presently on no medication. B. Hemoglobin A1c and glucose have normalized since patient went through a large weight loss. Hemog lobin A1c in 04/26 was 5.6. 10. Chronic low back pain secondary to lumbar spondylosis and wyeprmtu-hn-hkyfki stenosis at the L2- L3 level, L3-L4 level, and L4-L5 level. 11. Right rotator cuff arthrotomy with very limited motion in the right shoulder. 12. Depression. A. Improved. 13. Episode of chest pain on the late evening of 10/02/2017. A. Etiology probable musculoskeletal, probably coming from the left shoulder. B. Cardiac enzymes were normal. EKG showed the atrial fib. C. No recurrence as of 10/16/2017. PLAN: Continue present care. Continue the IV vancomycin and Rocephin. Continue the wound VAC. The wound remains clean. The deep pocket tends to be getting smaller according to the therapist and moe t the wound is accommodating less of the packing down in the deep recesses. We will continue present care.
[2017-10-16] MEDS ORDERED: Sterile Water Irrigation 250 ML BOT ONE (12:31)
[2017-10-16] MEDS ORDERED: Sodium Chloride Irrig Solution 250 ML BOT ONE (12:31)
[2017-10-16] MEDS: cefTRIAXone\\ROCEPHIN 2 GM VIAL IVPB SCH (18:02)
[2017-10-17] MEDS: HYDROcodone/Acetaminophen 10/325 mg Tablet PO PRN ×4 (06:08→21:33)
[2017-10-17] MEDS: diphenhydrAMINE 25 MG CAP PO PRN ×4 (06:10→21:33)
[2017-10-17] MEDS: Lisinopril 5 MG TAB PO SCH (08:16)
[2017-10-17] MEDS: Multivit, Therapeutic 1 TAB PO SCH (08:16)
[2017-10-17] MEDS: Saccharomyces boulardii 250 MG CAP PO SCH (08:16)
[2017-10-17] MEDS: Famotidine 20 MG TAB PO SCH ×2 (08:16→21:07)
[2017-10-17] MEDS: Metoprolol Tartrate 25 MG TAB PO SCH (08:16)
[2017-10-17] MEDS: Ferrous Sulfate 325 MG TAB PO SCH ×2 (08:17→17:33)
[2017-10-17] MEDS: Aspirin 325 MG TAB PO SCH (08:17)
[2017-10-17] MEDS: Vancomycin HCl 500 MG in Sodium Chloride 0.9% 100 ML IVPB SCH (10:05)
[2017-10-17] MEDS: Vancomycin HCl 750 MG in Sodium Chloride 0.9% 250 ML 250 ML IVPB SCH (10:05)
[2017-10-17] MEDS: cefTRIAXone\\ROCEPHIN 2 GM VIAL IVPB SCH (17:34)
[2017-10-18] MEDS: HYDROcodone/Acetaminophen 10/325 mg Tablet PO PRN ×6 (01:34→22:12)
[2017-10-18] MEDS: diphenhydrAMINE 25 MG CAP PO PRN ×6 (01:34→22:12)
[2017-10-18] MEDS: Vancomycin HCl 750 MG in Sodium Chloride 0.9% 250 ML 250 ML IVPB SCH (08:50)
[2017-10-18] MEDS: Vancomycin HCl 500 MG in Sodium Chloride 0.9% 100 ML IVPB SCH (08:50)
[2017-10-18] MEDS: Saccharomyces boulardii 250 MG CAP PO SCH (08:51)
[2017-10-18] MEDS: Lisinopril 5 MG TAB PO SCH (08:51)
[2017-10-18] MEDS: Multivit, Therapeutic 1 TAB PO SCH (08:51)
[2017-10-18] MEDS: Aspirin 325 MG TAB PO SCH (08:51)
[2017-10-18] MEDS: Ferrous Sulfate 325 MG TAB PO SCH ×2 (08:51→18:03)
[2017-10-18] MEDS: Famotidine 20 MG TAB PO SCH ×2 (08:51→21:05)
[2017-10-18] MEDS: Metoprolol Tartrate 25 MG TAB PO SCH (08:51)
[2017-10-18] MEDS: cefTRIAXone\\ROCEPHIN 2 GM VIAL IVPB SCH (17:12)
[2017-10-19] MEDS: HYDROcodone/Acetaminophen 10/325 mg Tablet PO PRN ×5 (02:41→20:38)
[2017-10-19] MEDS: diphenhydrAMINE 25 MG CAP PO PRN ×5 (02:41→20:38)
[2017-10-19] MEDS: Ferrous Sulfate 325 MG TAB PO SCH ×2 (08:07→16:25)
[2017-10-19] MEDS: Lisinopril 5 MG TAB PO SCH (08:07)
[2017-10-19] MEDS: Aspirin 325 MG TAB PO SCH (08:07)
[2017-10-19] MEDS: Famotidine 20 MG TAB PO SCH ×2 (08:07→20:38)
[2017-10-19] MEDS: Saccharomyces boulardii 250 MG CAP PO SCH (08:07)
[2017-10-19] MEDS: Multivit, Therapeutic 1 TAB PO SCH (08:07)
[2017-10-19] MEDS: Metoprolol Tartrate 25 MG TAB PO SCH (08:08)
--- NOTE | 2017-10-19 09:00 | PRG ---
DATE OF SERVICE: 10/19/2017 SUBJECTIVE: The patient said he is doing alright. He still has soreness in that left shoulder that is kind of deep in the shoulder. He says he still needs the pain medicine, sometimes he can go a lit tle longer without it and some time he slept through the night without taking medicine. OBJECTIVE: The patient looks comfortable, appears in no distress. His vital signs shows a temperatu re of 97.6, pulse 95, respirations 20, O2 sat 95% on room air, blood pressure 123/65. Lungs are pérez r. Heart; irregularly irregular rhythm with adequate ventricular rate. Left shoulder; the wound VAC is in place. There is no surrounding redness or swelling. There is less than 150 mL of serosanguin eous fluid in the canister of the wound VAC that is for a 3-day collection. ASSESSMENT: 1. Recurrent septic left shoulder with a history of a chronic osteomyelitis of the left humerus and glenoid. A. Hospitalized at [facility] from 09/17 until 09/23/2017, where he underwent a left shou lder irrigation, debridement, and wound VAC placement. Then on 09/21/2017, he underwent repeat surge ry on the left shoulder with irrigation and debridement and resection of the proximal humeral osteomy elitis, wound left open, and wound VAC placed. B. Cultures from the wound from 09/18, grew Serratia marcescens, sensitive to Rocephin and Cipro, se cond organism that grew Staphylococcus epidermidis, sensitive to vancomycin. C. We will require the Rocephin 2 grams IV daily and vancomycin 1.25 grams daily until 11/17/2017. The open wound will require wound care with wound VAC. D. The patient remains afebrile. The wound remains clean. There is serosanguineous drainage of vlad roximately 150 mL for 72 hours as of 10/19/2017. 2. Chronic osteomyelitis of the left shoulder. A. Initiated from a steroid injection in 12/2015. B. Has undergone repeated incision and drainage and arthrotomies. C. Has undergone multiple courses of IV antibiotics. D. Cultures initially grew Propionibacterium acne, but subsequent cultures have been negative up unt il cultures taken on 09/18/2017. E. Status post left humeral head resection and placement of a Prostalac antibiotic spacer 07/02/2017 . F. Status post recurrence of septic joint, requiring reopening of the wound with removal of the Pros talac spacer. G. Again recurrent septic shoulder, requiring further resection of the proximal shaft, it is mention ed under #1 on 09/18 and 09/21/2017. H. Sed rate stable at 48. CRP pending. Remains on IV Rocephin and vancomycin as of 10/19/2017. 3. Hypertension, controlled. 4. Paroxysmal atrial fibrillation. A. On aspirin and could not afford to take Eliquis or Xarelto and did not want to take Coumadin. B. EKG on 09/24/2017 showed atrial fibrillation with a rare PVC with a rate of 73. C. EKG on 10/02/2017 still shows atrial fibrillation with rate of 85. Poor candidate for anticoagul ation due to the severe anemia and also patient is not wanting to go on anticoagulants. D. Remains in irregular, irregular rhythm with adequate rate as of 10/19/2017. 5. History of transient ischemic attack. A. Initially presented with weakness of the right arm on 04/10/2016. B. No recurrence. 6. Normocytic anemia, chronic. A. Some drop in the hemoglobin to 7.7 from recent surgery as of 09/24/2017. B. Hemoglobin up to 8.0 as of 10/04/2017. C. Hemoglobin 7.6 as of 10/08/2017. Hemoglobin up to 8.2 as of 10/16/2017. 7. History of alcoholism. 8. Chronic obstructive pulmonary disease. 9. History of diabetes. A. Presently on no medication. B. Hemoglobin A1c and glucose have normalized since patient went through a large weight loss. Hemog lobin A1c in 04/26 was 5.6. 10. Chronic low back pain secondary to lumbar spondylosis and sfdpvfal-cx-plxllp stenosis at the L2- L3 level, L3-L4 level, and L4-L5 level. 11. Right rotator cuff arthrotomy with very limited motion in the right shoulder. 12. Depression. A. Improved. 13. Episode of chest pain on the late evening of 10/02/2017. A. Etiology probable musculoskeletal, probably coming from the left shoulder. B. Cardiac enzymes were normal. EKG showed the atrial fib. C. No recurrence as of 10/19/2017. PLAN: Continue the IV Rocephin and IV vancomycin until 11/17/2017 and will then be placed on Cipro a nd minocycline. Continue the wound VAC.
[2017-10-19 09:56] LABS: Vancomycin, Trough 19.8 ug/mL
[2017-10-19] MEDS: Vancomycin HCl 500 MG in Sodium Chloride 0.9% 100 ML IVPB SCH (10:35)
[2017-10-19] MEDS: Vancomycin HCl 750 MG in Sodium Chloride 0.9% 250 ML 250 ML IVPB SCH (10:35)
[2017-10-19] MEDS: cefTRIAXone\\ROCEPHIN 2 GM VIAL IVPB SCH (17:36)
[2017-10-20] MEDS: HYDROcodone/Acetaminophen 10/325 mg Tablet PO PRN ×5 (00:46→19:15)
[2017-10-20] MEDS: diphenhydrAMINE 25 MG CAP PO PRN ×5 (00:47→19:15)
[2017-10-20] MEDS: Metoprolol Tartrate 25 MG TAB PO SCH (08:24)
[2017-10-20] MEDS: Ferrous Sulfate 325 MG TAB PO SCH ×2 (08:25→16:36)
[2017-10-20] MEDS: Saccharomyces boulardii 250 MG CAP PO SCH (08:25)
[2017-10-20] MEDS: Lisinopril 5 MG TAB PO SCH (08:25)
[2017-10-20] MEDS: Aspirin 325 MG TAB PO SCH (08:25)
[2017-10-20] MEDS: Multivit, Therapeutic 1 TAB PO SCH (08:26)
[2017-10-20] MEDS: Famotidine 20 MG TAB PO SCH ×2 (08:26→19:19)
[2017-10-20] MEDS: Vancomycin HCl 750 MG in Sodium Chloride 0.9% 250 ML 250 ML IVPB SCH (10:48)
[2017-10-20] MEDS: Vancomycin HCl 500 MG in Sodium Chloride 0.9% 100 ML IVPB SCH (10:49)
[2017-10-20] MEDS ORDERED: HYDROcodone/Acetaminophen 10/325 mg Tablet PO PRN (13:18)
[2017-10-20] MEDS: cefTRIAXone\\ROCEPHIN 2 GM in Sodium Chloride 0.9% 100 ML IVPB SCH (13:56)
[2017-10-21] MEDS: diphenhydrAMINE 25 MG CAP PO PRN ×5 (02:52→20:34)
[2017-10-21] MEDS: HYDROcodone/Acetaminophen 10/325 mg Tablet PO PRN ×5 (02:52→20:34)
[2017-10-21] MEDS: Famotidine 20 MG TAB PO SCH ×2 (07:30→20:34)
[2017-10-21] MEDS: Aspirin 325 MG TAB PO SCH (07:30)
[2017-10-21] MEDS: Lisinopril 5 MG TAB PO SCH (07:30)
[2017-10-21] MEDS: Ferrous Sulfate 325 MG TAB PO SCH ×2 (07:31→16:42)
[2017-10-21] MEDS: Multivit, Therapeutic 1 TAB PO SCH (07:31)
[2017-10-21] MEDS: Metoprolol Tartrate 25 MG TAB PO SCH (07:31)
[2017-10-21] MEDS: Saccharomyces boulardii 250 MG CAP PO SCH (07:31)
[2017-10-21 09:42] LABS: ALT (SGPT) 18 U/L (8-55); AST (SGOT) 24 U/L (5-34); Albumin 3.7 g/dL (3.4-4.8); Alkaline Phosphatase 100 U/L (40-150); Anion Gap 14 mmol/L (10-20); BUN (Urea Nitrogen) 22 mg/dL (8.4-25.7); Bilirubin, Total 0.2 mg/dL (0.2-1.2); Calc. Creatinine Clearance 62 mL/min (70-130); Calcium 9.4 mg/dL (7.8-10.44); Carbon Dioxide 23 mmol/L (23-31); Chloride 107 mmol/L (98-107); Estimated GFR-MDRD 63; Globulin 3.1 g/dL (2.4-3.5); Glucose 116 mg/dL (83-110); Potassium 4.3 mmol/L (3.5-5.1); Protein, Total 6.8 g/dL (5.8-8.1); Sodium 140 mmol/L (136-145)
--- NOTE | 2017-10-21 11:46 | PRG ---
DATE OF SERVICE: 10/21/2017 SUBJECTIVE: The patient said he is doing okay. Still has some pain in the shoulder, but he is stret ha his pain medicine out a little bit further. OBJECTIVE: The patient lying in bed, looks very comfortable in no distress. His vital signs shows a temperature 96.8, pulse 83, respirations 16, O2 sat 98% on room air, blood pressure 128/71. Lungs a re clear. Heart, regular rate. Left shoulder, there is no redness or swelling. There is less than 50 mL of serosanguineous drainage in the wound VAC for the last 72 hours. Physical therapist removed the dressing. The wound was able be inspected, looks much better. The wound is smaller. It measur es approximately 3 x 1 cm. The deep recess of the wound can be probed down to 3 cm with a cotton swa b. The deep portion of the wound, though, is much smaller and looks very clean and the drainage from this is much less. Overall, looks improved. Lower extremities, no edema. The patient's last vanco mycin trough level was 19.8, done on 10/19/2017, which remains in the therapeutic range. ASSESSMENT: 1. Recurrent septic left shoulder with a history of a chronic osteomyelitis of the left humerus and glenoid. A. Hospitalized at [facility] from 09/17 until 09/23/2017, where he underwent a left shou lder irrigation, debridement, and wound VAC placement. Then on 09/21/2017, he underwent repeat surge ry on the left shoulder with irrigation and debridement and resection of the proximal humeral osteomy elitis, wound left open, and wound VAC placed. B. Cultures from the wound from 09/18, grew Serratia marcescens, sensitive to Rocephin and se Keila cond organism that grew Staphylococcus epidermidis, sensitive to vancomycin. C. We will require the Rocephin 2 grams IV daily and vancomycin 1.25 grams daily until 11/17/2017. The open wound will require wound care with wound VAC. D. The patient remains afebrile. The drainage from the wound is less than 50 mL of serosanguineous fluid for the last 72 hours. The wound is smaller and measures 3 x 1 cm and the depth of the wound i s now 3 cm from the skin edge only in 1 small area. Overall, the deep recess much smaller and very c lean as of 10/21/2017. 2. Chronic osteomyelitis of the left shoulder. A. Initiated from a steroid injection in 12/2015. B. Has undergone repeated incision and drainage and arthrotomies. C. Has undergone multiple courses of IV antibiotics. D. Cultures initially grew Propionibacterium acne, but subsequent cultures have been negative up unt il cultures taken on 09/18/2017. E. Status post left humeral head resection and placement of a Prostalac antibiotic spacer 07/02/2017 . F. Status post recurrence of septic joint, requiring reopening of the wound with removal of the Pros talac spacer. G. Again recurrent septic shoulder, requiring further resection of the proximal shaft, it is mention ed under #1 on 09/18 and 09/21/2017. H. Sed rate stable at 48. CRP pending. Remains on IV Rocephin and vancomycin as of 10/19/2017. 3. Hypertension, controlled. 4. Paroxysmal atrial fibrillation. A. On aspirin and could not afford to take Eliquis or Xarelto and did not want to take Coumadin. B. EKG on 09/24/2017 showed atrial fibrillation with a rare PVC with a rate of 73. C. EKG on 10/02/2017 still shows atrial fibrillation with rate of 85. Poor candidate for anticoagul ation due to the severe anemia and also patient is not wanting to go on anticoagulants. D. The patient is a regular rhythm today with adequate rate as of 10/21/2017. 5. History of transient ischemic attack. A. Initially presented with weakness of the right arm on 04/10/2016. B. No recurrence. 6. Normocytic anemia, chronic. A. Some drop in the hemoglobin to 7.7 from recent surgery as of 09/24/2017. B. Hemoglobin up to 8.0 as of 10/04/2017. C. Hemoglobin 7.6 as of 10/08/2017. Hemoglobin up to 8.2 as of 10/16/2017. 7. History of alcoholism. 8. Chronic obstructive pulmonary disease. 9. History of diabetes. A. Presently on no medication. B. Hemoglobin A1c and glucose have normalized since patient went through a large weight loss. Hemog lobin A1c in 04/26 was 5.6. 10. Chronic low back pain secondary to lumbar spondylosis and hvgaxbjo-ef-zovkfv stenosis at the L2- L3 level, L3-L4 level, and L4-L5 level. 11. Right rotator cuff arthrotomy with very limited motion in the right shoulder. 12. Depression. A. Improved. 13. Episode of chest pain on the late evening of 10/02/2017. A. Etiology probable musculoskeletal, probably coming from the left shoulder. B. Cardiac enzymes were normal. EKG showed the atrial fib. C. No recurrence as of 10/21/2017. PLAN: Continue present care. Continue the wound VAC. Wound is gradually closing, it is healing fro m the deep recess of the wound outward. We will repeat a CBC, CMP, sed rate and CRP tomorrow. Ela nue to follow periodic vancomycin trough levels.
[2017-10-21] MEDS: Vancomycin HCl 750 MG in Sodium Chloride 0.9% 250 ML 250 ML IVPB SCH (12:18)
[2017-10-21] MEDS: Vancomycin HCl 500 MG in Sodium Chloride 0.9% 100 ML IVPB SCH (14:30)
[2017-10-21] MEDS: cefTRIAXone\\ROCEPHIN 2 GM in Sodium Chloride 0.9% 100 ML IVPB SCH (15:33)
[2017-10-22] MEDS: HYDROcodone/Acetaminophen 10/325 mg Tablet PO PRN ×6 (00:35→21:56)
[2017-10-22] MEDS: diphenhydrAMINE 25 MG CAP PO PRN ×6 (00:35→21:57)
[2017-10-22 07:15] LABS: #Basophils 0.1 thou/uL (0.0-0.2); #Eosinphils 0.3 thou/uL (0.0-0.7); #Monocytes 0.4 thou/uL (0.11-0.59); #Neutrophils 1.7 thou/uL (1.40-6.50); %Basophils 1.8 % (0.0-1.0); %Eosinophils 6.3 % (0.0-10.0); %Lymphocytes 45.1 % (21.0-51.0); %Monocytes 8.8 % (0.0-10.0); Hemoglobin 8.8 g/dL (14.0-18.0); Mean Corpuscular HGB CONC 30.5 g/dL (32.0-36.0); Mean Corpuscular Hemoglobin 22.7 pg (27.0-31.0); Mean Corpuscular Volume 74.5 fl (80.0-94.0); Mean Platelet Volume 5.6 fL (7.4-10.4); Platelet Count 284 thou/uL (130-400); RBC Distribution Width 15.8 % (11.5-14.5); Red Blood Cell (RBC) Count 3.86 mill/uL (4.70-6.10); White Blood Cell (WBC) Count 4.5 thou/uL (4.8-10.8)
[2017-10-22] MEDS: Metoprolol Tartrate 25 MG TAB PO SCH (08:11)
[2017-10-22] MEDS: Saccharomyces boulardii 250 MG CAP PO SCH (08:11)
[2017-10-22] MEDS: Multivit, Therapeutic 1 TAB PO SCH (08:11)
[2017-10-22] MEDS: Aspirin 325 MG TAB PO SCH (08:11)
[2017-10-22] MEDS: Ferrous Sulfate 325 MG TAB PO SCH ×2 (08:11→17:14)
[2017-10-22] MEDS: Lisinopril 5 MG TAB PO SCH (08:11)
[2017-10-22] MEDS: Famotidine 20 MG TAB PO SCH ×2 (08:11→21:34)
[2017-10-22] MEDS: Vancomycin HCl 750 MG in Sodium Chloride 0.9% 250 ML 250 ML IVPB SCH (09:07)
[2017-10-22] MEDS: Vancomycin HCl 500 MG in Sodium Chloride 0.9% 100 ML IVPB SCH (09:07)
[2017-10-22] MEDS: cefTRIAXone\\ROCEPHIN 2 GM in Sodium Chloride 0.9% 100 ML IVPB SCH (13:58)
[2017-10-23] MEDS: diphenhydrAMINE 25 MG CAP PO PRN ×4 (02:05→16:12)
[2017-10-23] MEDS: HYDROcodone/Acetaminophen 10/325 mg Tablet PO PRN ×2 (02:06→06:51)
[2017-10-23] MEDS ORDERED: HYDROcodone/Acetaminophen 7.5/325 mg Tablet PO PRN (09:45)
[2017-10-23] MEDS: Vancomycin HCl 750 MG in Sodium Chloride 0.9% 250 ML 250 ML IVPB SCH (10:13)
[2017-10-23] MEDS: Famotidine 20 MG TAB PO SCH ×2 (10:15→20:17)
[2017-10-23] MEDS: Aspirin 325 MG TAB PO SCH (10:15)
[2017-10-23] MEDS: Multivit, Therapeutic 1 TAB PO SCH (10:15)
[2017-10-23] MEDS: Saccharomyces boulardii 250 MG CAP PO SCH (10:16)
[2017-10-23] MEDS: Lisinopril 5 MG TAB PO SCH (10:16)
[2017-10-23] MEDS: Ferrous Sulfate 325 MG TAB PO SCH ×2 (10:16→16:12)
[2017-10-23] MEDS: Metoprolol Tartrate 25 MG TAB PO SCH (10:24)
[2017-10-23] MEDS: Vancomycin HCl 500 MG in Sodium Chloride 0.9% 100 ML IVPB SCH (11:42)
[2017-10-23] MEDS: HYDROcodone/Acetaminophen 7.5/325 mg Tablet PO PRN ×3 (11:43→20:19)
--- NOTE | 2017-10-23 11:52 | PRG ---
DATE OF SERVICE: 10/23/2017 SUBJECTIVE: The patient said he is feeling pretty good this morning. He says often stays up very la te at night, sleeps late in the morning. He still has some pain in the shoulder, but he is stretchin g his pain medicine a little further. Most of the time he is still receiving the medicine about 4-ho ur intervals. OBJECTIVE: The patient is alert, appears in no distress. His vital signs show a temperature 98.8, p ulse 86, respirations 20, O2 sat 96% on room air, blood pressure 109/55. Lungs are clear. Heart, re gular rate. Extremities, no edema. Left shoulder, there is no redness, no swelling. The wound VAC is in place. There is less than 50 mL of serosanguineous fluid in the vacuum tank. Lab that was don e on 10/22/2017 shows an H&H of 8.8 and 28.8, white cell count 4500 with 38% segs, 45% lymphocytes, p latelet count 284,000. Sed rate has dropped to 34, on admission this was 69. Historically it has be en as high as 115. His sodium 140, potassium 4.3, BUN 22, creatinine 1.14, glucose 115. CRP is down to 2.39 from 6.22. ASSESSMENT: 1. Recurrent septic left shoulder with a history of a chronic osteomyelitis of the left humerus and glenoid. A. Hospitalized at [facility] from 09/17 until 09/23/2017, where he underwent a left shou lder irrigation, debridement, and wound VAC placement. Then on 09/21/2017, he underwent repeat surge ry on the left shoulder with irrigation and debridement and resection of the proximal humeral osteomy elitis, wound left open, and wound VAC placed. B. Cultures from the wound from 09/18, grew Serratia marcescens, sensitive to Rocephin and Cipro, se cond organism that grew Staphylococcus epidermidis, sensitive to vancomycin. C. We will require the Rocephin 2 grams IV daily and vancomycin 1.25 grams daily until 11/17/2017. The open wound will require wound care with wound VAC. D. Continues to improve with drainage less than 50 mL for the last 48 hours as of 10/23/2017. 2. Chronic osteomyelitis of the left shoulder. A. Initiated from a steroid injection in 12/2015. B. Has undergone repeated incision and drainage and arthrotomies. C. Has undergone multiple courses of IV antibiotics. D. Cultures initially grew Propionibacterium acne, but subsequent cultures have been negative up unt il cultures taken on 09/18/2017. E. Status post left humeral head resection and placement of a Prostalac antibiotic spacer 07/02/2017 . F. Status post recurrence of septic joint, requiring reopening of the wound with removal of the Pros talac spacer. G. Again recurrent septic shoulder, requiring further resection of the proximal shaft, it is mention ed under #1 on 09/18 and 09/21/2017. H. Sed rate down to 38. CRP down to 2.39 as of 10/23/2017. 3. Hypertension, controlled. 4. Paroxysmal atrial fibrillation. A. On aspirin and could not afford to take Eliquis or Xarelto and did not want to take Coumadin. B. EKG on 09/24/2017 showed atrial fibrillation with a rare PVC with a rate of 73. C. EKG on 10/02/2017 still shows atrial fibrillation with rate of 85. Poor candidate for anticoagul ation due to the severe anemia and also patient is not wanting to go on anticoagulants. D. The patient is a regular rhythm today with adequate rate as of 10/23/2017. 5. History of transient ischemic attack. A. Initially presented with weakness of the right arm on 04/10/2016. B. No recurrence. 6. Normocytic anemia, chronic. A. Some drop in the hemoglobin to 7.7 from recent surgery as of 09/24/2017. B. Hemoglobin up to 8.8 as of 10/23/2017. 7. History of alcoholism. 8. Chronic obstructive pulmonary disease. 9. History of diabetes. A. Presently on no medication. B. Hemoglobin A1c and glucose have normalized since patient went through a large weight loss. Hemog lobin A1c in 04/26 was 5.6. 10. Chronic low back pain secondary to lumbar spondylosis and afeekycz-pw-mbnibv stenosis at the L2- L3 level, L3-L4 level, and L4-L5 level. 11. Right rotator cuff arthrotomy with very limited motion in the right shoulder. 12. Depression. A. Improved. 13. Episode of chest pain on the late evening of 10/02/2017. A. Etiology probable musculoskeletal, probably coming from the left shoulder. B. Cardiac enzymes were normal. EKG showed the atrial fib. C. No recurrence as of 10/23/2017. PLAN: Overall, the patient does look better. Sed rate is dropping, his CRP is dropping the wound is gradually improving. Will continue present care. The patient due to continue to receive the vancom ycin and the ceftriaxone until 11/17/2016. We will reduce his hydrocodone to 7.5 mg 1-2 every 4 hour s as needed for pain. Continue wound VAC care.
[2017-10-23] MEDS: cefTRIAXone\\ROCEPHIN 2 GM in Sodium Chloride 0.9% 100 ML IVPB SCH (14:34)
[2017-10-24] MEDS: diphenhydrAMINE 25 MG CAP PO PRN ×5 (00:40→20:14)
[2017-10-24] MEDS: HYDROcodone/Acetaminophen 7.5/325 mg Tablet PO PRN ×5 (00:41→20:13)
[2017-10-24] MEDS: Ferrous Sulfate 325 MG TAB PO SCH ×3 (09:43→20:15)
[2017-10-24] MEDS: Famotidine 20 MG TAB PO SCH ×2 (09:43→20:12)
[2017-10-24] MEDS: Aspirin 325 MG TAB PO SCH (09:43)
[2017-10-24] MEDS: Lisinopril 5 MG TAB PO SCH (09:44)
[2017-10-24] MEDS: Metoprolol Tartrate 25 MG TAB PO SCH (09:44)
[2017-10-24] MEDS: Saccharomyces boulardii 250 MG CAP PO SCH (09:45)
[2017-10-24] MEDS: Multivit, Therapeutic 1 TAB PO SCH (09:45)
[2017-10-24] MEDS: Vancomycin HCl 500 MG in Sodium Chloride 0.9% 100 ML IVPB SCH (10:30)
[2017-10-24] MEDS: Vancomycin HCl 750 MG in Sodium Chloride 0.9% 250 ML 250 ML IVPB SCH (10:30)
[2017-10-24] MEDS: cefTRIAXone\\ROCEPHIN 2 GM in Sodium Chloride 0.9% 100 ML IVPB SCH (13:43)
[2017-10-25] MEDS: HYDROcodone/Acetaminophen 7.5/325 mg Tablet PO PRN ×5 (00:12→19:41)
[2017-10-25] MEDS: diphenhydrAMINE 25 MG CAP PO PRN ×5 (00:13→19:43)
[2017-10-25] MEDS: Ferrous Sulfate 325 MG TAB PO SCH ×2 (09:54→17:16)
[2017-10-25] MEDS: Aspirin 325 MG TAB PO SCH (09:55)
[2017-10-25] MEDS: Saccharomyces boulardii 250 MG CAP PO SCH (09:56)
[2017-10-25] MEDS: Metoprolol Tartrate 25 MG TAB PO SCH (09:56)
[2017-10-25] MEDS: Multivit, Therapeutic 1 TAB PO SCH (09:56)
[2017-10-25] MEDS: Famotidine 20 MG TAB PO SCH ×2 (09:57→20:44)
[2017-10-25] MEDS: Lisinopril 5 MG TAB PO SCH (09:57)
[2017-10-25] MEDS: Vancomycin HCl 750 MG in Sodium Chloride 0.9% 250 ML 250 ML IVPB SCH (10:22)
[2017-10-25] MEDS: Vancomycin HCl 500 MG in Sodium Chloride 0.9% 100 ML IVPB SCH (10:23)
[2017-10-25] MEDS: cefTRIAXone\\ROCEPHIN 2 GM in Sodium Chloride 0.9% 100 ML IVPB SCH (15:01)
[2017-10-26] MEDS: Ferrous Sulfate 325 MG TAB PO SCH ×2 (08:12→16:54)
[2017-10-26] MEDS: Aspirin 325 MG TAB PO SCH (08:12)
[2017-10-26] MEDS: Metoprolol Tartrate 25 MG TAB PO SCH (08:12)
[2017-10-26] MEDS: Multivit, Therapeutic 1 TAB PO SCH (08:12)
[2017-10-26] MEDS: Famotidine 20 MG TAB PO SCH ×2 (08:12→21:05)
[2017-10-26] MEDS: HYDROcodone/Acetaminophen 7.5/325 mg Tablet PO PRN ×4 (08:13→21:16)
[2017-10-26] MEDS: diphenhydrAMINE 25 MG CAP PO PRN ×4 (08:14→21:16)
[2017-10-26] MEDS: Saccharomyces boulardii 250 MG CAP PO SCH (08:14)
[2017-10-26] MEDS: Lisinopril 5 MG TAB PO SCH (08:14)
--- NOTE | 2017-10-26 09:16 | PRG ---
DATE OF SERVICE: 10/26/2017 SUBJECTIVE: The patient said his shoulder is still sore. He has not been very happy with the reduct ion in his Hydrocodone/acetaminophen 10/325 from two every 4 hours p.r.n. to 7.5/325 1-2 every 4 hour s as needed. The patient is angry about this and said that we are not listening to him. The patient has seemed comfortable with a reduction in medication. The nurses report that he will sleep often t imes through the night after receiving his medication at longer intervals in just 4 hours and they doherty ve reported that he looks comfortable. The wound was last changed on 10/24/2017, wound was c lean. Deep pocket is getting smaller. OBJECTIVE: GENERAL: The patient is alert other than being angry. He is not in any acute distress. VITAL SIGNS: His temperature is 97.5, pulse 64, blood pressure 144/70, respirations 18, O2 sat 96% o n room air. LUNGS: Clear. HEART: Regular rate. MUSCULOSKELETAL: In the left shoulder, there is no redness, no swelling. The wound VAC is on. The drainage in the wound VAC is 250 mL of a serosanguineous fluid that has occurred over 3 days. ASSESSMENT: 1. Recurrent septic left shoulder with a history of a chronic osteomyelitis of the left humerus and glenoid. A. Hospitalized at [facility] from 09/17 until 09/23/2017, where he underwent a left shou lder irrigation, debridement, and wound VAC placement. Then on 09/21/2017, he underwent repeat surge ry on the left shoulder with irrigation and debridement and resection of the proximal humeral osteomy elitis, wound left open, and wound VAC placed. B. Cultures from the wound from 09/18, grew Serratia marcescens, sensitive to Rocephin and Cipro, se cond organism that grew Staphylococcus epidermidis, sensitive to vancomycin. C. We will require the Rocephin 2 grams IV daily and vancomycin 1.25 grams daily until 11/17/2017. The open wound will require wound care with wound VAC. D. Continue to improve. Drainage is 250 mL over 72 hour period as of 10/26/2017. 2. Chronic osteomyelitis of the left shoulder. A. Initiated from a steroid injection in 12/2015. B. Has undergone repeated incision and drainage and arthrotomies. C. Has undergone multiple courses of IV antibiotics. D. Cultures initially grew Propionibacterium acne, but subsequent cultures have been negative up unt il cultures taken on 09/18/2017. E. Status post left humeral head resection and placement of a Prostalac antibiotic spacer 07/02/2017 . F. Status post recurrence of septic joint, requiring reopening of the wound with removal of the Pros talac spacer. G. Again recurrent septic shoulder, requiring further resection of the proximal shaft, it is mention ed under #1 on 09/18 and 09/21/2017. H. Sed rate down to 38. CRP down to 2.39 as of 10/23/2017. 3. Hypertension, controlled. 4. Paroxysmal atrial fibrillation. A. On aspirin and could not afford to take Eliquis or Xarelto and did not want to take Coumadin. B. EKG on 09/24/2017 showed atrial fibrillation with a rare PVC with a rate of 73. C. EKG on 10/02/2017 still shows atrial fibrillation with rate of 85. Poor candidate for anticoagul ation due to the severe anemia and also patient is not wanting to go on anticoagulants. D. Rate controlled as of 10/26/2017. 5. History of transient ischemic attack. A. Initially presented with weakness of the right arm on 04/10/2016. B. No recurrence. 6. Normocytic anemia, chronic. A. Some drop in the hemoglobin to 7.7 from recent surgery as of 09/24/2017. B. Hemoglobin up to 8.8 as of 10/23/2017. 7. History of alcoholism. 8. Chronic obstructive pulmonary disease. 9. History of diabetes. A. Presently on no medication. B. Hemoglobin A1c and glucose have normalized since patient went through a large weight loss. Hemog lobin A1c in 04/26 was 5.6. 10. Chronic low back pain secondary to lumbar spondylosis and uwgarajt-zo-lrprsm stenosis at the L2- L3 level, L3-L4 level, and L4-L5 level. 11. Right rotator cuff arthrotomy with very limited motion in the right shoulder. 12. Depression. A. Improved. 13. Episode of chest pain on the late evening of 10/02/2017. A. Etiology probable musculoskeletal, probably coming from the left shoulder. B. Cardiac enzymes were normal. EKG showed the atrial fib. C. No recurrence as of 10/26/2017. PLAN: We will continue present care. I have tried and reduced patient's pain medicine several days ago, but just 25% and according to the nurse's report, he has been doing all right on this. Accordin g to the patient, though he is angry about this reduction. Previously at home, this was the dose he was receiving and trying to prepare him with the reduction to this dosage and feel like he is tolerat ing it. He is talking about want to leave the hospital. I have suggested that home health will see him and see what arrangements can be made. He does have appointment with Dr. Lima on 11/12/2017 a isauro Barajas on 11/16/2017.
[2017-10-26 09:49] LABS: Vancomycin, Trough 17.8 ug/mL
[2017-10-26] MEDS: Vancomycin HCl 500 MG in Sodium Chloride 0.9% 100 ML IVPB SCH (10:41)
[2017-10-26] MEDS: Vancomycin HCl 750 MG in Sodium Chloride 0.9% 250 ML 250 ML IVPB SCH (10:41)
[2017-10-26] MEDS: cefTRIAXone\\ROCEPHIN 2 GM in Sodium Chloride 0.9% 100 ML IVPB SCH (14:30)
[2017-10-27] MEDS: HYDROcodone/Acetaminophen 7.5/325 mg Tablet PO PRN ×5 (02:02→21:12)
[2017-10-27] MEDS: diphenhydrAMINE 25 MG CAP PO PRN ×5 (02:03→21:12)
[2017-10-27] MEDS: Saccharomyces boulardii 250 MG CAP PO SCH (07:02)
[2017-10-27] MEDS: Metoprolol Tartrate 25 MG TAB PO SCH (07:02)
[2017-10-27] MEDS: Lisinopril 5 MG TAB PO SCH (07:02)
[2017-10-27] MEDS: Aspirin 325 MG TAB PO SCH (07:02)
[2017-10-27] MEDS: Famotidine 20 MG TAB PO SCH ×2 (07:02→21:13)
[2017-10-27] MEDS: Multivit, Therapeutic 1 TAB PO SCH (07:02)
[2017-10-27] MEDS: Ferrous Sulfate 325 MG TAB PO SCH ×2 (07:03→16:49)
[2017-10-27] MEDS: Vancomycin HCl 500 MG in Sodium Chloride 0.9% 100 ML IVPB SCH (09:43)
[2017-10-27] MEDS: Vancomycin HCl 750 MG in Sodium Chloride 0.9% 250 ML 250 ML IVPB SCH (09:44)
[2017-10-27] MEDS: cefTRIAXone\\ROCEPHIN 2 GM in Sodium Chloride 0.9% 100 ML IVPB SCH (12:55)
--- NOTE | 2017-10-27 13:44 | PRG ---
DATE OF SERVICE: 10/27/2017 SUBJECTIVE: The patient rested well. The patient said that he has decided not to try to go home und er home health because he is getting close to the end of his stay here and the completion of the IV a ntibiotics. He is just going to try and tough it out. The nurses says he does seem to be comfortabl e when the pain medication is administered. He was late getting his pain medicine this morning and h e let me know about this. He said that his shoulder feels okay. Yesterday, the dressing was changed and it was reported as looking very clean and doing good. OBJECTIVE: The patient seems to be in good spirits today. He appears in no distress. His vital sig ns shows a temperature 97.9, pulse 92, respirations 20, O2 saturation 97%, blood pressure 138/51. Aida ngs were clear. Heart, regular rate. Left shoulder; the wound VAC is in place. There is no surroun ding swelling nor redness. ASSESSMENT: 1. Recurrent septic left shoulder with a history of a chronic osteomyelitis of the left humerus and glenoid. A. Hospitalized at [facility] from 09/17 until 09/23/2017, where he underwent a left shou lder irrigation, debridement, and wound VAC placement. Then on 09/21/2017, he underwent repeat surge ry on the left shoulder with irrigation and debridement and resection of the proximal humeral osteomy elitis, wound left open, and wound VAC placed. B. Cultures from the wound from 09/18, grew Serratia marcescens, sensitive to Rocephin and Cipro, se cond organism that grew Staphylococcus epidermidis, sensitive to vancomycin. C. We will require the Rocephin 2 grams IV daily and vancomycin 1.25 grams daily until 11/17/2017. The open wound will require wound care with wound VAC. D. Continued improved. The dressing changed on 10/26/2017. Wound is clean and improving. 2. Chronic osteomyelitis of the left shoulder. A. Initiated from a steroid injection in 12/2015. B. Has undergone repeated incision and drainage and arthrotomies. C. Has undergone multiple courses of IV antibiotics. D. Cultures initially grew Propionibacterium acne, but subsequent cultures have been negative up unt il cultures taken on 09/18/2017. E. Status post left humeral head resection and placement of a Prostalac antibiotic spacer 07/02/2017 . F. Status post recurrence of septic joint, requiring reopening of the wound with removal of the Pros talac spacer. G. Again recurrent septic shoulder, requiring further resection of the proximal shaft, it is mention ed under #1 on 09/18 and 09/21/2017. H. Sed rate down to 38. CRP down to 2.39 as of 10/23/2017. 3. Hypertension, controlled. 4. Paroxysmal atrial fibrillation. A. On aspirin and could not afford to take Eliquis or Xarelto and did not want to take Coumadin. B. EKG on 09/24/2017 showed atrial fibrillation with a rare PVC with a rate of 73. C. EKG on 10/02/2017 still shows atrial fibrillation with rate of 85. Poor candidate for anticoagul ation due to the severe anemia and also patient is not wanting to go on anticoagulants. D. Rate controlled with a regular rate as of 10/27/2017. 5. History of transient ischemic attack. A. Initially presented with weakness of the right arm on 04/10/2016. B. No recurrence. 6. Normocytic anemia, chronic. A. Some drop in the hemoglobin to 7.7 from recent surgery as of 09/24/2017. B. Hemoglobin up to 8.8 as of 10/23/2017. 7. History of alcoholism. 8. Chronic obstructive pulmonary disease. 9. History of diabetes. A. Presently on no medication. B. Hemoglobin A1c and glucose have normalized since patient went through a large [facility]. 10. Chronic low back pain secondary to lumbar spondylosis and maevffng-zh-uojlia stenosis at the L2- L3 level, L3-L4 level, and L4-L5 level. 11. Right rotator cuff arthrotomy with very limited motion in the right shoulder. 12. Depression. A. Improved. 13. Episode of chest pain on the late evening of 10/02/2017. A. Etiology probable musculoskeletal, probably coming from the left shoulder. B. Cardiac enzymes were normal. EKG showed the atrial fib. C. No recurrence as of 10/27/2017. PLAN: The patient is in better spirits and has opted not to try to go home early under home health. He is going to just try to stick it out here where the antibiotics are scheduled to continue through 11/17/2017. The patient said he just asks that he gets his pain medicine on time when needed and th ey get his coffee when he needs it. This is a reasonable request. The nurses said they will work to ensure this occurs. We will continue the IV vancomycin and Rocephin.
[2017-10-28] MEDS: HYDROcodone/Acetaminophen 7.5/325 mg Tablet PO PRN ×5 (01:45→18:06)
[2017-10-28] MEDS: diphenhydrAMINE 25 MG CAP PO PRN ×5 (01:46→18:06)
[2017-10-28] MEDS: Vancomycin HCl 750 MG in Sodium Chloride 0.9% 250 ML 250 ML IVPB SCH (09:42)
[2017-10-28] MEDS: Vancomycin HCl 500 MG in Sodium Chloride 0.9% 100 ML IVPB SCH (09:42)
[2017-10-28] MEDS: Lisinopril 5 MG TAB PO SCH (09:44)
[2017-10-28] MEDS: Aspirin 325 MG TAB PO SCH (09:44)
[2017-10-28] MEDS: Multivit, Therapeutic 1 TAB PO SCH (09:44)
[2017-10-28] MEDS: Saccharomyces boulardii 250 MG CAP PO SCH (09:44)
[2017-10-28] MEDS: Metoprolol Tartrate 25 MG TAB PO SCH (09:44)
[2017-10-28] MEDS: Ferrous Sulfate 325 MG TAB PO SCH ×2 (09:44→17:08)
[2017-10-28] MEDS: Famotidine 20 MG TAB PO SCH ×2 (09:44→20:33)
[2017-10-28] MEDS: cefTRIAXone\\ROCEPHIN 2 GM in Sodium Chloride 0.9% 100 ML IVPB SCH (13:06)
[2017-10-29] MEDS: HYDROcodone/Acetaminophen 7.5/325 mg Tablet PO PRN ×5 (04:19→22:53)
[2017-10-29] MEDS: diphenhydrAMINE 25 MG CAP PO PRN ×5 (04:20→22:54)
[2017-10-29 05:58] LABS: #Basophils 0.1 thou/uL (0.0-0.2); #Eosinphils 0.3 thou/uL (0.0-0.7); #Monocytes 0.6 thou/uL (0.11-0.59); #Neutrophils 3.4 thou/uL (1.40-6.50); %Basophils 1.6 % (0.0-1.0); %Lymphocytes 31.8 % (21.0-51.0); %Monocytes 8.3 % (0.0-10.0); %Neutrophils 53.3 % (42.0-75.0); Anisocytosis SLIGHT = 6-15 cells (100X) (0-5/hpf); Elliptocytes MODERATE= 6-15 cells (100X) (0-1/hpf); Hemoglobin 8.9 g/dL (14.0-18.0); Hypochromia MODERATE=16-30 cells (100X) (0-5/hpf); MDiff Complete? YES; Mean Corpuscular HGB CONC 30.4 g/dL (32.0-36.0); Mean Corpuscular Hemoglobin 22.4 pg (27.0-31.0); Mean Corpuscular Volume 73.7 fL (78.0-98.0); Mean Platelet Volume 5.9 fL (7.4-10.4); PLT Morphology Comment Appears Adequate; Platelet Count 235 thou/uL (130-400); Poikilocytosis SLIGHT = 6-15 cells (100X) (0-5/hpf); RBC Distribution Width 15.3 % (11.5-14.5); RBC Morphology Abnormal; Red Blood Cell (RBC) Count 3.92 mill/uL (4.70-6.10); White Blood Cell (WBC) Count 6.4 thou/uL (4.8-10.8)
[2017-10-29 06:04] LABS: ALT (SGPT) 20 U/L (8-55); AST (SGOT) 24 U/L (5-34); Albumin 3.9 g/dL (3.4-4.8); Alkaline Phosphatase 110 U/L (40-150); Anion Gap 14 mmol/L (10-20); BUN (Urea Nitrogen) 27 mg/dL (8.4-25.7); Bilirubin, Total 0.2 mg/dL (0.2-1.2); Calc. Creatinine Clearance 69 mL/min (70-130); Calcium 9.6 mg/dL (7.8-10.44); Carbon Dioxide 24 mmol/L (23-31); Chloride 106 mmol/L (98-107); Estimated GFR-MDRD 71; Globulin 3.1 g/dL (2.4-3.5); Glucose 143 mg/dL (83-110); Potassium 4.2 mmol/L (3.5-5.1); Sodium 140 mmol/L (136-145)
[2017-10-29] MEDS: Vancomycin HCl 750 MG in Sodium Chloride 0.9% 250 ML 250 ML IVPB SCH (10:00)
[2017-10-29] MEDS: Multivit, Therapeutic 1 TAB PO SCH (10:20)
[2017-10-29] MEDS: Ferrous Sulfate 325 MG TAB PO SCH ×2 (10:21→17:10)
[2017-10-29] MEDS: Saccharomyces boulardii 250 MG CAP PO SCH (10:21)
[2017-10-29] MEDS: Lisinopril 5 MG TAB PO SCH (10:22)
[2017-10-29] MEDS: Metoprolol Tartrate 25 MG TAB PO SCH (10:24)
[2017-10-29] MEDS: Aspirin 325 MG TAB PO SCH (10:26)
[2017-10-29] MEDS: Famotidine 20 MG TAB PO SCH ×2 (10:26→21:11)
[2017-10-29] MEDS: Vancomycin HCl 500 MG in Sodium Chloride 0.9% 100 ML IVPB SCH (11:45)
[2017-10-29] MEDS: cefTRIAXone\\ROCEPHIN 2 GM in Sodium Chloride 0.9% 100 ML IVPB SCH (14:42)
[2017-10-30] MEDS: diphenhydrAMINE 25 MG CAP PO PRN ×5 (03:54→21:50)
[2017-10-30] MEDS: HYDROcodone/Acetaminophen 7.5/325 mg Tablet PO PRN ×5 (03:54→21:50)
[2017-10-30] MEDS: Aspirin 325 MG TAB PO SCH (08:08)
[2017-10-30] MEDS: Lisinopril 5 MG TAB PO SCH (08:08)
[2017-10-30] MEDS: Famotidine 20 MG TAB PO SCH ×2 (08:08→21:39)
[2017-10-30] MEDS: Saccharomyces boulardii 250 MG CAP PO SCH (08:08)
[2017-10-30] MEDS: Multivit, Therapeutic 1 TAB PO SCH (08:08)
[2017-10-30] MEDS: Metoprolol Tartrate 25 MG TAB PO SCH (08:08)
[2017-10-30] MEDS: Ferrous Sulfate 325 MG TAB PO SCH ×2 (08:09→16:43)
[2017-10-30] MEDS: Vancomycin HCl 750 MG in Sodium Chloride 0.9% 250 ML 250 ML IVPB SCH (10:11)
[2017-10-30] MEDS: Vancomycin HCl 500 MG in Sodium Chloride 0.9% 100 ML IVPB SCH (11:03)
[2017-10-30] MEDS: cefTRIAXone\\ROCEPHIN 2 GM in Sodium Chloride 0.9% 100 ML IVPB SCH (13:56)
[2017-10-31] MEDS: HYDROcodone/Acetaminophen 7.5/325 mg Tablet PO PRN ×5 (03:59→22:04)
[2017-10-31] MEDS: diphenhydrAMINE 25 MG CAP PO PRN ×5 (04:02→22:03)
[2017-10-31] MEDS: Saccharomyces boulardii 250 MG CAP PO SCH (08:41)
[2017-10-31] MEDS: Aspirin 325 MG TAB PO SCH (08:41)
[2017-10-31] MEDS: Metoprolol Tartrate 25 MG TAB PO SCH (08:41)
[2017-10-31] MEDS: Lisinopril 5 MG TAB PO SCH (08:41)
[2017-10-31] MEDS: Famotidine 20 MG TAB PO SCH ×2 (08:41→21:19)
[2017-10-31] MEDS: Ferrous Sulfate 325 MG TAB PO SCH ×2 (08:41→17:42)
[2017-10-31] MEDS: Multivit, Therapeutic 1 TAB PO SCH (08:41)
[2017-10-31] MEDS: Vancomycin HCl 750 MG in Sodium Chloride 0.9% 250 ML 250 ML IVPB SCH (10:18)
[2017-10-31] MEDS: Vancomycin HCl 500 MG in Sodium Chloride 0.9% 100 ML IVPB SCH (10:18)
--- NOTE | 2017-10-31 10:35 | PRG ---
DATE OF SERVICE: 10/30/2017 SUBJECTIVE: The patient said he is doing alright this morning. The patient said that they have eller ged the dressing this morning. The physical therapist said that the wound looked better. Overall, t he wound is smaller, but still able to keep the deep recesses of the wound open with packing. There was less than 125 serosanguineous drainage for the last 72 hours. OBJECTIVE: GENERAL: The patient looks comfortable in no distress. VITAL SIGNS: Show a temperature 98.9, pulse 91, respirations 18, O2 sat 95% on room air, blood press ure 139/74. He had an episode of little lower early this morning 89/54, but subsequent was the 139/7 4. LUNGS: Clear. HEART: Has irregular regular rhythm with adequate ventricular response. MUSCULOSKELETAL: His left shoulder, the dressing is smaller, that is the amount of foam. There is n o surrounding swelling or redness. LABORATORY DATA: His lab done yesterday showed H&H of 8.9 and 29.3, white blood cell count 6400 with 53% segs, 32% lymphocytes, platelet count 235. Sed rate 33, last time 34, before that 48. His sodi um is 140, potassium 4.2, BUN 27, creatinine 1.02. FBS 143. CRP was 4.1. His last trough level on 0 10/26/2017 was 17.8. ASSESSMENT: 1. Recurrent septic left shoulder with a history of a chronic osteomyelitis of the left humerus and glenoid. A. Hospitalized at [facility] from 09/17 until 09/23/2017, where he underwent a left shou lder irrigation, debridement, and wound VAC placement. Then on 09/21/2017, he underwent repeat surge ry on the left shoulder with irrigation and debridement and resection of the proximal humeral osteomy elitis, wound left open, and wound VAC placed. B. Cultures from the wound from 09/18, grew Serratia marcescens, sensitive to Rocephin and Jeremiahrose cond organism that grew Staphylococcus epidermidis, sensitive to vancomycin. C. We will require the Rocephin 2 grams IV daily and vancomycin 1.25 grams daily until 11/17/2017. The open wound will require wound care with wound VAC. D. Continued improvement. The wound is smaller, deep recess is still kept open with packing. Drain age 125 of serosanguineous fluid for the last 72 hours as of 10/30/2017. 2. Chronic osteomyelitis of the left shoulder. A. Initiated from a steroid injection in 12/2015. B. Has undergone repeated incision and drainage and arthrotomies. C. Has undergone multiple courses of IV antibiotics. D. Cultures initially grew Propionibacterium acne, but subsequent cultures have been negative up unt il cultures taken on 09/18/2017. E. Status post left humeral head resection and placement of a Prostalac antibiotic spacer 07/02/2017 . F. Status post recurrence of septic joint, requiring reopening of the wound with removal of the Pros talac spacer. G. Again recurrent septic shoulder, requiring further resection of the proximal shaft, it is mention ed under #1 on 09/18 and 09/21/2017. H. Sed rate down to 33. CRP went up to 4.14 as of 10/30/2017. 3. Hypertension, controlled. 4. Paroxysmal atrial fibrillation. A. On aspirin and could not afford to take Eliquis or Xarelto and did not want to take Coumadin. B. EKG on 09/24/2017 showed atrial fibrillation with a rare PVC with a rate of 73. C. EKG on 10/02/2017 still shows atrial fibrillation with rate of 85. Poor candidate for anticoagul ation due to the severe anemia and also patient is not wanting to go on anticoagulants. D. Rate controlled with a regular rate as of 10/27/2017. 5. History of transient ischemic attack. A. Initially presented with weakness of the right arm on 04/10/2016. B. No recurrence. 6. Normocytic anemia, chronic. A. Some drop in the hemoglobin to 7.7 from recent surgery as of 09/24/2017. B. Hemoglobin stable at 8.8 as of 10/30/2017. 7. History of alcoholism. 8. Chronic obstructive pulmonary disease. 9. History of diabetes. A. Presently on no medication. B. Hemoglobin A1c and glucose have normalized since patient went through a large weight loss. Hemog lobin A1c in 04/26 was 5.6. 10. Chronic low back pain secondary to lumbar spondylosis and vumpbwrp-ja-iograb stenosis at the L2- L3 level, L3-L4 level, and L4-L5 level. 11. Right rotator cuff arthrotomy with very limited motion in the right shoulder. 12. Depression. A. Improved. 13. Episode of chest pain on the late evening of 10/02/2017. A. Etiology probable musculoskeletal, probably coming from the left shoulder. B. Cardiac enzymes were normal. EKG showed the atrial fib. C. No recurrence as of 10/30/2017. PLAN: Continue present care. The patient is scheduled to continue the Rocephin and vancomycin till 11/17/2017. Continue the wound care with the wound VAC, try to keep the wound packed in the deep rec esses to allow it to continue to drain. Drainage remained serosanguineous and is less.
[2017-10-31] MEDS: cefTRIAXone\\ROCEPHIN 2 GM in Sodium Chloride 0.9% 100 ML IVPB SCH (13:39)
[2017-11-01] MEDS: HYDROcodone/Acetaminophen 7.5/325 mg Tablet PO PRN ×5 (03:16→21:06)
[2017-11-01] MEDS: diphenhydrAMINE 25 MG CAP PO PRN ×5 (03:16→21:06)
[2017-11-01] MEDS: Famotidine 20 MG TAB PO SCH ×2 (08:22→20:21)
[2017-11-01] MEDS: Ferrous Sulfate 325 MG TAB PO SCH ×2 (08:22→16:41)
[2017-11-01] MEDS: Metoprolol Tartrate 25 MG TAB PO SCH (08:22)
[2017-11-01] MEDS: Aspirin 325 MG TAB PO SCH (08:22)
[2017-11-01] MEDS: Multivit, Therapeutic 1 TAB PO SCH (08:22)
[2017-11-01] MEDS: Saccharomyces boulardii 250 MG CAP PO SCH (08:22)
[2017-11-01] MEDS: Lisinopril 5 MG TAB PO SCH (08:22)
[2017-11-01] MEDS: Vancomycin HCl 500 MG in Sodium Chloride 0.9% 100 ML IVPB SCH (10:30)
[2017-11-01] MEDS: Vancomycin HCl 750 MG in Sodium Chloride 0.9% 250 ML 250 ML IVPB SCH (10:30)
[2017-11-01] MEDS: cefTRIAXone\\ROCEPHIN 2 GM in Sodium Chloride 0.9% 100 ML IVPB SCH (13:02)
[2017-11-02] MEDS: diphenhydrAMINE 25 MG CAP PO PRN ×5 (05:33→21:37)
[2017-11-02] MEDS: HYDROcodone/Acetaminophen 7.5/325 mg Tablet PO PRN ×5 (05:34→21:37)
[2017-11-02 09:20] LABS: Vancomycin, Trough 16.4 ug/mL
[2017-11-02] MEDS: Aspirin 325 MG TAB PO SCH (09:43)
[2017-11-02] MEDS: Metoprolol Tartrate 25 MG TAB PO SCH (09:43)
[2017-11-02] MEDS: Famotidine 20 MG TAB PO SCH ×2 (09:43→21:38)
[2017-11-02] MEDS: Lisinopril 5 MG TAB PO SCH (09:43)
[2017-11-02] MEDS: Multivit, Therapeutic 1 TAB PO SCH (09:43)
[2017-11-02] MEDS: Saccharomyces boulardii 250 MG CAP PO SCH (09:43)
[2017-11-02] MEDS: Ferrous Sulfate 325 MG TAB PO SCH ×2 (09:44→17:29)
[2017-11-02] MEDS: Vancomycin HCl 750 MG in Sodium Chloride 0.9% 250 ML 250 ML IVPB SCH (09:45)
[2017-11-02] MEDS: Vancomycin HCl 500 MG in Sodium Chloride 0.9% 100 ML IVPB SCH (11:14)
--- NOTE | 2017-11-02 13:35 | PRG ---
DATE OF SERVICE: 11/02/2017 SUBJECTIVE: The patient said he is feeling better. He had no complaints. OBJECTIVE: The patient is alert, appears very comfortable. His temperature is 98.5, pulse 92, respi rations 18, O2 sat 95% on room air, blood pressure is 115/62. Lungs are clear. Heart irregular regu lar rhythm. Extremities, no edema. Left shoulder; the patient has no surrounding redness or swellin g. The wound VAC is intact. ASSESSMENT: 1. Recurrent septic left shoulder with a history of a chronic osteomyelitis of the left humerus and glenoid. A. Hospitalized at [facility] from 09/17 until 09/23/2017, where he underwent a left shou lder irrigation, debridement, and wound VAC placement. Then on 09/21/2017, he underwent repeat surge ry on the left shoulder with irrigation and debridement and resection of the proximal humeral osteomy elitis, wound left open, and wound VAC placed. B. Cultures from the wound from 09/18, grew Serratia marcescens, sensitive to Rocephin and Jeremiahrose cond organism that grew Staphylococcus epidermidis, sensitive to vancomycin. C. We will require the Rocephin 2 grams IV daily and vancomycin 1.25 grams daily until 11/17/2017. The open wound will require wound care with wound VAC. D. Continued improvement. Wound is getting smaller, still has some serosanguineous drainage as of 0 11/02/2017. 2. Chronic osteomyelitis of the left shoulder. A. Initiated from a steroid injection in 12/2015. B. Has undergone repeated incision and drainage and arthrotomies. C. Has undergone multiple courses of IV antibiotics. D. Cultures initially grew Propionibacterium acne, but subsequent cultures have been negative up unt il cultures taken on 09/18/2017. E. Status post left humeral head resection and placement of a Prostalac antibiotic spacer 07/02/2017 . F. Status post recurrence of septic joint, requiring reopening of the wound with removal of the Pros talac spacer. G. Again recurrent septic shoulder, requiring further resection of the proximal shaft, it is mention ed under #1 on 09/18 and 09/21/2017. H. Sed rate down to 33. CRP went up to 4.14 as of 10/30/2017. 3. Hypertension, controlled. 4. Paroxysmal atrial fibrillation. A. On aspirin and could not afford to take Eliquis or Xarelto and did not want to take Coumadin. B. EKG on 09/24/2017 showed atrial fibrillation with a rare PVC with a rate of 73. C. EKG on 10/02/2017 still shows atrial fibrillation with rate of 85. Poor candidate for anticoagul ation due to the severe anemia and also patient is not wanting to go on anticoagulants. D. Rate controlled as of 11/02/2017. 5. History of transient ischemic attack. A. Initially presented with weakness of the right arm on 04/10/2016. B. No recurrence. 6. Normocytic anemia, chronic. A. Some drop in the hemoglobin to 7.7 from recent surgery as of 09/24/2017. B. Hemoglobin stable at 8.8 as of 10/30/2017. 7. History of alcoholism. 8. Chronic obstructive pulmonary disease. 9. History of diabetes. A. Presently on no medication. B. Hemoglobin A1c and glucose have normalized since patient went through a large weight loss[facility]. 10. Chronic low back pain secondary to lumbar spondylosis and wwbzrvjn-ns-oizygb stenosis at the L2- L3 level, L3-L4 level, and L4-L5 level. 11. Right rotator cuff arthrotomy with very limited motion in the right shoulder. 12. Depression. A. Improved. 13. Episode of chest pain on the late evening of 10/02/2017. A. Etiology probable musculoskeletal, probably coming from the left shoulder. B. Cardiac enzymes were normal. EKG showed the atrial fib. C. No recurrence as of 11/02/2017. PLAN: Continue present care. Continue the IV vancomycin and Rocephin until 11/17/2017 and then will be placed on Cipro and minocycline. Continue the wound VAC care.
[2017-11-02] MEDS: cefTRIAXone\\ROCEPHIN 2 GM in Sodium Chloride 0.9% 100 ML IVPB SCH (14:37)
[2017-11-03] MEDS: HYDROcodone/Acetaminophen 7.5/325 mg Tablet PO PRN ×5 (02:42→22:19)
[2017-11-03] MEDS: diphenhydrAMINE 25 MG CAP PO PRN ×5 (02:43→22:19)
[2017-11-03] MEDS: Multivit, Therapeutic 1 TAB PO SCH (08:16)
[2017-11-03] MEDS: Ferrous Sulfate 325 MG TAB PO SCH ×2 (08:16→17:26)
[2017-11-03] MEDS: Aspirin 325 MG TAB PO SCH (08:16)
[2017-11-03] MEDS: Lisinopril 5 MG TAB PO SCH (08:16)
[2017-11-03] MEDS: Metoprolol Tartrate 25 MG TAB PO SCH (08:16)
[2017-11-03] MEDS: Famotidine 20 MG TAB PO SCH ×2 (08:17→20:52)
[2017-11-03] MEDS: Saccharomyces boulardii 250 MG CAP PO SCH (08:17)
[2017-11-03] MEDS: Vancomycin HCl 750 MG in Sodium Chloride 0.9% 250 ML 250 ML IVPB SCH (09:33)
[2017-11-03] MEDS: Vancomycin HCl 500 MG in Sodium Chloride 0.9% 100 ML IVPB SCH (11:18)
[2017-11-03] MEDS: cefTRIAXone\\ROCEPHIN 2 GM in Sodium Chloride 0.9% 100 ML IVPB SCH (14:23)
[2017-11-04] MEDS: HYDROcodone/Acetaminophen 7.5/325 mg Tablet PO PRN ×5 (03:12→20:03)
[2017-11-04] MEDS: diphenhydrAMINE 25 MG CAP PO PRN ×5 (03:12→20:02)
[2017-11-04] MEDS: Multivit, Therapeutic 1 TAB PO SCH (07:37)
[2017-11-04] MEDS: Saccharomyces boulardii 250 MG CAP PO SCH (07:37)
[2017-11-04] MEDS: Ferrous Sulfate 325 MG TAB PO SCH ×2 (07:37→15:53)
[2017-11-04] MEDS: Lisinopril 5 MG TAB PO SCH (07:37)
[2017-11-04] MEDS: Aspirin 325 MG TAB PO SCH (07:37)
[2017-11-04] MEDS: Famotidine 20 MG TAB PO SCH ×2 (07:37→20:02)
[2017-11-04] MEDS: Metoprolol Tartrate 25 MG TAB PO SCH (07:37)
[2017-11-04] MEDS: Vancomycin HCl 500 MG in Sodium Chloride 0.9% 100 ML IVPB SCH (10:54)
[2017-11-04] MEDS: Vancomycin HCl 750 MG in Sodium Chloride 0.9% 250 ML 250 ML IVPB SCH (10:55)
[2017-11-04] MEDS ORDERED: Sterile Water 10 ML ONE (12:59)
[2017-11-04] MEDS ORDERED: Activase 2 MG VIAL CATH SCH (13:00)
[2017-11-04] MEDS: cefTRIAXone\\ROCEPHIN 2 GM in Sodium Chloride 0.9% 100 ML IVPB SCH (13:12)
--- NOTE | 2017-11-04 14:12 | PRG ---
DATE OF SERVICE: 11/04/2017 SUBJECTIVE: The patient said he is doing better. He is walking in the hallways little more. He is due to have his wound dressed today. OBJECTIVE: GENERAL: The patient is alert, in good spirits, appears in no distress. VITAL SIGNS: His temperature is 98.7, pulse 91, respirations 20, O2 saturation 97%, blood pressure 1 27/64. LUNGS: Clear. HEART: Regular rate. MUSCULOSKELETAL: Left shoulder, there is no redness, no swelling. The wound VAC is in place. EXTREMITIES: No edema. ASSESSMENT: 1. Recurrent septic left shoulder with a history of a chronic osteomyelitis of the left humerus and glenoid. A. Hospitalized at [facility] from 09/17 until 09/23/2017, where he underwent a left shou lder irrigation, debridement, and wound VAC placement. Then on 09/21/2017, he underwent repeat surge ry on the left shoulder with irrigation and debridement and resection of the proximal humeral osteomy elitis, wound left open, and wound VAC placed. B. Cultures from the wound from 09/18, grew Serratia marcescens, sensitive to Rocephin and Cipro, se cond organism that grew Staphylococcus epidermidis, sensitive to vancomycin. C. We will require the Rocephin 2 grams IV daily and vancomycin 1.25 grams daily until 11/17/2017. The open wound will require wound care with wound VAC. D. Continued improvement. Wound is getting smaller, still has some serosanguineous drainage as of 0 11/04/2017. 2. Chronic osteomyelitis of the left shoulder. A. Initiated from a steroid injection in 12/2015. B. Has undergone repeated incision and drainage and arthrotomies. C. Has undergone multiple courses of IV antibiotics. D. Cultures initially grew Propionibacterium acne, but subsequent cultures have been negative up unt il cultures taken on 09/18/2017. E. Status post left humeral head resection and placement of a Prostalac antibiotic spacer 07/02/2017 . F. Status post recurrence of septic joint, requiring reopening of the wound with removal of the Pros talac spacer. G. Again recurrent septic shoulder, requiring further resection of the proximal shaft, it is mention ed under #1 on 09/18 and 09/21/2017. H. Sed rate down to 33. CRP went up to 4.14 as of 10/30/2017. 3. Hypertension, controlled. 4. Paroxysmal atrial fibrillation. A. On aspirin and could not afford to take Eliquis or Xarelto and did not want to take Coumadin. B. EKG on 09/24/2017 showed atrial fibrillation with a rare PVC with a rate of 73. C. EKG on 10/02/2017 still shows atrial fibrillation with rate of 85. Poor candidate for anticoagul ation due to the severe anemia and also patient is not wanting to go on anticoagulants. D. Rate controlled as of 11/04/2017. 5. History of transient ischemic attack. A. Initially presented with weakness of the right arm on 04/10/2016. B. No recurrence. 6. Normocytic anemia, chronic. A. Some drop in the hemoglobin to 7.7 from recent surgery as of 09/24/2017. B. Hemoglobin stable at 8.8 as of 10/30/2017. 7. History of alcoholism. 8. Chronic obstructive pulmonary disease. 9. History of diabetes. A. Presently on no medication. B. Hemoglobin A1c and glucose have normalized since patient went through a large weight loss. Hemog lobin A1c in 04/26 was 5.6. 10. Chronic low back pain secondary to lumbar spondylosis and grwmsoqo-so-iydxfb stenosis at the L2- L3 level, L3-L4 level, and L4-L5 level. 11. Right rotator cuff arthrotomy with very limited motion in the right shoulder. 12. Depression. A. Improved. 13. Episode of chest pain on the late evening of 10/02/2017. A. Etiology probable musculoskeletal, probably coming from the left shoulder. B. Cardiac enzymes were normal. EKG showed the atrial fib. C. No recurrence as of 11/04/2017. PLAN: Continue present wound care. Continue physical therapy. We will recheck weekly lab work eduard watts. Continue IV vancomycin and Rocephin. His last vancomycin trough level on 11/02/2017 was 16.4.
[2017-11-05] MEDS: HYDROcodone/Acetaminophen 7.5/325 mg Tablet PO PRN ×4 (05:17→17:55)
[2017-11-05] MEDS: diphenhydrAMINE 25 MG CAP PO PRN ×4 (05:17→17:55)
[2017-11-05 06:01] LABS: ALT (SGPT) 15 U/L (8-55); AST (SGOT) 21 U/L (5-34); Albumin 3.8 g/dL (3.4-4.8); Alkaline Phosphatase 101 U/L (40-150); Anion Gap 15 mmol/L (10-20); BUN (Urea Nitrogen) 24 mg/dL (8.4-25.7); Bilirubin, Total 0.2 mg/dL (0.2-1.2); Calc. Creatinine Clearance 74 mL/min (70-130); Calcium 9.2 mg/dL (7.8-10.44); Carbon Dioxide 24 mmol/L (23-31); Chloride 105 mmol/L (98-107); Estimated GFR-MDRD 76; Globulin 3.2 g/dL (2.4-3.5); Glucose 99 mg/dL (83-110); Potassium 4.3 mmol/L (3.5-5.1); Sodium 140 mmol/L (136-145)
[2017-11-05 06:11] LABS: #Basophils 0.1 thou/uL (0.0-0.2); #Eosinphils 0.3 thou/uL (0.0-0.7); #Lymphocytes 1.9 thou/uL (1.20-3.40); #Monocytes 0.6 thou/uL (0.11-0.59); #Neutrophils 2.9 thou/uL (1.40-6.50); %Basophils 1.6 % (0.0-1.0); %Eosinophils 5.6 % (0.0-10.0); %Lymphocytes 32.9 % (21.0-51.0); %Monocytes 10.7 % (0.0-10.0); %Neutrophils 49.2 % (42.0-75.0); Hemoglobin 8.5 g/dL (14.0-18.0); Mean Corpuscular HGB CONC 30.7 g/dL (32.0-36.0); Mean Corpuscular Hemoglobin 22.4 pg (27.0-31.0); Mean Corpuscular Volume 72.8 fL (78.0-98.0); Mean Platelet Volume 5.9 fL (7.4-10.4); Platelet Count 202 thou/uL (130-400); RBC Distribution Width 15.6 % (11.5-14.5); White Blood Cell (WBC) Count 5.9 thou/uL (4.8-10.8)
[2017-11-05 07:32] LABS: Anisocytosis SLIGHT = 6-15 cells (100X) (0-5/hpf); Microcytosis SLIGHT = 6-15 cells (100X) (0-5/hpf); Ovalocytes SLIGHT = 2-5 cells (100X) (0-1/hpf); Poikilocytosis SLIGHT = 6-15 cells (100X) (0-5/hpf)
[2017-11-05 07:33] LABS: PLT Morphology Comment Appears Adequate
[2017-11-05] MEDS: Multivit, Therapeutic 1 TAB PO SCH (09:38)
[2017-11-05] MEDS: Saccharomyces boulardii 250 MG CAP PO SCH (09:38)
[2017-11-05] MEDS: Famotidine 20 MG TAB PO SCH ×2 (09:38→21:16)
[2017-11-05] MEDS: Metoprolol Tartrate 25 MG TAB PO SCH (09:38)
[2017-11-05] MEDS: Lisinopril 5 MG TAB PO SCH (09:38)
[2017-11-05] MEDS: Aspirin 325 MG TAB PO SCH (09:38)
[2017-11-05] MEDS: Vancomycin HCl 500 MG in Sodium Chloride 0.9% 100 ML IVPB SCH (09:39)
[2017-11-05] MEDS: Ferrous Sulfate 325 MG TAB PO SCH ×2 (09:39→17:55)
[2017-11-05] MEDS: Vancomycin HCl 750 MG in Sodium Chloride 0.9% 250 ML 250 ML IVPB SCH (09:40)
[2017-11-05] MEDS: cefTRIAXone\\ROCEPHIN 2 GM in Sodium Chloride 0.9% 100 ML IVPB SCH (12:56)
[2017-11-05 13:37] LABS: CRP (Inflammatory) 5.37 mg/dL (= or < 0.5)
[2017-11-06] MEDS: HYDROcodone/Acetaminophen 7.5/325 mg Tablet PO PRN ×5 (05:09→21:14)
[2017-11-06] MEDS: diphenhydrAMINE 25 MG CAP PO PRN ×4 (05:09→21:13)
[2017-11-06] MEDS: Metoprolol Tartrate 25 MG TAB PO SCH (08:21)
[2017-11-06] MEDS: Famotidine 20 MG TAB PO SCH ×2 (08:21→21:12)
[2017-11-06] MEDS: Multivit, Therapeutic 1 TAB PO SCH (08:21)
[2017-11-06] MEDS: Saccharomyces boulardii 250 MG CAP PO SCH (08:21)
[2017-11-06] MEDS: Lisinopril 5 MG TAB PO SCH (08:21)
[2017-11-06] MEDS: Aspirin 325 MG TAB PO SCH (08:21)
[2017-11-06] MEDS: Ferrous Sulfate 325 MG TAB PO SCH ×2 (08:22→17:09)
[2017-11-06] MEDS: Vancomycin HCl 750 MG in Sodium Chloride 0.9% 250 ML 250 ML IVPB SCH (09:27)
[2017-11-06] MEDS: Vancomycin HCl 500 MG in Sodium Chloride 0.9% 100 ML IVPB SCH (10:45)
--- NOTE | 2017-11-06 11:49 | PRG ---
DATE OF SERVICE: 11/06/2017 SUBJECTIVE: The patient said he is feeling a little better. He noticed his taste buds are not as go od. Mouth just a little sore. OBJECTIVE: GENERAL: The patient is alert and appears very comfortable and in no distress. VITAL SIGNS: Temperature is 98.9, pulse 94, blood pressure 118/70, respirations 16, O2 sat 98% on kirstin m air. MOUTH: The patient has a black discoloration over the posterior aspect of his tongue. LUNGS: Clear. HEART: Irregular regular rhythm with adequate rate. MUSCULOSKELETAL: Left shoulder, there is no redness or swelling. He has a wound VAC in place. He h as less than 100 mL of serous drainage that has accumulated over a 4-day period. The patient due to have the dressing changed later today. EXTREMITIES: No edema. LABORATORY DATA: His lab done yesterday showed an H&H of 8.5 and 27.7, white cell count 5900 with 49 % segs, 33% lymphocytes, and a platelet count of 202,000. His sodium is 140, potassium 4.3, BUN 24, creatinine 0.97, GFR 76, glucose 99. CRP 5.37. Sed rate 40. ASSESSMENT: 1. Recurrent septic left shoulder with a history of a chronic osteomyelitis of the left humerus and glenoid. A. Hospitalized at [facility] from 09/17 until 09/23/2017, where he underwent a left shou lder irrigation, debridement, and wound VAC placement. Then on 09/21/2017, he underwent repeat surge ry on the left shoulder with irrigation and debridement and resection of the proximal humeral osteomy elitis, wound left open, and wound VAC placed. B. Cultures from the wound from 09/18, grew Serratia marcescens, sensitive to Rocephin and se roel Pedraza organism that grew Staphylococcus epidermidis, sensitive to vancomycin. C. We will require the Rocephin 2 grams IV daily and vancomycin 1.25 grams daily until 11/17/2017. The open wound will require wound care with wound VAC. D. Continued improvement. His wound is getting smaller. Drainage is now serous and less than 100 m L over the last 4 days as of 11/06/2017. 2. Chronic osteomyelitis of the left shoulder. A. Initiated from a steroid injection in 12/2015. B. Has undergone repeated incision and drainage and arthrotomies. C. Has undergone multiple courses of IV antibiotics. D. Cultures initially grew Propionibacterium acne, but subsequent cultures have been negative up unt il cultures taken on 09/18/2017. E. Status post left humeral head resection and placement of a Prostalac antibiotic spacer 07/02/2017 . F. Status post recurrence of septic joint, requiring reopening of the wound with removal of the Pros talac spacer. G. Again recurrent septic shoulder, requiring further resection of the proximal shaft, it is mention ed under #1 on 09/18 and 09/21/2017. H. Sed rate of 40, CRP 5.37 as of 11/06/2017. 3. Hypertension, controlled. 4. Paroxysmal atrial fibrillation. A. On aspirin and could not afford to take Eliquis or Xarelto and did not want to take Coumadin. B. EKG on 09/24/2017 showed atrial fibrillation with a rare PVC with a rate of 73. C. EKG on 10/02/2017 still shows atrial fibrillation with rate of 85. Poor candidate for anticoagul ation due to the severe anemia and also patient is not wanting to go on anticoagulants. D. Rate controlled as of 11/04/2017. 5. History of transient ischemic attack. A. Initially presented with weakness of the right arm on 04/10/2016. B. No recurrence. 6. Normocytic anemia, chronic. A. Some drop in the hemoglobin to 7.7 from recent surgery as of 09/24/2017. B. Hemoglobin stable at 8.8 as of 10/30/2017. 7. History of alcoholism. 8. Chronic obstructive pulmonary disease. 9. History of diabetes. A. Presently on no medication. B. Hemoglobin A1c and glucose have normalized since patient went through a large weight loss. Hemog lobin A1c in 04/26 was 5.6. 10. Chronic low back pain secondary to lumbar spondylosis and ifuhvqhb-bd-yogisc stenosis at the L2- L3 level, L3-L4 level, and L4-L5 level. 11. Right rotator cuff arthrotomy with very limited motion in the right shoulder. 12. Depression. A. Improved. 13. Episode of chest pain on the late evening of 10/02/2017. A. Etiology probable musculoskeletal, probably coming from the left shoulder. B. Cardiac enzymes were normal. EKG showed the atrial fib. C. No recurrence as of 11/06/2017. 14. Oral candidiasis. PLAN: Continue present care. Continue wound VAC. We will place the patient on Diflucan 100 mg jagruti y for a week and Mycostatin oral suspension, continue with physical therapy.
[2017-11-06] MEDS: Nystatin 500,000 UNITS/5 ML UDCUP SSW SCH ×3 (13:37→21:15)
[2017-11-06] MEDS: cefTRIAXone\\ROCEPHIN 2 GM in Sodium Chloride 0.9% 100 ML IVPB SCH (13:40)
[2017-11-07] MEDS: HYDROcodone/Acetaminophen 7.5/325 mg Tablet PO PRN ×6 (02:23→23:41)
[2017-11-07] MEDS: diphenhydrAMINE 25 MG CAP PO PRN ×6 (02:24→23:40)
[2017-11-07] MEDS: Aspirin 325 MG TAB PO SCH (09:14)
[2017-11-07] MEDS: Nystatin 500,000 UNITS/5 ML UDCUP SSW SCH ×4 (09:14→20:09)
[2017-11-07] MEDS: Fluconazole 100 MG TAB PO SCH (09:15)
[2017-11-07] MEDS: Famotidine 20 MG TAB PO SCH ×2 (09:15→20:09)
[2017-11-07] MEDS: Metoprolol Tartrate 25 MG TAB PO SCH (09:15)
[2017-11-07] MEDS: Saccharomyces boulardii 250 MG CAP PO SCH (09:15)
[2017-11-07] MEDS: Lisinopril 5 MG TAB PO SCH (09:15)
[2017-11-07] MEDS: Multivit, Therapeutic 1 TAB PO SCH (09:15)
[2017-11-07] MEDS: Ferrous Sulfate 325 MG TAB PO SCH ×2 (09:16→17:17)
[2017-11-07] MEDS: Vancomycin HCl 750 MG in Sodium Chloride 0.9% 250 ML 250 ML IVPB SCH (09:16)
[2017-11-07] MEDS: Vancomycin HCl 500 MG in Sodium Chloride 0.9% 100 ML IVPB SCH (10:53)
[2017-11-07] MEDS: cefTRIAXone\\ROCEPHIN 2 GM in Sodium Chloride 0.9% 100 ML IVPB SCH (13:44)
[2017-11-08] MEDS: HYDROcodone/Acetaminophen 7.5/325 mg Tablet PO PRN ×5 (04:44→23:09)
[2017-11-08] MEDS: diphenhydrAMINE 25 MG CAP PO PRN ×5 (04:44→23:09)
[2017-11-08] MEDS ORDERED: Sodium Chloride Irrig Solution 250 ML BOT ONE (09:00)
[2017-11-08] MEDS: Aspirin 325 MG TAB PO SCH (09:00)
[2017-11-08] MEDS: Lisinopril 5 MG TAB PO SCH (09:00)
[2017-11-08] MEDS: Saccharomyces boulardii 250 MG CAP PO SCH (09:00)
[2017-11-08] MEDS: Metoprolol Tartrate 25 MG TAB PO SCH (09:00)
[2017-11-08] MEDS: Multivit, Therapeutic 1 TAB PO SCH (09:00)
[2017-11-08] MEDS: Fluconazole 100 MG TAB PO SCH (09:00)
[2017-11-08] MEDS: Famotidine 20 MG TAB PO SCH ×2 (09:00→19:09)
[2017-11-08] MEDS: Ferrous Sulfate 325 MG TAB PO SCH ×2 (09:01→17:18)
[2017-11-08] MEDS: Vancomycin HCl 750 MG in Sodium Chloride 0.9% 250 ML 250 ML IVPB SCH (09:03)
[2017-11-08] MEDS: Nystatin 500,000 UNITS/5 ML UDCUP SSW SCH ×4 (09:03→19:10)
[2017-11-08] MEDS: Vancomycin HCl 500 MG in Sodium Chloride 0.9% 100 ML IVPB SCH (11:03)
[2017-11-08 14:03] VITALS: BMI 25.4
[2017-11-08] MEDS: cefTRIAXone\\ROCEPHIN 2 GM in Sodium Chloride 0.9% 100 ML IVPB SCH (14:23)
[2017-11-09] MEDS: diphenhydrAMINE 25 MG CAP PO PRN ×5 (03:11→21:26)
[2017-11-09] MEDS: HYDROcodone/Acetaminophen 7.5/325 mg Tablet PO PRN ×5 (03:12→21:27)
[2017-11-09] MEDS: Fluconazole 100 MG TAB PO SCH (08:38)
[2017-11-09] MEDS: Aspirin 325 MG TAB PO SCH (08:38)
[2017-11-09] MEDS: Famotidine 20 MG TAB PO SCH ×2 (08:38→21:26)
[2017-11-09] MEDS: Nystatin 500,000 UNITS/5 ML UDCUP SSW SCH ×5 (08:38→22:47)
[2017-11-09] MEDS: Lisinopril 5 MG TAB PO SCH (08:38)
[2017-11-09] MEDS: Multivit, Therapeutic 1 TAB PO SCH (08:38)
[2017-11-09] MEDS: Ferrous Sulfate 325 MG TAB PO SCH ×2 (08:38→16:51)
[2017-11-09] MEDS: Saccharomyces boulardii 250 MG CAP PO SCH (08:38)
[2017-11-09] MEDS: Metoprolol Tartrate 25 MG TAB PO SCH (08:38)
[2017-11-09 09:37] LABS: Vancomycin, Trough 17.2 ug/mL
--- NOTE | 2017-11-09 10:12 | PRG ---
DATE OF SERVICE: 11/09/2017 SUBJECTIVE: The patient said he is doing alright. He said that the shoulder is a little sore, no mo re than what it had been. His mouth is a little better. OBJECTIVE: The patient is alert, appears in no distress. His temperature is 98.4, pulse 85, respira tions 20, O2 sat 98% on room air, blood pressure 128/64. Lungs are clear. Heart, regular rate. Ext remities; left shoulder, there is no redness, no swelling. The patient has 200 mL of a serosanguineo us drainage that has accumulated over 1 week in his wound VAC container. The wound is to be dressed today. His lungs were clear. Heart has a regular, irregular rhythm with adequate ventricular respon se. ASSESSMENT: 1. Recurrent septic left shoulder with a history of a chronic osteomyelitis of the left humerus and glenoid. A. Hospitalized at [facility] from 09/17 until 09/23/2017, where he underwent a left shou lder irrigation, debridement, and wound VAC placement. Then on 09/21/2017, he underwent repeat surge ry on the left shoulder with irrigation and debridement and resection of the proximal humeral osteomy elitis, wound left open, and wound VAC placed. B. Cultures from the wound from 09/18, grew Serratia marcescens, sensitive to Rocephin and Cipro, se cond organism that grew Staphylococcus epidermidis, sensitive to vancomycin. C. We will require the Rocephin 2 grams IV daily and vancomycin 1.25 grams daily until 11/17/2017. The open wound will require wound care with wound VAC. D. Continued improvement. Wound is smaller, drainage was 200 mL for 7 days with a serosanguineous f luid as of 11/09/2017. 2. Chronic osteomyelitis of the left shoulder. A. Initiated from a steroid injection in 12/2015. B. Has undergone repeated incision and drainage and arthrotomies. C. Has undergone multiple courses of IV antibiotics. D. Cultures initially grew Propionibacterium acne, but subsequent cultures have been negative up unt il cultures taken on 09/18/2017. E. Status post left humeral head resection and placement of a Prostalac antibiotic spacer 07/02/2017 . F. Status post recurrence of septic joint, requiring reopening of the wound with removal of the Pros talac spacer. G. Again recurrent septic shoulder, requiring further resection of the proximal shaft, it is mention ed under #1 on 09/18 and 09/21/2017. H. Sed rate of 40, CRP 5.37 as of 11/06/2017. 3. Hypertension, controlled. 4. Paroxysmal atrial fibrillation. A. On aspirin and could not afford to take Eliquis or Xarelto and did not want to take Coumadin. B. EKG on 09/24/2017 showed atrial fibrillation with a rare PVC with a rate of 73. C. EKG on 10/02/2017 still shows atrial fibrillation with rate of 85. Poor candidate for anticoagul ation due to the severe anemia and also patient is not wanting to go on anticoagulants. D. Rate controlled as of 11/09/2017. 5. History of transient ischemic attack. A. Initially presented with weakness of the right arm on 04/10/2016. B. No recurrence. 6. Normocytic anemia, chronic. A. Some drop in the hemoglobin to 7.7 from recent surgery as of 09/24/2017. B. Hemoglobin stable at 8.8 as of 10/30/2017. 7. History of alcoholism. 8. Chronic obstructive pulmonary disease. 9. History of diabetes. A. Presently on no medication. B. Hemoglobin A1c and glucose have normalized since patient went through a large weight loss. Hemog lobin A1c in 04/26 was 5.6. 10. Chronic low back pain secondary to lumbar spondylosis and jzpcobjh-kb-sekvrn stenosis at the L2- L3 level, L3-L4 level, and L4-L5 level. 11. Right rotator cuff arthrotomy with very limited motion in the right shoulder. 12. Depression. A. Improved. 13. Episode of chest pain on the late evening of 10/02/2017. A. Etiology probable musculoskeletal, probably coming from the left shoulder. B. Cardiac enzymes were normal. EKG showed the atrial fib. C. No recurrence as of 11/06/2017. 14. Oral candidiasis. 4A. Improved as of 11/09/2017. PLAN: Continue IV Rocephin and vancomycin. Continue present wound care.
[2017-11-09] MEDS: Vancomycin HCl 750 MG in Sodium Chloride 0.9% 250 ML 250 ML IVPB SCH (10:29)
[2017-11-09] MEDS: Vancomycin HCl 500 MG in Sodium Chloride 0.9% 100 ML IVPB SCH (10:29)
[2017-11-09] MEDS: cefTRIAXone\\ROCEPHIN 2 GM in Sodium Chloride 0.9% 100 ML IVPB SCH (14:31)
[2017-11-10] MEDS: HYDROcodone/Acetaminophen 7.5/325 mg Tablet PO PRN ×6 (01:48→23:56)
[2017-11-10] MEDS: diphenhydrAMINE 25 MG CAP PO PRN ×5 (01:48→18:13)
[2017-11-10] MEDS: Nystatin 500,000 UNITS/5 ML UDCUP SSW SCH ×5 (08:04→20:10)
[2017-11-10] MEDS: Lisinopril 5 MG TAB PO SCH (08:05)
[2017-11-10] MEDS: Multivit, Therapeutic 1 TAB PO SCH (08:05)
[2017-11-10] MEDS: Fluconazole 100 MG TAB PO SCH (08:05)
[2017-11-10] MEDS: Aspirin 325 MG TAB PO SCH (08:05)
[2017-11-10] MEDS: Metoprolol Tartrate 25 MG TAB PO SCH (08:05)
[2017-11-10] MEDS: Saccharomyces boulardii 250 MG CAP PO SCH (08:05)
[2017-11-10] MEDS: Ferrous Sulfate 325 MG TAB PO SCH ×2 (08:06→18:13)
[2017-11-10] MEDS: Famotidine 20 MG TAB PO SCH ×2 (08:10→20:11)
--- NOTE | 2017-11-10 09:22 | PRG ---
DATE OF SERVICE: 11/10/2017 SUBJECTIVE: The patient said he is still having some soreness in his shoulder. He said that the fabiola ssing was changed yesterday. The wound was clean, still has the deep pocket that is very slowly fill ing in. The patient says the Mycostatin taste bad. His mouth was feeling better. OBJECTIVE: The patient is alert, appears in no distress. His vital signs show a temperature 98.3, p ulse 80, respirations 20, O2 sat 96% on room air, blood pressure 114/53. His lungs were clear. Hear t irregular regular rhythm. The left shoulder, there is no redness, no swelling. The dressing is in place. ASSESSMENT: 1. Recurrent septic left shoulder with a history of a chronic osteomyelitis of the left humerus and glenoid. A. Hospitalized at [facility] from 09/17 until 09/23/2017, where he underwent a left shou lder irrigation, debridement, and wound VAC placement. Then on 09/21/2017, he underwent repeat surge ry on the left shoulder with irrigation and debridement and resection of the proximal humeral osteomy elitis, wound left open, and wound VAC placed. B. Cultures from the wound from 09/18, grew Serratia marcescens, sensitive to Rocephin and Cipro, se cond organism that grew Staphylococcus epidermidis, sensitive to vancomycin. C. We will require the Rocephin 2 grams IV daily and vancomycin 1.25 grams daily until 11/17/2017. The open wound will require wound care with wound VAC. D. Continual gradual improvement. The wound gradually smaller, still has the deep pocket that is be ing packed and still has some serosanguineous drainage as of 11/10/2017. 2. Chronic osteomyelitis of the left shoulder. A. Initiated from a steroid injection in 12/2015. B. Has undergone repeated incision and drainage and arthrotomies. C. Has undergone multiple courses of IV antibiotics. D. Cultures initially grew Propionibacterium acne, but subsequent cultures have been negative up unt il cultures taken on 09/18/2017. E. Status post left humeral head resection and placement of a Prostalac antibiotic spacer 07/02/2017 . F. Status post recurrence of septic joint, requiring reopening of the wound with removal of the Pros talac spacer. G. Again recurrent septic shoulder, requiring further resection of the proximal shaft, it is mention ed under #1 on 09/18 and 09/21/2017. H. Sed rate of 40, CRP 5.37 as of 11/06/2017. 3. Hypertension, controlled. 4. Paroxysmal atrial fibrillation. A. On aspirin and could not afford to take Eliquis or Xarelto and did not want to take Coumadin. B. EKG on 09/24/2017 showed atrial fibrillation with a rare PVC with a rate of 73. C. EKG on 10/02/2017 still shows atrial fibrillation with rate of 85. Poor candidate for anticoagul ation due to the severe anemia and also patient is not wanting to go on anticoagulants. D. Rate controlled as of 11/09/2017. 5. History of transient ischemic attack. A. Initially presented with weakness of the right arm on 04/10/2016. B. No recurrence. 6. Normocytic anemia, chronic. A. Some drop in the hemoglobin to 7.7 from recent surgery as of 09/24/2017. B. Hemoglobin stable at 8.8 as of 10/30/2017. 7. History of alcoholism. 8. Chronic obstructive pulmonary disease. 9. History of diabetes. A. Presently on no medication. B. Hemoglobin A1c and glucose have normalized since patient went through a large weight loss. Hemog lobin A1c in 04/26 was 5.6. 10. Chronic low back pain secondary to lumbar spondylosis and okrmaaxu-as-kbhsxe stenosis at the L2- L3 level, L3-L4 level, and L4-L5 level. 11. Right rotator cuff arthrotomy with very limited motion in the right shoulder. 12. Depression. A. Improved. 13. Episode of chest pain on the late evening of 10/02/2017. A. Etiology probable musculoskeletal, probably coming from the left shoulder. B. Cardiac enzymes were normal. EKG showed the atrial fib. C. No recurrence as of 11/06/2017. 14. Oral candidiasis. A. Gradual improvement as of 11/10/2017. Tongue still has a little blackish discoloration on the po sterior half. PLAN: We will continue the Diflucan for a total of at least 14 days. Continue the Mycostatin. Cont inue the IV vancomycin and the Mycostatin. The patient is scheduled to see Dr. Lima, orthopedic s urgeon, on 11/12/2017. Also scheduled to see Dr. Karl, Infectious Disease on 11/16/2017. The patie nt due to complete his IV antibiotics on 11/17/2017. Continue wound care. The patient is to be sche duled to see his inspector floor sub assembly, Dr. Vanessa.
[2017-11-10] MEDS: Vancomycin HCl 500 MG in Sodium Chloride 0.9% 100 ML IVPB SCH (10:18)
[2017-11-10] MEDS: Vancomycin HCl 750 MG in Sodium Chloride 0.9% 250 ML 250 ML IVPB SCH (10:19)
[2017-11-10] MEDS: cefTRIAXone\\ROCEPHIN 2 GM in Sodium Chloride 0.9% 100 ML IVPB SCH (13:37)
[2017-11-11] MEDS: HYDROcodone/Acetaminophen 7.5/325 mg Tablet PO PRN ×5 (04:05→20:12)
[2017-11-11] MEDS: diphenhydrAMINE 25 MG CAP PO PRN ×5 (04:06→20:14)
[2017-11-11] MEDS: Nystatin 500,000 UNITS/5 ML UDCUP SSW SCH ×4 (08:02→20:12)
[2017-11-11] MEDS: Lisinopril 5 MG TAB PO SCH (08:05)
[2017-11-11] MEDS: Aspirin 325 MG TAB PO SCH (08:05)
[2017-11-11] MEDS: Famotidine 20 MG TAB PO SCH ×2 (08:05→20:12)
[2017-11-11] MEDS: Fluconazole 100 MG TAB PO SCH (08:05)
[2017-11-11] MEDS: Saccharomyces boulardii 250 MG CAP PO SCH (08:06)
[2017-11-11] MEDS: Multivit, Therapeutic 1 TAB PO SCH (08:06)
[2017-11-11] MEDS: Ferrous Sulfate 325 MG TAB PO SCH ×2 (08:06→16:18)
[2017-11-11] MEDS: Metoprolol Tartrate 25 MG TAB PO SCH (08:06)
[2017-11-11] MEDS: Mupirocin 2% Ointment 22 GM Tube TOP SCH ×2 (09:00→20:14)
[2017-11-11] MEDS: Vancomycin HCl 750 MG in Sodium Chloride 0.9% 250 ML 250 ML IVPB SCH (10:52)
[2017-11-11] MEDS: Vancomycin HCl 500 MG in Sodium Chloride 0.9% 100 ML IVPB SCH (10:52)
[2017-11-11] MEDS: cefTRIAXone\\ROCEPHIN 2 GM in Sodium Chloride 0.9% 100 ML IVPB SCH (13:45)
--- NOTE | 2017-11-11 13:54 | PRG ---
DATE OF SERVICE: 11/11/2017 SUBJECTIVE: The patient is doing fine. He said his shoulder is just a little sore, but not more moe n it has been. The nurse noticed that PICC line insertion site in the right arm is slightly red and there is a little white discoloration of the skin. The patient has not been running any fever. He h as not had any shortness of breath. OBJECTIVE: The patient was walking in the halls with PT. He was sitting down to examine. His vital signs show temperature 98.3, pulse 88, respirations 20, O2 saturation 97% on room air, blood pressur e 139/65. Lungs are clear. Heart, irregularly irregular rhythm with adequate rate. Right arm at th e insertion site of the PICC line. There is some of about 1.5 cm area of redness immediately at the insertion. There is a white discoloration of the skin. The area was undressed and the area was pérez aaron. The white areas (01:53) material that may have represented a small amount of pus. There was no pus ran from that area. This area was cleansed and left some overlying and left just red base looked better after cleansing. The PICC line was then removed because of the potential infection at the skin edge. The tip of the catheter was very clean with no coagulation or growth on the tip of t he catheter. No culture was taken of the tip of the catheter since it had to be withdrawn through th is potentially infected area. Wound was re-cleansed. Bactroban ointment applied and then an overlyi ng dressing. There was no bleeding upon removal of PICC line and there is no purulent drainage. I f eel like this represents just a superficial infection at the insertion site. ASSESSMENT: 1. Recurrent septic left shoulder with a history of a chronic osteomyelitis of the left humerus and glenoid. A. Hospitalized at [facility] from 09/17 until 09/23/2017, where he underwent a left shou lder irrigation, debridement, and wound VAC placement. Then on 09/21/2017, he underwent repeat surge ry on the left shoulder with irrigation and debridement and resection of the proximal humeral osteomy elitis, wound left open, and wound VAC placed. B. Cultures from the wound from 09/18, grew Serratia marcescens, sensitive to Rocephin and Cipro, se cond organism that grew Staphylococcus epidermidis, sensitive to vancomycin. C. We will require the Rocephin 2 grams IV daily and vancomycin 1.25 grams daily until 11/17/2017. The open wound will require wound care with wound VAC. D. Continued gradual improvement with decrease in size of the wound as of 11/11/2017. 2. Chronic osteomyelitis of the left shoulder. A. Initiated from a steroid injection in 12/2015. B. Has undergone repeated incision and drainage and arthrotomies. C. Has undergone multiple courses of IV antibiotics. D. Cultures initially grew Propionibacterium acne, but subsequent cultures have been negative up unt il cultures taken on 09/18/2017. E. Status post left humeral head resection and placement of a Prostalac antibiotic spacer 07/02/2017 . F. Status post recurrence of septic joint, requiring reopening of the wound with removal of the Pros talac spacer. G. Again recurrent septic shoulder, requiring further resection of the proximal shaft, it is mention ed under #1 on 09/18 and 09/21/2017. H. Sed rate of 40, CRP 5.37 as of 11/06/2017. 3. Hypertension, controlled. 4. Paroxysmal atrial fibrillation. A. On aspirin and could not afford to take Eliquis or Xarelto and did not want to take Coumadin. B. EKG on 09/24/2017 showed atrial fibrillation with a rare PVC with a rate of 73. C. EKG on 10/02/2017 still shows atrial fibrillation with rate of 85. Poor candidate for anticoagul ation due to the severe anemia and also patient is not wanting to go on anticoagulants. D. Rate controlled as of 11/11/2017. 5. History of transient ischemic attack. A. Initially presented with weakness of the right arm on 04/10/2016. B. No recurrence. 6. Normocytic anemia, chronic. A. Some drop in the hemoglobin to 7.7 from recent surgery as of 09/24/2017. B. Hemoglobin stable at 8.8 as of 10/30/2017. 7. History of alcoholism. 8. Chronic obstructive pulmonary disease. 9. History of diabetes. A. Presently on no medication. B. Hemoglobin A1c and glucose have normalized since patient went through a large weight loss. Hemog lobin A1c in 12/17 was 5.6. 10. Chronic low back pain secondary to lumbar spondylosis and jwstqits-jv-nzqwxp stenosis at the L2- L3 level, L3-L4 level, and L4-L5 level. 11. Right rotator cuff arthrotomy with very limited motion in the right shoulder. 12. Depression. A. Improved. 13. Episode of chest pain on the late evening of 10/02/2017. A. Etiology probable musculoskeletal, probably coming from the left shoulder. B. Cardiac enzymes were normal. EKG showed the atrial fib. C. No recurrence as of 11/06/2017. 14. Oral candidiasis. A. Gradual improvement as of 11/11/2017. 15. Small superficial infection site at the skin at the insertion site of the PICC line in the right arm as of 11/11/2017. A. Area cleansed. PICC line removed. Culture taken of the area. PLAN: Continue present care. PICC line removed because of potential contamination of the PICC line from the infection at the insertion site. We will place a peripheral IV for continued administration of his antibiotics. He is scheduled to receive his last dose is on 11/17/2017. The wound at the diane perficial infection site will just be cleansed daily and Bactroban ointment applied twice today and o verlying dressing applied. Continue the IV Rocephin and vancomycin and wound care to the shoulder. The patient is scheduled to see Dr. Lima tomorrow on 11/12/2017 and scheduled to see Dr. Barajas on 11/16/2017.
[2017-11-12] MEDS: HYDROcodone/Acetaminophen 7.5/325 mg Tablet PO PRN ×5 (05:22→21:20)
[2017-11-12] MEDS: diphenhydrAMINE 25 MG CAP PO PRN ×5 (05:23→21:19)
[2017-11-12 05:57] LABS: #Basophils 0.1 thou/uL (0.0-0.2); #Eosinphils 0.3 thou/uL (0.0-0.7); #Monocytes 0.5 thou/uL (0.11-0.59); #Neutrophils 2.2 thou/uL (1.40-6.50); %Basophils 2.2 % (0.0-1.0); %Eosinophils 6.6 % (0.0-10.0); %Lymphocytes 39.8 % (21.0-51.0); %Neutrophils 42.5 % (42.0-75.0); Hemoglobin 10.3 g/dL (14.0-18.0); Mean Corpuscular HGB CONC 30.5 g/dL (32.0-36.0); Mean Corpuscular Hemoglobin 22.1 pg (27.0-31.0); Mean Corpuscular Volume 72.5 fL (78.0-98.0); Mean Platelet Volume 5.7 fL (7.4-10.4); Platelet Count 256 thou/uL (130-400); RBC Distribution Width 15.2 % (11.5-14.5); Red Blood Cell (RBC) Count 4.64 mill/uL (4.70-6.10); White Blood Cell (WBC) Count 5.1 thou/uL (4.8-10.8)
[2017-11-12 05:59] LABS: Anisocytosis MODERATE=16-30 cells (100X) (0-5/hpf); Hypochromia MODERATE=16-30 cells (100X) (0-5/hpf); Ovalocytes MODERATE= 6-15 cells (100X) (0-1/hpf); PLT Morphology Comment Appears Adequate; Poikilocytosis MODERATE=16-30 cells (100X) (0-5/hpf)
[2017-11-12 06:00] LABS: RBC Morphology Abnormal
[2017-11-12 06:07] LABS: ALT (SGPT) 17 U/L (8-55); AST (SGOT) 24 U/L (5-34); Albumin 4.2 g/dL (3.4-4.8); Alkaline Phosphatase 120 U/L (40-150); Anion Gap 17 mmol/L (10-20); BUN (Urea Nitrogen) 21 mg/dL (8.4-25.7); Bilirubin, Total 0.2 mg/dL (0.2-1.2); Calc. Creatinine Clearance 61 mL/min (70-130); Calcium 10.1 mg/dL (7.8-10.44); Carbon Dioxide 23 mmol/L (23-31); Chloride 107 mmol/L (98-107); Estimated GFR-MDRD 60; Globulin 3.6 g/dL (2.4-3.5); Glucose 117 mg/dL (83-110); Potassium 4.6 mmol/L (3.5-5.1); Protein, Total 7.8 g/dL (5.8-8.1); Sodium 142 mmol/L (136-145)
[2017-11-12] MEDS ORDERED: Sodium Chloride Irrig Solution 250 ML BOT ONE (09:00)
--- NOTE | 2017-11-12 09:02 | PRG ---
DATE OF SERVICE: 11/12/2017 SUBJECTIVE: The patient said he is doing okay this morning. He says his left shoulder is still a li ttle sore, but no different from before. He said it took an effort to get the peripheral IV placed a nd that they had to draw blood from his arm for weekly blood study this morning. He does not know if he can put up with the IV peripherally for the next 5 days as he is scheduled. The patient said he has had a little soreness in the right lower quadrant, but no nausea or vomiting, no change in bowel habits and he remains afebrile. He is scheduled to see Dr. Lima, his orthopedic surgeon, this aft luzmaria. OBJECTIVE: The patient lying in bed, alert, appears comfortable in no distress. His temperature is 97.9, pulse 89, respirations 20, O2 saturation 97%, blood pressure 106/53. His lungs are clear. Hea rt irregular regular rhythm with adequate rate. His abdomen is soft. No organomegaly, nor areas of tenderness, no guarding. His right arm at the site of the PICC line that was removed yesterday, the redness has resolved. There is just a tiny white spot, but no purulent drainage. Lower extremities; no edema. His lab shows an H&H of 10.3 and 33.6, white cell count 5100 with 40% segs, 9% lymphocytes, and plate let count of 256,000. Sed rate down to 34. His sodium is 142, potassium 4.6, BUN 21, creatinine 1.1 9. His CRP is pending. ASSESSMENT: 1. Recurrent septic left shoulder with a history of a chronic osteomyelitis of the left humerus and glenoid. A. Hospitalized at [facility] from 09/17 until 09/23/2017, where he underwent a left shou lder irrigation, debridement, and wound VAC placement. Then on 09/21/2017, he underwent repeat surge ry on the left shoulder with irrigation and debridement and resection of the proximal humeral osteomy elitis, wound left open, and wound VAC placed. B. Cultures from the wound from 09/18, grew Serratia marcescens, sensitive to Rocephin and Cipro, se cond organism that grew Staphylococcus epidermidis, sensitive to vancomycin. C. We will require the Rocephin 2 grams IV daily and vancomycin 1.25 grams daily until 11/17/2017. The open wound will require wound care with wound VAC. D. Continued gradual improvement with decrease in the size of the wound as of 11/12/2017. 2. Chronic osteomyelitis of the left shoulder. A. Initiated from a steroid injection in 12/2015. B. Has undergone repeated incision and drainage and arthrotomies. C. Has undergone multiple courses of IV antibiotics. D. Cultures initially grew Propionibacterium acne, but subsequent cultures have been negative up unt il cultures taken on 09/18/2017. E. Status post left humeral head resection and placement of a Prostalac antibiotic spacer 07/02/2017 . F. Status post recurrence of septic joint, requiring reopening of the wound with removal of the Pros talac spacer. G. Again recurrent septic shoulder, requiring further resection of the proximal shaft, it is mention ed under #1 on 09/18 and 09/21/2017. H. Sed rate down to 34 as of 11/12/2017. 3. Hypertension, controlled. 4. Paroxysmal atrial fibrillation. A. On aspirin and could not afford to take Eliquis or Xarelto and did not want to take Coumadin. B. EKG on 09/24/2017 showed atrial fibrillation with a rare PVC with a rate of 73. C. EKG on 10/02/2017 still shows atrial fibrillation with rate of 85. Poor candidate for anticoagul ation due to the severe anemia and also patient is not wanting to go on anticoagulants. D. Rate controlled as of 11/12/2017. 5. History of transient ischemic attack. A. Initially presented with weakness of the right arm on 04/10/2016. B. No recurrence. 6. Normocytic anemia, chronic. A. Some drop in the hemoglobin to 7.7 from recent surgery as of 09/24/2017. B. Hemoglobin stable at 8.8 as of 10/30/2017. 7. History of alcoholism. 8. Chronic obstructive pulmonary disease. 9. History of diabetes. A. Presently on no medication. B. Hemoglobin A1c and glucose have normalized since patient went through a large weight loss. Hemog lobin A1c in 04/26 was 5.6. 10. Chronic low back pain secondary to lumbar spondylosis and gvbcqmrp-yw-fjicbl stenosis at the L2- L3 level, L3-L4 level, and L4-L5 level. 11. Right rotator cuff arthrotomy with very limited motion in the right shoulder. 12. Depression. A. Improved. 13. Episode of chest pain on the late evening of 10/02/2017. A. Etiology probable musculoskeletal, probably coming from the left shoulder. B. Cardiac enzymes were normal. EKG showed the atrial fib. C. No recurrence as of 11/06/2017. 14. Oral candidiasis. A. Improved, but still has black discoloration to the tongue, but less and feels better as of 2017. 15. Small superficial infection site at the skin at the insertion site of the PICC line in the right arm as of 11/11/2017. A. Area cleansed. PICC line removed. Culture taken of the area. B. Very clean and no redness or drainage as of 11/12/2017. PLAN: Continue present care. The patient is due to see Dr. Lima, his orthopedic surgeon, this af ternoon. The patient is complaining about having the peripheral IV and having other blood draws. He is hoping that maybe we can switch him to oral antibiotics a little earlier than the scheduled 11/17. This is only 5 days and this may be acceptable. We will wait and see what Dr. Lima thinks .
[2017-11-12] MEDS: Famotidine 20 MG TAB PO SCH ×2 (09:11→20:28)
[2017-11-12] MEDS: Nystatin 500,000 UNITS/5 ML UDCUP SSW SCH ×4 (09:11→21:22)
[2017-11-12] MEDS: Ferrous Sulfate 325 MG TAB PO SCH ×2 (09:11→17:10)
[2017-11-12] MEDS: Fluconazole 100 MG TAB PO SCH (09:11)
[2017-11-12] MEDS: Aspirin 325 MG TAB PO SCH (09:11)
[2017-11-12] MEDS: Saccharomyces boulardii 250 MG CAP PO SCH (09:11)
[2017-11-12] MEDS: Metoprolol Tartrate 25 MG TAB PO SCH (09:11)
[2017-11-12] MEDS: Lisinopril 5 MG TAB PO SCH (09:12)
[2017-11-12] MEDS: Multivit, Therapeutic 1 TAB PO SCH (09:13)
[2017-11-12] MEDS: Mupirocin 2% Ointment 22 GM Tube TOP SCH ×2 (09:19→21:21)
[2017-11-12] MEDS: Vancomycin HCl 750 MG in Sodium Chloride 0.9% 250 ML 250 ML IVPB SCH (09:20)
--- NOTE | 2017-11-12 12:46 | ADD-PRG ---
ADDENDUM: DATE OF SERVICE: 11/12/2017 The patient's peripheral IV stopped working. Two attempts were made to restart this and the patient refused to have other attempts made. The patient does not want to take any more the IV antibiotics. His IV antibiotics, the IV vancomycin and Rocephin were scheduled to be completed on 11/17/2017. Th jay have been stopped and he will be placed on the oral antibiotics that were recommended, that is Ci pro 500 mg b.i.d. indefinitely and Minocin 100 mg b.i.d. The patient is scheduled to see Dr. Elsa agustin this afternoon.
[2017-11-12] MEDS: Cipro 250 MG TAB PO SCH (20:27)
[2017-11-13] MEDS ORDERED: Cipro 250 MG TAB ONE (04:57)
[2017-11-13] MEDS: HYDROcodone/Acetaminophen 7.5/325 mg Tablet PO PRN ×5 (05:01→21:25)
[2017-11-13] MEDS: diphenhydrAMINE 25 MG CAP PO PRN ×5 (05:01→21:24)
[2017-11-13] MEDS: Cipro 250 MG TAB PO SCH ×2 (05:01→21:16)
[2017-11-13] MEDS: Saccharomyces boulardii 250 MG CAP PO SCH (09:39)
[2017-11-13] MEDS: Famotidine 20 MG TAB PO SCH ×2 (09:39→21:16)
[2017-11-13] MEDS: Fluconazole 100 MG TAB PO SCH (09:39)
[2017-11-13] MEDS: Nystatin 500,000 UNITS/5 ML UDCUP SSW SCH ×4 (09:39→21:18)
[2017-11-13] MEDS: Aspirin 325 MG TAB PO SCH (09:39)
[2017-11-13] MEDS: Ferrous Sulfate 325 MG TAB PO SCH ×2 (09:39→17:22)
[2017-11-13] MEDS: Lisinopril 5 MG TAB PO SCH (09:40)
[2017-11-13] MEDS: Multivit, Therapeutic 1 TAB PO SCH (09:40)
[2017-11-13] MEDS: Metoprolol Tartrate 25 MG TAB PO SCH (09:41)
[2017-11-13] MEDS: Mupirocin 2% Ointment 22 GM Tube TOP SCH ×2 (09:43→21:17)
--- NOTE | 2017-11-13 11:33 | DIS ---
FINAL DIAGNOSES: 1. Recurrent septic left shoulder with a history of a chronic osteomyelitis of the left humerus and glenoid. A. Hospitalized at [facility] from 09/17 until 09/23/2017, where he underwent a left shou lder irrigation, debridement, and wound VAC placement. Then on 09/21/2017, he underwent repeat surge ry on the left shoulder with irrigation and debridement and resection of the proximal humeral osteomy elitis, wound left open, and wound VAC placed. B. Cultures from the wound from 09/18, grew Serratia marcescens, sensitive to Rocephin and Cipro, se cond organism that grew Staphylococcus epidermidis, sensitive to vancomycin. C. We will require the Rocephin 2 grams IV daily and vancomycin 1.25 grams daily until 11/17/2017. The open wound will require wound care with wound VAC. D. Continued gradual improvement with decrease in size of the wound, but continued some serous drain age as of 11/13/2017. 2. Chronic osteomyelitis of the left shoulder. A. Initiated from a steroid injection in 12/2015. B. Has undergone repeated incision and drainage and arthrotomies. C. Has undergone multiple courses of IV antibiotics. D. Cultures initially grew Propionibacterium acne, but subsequent cultures have been negative up unt il cultures taken on 09/18/2017. E. Status post left humeral head resection and placement of a Prostalac antibiotic spacer 07/02/2017 . F. Status post recurrence of septic joint, requiring reopening of the wound with removal of the Pros talac spacer. G. Again recurrent septic shoulder, requiring further resection of the proximal shaft, it is mention ed under #1 on 09/18 and 09/21/2017. H. Sed rate down to 34 and CRP down to 4.01 as of 11/13/2017. 3. Hypertension, controlled. 4. Paroxysmal atrial fibrillation. A. On aspirin and could not afford to take Eliquis or Xarelto and did not want to take Coumadin. B. EKG on 09/24/2017 showed atrial fibrillation with a rare PVC with a rate of 73. C. EKG on 10/02/2017 still shows atrial fibrillation with rate of 85. Poor candidate for anticoagul ation due to the severe anemia and also patient is not wanting to go on anticoagulants. D. Rate controlled as of 11/12/2017. 5. History of transient ischemic attack. A. Initially presented with weakness of the right arm on 04/10/2016. B. No recurrence. 6. Normocytic anemia, chronic. A. Some drop in the hemoglobin to 7.7 from recent surgery as of 09/24/2017. B. Hemoglobin stable at 8.8 as of 10/30/2017. Hemoglobin 10.3 as of 11/12/2017. 7. History of alcoholism. 8. Chronic obstructive pulmonary disease. 9. History of diabetes. A. Presently on no medication. B. Hemoglobin A1c on 08/19/2017 was 5.7. 10. Chronic low back pain secondary to lumbar spondylosis and rzitepmq-il-gawuat stenosis at the L2- L3 level, L3-L4 level, and L4-L5 level. 11. Right rotator cuff arthrotomy with very limited motion in the right shoulder. 12. Depression. A. Improved. 13. Episode of chest pain on the late evening of 10/02/2017. A. Etiology probable musculoskeletal, probably coming from the left shoulder. B. Cardiac enzymes were normal. EKG showed the atrial fib. C. No recurrence as of 11/06/2017. 14. Oral candidiasis. A. Improved, but still has black discoloration to the tongue, but less and feels better as of 2017. 15. Small superficial infection site at the skin at the insertion site of the PICC line in the right arm as of 11/11/2017. A. Area clean, PICC line removed. Culture taken has no growth. B. Very clean and improving as of 11/13/2017. REASON FOR ADMISSION: The patient is a 71-year-old white male who has a history of chronic osteomyel itis of the left shoulder involving the humeral head and some of the glenoid. This was initiated fro m a steroid injection in 12/2015. He has undergone multiple procedures, initially an ID, later ID an d arthrotomy and washout and later resection of the humeral head and then later required further rese ction. He has undergone several courses of IV antibiotics for 6 week courses. Even at this, he has had recurring episodes of reaccumulation of fluid in the left shoulder joint that required reopening and drainage. See details from the history and physical of this long course. The patient had a recu rrence of the septic left shoulder and required hospitalization at [facility] from 018 until 09/23/2017 where he underwent left shoulder irrigation, debridement, and placement of a wou nd VAC. He then underwent repeat surgery on 09/21/2017 with repeat surgery, repeat irrigation and de bridement and resection of the proximal humerus for the osteomyelitis. Wound was left open with the wound packed with a wound VAC deep into the recess of the space. Cultures from the wound on 09/19/19 18 grew Serratia marcescens, sensitive to Rocephin and Cipro, second organism grew Staphylococcus epi dermidis sensitive to the vancomycin. The patient was seen by Dr. Barajas, Infectious Disease, who has been following this gentleman and he recommended that he be placed on Rocephin 2 grams IV daily and vancomycin 1.25 mg daily for an 8 week course. This would complete on 11/17/2017. The wound would be left open and dressed with a wound VAC with the intention of the wound healing by secondary intent ion. The patient has a history of normocytic normochromic anemia, diabetes which is historically whi ch is now managed with diet alone. Several years ago he had lost a large amount of weight and after this he was able to leave off all medications for diabetes. He really does not even follow a diabeti c diet. His hemoglobin A1c in April was 5.6. He also has chronic low back pain secondary to lumb ar spondylosis with moderate to severe stenosis at the L2-3 level, L3-4 level and L4-5 level. He has chronic right rotator cuff arthropathy and has very reduced range of motion. He has depression that has been tended and he has chronic atrial fibrillation, the rate is controlled. He is on aspirin. He did not want to go on Coumadin and could not afford the other anticoagulants. He has been under t he care of Dr. Vanessa, commissioning agent. The patient was transferred to [facility] on 09/23/2017. HOSPITAL COURSE: During patient's hospitalization, he was continued on IV vancomycin 1.25 mg daily a nd Rocephin 2 grams IV daily through a PICC line in the right arm with the intention was to complete an 8-week course, which would be on 11/17/2017. The patient developed a red area at the insertion si te of the PICC line and white discoloration of the skin that was thought might be pus on 11/11/2017. The patient was not running any fever, it looked like this was just involvement of the skin at the i nsertion site. The wound was carefully undressed and the area of the redness and the white discolora tion was cleansed, this turned out with cleansing to be a white material that did not have the appear ance of pus. The PICC line was removed and the tip of the line was free of any clot or vegetation, l ooked very clean. No culture of the tip was taken since this line had to be removed through the area of possible skin infection at the insertion site. Culture was taken of the skin which later had no growth. The wound was cleaned twice a day and Bactroban ointment was applied and this was healing well withou t any problem. A peripheral IV was started and the patient was placed on IV vancomycin and ceftriaxo ne. On 11/12/2017 this IV infiltrated. After 2 attempts to restart this, the patient refused to hav e further attempts made and wanted just be switched to the oral antibiotics. The patient was 5 days shy of his completion of an 8 week course. He was free of any fever. The wound was healing well and looked very clean and there was only a serous drainage. It was elected to go ahead and switch him t o the oral antibiotics using minocycline 100 mg b.i.d. and Cipro 500 mg b.i.d., which he will need to take probably indefinitely. During his hospitalization, he was up and able to ambulate, was allowed to be up ad sakshi. Physical therapy did work with him. His lungs remained clear. His heart, he had intermittent episodes of atrial fibrillation, but the rate was well controlled. His lab studies were followed weekly. His chemistries remained normal. His FBS usually were less than 120. His CRP prasanth pped from a high of 5.37 to 4.01 on 11/12/2017. His sedimentation dropped to 34 on 11/12/2017. His H&H on 11/12/2017 was 10.3 and 33.6 with a white cell count of 5100. His vancomycin trough levels we re followed and Pharmacy assisted in the medication dosing to ensure he stayed within a therapeutic w indow, which he did. Last trough level on 11/09/2017 was 17.2. The patient overall gradually improv ed. His pain medication was reduced to hydrocodone/acetaminophen 10/325, two every 4 hours as needed for pain, 7.5/325 two every 4 hours as needed for pain. His pain seemed to be well managed. His wo und on the left shoulder was managed with a wound VAC and showed continued decrease in size and also continued decrease in the drainage. Initially had a large amount of serosanguineous fluid and this g radually changed to a serous fluid and the amount decreased. The long incision of the wound graduall y healed. The deep wound extends into the deep recess of the joint decreased in size, remained very clean. By the time of his discharge, the wound was about 3 cm in length, the deep recess was maybe 1 .5 cm in diameter and extended to a depth of about 3.5 cm. It was very clean and only had a serous d rainage. The patient was last seen by Dr. Lima on 11/12/2017 and he felt like the wound was doing well and he had suggested this could be switched wet-to-dry dressings and he could be discharged whe n he was ready and continued on the oral medication. He will see the patient in followup in 1 month. I visited with patient on 11/13/2017. He was doing well at that time, he had developed an oral can didiasis of his mouth that was improving. The wound has been dressed with wet to dry and had some se wm drainage, but remained very clean and was redressed and packed with Nu Gauze. The patient wants to go home in the morning which arrangements will be made for this to occur. He does not want home health. He said he can do the wet to dry dressings, he had done this in the past. Nurses will work with him and showed him how to do this and send him with some supplies. The patient's condition is w as very stable and he will be discharged in the morning on 11/14/2017. DISPOSITION: DIET: Regular diet. ACTIVITY: Ambulate. Encourage the patient to stay physically active and walk daily. Wound care to the left shoulder. Wound should be dressed daily, cleaned with saline and then the juan c p recesses of the wound should be packed with half inch Nu Gauze that is saline-moistened and then ov erlaid with dry gauze and then taped in position. MEDICATIONS: Aspirin 325 mg daily, Cipro 500 mg b.i.d. indefinitely, minocycline 100 mg b.i.d. inde finitely, Benadryl 25 mg every 4 hours as needed, Pepcid 20 mg b.i.d., ferrous sulfate 325 mg b.i.d., hydrocodone/acetaminophen 7.5/325 one to two every 4 hours as needed, lisinopril 5 mg daily, metopro lol 25 mg daily, multivitamin daily, Bactroban applied to the irritation to the skin of the right ar m b.i.d. until healed, Mycostatin oral suspension 5 mL to swish and swallow q.i.d. for 10 days, sertr asia 50 mg daily. FOLLOW UP: The patient should see his orthopedic surgeon, Dr. Lima, in 1 month. The patient is s cheduled to see Dr. Barajas, Infectious Disease on 11/16/2017. The patient will be scheduled to see Dr Deshawn Vanessa, his commissioning agent. The patient should follow up myself in 2 weeks unless there is interval problem. CODE STATUS: Full code.
[2017-11-13] MEDS ORDERED: Sodium Chloride Irrig Solution 250 ML BOT ONE (13:13)
[2017-11-14] MEDS: diphenhydrAMINE 25 MG CAP PO PRN ×3 (04:32→12:58)
[2017-11-14] MEDS: HYDROcodone/Acetaminophen 7.5/325 mg Tablet PO PRN ×3 (04:32→12:58)
[2017-11-14] MEDS: Cipro 250 MG TAB PO SCH (05:06)
[2017-11-14 07:02] VITALS: BP 120/56; TEMP 97.9
[2017-11-14] MEDS: Nystatin 500,000 UNITS/5 ML UDCUP SSW SCH ×3 (08:28→11:34)
[2017-11-14] MEDS: Lisinopril 5 MG TAB PO SCH (08:29)
[2017-11-14] MEDS: Aspirin 325 MG TAB PO SCH (08:29)
[2017-11-14] MEDS: Saccharomyces boulardii 250 MG CAP PO SCH (08:29)
[2017-11-14] MEDS: Ferrous Sulfate 325 MG TAB PO SCH (08:29)
[2017-11-14] MEDS: Famotidine 20 MG TAB PO SCH (08:29)
[2017-11-14] MEDS: Metoprolol Tartrate 25 MG TAB PO SCH (08:30)
[2017-11-14] MEDS: Mupirocin 2% Ointment 22 GM Tube TOP SCH (08:30)
[2017-11-14] MEDS: Multivit, Therapeutic 1 TAB PO SCH (08:30)
[2017-11-14] MEDS: Fluconazole 100 MG TAB PO SCH (08:30)
== END 2017-11-14 13:01 | disposition home or self-care (01) | DRG 549 ==
LOC: MADMS 15:41
PROVIDERS: ADMIT Family Medicine; ATTEND Family Medicine
DX: M00.012 Staphylococcal arthritis, left shoulder (principal); M86.612 Other chronic osteomyelitis, left shoulder; B37.0 Candidal stomatitis; T82.7XXA Infection and inflammatory reaction due to other cardiac and vascular devices, implants and grafts, initial encounter; M00.812 Arthritis due to other bacteria, left shoulder; I10 Essential (primary) hypertension; I48.0 Paroxysmal atrial fibrillation; J44.9 Chronic obstructive pulmonary disease, unspecified; D64.9 Anemia, unspecified; K21.9 Gastro-esophageal reflux disease without esophagitis; G89.29 Other chronic pain; M47.9 Spondylosis, unspecified; M48.061 Spinal stenosis, lumbar region without neurogenic claudication; F32.9 Major depressive disorder, single episode, unspecified; B95.7 Other staphylococcus as the cause of diseases classified elsewhere; F10.21 Alcohol dependence, in remission; R07.89 Other chest pain; B96.89 Other specified bacterial agents as the cause of diseases classified elsewhere; Z86.73 Personal history of transient ischemic attack (TIA), and cerebral infarction without residual deficits; Z88.1 Allergy status to other antibiotic agents; Z79.82 Long term (current) use of aspirin; Z79.899 Other long term (current) drug therapy; Y84.8 Other medical procedures as the cause of abnormal reaction of the patient, or of later complication, without mention of misadventure at the time of the procedure; Y92.239 Unspecified place in hospital as the place of occurrence of the external cause
CPT/HCPCS: 36415; 80053; 80202; 82553; 84484; 85025; 85652; 86140; 87070; 87205; 93005; 93010; 97602; A4216; G8978-GP-CI; G8979-GP-CI; J0696; J2997; J3370; J7050

== ENCOUNTER 2018-09-23 17:06 | Inpatient (IN) | payer MEDICARE ==
[2018-09-23 18:50] LABS: Vancomycin, Trough 11.7 ug/mL
[2018-09-23] MEDS ORDERED: Potassium Chloride 20 MEQ TAB PO SCH (22:15)
[2018-09-23] MEDS ORDERED: Carvedilol 12.5 MG TAB PO SCH (22:30)
[2018-09-23] MEDS: diphenhydrAMINE 25 MG CAP PO PRN (22:39)
[2018-09-23] MEDS: Vancomycin HCl 1 GM in Sodium Chloride 0.9% 250 ML 250 ML IVPB SCH (22:39)
[2018-09-23] MEDS: oxyCODONE 5 MG TAB PO PRN (22:40)
[2018-09-24] MEDS: oxyCODONE 5 MG TAB PO PRN (04:55)
[2018-09-24] MEDS: diphenhydrAMINE 25 MG CAP PO PRN ×2 (04:55→17:10)
[2018-09-24] MEDS: Potassium Chloride 20 MEQ TAB PO SCH ×2 (09:08→17:04)
[2018-09-24] MEDS: Furosemide 40 MG TAB PO SCH (09:08)
[2018-09-24] MEDS: Carvedilol 12.5 MG TAB PO SCH ×2 (09:08→17:04)
[2018-09-24] MEDS: Folic Acid 1 MG TAB PO SCH (09:09)
[2018-09-24] MEDS: Magnesium Oxide 400 MG TAB PO SCH (09:09)
[2018-09-24] MEDS: Multivitamin W/ Minerals 1 TAB PO SCH (09:09)
[2018-09-24] MEDS: Thiamine 100 MG TAB PO SCH (09:09)
[2018-09-24] MEDS: Digoxin 0.25 MG TAB PO SCH (09:09)
[2018-09-24] MEDS: Hydrocortisone 1% Cream 30 GM TUBE TOP SCH ×2 (09:13→20:28)
[2018-09-24] MEDS: HYDROcodone/Acetaminophen 10/325 mg Tablet PO PRN (17:10)
[2018-09-24] MEDS: Vancomycin HCl 1 GM in Sodium Chloride 0.9% 250 ML 250 ML IVPB SCH (19:27)
[2018-09-24] MEDS: Lorazepam 1 MG TAB PO SCH (20:27)
[2018-09-25] MEDS: HYDROcodone/Acetaminophen 10/325 mg Tablet PO PRN ×2 (04:46→17:05)
[2018-09-25] MEDS: Lorazepam 1 MG TAB PO SCH ×2 (09:20→20:01)
[2018-09-25] MEDS: Multivitamin W/ Minerals 1 TAB PO SCH (09:20)
[2018-09-25] MEDS: Potassium Chloride 20 MEQ TAB PO SCH ×2 (09:20→17:02)
[2018-09-25] MEDS: Folic Acid 1 MG TAB PO SCH (09:20)
[2018-09-25] MEDS: Furosemide 40 MG TAB PO SCH (09:21)
[2018-09-25] MEDS: Hydrocortisone 1% Cream 30 GM TUBE TOP SCH ×2 (09:21→21:04)
[2018-09-25] MEDS: Digoxin 0.25 MG TAB PO SCH (09:21)
[2018-09-25] MEDS: Thiamine 100 MG TAB PO SCH (09:21)
[2018-09-25] MEDS: Carvedilol 12.5 MG TAB PO SCH ×2 (09:21→17:02)
[2018-09-25] MEDS: Magnesium Oxide 400 MG TAB PO SCH (09:21)
[2018-09-25] MEDS: diphenhydrAMINE 25 MG CAP PO PRN (17:06)
[2018-09-25] MEDS ORDERED: Cepastat Lozenges 1 LOZ PO PRN (19:13)
[2018-09-25 19:21] LABS: Vancomycin, Trough 10.9 ug/mL
[2018-09-25] MEDS: Guaifenesin DM 100-10/5 ML UDCUP PO PRN (19:23)
[2018-09-25] MEDS: Vancomycin HCl 750 MG in Sodium Chloride 0.9% 250 ML 250 ML IVPB SCH ×2 (20:00→21:03)
[2018-09-26] MEDS: Guaifenesin DM 100-10/5 ML UDCUP PO PRN ×3 (03:37→19:35)
[2018-09-26] MEDS: HYDROcodone/Acetaminophen 10/325 mg Tablet PO PRN ×3 (03:38→19:37)
[2018-09-26] MEDS: Digoxin 0.25 MG TAB PO SCH (09:31)
[2018-09-26] MEDS: Folic Acid 1 MG TAB PO SCH (09:31)
[2018-09-26] MEDS: Magnesium Oxide 400 MG TAB PO SCH (09:31)
[2018-09-26] MEDS: Multivitamin W/ Minerals 1 TAB PO SCH (09:31)
[2018-09-26] MEDS: Potassium Chloride 20 MEQ TAB PO SCH ×2 (09:31→17:12)
[2018-09-26] MEDS: Lorazepam 1 MG TAB PO SCH ×2 (09:31→21:03)
[2018-09-26] MEDS: Thiamine 100 MG TAB PO SCH (09:31)
[2018-09-26] MEDS: Furosemide 40 MG TAB PO SCH (09:31)
[2018-09-26] MEDS: Carvedilol 12.5 MG TAB PO SCH ×2 (09:31→17:12)
[2018-09-26] MEDS: Hydrocortisone 1% Cream 30 GM TUBE TOP SCH ×2 (09:32→21:00)
[2018-09-26] MEDS: diphenhydrAMINE 25 MG CAP PO PRN (10:56)
[2018-09-26] MEDS ORDERED: Clotrimazole 1% Cream 15 GM TUBE TOP PRN (19:29)
[2018-09-26] MEDS: Cepastat Lozenges 1 LOZ PO PRN (19:35)
[2018-09-26] MEDS: Vancomycin HCl 750 MG in Sodium Chloride 0.9% 250 ML 250 ML IVPB SCH ×2 (19:36→20:59)
[2018-09-26] MEDS: Clotrimazole 1% Cream 15 GM TUBE TOP SCH (20:59)
[2018-09-27] MEDS: HYDROcodone/Acetaminophen 10/325 mg Tablet PO PRN (05:48)
[2018-09-27] MEDS: Guaifenesin DM 100-10/5 ML UDCUP PO PRN ×2 (05:49→20:29)
[2018-09-27] MEDS: Cepastat Lozenges 1 LOZ PO PRN ×2 (05:49→20:29)
[2018-09-27 07:10] LABS: ALT (SGPT) 33 U/L (8-55); AST (SGOT) 41 U/L (5-34); Albumin 3.8 g/dL (3.4-4.8); Alkaline Phosphatase 143 U/L (40-150); Anion Gap 15 mmol/L (10-20); BUN (Urea Nitrogen) 29 mg/dL (8.4-25.7); Bilirubin, Total 1.2 mg/dL (0.2-1.2); Calc. Creatinine Clearance 67 mL/min (70-130); Calcium 9.3 mg/dL (7.8-10.44); Carbon Dioxide 26 mmol/L (23-31); Chloride 100 mmol/L (98-107); Estimated GFR-MDRD 71; Globulin 3.9 g/dL (2.4-3.5); Glucose 144 mg/dL (83-110); Potassium 3.8 mmol/L (3.5-5.1); Protein, Total 7.7 g/dL (5.8-8.1); Sodium 137 mmol/L (136-145)
[2018-09-27 08:00] LABS: Hemoglobin 13.1 g/dL (14.0-18.0); Mean Corpuscular HGB CONC 30.1 g/dL (32.0-36.0); Mean Corpuscular Hemoglobin 25.8 pg (27.0-31.0); Mean Platelet Volume 7.3 fL (7.4-10.4); Platelet Count 190 thou/uL (130-400); RBC Distribution Width 15.8 % (11.5-14.5); Red Blood Cell (RBC) Count 5.06 mill/uL (4.70-6.10); White Blood Cell (WBC) Count 5.9 thou/uL (4.8-10.8)
[2018-09-27 08:01] LABS: Anisocytosis SLIGHT = 6-15 cells (100X) (0-5/hpf); Eosinophils 5 % (0-10); Lymphocytes 41 % (21-51); MDiff Complete? YES; Monocytes 8 % (0-10); Neutrophil 46 % (42-75); Platelet Morphology Comment Appears Adequate
--- NOTE | 2018-09-27 08:09 | RAD ---
Chest one view HISTORY: Fever. COMPARISON: 09/09/2018. FINDINGS: Cardiac silhouette is magnified and enlarged. Pulmonary vasculature remains slightly engorg ed with widespread reticulonodular interstitial prominence similar in appearance to the previous exam. Mediastinum is midline with aortic calcification. Right upper extremity PICC is partially visua lized, in good position. No lobar consolidation or evidence of pneumothorax. Absence of the left humeral head and severe degen erative changes of the right shoulder again demonstrated. IMPRESSION: Mild pulmonary vascular congestion appears stable. No evidence of lobar consolidation or focal infiltrate.
--- NOTE | 2018-09-27 09:12 | HP ---
Lance Copeland admitted to [facility] on the evening of 2018. CHIEF COMPLAINT: Needs IV antibiotics for chronic infection in left shoulder. 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 He has undergone repeated incision and drainage and arthrotomies and multiple long courses of IV antibiotics. In the past, he has grown MRSA from the wound and also Propionibacterium acne. He has required left humeral head resection in June of 2017 and then he required reopening of the wound with removal of the Prostalac spacer that had been placed in June of 2017. He required also then later further resection of the proximal humerus. He was then treated at [facility] from 09/23 until 11/14/2017 when he received IV Rocephin and vancomycin, and the wound was left open and allowed to heal by secondary intention with the aid of a wound VAC. The wound gradually closed over, and he was discharged on suppressive antibiotics using minocycline 100 mg b.i.d. and Cipro 500 mg b.i.d., which were to be used indefinitely. The patient was discharged to his home and required rehospitalization at [facility] from 09/08 until 09/23/2018 due to abdominal pain and recurrent drainage from the left shoulder. It was determined that the patient had an alcoholic hepatitis. He had run out of his pain medication, and even prior to this, had resumed his drinking, which he has a long history of, and when he ran out of the pain medicine, he accelerated the amount of alcohol he was consuming to help control the pain. When hospitalized at [facility], he was found to have an atrial fibrillation with a rapid ventricular response, which resolved. His echocardiogram showed an ejection fraction of 20% to 25% with global hypokinesis, dilated left ventricle, moderately dilated left atrium and right atrium. It was recommended he undergo a heart catheterization, which he refused and also recommended a LifeVest, which he did not take. His abdominal pain resolved, and his liver studies improved. While hospitalized, he underwent repeat MRI of the shoulder, which showed partial resection of the proximal humeral head and metaphysis, but residual signal suggestive of some residual osteomyelitis in the proximal humerus. He also had fluid accumulation of the glenohumeral joint and periarticular tissue. He was seen in consultation by Dr. Barajas of Infectious Disease and his orthopedic surgeon, Dr. Lima. The patient underwent a repeat I and D with antibiotic spacer placement using vancomycin and tobramycin on 09/18/2018. The antibiotic spacer has since come out. Ultimately, it was recommended that the patient be continued on IV vancomycin daily for an 8-week period. The patient also was seen during his hospitalization by Dr. Pastor Peguero for alcoholic hepatitis. The patient was discharged to [facility] on the evening of 09/23/2018. He had a PICC line placed in the right arm on 09/22/2018 without problem. The patient was seen in the fur finisher tailor of 09/24/2018, and he was sitting up in bed and told me about his stay at the hospital and he was angry about the continual problem that he has had with the shoulder in spite of all the surgeries and IV antibiotics. He said he was willing to stay for a while for the IV antibiotics, maybe 3 to 6 weeks, but does not think he could stay 8 weeks, I told him that we could explore maybe outpatient management for these. He said that the oxycodone controlled his pain very well in the past and the hydrocodone worked very well for him, and he had suggested we try the 10/325 one twice a day and see if this would help. He was very agreeable to this. He also asked for his Ativan to be restarted and the Benadryl, which he uses with his pain medicine, which seems to help. He had been placed on a very low dose of insulin. Previously, he has not needed this and he has refused to take this. He says he does have chronic pain up in the left shoulder, and once he ran out of his pain medication and could not get any more from Dr. Barajas and Dr. Lima, he just started drinking more. PAST MEDICAL HISTORY: Hospitalized at [facility] from 09/08 to 09/23 for alcoholic hepatitis, atrial fibrillation, chronic left shoulder osteomyelitis, hypertension, dilated cardiomyopathy, and alcoholism. There, he underwent I and D and placement of antibiotic spacer in the left shoulder on 09/18 and underwent a PICC line placement in the right arm on 09/22/2018. Hospitalized at [facility] from 09/23/2017 to 11/14/2017 where he received IV antibiotics using vancomycin and Rocephin for an 8-week course. The wound was still open at that time and was being dressed by home health with wet-to-dry dressings. The patient has ischemic cardiomyopathy, dilated, with ejection fraction of 20% to 25%. Echocardiogram on 09/09 showed global hypokinesia, dilated left ventricle, and enlarged left and right atrium. The patient has paroxysmal atrial fibrillation for which he has refused to be on anticoagulants, but he has been on digoxin and also carvedilol. He has chronic osteomyelitis of the left shoulder, see outline of the care for this in the present illness. He has had a TIA that presented with weakness in the right arm on 04/10/2016. No recurrence. History of normocytic normochromic anemia. A long history of alcoholism, COPD, history of diabetes, last hemoglobin A1c on 08/19 was 5.7. Chronic low back pain secondary to lumbar spondylosis with moderate to severe stenosis at the L2-L3 level, L3-L4 level, and L4-L5 level. The patient has a right rotator cuff arthrotomy and has a very little motion in the right shoulder. He has a long history of depression. He has COPD. He also has a history of hypertension. He has a history of peptic ulcer disease for which he has undergone surgical repair. PRESENT MEDICINES: 1. Acetaminophen 650 mg every 4 hours as needed. 2. DuoNeb 3 mL every 4 hours as needed. 3. Carvedilol 12.5 mg b.i.d. 4. Digoxin 0.25 mg daily. 5. Diphenhydramine 25 mg every 6 hours as needed. 6. Folic acid 1 mg daily. 7. Furosemide 40 mg daily. 8. Hydrocortisone 1% apply to skin twice a day as needed. 9. Theragran-M 1 daily. 10. Magnesium oxide 400 mg daily. 11. Oxycodone IR 5 mg every 6 hours p.r.n. 12. KCl 20 mEq b.i.d. 13. Thiamine 100 mg p.o. daily. 14. Vancomycin 1000 mg IV daily scheduled for 8 weeks. ALLERGIES: CEFAZOLIN CAUSES URTICARIA. RIFAMPIN CAUSES URTICARIA. THE PATIENT HAS BEEN ABLE TO TAKE ROCEPHIN WITHOUT ANY DIFFICULTY EVEN THOUGH HE HAD PROBLEM WITH CEFAZOLIN. REVIEW OF SYSTEMS: GENERAL: The patient says he does not think his weight changed any. He is not running any fever. HEAD AND NECK: No complaints. PULMONARY: The patient gets short of breath with much exertion. CARDIOVASCULAR: No chest pain. GI: The patient's stomach feels a lot better. It is not hurting. : No complaints. MUSCULOSKELETAL: The patient has had the chronic wound in the left shoulder that continues to drain. ADLs: The patient is able to ambulate unassisted. He is able to feed himself, able to dress himself, and bathe himself. HABITS: The patient has a long history of alcoholism. Tobacco, none. SOCIAL HISTORY: The patient is a . 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 He lives alone. PHYSICAL EXAMINATION: GENERAL: Shows a 72-year-old white male, who is sitting up on the side of his bed. He is alert and talkative. He does not appear in any acute distress. He was angry with his situation. As we visited, this seemed to settle. VITAL SIGNS: His temperature is 98.5, pulse 96, respirations 20, O2 saturation 96%, and blood pressure 151/98. His weight is 167. HEENT: His head is normocephalic and atraumatic. Ears, TMs are clear. Nose normal. Mouth and throat normal. NECK: Carotids are equal and strong. No bruits. Thyroid not enlarged. LUNGS: Clear. HEART: Regular rate. No murmurs. ABDOMEN: Soft. No organomegaly nor areas of tenderness. MUSCULOSKELETAL: Left shoulder, the patient has limited motion in the left shoulder. Over the anterior part of the shoulder, he has an old incision that is about 6 cm. There are some granulation tissues on the edges, and there is some serous drainage coming from the wound. He has very limited motion of that arm. There is no surrounding redness. Right shoulder has very limited motion. Lower extremities, no edema. NEUROLOGIC: The patient is alert, oriented x3. He is very deconditioned, but is ambulatory. He has limited motion in the shoulders. IMPRESSION: 1. Chronic osteomyelitis of the left shoulder. a. Initiated from a steroid injection in December 2015. b. He has undergone repeated incision and drainage and arthrotomies. c. He has undergone multiple long courses of IV antibiotics. d. Cultures initially grew Propionibacterium acne and later a methicillin- resistant Staphylococcus aureus. e. Status post left humeral head resection and placement of a Prostalac antibiotic spacer on 07/02/2017. f. Status post recurrence of septic joint requiring reopening of the wound and removal of Prostalac spacer and washout. g. 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 h. Increased drainage from the left shoulder requiring incision and drainage and antibiotic spacer placement which has since come out, surgery on 2018, now hospitalized at [facility] on 09/23/2018 for an 8-week course of IV vancomycin. 2. Dilated cardiomyopathy. a. Echocardiogram on 09/09/2018 showed an ejection fraction of 20% to 25% with global hypokinesis, dilated left ventricle, and enlarged left and right atrium. b. Refused heart catheterization and LifeVest. c. Management with Lasix, carvedilol, not tolerant to AZAEL or ARBS due to hypotension. 3. History of diabetes. a. Refuses any insulin. b. Hemoglobin A1c on 08/19/2017 is 5.7. 4. Paroxysmal atrial fibrillation. a. On aspirin and refused to take Eliquis or Xarelto or Coumadin. b. Recent rapid ventricular response during hospitalization at [facility] from 09/08 to 09/23/2018. c. Rate controlled. 5. History of transient ischemic attack. a. He said he initially presented with weakness of the right arm on 2015. b. No recurrence. 6. History of normocytic normochromic anemia. 7. Alcoholism. 8. Chronic obstructive pulmonary disease. 9. Chronic low back pain secondary to lumbar spondylosis with moderate to severe stenosis at L2-L3, L3-L4, and L4-L5 level. PLAN: The patient has been admitted to [facility] on 2018 for an 8-week course of IV antibiotics using vancomycin. We will have pharmacy manage the trough levels and adjust the dosage to keep him in the therapeutic range. The open wound will continue to be dressed with wet-to-dry dressings. The patient will see his orthopedic surgeon, Dr. Lima, in followup in 2 weeks. The patient is due to see his hebrew cantor, Dr. Vanessa, in 2 to 3 weeks. PT will work, and OT will work with the patient to try to improve his functional capabilities. We will stop the OxyContin and we will utilize hydrocodone 10/325 one twice a day if needed for moderate to severe pain. He may use the Benadryl along with this since he thinks this helps. Also reordered his Ativan 1 mg t.i.d. as needed. His long-term prognosis for healing of this chronic osteomyelitis is very poor. His surgeon has felt that any further operative intervention may not cure the infection, but lead to increasing disability. We will try the IV antibiotics and see if this will help. He is due also to see his infectious disease physician, Dr. Barajas, in followup. CODE STATUS: Full code. Job ID: [id number] MTDD
--- NOTE | 2018-09-27 09:13 | PRG ---
DATE OF SERVICE: 09/25/2018 SUBJECTIVE: The patient said he is feeling pretty good this morning. His pain is well controlled. His stomach feels good. He is just resting this morning. He is getting wet-to-dry dressing changes to the left shoulder daily. OBJECTIVE: GENERAL: The patient is lying comfortably in bed. He was conversational and seemed very pleasant today, and appears in no distress. VITAL SIGNS: His temperature is 99.5, pulse 102, respirations 20, O2 saturation 97% on room air, blood pressure 133/80. LUNGS: Clear. HEART: Regular rate. EXTREMITIES: No edema. Left shoulder has dressing present that is dry. LABORATORY DATA: His FBS this morning was 154. ASSESSMENT: 1. Chronic recurring osteomyelitis involving the left shoulder. a. Status post multiple I and Ds, multiple bone resections of the humeral head and humeral shaft, and multiple courses of IV antibiotics. b. Recurrent. c. Presently on an 8-week course of IV vancomycin. 2. Dilated cardiomyopathy. a. No evidence of acute congestive heart failure as of 09/25. 3. Paroxysmal atrial fibrillation. a. Rate controlled as of 09/25. 4. Hypertension, controlled. 5. Alcoholic hepatitis. a. Clinically resolved as of 09/25/2018. Repeat a lab work, due for 09/27. 6. History of alcoholism. 7. Diabetes type 2. a. Controlled with diet alone. PLAN: Continue present care. Continue the IV vancomycin and Physical Therapy. Job ID: [id number] [facility]
--- NOTE | 2018-09-27 09:17 | PRG ---
DATE OF SERVICE: 09/27/2018 SUBJECTIVE: The patient said he did not feel very good this morning. He said last night he just did not feel good either, had a low-grade fever and a bit of a sore throat and also a nonproductive cough. He has not been short of breath. He does not think his shoulder is hurting any more than usual. He denies any abdominal pain. OBJECTIVE: GENERAL: The patient is lying in bed, but able to sit upright on his own. VITAL SIGNS: Show a temperature of 101.6, pulse 102, respirations 18, O2 saturation 99%, blood pressure 117/74. HEENT: Mouth and throat appeared normal. NECK: No adenopathy. LUNGS: Clear. HEART: Regular rate. EXTREMITIES: No edema. Left shoulder, the patient has a serous drainage on the dressing. The wound bed has a yellow-greenish serous coating and drainage. Culture deep from the wound was taken with two cotton swabs. LABORATORY DATA: CBC shows an H and H of 13.1 and 43.5, white blood cell count 5900 with 46% neutrophils, 41% lymphocytes and a platelet count of a 190,000. His sodium 137, potassium 3.8, BUN 29, creatinine 1.02, GFR 71, glucose 144, AST 41, ALT 33 , and alkaline phosphatase 143. ASSESSMENT: 1. Febrile illness as of 09/27/2018. a.. Presenting with fever to 101.6, nonproductive cough and hoarse. b Suspect this is from upper respiratory infection. 2. Chronic osteomyelitis of the left shoulder. a. Recent acute exacerbation. b. On 8-week course of IV vancomycin. c. Today has a little increased yellow-greenish drainage. Culture has been taken as of 09/27/2018. 3. Dilated cardiomyopathy. a. Refuse LifeVest and heart catheterization. b. No evidence of acute CHF. 4. Chronic paroxysmal atrial fibrillation. a. Rate control. b. The patient refuses long-term anticoagulation. 5. Alcoholism. PLAN: Chest x-ray, blood cultures x2, CBC, comprehensive metabolic panel, CRP pending. Cultures from the wound taken. Continue the IV vancomycin. The patient has Cepacol, cough drops, Robitussin DM to use for his cough. Also, ordered a viral screen. Job ID: [id number] [facility]
[2018-09-27] MEDS: Multivitamin W/ Minerals 1 TAB PO SCH (09:26)
[2018-09-27] MEDS: Thiamine 100 MG TAB PO SCH (09:26)
[2018-09-27] MEDS: Furosemide 40 MG TAB PO SCH (09:26)
[2018-09-27] MEDS: Digoxin 0.25 MG TAB PO SCH (09:26)
[2018-09-27] MEDS: Lorazepam 1 MG TAB PO SCH ×2 (09:26→20:26)
[2018-09-27] MEDS: Magnesium Oxide 400 MG TAB PO SCH (09:26)
[2018-09-27] MEDS: Carvedilol 12.5 MG TAB PO SCH ×2 (09:26→17:18)
[2018-09-27] MEDS: Folic Acid 1 MG TAB PO SCH (09:27)
[2018-09-27] MEDS: Hydrocortisone 1% Cream 30 GM TUBE TOP SCH ×2 (09:27→20:25)
[2018-09-27] MEDS: Clotrimazole 1% Cream 15 GM TUBE TOP SCH ×2 (09:27→20:24)
[2018-09-27] MEDS: Potassium Chloride 20 MEQ TAB PO SCH ×2 (09:27→17:18)
[2018-09-27 11:37] LABS: Hemoglobin A1c 6.7 % (4.0-6.0)
[2018-09-27 19:32] LABS: Vancomycin, Trough 10.5 ug/mL
[2018-09-27] MEDS: diphenhydrAMINE 25 MG CAP PO PRN (20:26)
[2018-09-27] MEDS ORDERED: Vancomycin HCl 750 MG in Sodium Chloride 0.9% 250 ML 250 ML IVPB SCH (21:15)
[2018-09-28] MEDS: Vancomycin HCl 750 MG in Sodium Chloride 0.9% 250 ML 250 ML IVPB SCH ×4 (01:56→20:08)
[2018-09-28] MEDS: Cepastat Lozenges 1 LOZ PO PRN ×3 (02:38→16:11)
[2018-09-28] MEDS: HYDROcodone/Acetaminophen 10/325 mg Tablet PO PRN ×3 (03:02→20:48)
[2018-09-28] MEDS: diphenhydrAMINE 25 MG CAP PO PRN ×2 (03:03→11:40)
[2018-09-28] MEDS: Carvedilol 12.5 MG TAB PO SCH ×2 (08:20→16:59)
[2018-09-28] MEDS: Potassium Chloride 20 MEQ TAB PO SCH ×2 (08:20→16:59)
[2018-09-28] MEDS: Thiamine 100 MG TAB PO SCH (08:20)
[2018-09-28] MEDS: Folic Acid 1 MG TAB PO SCH (08:20)
[2018-09-28] MEDS: Magnesium Oxide 400 MG TAB PO SCH (08:20)
[2018-09-28] MEDS: Furosemide 40 MG TAB PO SCH (08:20)
[2018-09-28] MEDS: Clotrimazole 1% Cream 15 GM TUBE TOP SCH ×2 (08:21→20:09)
[2018-09-28] MEDS: Multivitamin W/ Minerals 1 TAB PO SCH (08:21)
[2018-09-28] MEDS: Hydrocortisone 1% Cream 30 GM TUBE TOP SCH ×2 (08:21→20:09)
[2018-09-28] MEDS: Lorazepam 1 MG TAB PO SCH ×2 (08:21→20:10)
[2018-09-28] MEDS: Digoxin 0.25 MG TAB PO SCH (08:21)
--- NOTE | 2018-09-28 10:33 | PRG ---
DATE OF SERVICE: 09/28/2018 SUBJECTIVE: The patient says he does feel better today. He rested better last night. Still has a cough and at times has a little sputum production that is little greenish in color. He has been placed in contact isolation based on his results of his testing. OBJECTIVE: GENERAL: The patient is sitting up on bedside. He looks better. He is very talkative and appears comfortable and in no distress. He is not coughing today. VITAL SIGNS: His temperature is 98.4, pulse 84, respirations 18, O2 saturation 98% on room air, blood pressure 127/68. LUNGS: Clear. HEART: Regular rate. LABORATORY DATA: Sedimentation rate done on 09/27/2018 was 37. C-reactive protein was 7.6, last one from a year ago was 4.01 on 11/12/2017. Vancomycin trough level was 10.5. Chest x-ray was reviewed and there was just mild pulmonary vascular congestion that appeared stable compared to x-ray on 09/09/2018. There is no evidence of any consolidation or focal infiltrate. His respiratory viral nasopharyngeal swab was positive for parainfluenza 3. ASSESSMENT: 1. Chronic osteomyelitis of the left shoulder. a. Initiated from a steroid injection in December 2015. b. He has undergone repeated incision and drainage and arthrotomies. c. He has undergone multiple long courses of IV antibiotics. d. Cultures initially grew Propionibacterium acne and later a methicillin- resistant Staphylococcus aureus. e. Status post left humeral head resection and placement of a Prostalac antibiotic spacer on 07/02/2017. f. Status post recurrence of septic joint requiring reopening of the wound and removal of Prostalac spacer and washout. g. 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 h. Increased drainage from the left shoulder requiring incision and drainage and antibiotic spacer placement which has since come out, surgery on 2018, now hospitalized at [facility] on 09/23/2018 for an 8-week course of IV vancomycin. i. Continues to receive IV vancomycin. Sedimentation rate elevated to 37, CRP to 7 as of 09/28. 2. Dilated cardiomyopathy. a. Echocardiogram on 09/09/2018 showed an ejection fraction of 20% to 25% with global hypokinesis, dilated left ventricle, and enlarged left and right atrium. b. Refused heart catheterization and LifeVest. c. Management with Lasix, carvedilol, not tolerant to AZAEL or ARBS due to hypotension. 3. History of diabetes. a. Refuses any insulin. b. Hemoglobin A1c on 08/19/2017 is 5.7. 4. Paroxysmal atrial fibrillation. a. On aspirin and refused to take Eliquis or Xarelto or Coumadin. b. Recent rapid ventricular response during hospitalization at [facility] from 09/08 to 09/23/2018. c. Rate controlled. 5. History of transient ischemic attack. a. He said he initially presented with weakness of the right arm on 2015. b. No recurrence. 6. History of normocytic normochromic anemia. 7. Alcoholism. 8. Chronic obstructive pulmonary disease. 9. Chronic low back pain secondary to lumbar spondylosis with moderate to severe stenosis at L2-L3, L3-L4, and L4-L5 level. 10. Para influenza type 3. a. Presenting with cough, runny nose, and fever with clear chest x-ray on 09/27/2018. b. Improved as of 09/28, on contact isolation. PLAN: The patient looks better today. The respiratory viral panel was positive for the parainfluenza. This will just be treated symptomatically and will gradually resolve. We will place him on contact isolation for 7 to 10 days. Continues IV vancomycin. Blood cultures taken on 09/27, have no growth to date x2. Culture from the left shoulder showed rare epithelial cells, many WBC's, no organisms seen. Culture pending. Job ID: [id number] MTDD
[2018-09-28] MEDS: Guaifenesin DM 100-10/5 ML UDCUP PO PRN (11:43)
[2018-09-28] MEDS: Acetaminophen 325 MG TAB PO PRN (16:00)
[2018-09-29] MEDS: Guaifenesin DM 100-10/5 ML UDCUP PO PRN ×3 (02:10→15:07)
[2018-09-29] MEDS: Cepastat Lozenges 1 LOZ PO PRN ×4 (02:10→14:26)
[2018-09-29] MEDS: Acetaminophen 325 MG TAB PO PRN ×2 (02:17→14:26)
[2018-09-29] MEDS: HYDROcodone/Acetaminophen 10/325 mg Tablet PO PRN ×2 (07:34→15:17)
[2018-09-29] MEDS: diphenhydrAMINE 25 MG CAP PO PRN ×2 (07:35→15:18)
[2018-09-29] MEDS: Furosemide 40 MG TAB PO SCH (08:04)
[2018-09-29] MEDS: Magnesium Oxide 400 MG TAB PO SCH (08:04)
[2018-09-29] MEDS: Digoxin 0.25 MG TAB PO SCH (08:04)
[2018-09-29] MEDS: Multivitamin W/ Minerals 1 TAB PO SCH (08:04)
[2018-09-29] MEDS: Folic Acid 1 MG TAB PO SCH (08:04)
[2018-09-29] MEDS: Thiamine 100 MG TAB PO SCH (08:04)
[2018-09-29] MEDS: Carvedilol 12.5 MG TAB PO SCH ×2 (08:05→17:18)
[2018-09-29] MEDS: Hydrocortisone 1% Cream 30 GM TUBE TOP SCH ×2 (08:05→20:31)
[2018-09-29] MEDS: Potassium Chloride 20 MEQ TAB PO SCH ×2 (08:05→17:19)
[2018-09-29] MEDS: Lorazepam 1 MG TAB PO SCH ×2 (08:05→20:31)
[2018-09-29] MEDS: Clotrimazole 1% Cream 15 GM TUBE TOP SCH ×2 (08:05→20:32)
[2018-09-29] MEDS: Vancomycin HCl 750 MG in Sodium Chloride 0.9% 250 ML 250 ML IVPB SCH (08:06)
[2018-09-29 08:19] LABS: Vancomycin, Trough 14.1 ug/mL
--- NOTE | 2018-09-29 10:34 | PRG ---
DATE OF SERVICE: 09/29/2018 SUBJECTIVE: The patient says he feels a little better today. He said his cough is better. He has had a little pain this morning in the shoulder, but no more than usual. Nursing staff and nursing directive reported that he is having multiple episodes where he is very angry and yelling and abusive toward the staff who were trying to take care of him. director of product marketing plans on visiting with him about this behavior and how would not be tolerated. We will visit with him also in regard to this. OBJECTIVE: GENERAL: The patient looks comfortable, in no distress. VITAL SIGNS: His temperature is 97.6, pulse 107, respirations 18, O2 saturation 95% on room air, and blood pressure 149/79. LUNGS: Clear. HEART: Regular rate. Left shoulder dressing is dry. Culture from the left shoulder has no growth today. ASSESSMENT: 1. Chronic osteomyelitis of the left shoulder. a. Initiated from a steroid injection in December 2015. b. He has undergone repeated incision and drainage and arthrotomies. c. He has undergone multiple long courses of IV antibiotics. d. Cultures initially grew Propionibacterium acne and later a methicillin- resistant Staphylococcus aureus. e. Status post left humeral head resection and placement of a Prostalac antibiotic spacer on 07/02/2017. f. Status post recurrence of septic joint requiring reopening of the wound and removal of Prostalac spacer and washout. g. 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 h. Increased drainage from the left shoulder requiring incision and drainage and antibiotic spacer placement which has since come out, surgery on 2018, now hospitalized at [facility] on 09/23/2018 for an 8-week course of IV vancomycin. i. Continues to receive IV vancomycin. The wound is stable, still has drainage as of 09/29/2018. Culture from the wound on 09/27/2018, had no growth. 2. Dilated cardiomyopathy. a. Echocardiogram on 09/09/2018 showed an ejection fraction of 20% to 25% with global hypokinesis, dilated left ventricle, and enlarged left and right atrium. b. Refused heart catheterization and LifeVest. c. Management with Lasix, carvedilol, not tolerant to AZAEL or ARBS due to hypotension. 3. History of diabetes. a. Refuses any insulin. b. Hemoglobin A1c on 08/19/2017 is 5.7. 4. Paroxysmal atrial fibrillation. a. On aspirin and refused to take Eliquis or Xarelto or Coumadin. b. Recent rapid ventricular response during hospitalization at [facility] from 09/08 to 09/23/2018. c. Rate controlled. 5. History of transient ischemic attack. a. He said he initially presented with weakness of the right arm on 2015. b. No recurrence. 6. History of normocytic normochromic anemia. 7. Alcoholism. 8. Chronic obstructive pulmonary disease. 9. Chronic low back pain secondary to lumbar spondylosis with moderate to severe stenosis at L2-L3, L3-L4, and L4-L5 level. 10. Para influenza type 3. a. Presenting with cough, runny nose, and fever with clear chest x-ray on 09/27/2018. b. Improved as of 09/29/2018, on contact isolation. PLAN: Continue present care. Continue IV vancomycin. director of product marketing with another nurse will visit with the patient about his anger and some time abusive language toward the nursing staff. We will also visit with him in this regard. Job ID: [id number] MTDD
[2018-09-29] MEDS ORDERED: Sodium Chloride 0.65% Nasal 44 ML BOT EA NARE PRN (14:47)
[2018-09-29] MEDS: Vancomycin HCl 1 GM in Sodium Chloride 0.9% 250 ML 250 ML IVPB SCH (19:18)
[2018-09-30] MEDS: HYDROcodone/Acetaminophen 10/325 mg Tablet PO PRN ×3 (05:02→20:06)
[2018-09-30] MEDS: diphenhydrAMINE 25 MG CAP PO PRN ×2 (05:03→13:04)
[2018-09-30] MEDS: Potassium Chloride 20 MEQ TAB PO SCH ×2 (07:30→16:51)
[2018-09-30] MEDS: Vancomycin HCl 1 GM in Sodium Chloride 0.9% 250 ML 250 ML IVPB SCH ×2 (07:30→20:05)
[2018-09-30] MEDS: Furosemide 40 MG TAB PO SCH (07:30)
[2018-09-30] MEDS: Carvedilol 12.5 MG TAB PO SCH ×2 (07:31→16:51)
[2018-09-30] MEDS: Acetaminophen 325 MG TAB PO PRN (08:01)
[2018-09-30] MEDS: Multivitamin W/ Minerals 1 TAB PO SCH (08:02)
[2018-09-30] MEDS: Folic Acid 1 MG TAB PO SCH (08:02)
[2018-09-30] MEDS: Lorazepam 1 MG TAB PO SCH ×2 (08:02→20:05)
[2018-09-30] MEDS: Thiamine 100 MG TAB PO SCH (08:02)
[2018-09-30] MEDS: Digoxin 0.25 MG TAB PO SCH (08:03)
[2018-09-30] MEDS: Magnesium Oxide 400 MG TAB PO SCH (08:03)
[2018-09-30] MEDS: Hydrocortisone 1% Cream 30 GM TUBE TOP SCH ×2 (08:04→21:00)
[2018-09-30] MEDS: Clotrimazole 1% Cream 15 GM TUBE TOP SCH ×2 (08:04→21:00)
--- NOTE | 2018-09-30 09:46 | PRG ---
DATE OF SERVICE: 09/30/2018 SUBJECTIVE: The patient said he is doing okay this morning. He did not sleep very well, had just number of interruptions with the sleep. Said his left shoulder is sore this morning. He has requested a pain medicine that just arrived. He has requested that he be allowed full desserts. His sugars he said had been running just fine. This request will be complied with. The patient said the wound is doing real well. He said there has not been much drainage and has looked real clean. OBJECTIVE: GENERAL: The patient is sitting up on the edge of the bed. He is alert, talkative, seem very pleasant. VITAL SIGNS: His temperature 97.6, pulse 91, respirations 20, O2 saturation 96 % on room air, blood pressure 136/92. LUNGS: Clear. HEART: Regular rate. EXTREMITIES: Left wound, just been dressed. Wound is clean. LABORATORY DATA: His FBS this morning was 141, yesterday 120. Blood cultures from 09/27 have no growth. There has been initial culture from the left shoulder, no growth, but there still looking at this for a possibility of growth, sub cultures being done. ASSESSMENT: 1. Chronic osteomyelitis of the left shoulder. a. Initiated from a steroid injection in December 2015. b. He has undergone repeated incision and drainage and arthrotomies. c. He has undergone multiple long courses of IV antibiotics. d. Cultures initially grew Propionibacterium acne and later a methicillin- resistant Staphylococcus aureus. e. Status post left humeral head resection and placement of a Prostalac antibiotic spacer on 07/02/2017. f. Status post recurrence of septic joint requiring reopening of the wound and removal of Prostalac spacer and washout. g. 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 h. Increased drainage from the left shoulder requiring incision and drainage and antibiotic spacer placement which has since come out, surgery on 2018, now hospitalized at [facility] on 09/23/2018 for an 8-week course of IV vancomycin. i. Continues to receive IV vancomycin. Wound looks much better according to the nurses and drainage is less as of 09/30/2018. 2. Dilated cardiomyopathy. a. Echocardiogram on 09/09/2018 showed an ejection fraction of 20% to 25% with global hypokinesis, dilated left ventricle, and enlarged left and right atrium. b. Refused heart catheterization and LifeVest. c. Management with Lasix, carvedilol, not tolerant to AZAEL or ARBS due to hypotension. d. No evidence of acute congestive heart failure as of 09/30/2018. 3. History of diabetes. a. Refuses any insulin. b. Hemoglobin A1c on 08/19/2017 is 5.7. 4. Paroxysmal atrial fibrillation. a. On aspirin and refused to take Eliquis or Xarelto or Coumadin. b. Recent rapid ventricular response during hospitalization at [facility] from 09/08 to 09/23/2018. c. Rate controlled. 5. History of transient ischemic attack. a. He said he initially presented with weakness of the right arm on 2015. b. No recurrence. 6. History of normocytic normochromic anemia. 7. Alcoholism. 8. Chronic obstructive pulmonary disease. 9. Chronic low back pain secondary to lumbar spondylosis with moderate to severe stenosis at L2-L3, L3-L4, and L4-L5 level. 10. Para influenza type 3. a. Presenting with cough, runny nose, and fever with clear chest x-ray on 09/27/2018. b. Improved as of 09/30/2018, on contact isolation. PLAN: The patient looks a little better today, although he is tired from his restless night and shoulder sore. His spirit seem to be better. He did acknowledge that he had a visit with the nursing supervisor underwriting clerks about some of his irritability and use of language with the nursing staff and is trying to do better. He acknowledges that these people are here to help him. I have also told him that we are all here to try to assist him with his convalescence and will make his stay as best as we can. We will continue the IV vancomycin. Job ID: [id number] [facility]
[2018-10-01] MEDS: diphenhydrAMINE 25 MG CAP PO PRN ×2 (04:08→11:48)
[2018-10-01] MEDS: HYDROcodone/Acetaminophen 10/325 mg Tablet PO PRN ×3 (04:08→17:45)
[2018-10-01 07:30] LABS: Vancomycin, Trough 19.1 ug/mL
[2018-10-01] MEDS: Guaifenesin DM 100-10/5 ML UDCUP PO PRN ×2 (08:07→17:14)
[2018-10-01] MEDS: Multivitamin W/ Minerals 1 TAB PO SCH (08:07)
[2018-10-01] MEDS: Cepastat Lozenges 1 LOZ PO PRN ×2 (08:07→11:48)
[2018-10-01] MEDS: Acetaminophen 325 MG TAB PO PRN (08:07)
[2018-10-01] MEDS: Potassium Chloride 20 MEQ TAB PO SCH ×2 (08:08→17:14)
[2018-10-01] MEDS: Magnesium Oxide 400 MG TAB PO SCH (08:08)
[2018-10-01] MEDS: Carvedilol 12.5 MG TAB PO SCH ×2 (08:08→17:14)
[2018-10-01] MEDS: Folic Acid 1 MG TAB PO SCH (08:08)
[2018-10-01] MEDS: Lorazepam 1 MG TAB PO SCH ×2 (08:08→21:53)
[2018-10-01] MEDS: Furosemide 40 MG TAB PO SCH (08:08)
[2018-10-01] MEDS: Digoxin 0.25 MG TAB PO SCH (08:08)
[2018-10-01] MEDS: Thiamine 100 MG TAB PO SCH (08:08)
[2018-10-01] MEDS: Hydrocortisone 1% Cream 30 GM TUBE TOP SCH ×2 (08:09→21:51)
[2018-10-01] MEDS: Vancomycin HCl 1 GM in Sodium Chloride 0.9% 250 ML 250 ML IVPB SCH ×2 (08:09→21:48)
[2018-10-01] MEDS: Clotrimazole 1% Cream 15 GM TUBE TOP SCH ×2 (08:09→21:49)
--- NOTE | 2018-10-01 09:48 | PRG ---
DATE OF SERVICE: 10/01/2018 SUBJECTIVE: The patient said he still has some cough. He said he does not rest well at night. He just gets uncomfortable. He asked about changing the frequency the pain medicine, says every 8 hours. Sometimes it is just too long. He is also requesting something to help him with sleep. OBJECTIVE: GENERAL: The patient is sitting up on the side of the bed. He is alert, talkative, appears in no distress. VITAL SIGNS: His temp was 98.6, pulse 106, respirations 18, O2 saturation 97% on room air, blood pressure 133/85. FBS this morning 142. LUNGS: Have expiratory rhonchi. HEART: Regular rate. EXTREMITIES: Left shoulder was dressed early this morning. Wound was reported as improved. The dressing is dry. EXTREMITIES: No edema. LABORATORY DATA: The subculture of the left shoulder grew normal skin tierra in the broth only. There was some yeast present in the broth only. ASSESSMENT: 1. Chronic osteomyelitis of the left shoulder. a. Initiated from a steroid injection in December 2015. b. He has undergone repeated incision and drainage and arthrotomies. c. He has undergone multiple long courses of IV antibiotics. d. Cultures initially grew Propionibacterium acne and later a methicillin- resistant Staphylococcus aureus. e. Status post left humeral head resection and placement of a Prostalac antibiotic spacer on 07/02/2017. f. Status post recurrence of septic joint requiring reopening of the wound and removal of Prostalac spacer and washout. g. 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 h. Increased drainage from the left shoulder requiring incision and drainage and antibiotic spacer placement which has since come out, surgery on 2018, now hospitalized at [facility] on 09/23/2018 for an 8-week course of IV vancomycin. i. Continues to receive IV vancomycin. Wound looks much better according to the nurses and drainage is less as of 10/01/2018. 2. Dilated cardiomyopathy. a. Echocardiogram on 09/09/2018 showed an ejection fraction of 20% to 25% with global hypokinesis, dilated left ventricle, and enlarged left and right atrium. b. Refused heart catheterization and LifeVest. c. Management with Lasix, carvedilol, not tolerant to AZAEL or ARBS due to hypotension. d. No evidence of acute congestive heart failure as of 10/01/2018. 3. History of diabetes. a. Refuses any insulin. b. Hemoglobin A1c on 08/19/2017 is 5.7. 4. Paroxysmal atrial fibrillation. a. On aspirin and refused to take Eliquis or Xarelto or Coumadin. b. Recent rapid ventricular response during hospitalization at [facility] from 09/08 to 09/23/2018. c. Rate controlled. 5. History of transient ischemic attack. a. He said he initially presented with weakness of the right arm on 2015. b. No recurrence. 6. History of normocytic normochromic anemia. 7. Alcoholism. 8. Chronic obstructive pulmonary disease. 9. Chronic low back pain secondary to lumbar spondylosis with moderate to severe stenosis at L2-L3, L3-L4, and L4-L5 level. 10. Para influenza type 3. a. Presenting with cough, runny nose, and fever with clear chest x-ray on 09/27/2018. b. Complicated by bronchitis as of 10/01/2018. PLAN: We will add ipratropium/albuterol by nebulizer b.i.d. and every 4 hours for the bronchitis. Continue the vancomycin. We will order the hydrocodone to be changed to every 6 hours as needed. We will add melatonin at bedtime to see if this will help him sleep. Job ID: [id number] [facility]
[2018-10-02] MEDS: Guaifenesin DM 100-10/5 ML UDCUP PO PRN ×2 (08:14→22:01)
[2018-10-02] MEDS: Vancomycin HCl 1 GM in Sodium Chloride 0.9% 250 ML 250 ML IVPB SCH ×2 (08:15→19:33)
[2018-10-02] MEDS: Furosemide 40 MG TAB PO SCH (08:17)
[2018-10-02] MEDS: Thiamine 100 MG TAB PO SCH (08:17)
[2018-10-02] MEDS: Carvedilol 12.5 MG TAB PO SCH ×2 (08:17→17:24)
[2018-10-02] MEDS: Magnesium Oxide 400 MG TAB PO SCH (08:17)
[2018-10-02] MEDS: Cepastat Lozenges 1 LOZ PO PRN (08:17)
[2018-10-02] MEDS: Lorazepam 1 MG TAB PO SCH ×2 (08:17→22:00)
[2018-10-02] MEDS: diphenhydrAMINE 25 MG CAP PO PRN ×2 (08:18→17:30)
[2018-10-02] MEDS: HYDROcodone/Acetaminophen 10/325 mg Tablet PO PRN ×2 (08:18→17:29)
[2018-10-02] MEDS: Potassium Chloride 20 MEQ TAB PO SCH ×2 (08:18→17:24)
[2018-10-02] MEDS: Folic Acid 1 MG TAB PO SCH (08:18)
[2018-10-02] MEDS: Digoxin 0.25 MG TAB PO SCH (08:18)
[2018-10-02] MEDS: Hydrocortisone 1% Cream 30 GM TUBE TOP SCH ×2 (08:19→22:00)
[2018-10-02] MEDS: Clotrimazole 1% Cream 15 GM TUBE TOP SCH ×2 (08:19→22:00)
[2018-10-02] MEDS: Multivitamin W/ Minerals 1 TAB PO SCH (08:19)
[2018-10-03] MEDS: Guaifenesin DM 100-10/5 ML UDCUP PO PRN (07:48)
[2018-10-03] MEDS: Vancomycin HCl 1 GM in Sodium Chloride 0.9% 250 ML 250 ML IVPB SCH ×2 (07:48→21:10)
[2018-10-03] MEDS: diphenhydrAMINE 25 MG CAP PO PRN ×3 (07:49→23:40)
[2018-10-03] MEDS: Multivitamin W/ Minerals 1 TAB PO SCH (07:49)
[2018-10-03] MEDS: Cepastat Lozenges 1 LOZ PO PRN (07:49)
[2018-10-03] MEDS: Potassium Chloride 20 MEQ TAB PO SCH ×3 (07:49→18:21)
[2018-10-03] MEDS: Lorazepam 1 MG TAB PO SCH (07:49)
[2018-10-03] MEDS: Carvedilol 12.5 MG TAB PO SCH ×3 (07:49→18:20)
[2018-10-03] MEDS: Folic Acid 1 MG TAB PO SCH (07:50)
[2018-10-03] MEDS: HYDROcodone/Acetaminophen 10/325 mg Tablet PO PRN ×3 (07:50→21:26)
[2018-10-03] MEDS: Thiamine 100 MG TAB PO SCH (07:50)
[2018-10-03] MEDS: Furosemide 40 MG TAB PO SCH (07:50)
[2018-10-03] MEDS: Clotrimazole 1% Cream 15 GM TUBE TOP SCH ×2 (07:51→21:13)
[2018-10-03] MEDS: Magnesium Oxide 400 MG TAB PO SCH (07:51)
[2018-10-03] MEDS: Digoxin 0.25 MG TAB PO SCH (07:51)
[2018-10-03] MEDS: Hydrocortisone 1% Cream 30 GM TUBE TOP SCH ×2 (07:51→21:13)
[2018-10-03] MEDS: Lorazepam 1 MG TAB PO PRN (21:14)
[2018-10-03] MEDS: Melatonin 3 MG TAB PO PRN (23:40)
[2018-10-03] MEDS: Acetaminophen 325 MG TAB PO PRN (23:42)
[2018-10-04 07:28] LABS: Hemoglobin 13.4 g/dL (14.0-18.0); Mean Corpuscular Hemoglobin 25.9 pg (27.0-31.0); Mean Corpuscular Volume 83.5 fL (78.0-98.0); Mean Platelet Volume 6.8 fL (7.4-10.4); Platelet Count 251 thou/uL (130-400); Red Blood Cell (RBC) Count 5.18 mill/uL (4.70-6.10); White Blood Cell (WBC) Count 5.8 thou/uL (4.8-10.8)
[2018-10-04 07:40] LABS: Vancomycin, Trough 25.7 ug/mL
[2018-10-04 07:45] LABS: ALT (SGPT) 22 U/L (8-55); AST (SGOT) 31 U/L (5-34); Albumin 3.7 g/dL (3.4-4.8); Alkaline Phosphatase 125 U/L (40-150); Anion Gap 14 mmol/L (10-20); BUN (Urea Nitrogen) 25 mg/dL (8.4-25.7); Bilirubin, Total 0.6 mg/dL (0.2-1.2); Calc. Creatinine Clearance 81 mL/min (70-130); Calcium 9.6 mg/dL (7.8-10.44); Carbon Dioxide 25 mmol/L (23-31); Chloride 106 mmol/L (98-107); Estimated GFR-MDRD 85; Glucose 101 mg/dL (83-110); Potassium 3.9 mmol/L (3.5-5.1); Protein, Total 7.7 g/dL (5.8-8.1); Sodium 141 mmol/L (136-145)
[2018-10-04 08:00] LABS: Anisocytosis SLIGHT = 6-15 cells (100X) (0-5/hpf); Eosinophils 2 % (0-10); Lymphocytes 37 % (21-51); MDiff Complete? YES; Monocytes 8 % (0-10); Neutrophil 53 % (42-75); Platelet Morphology Comment Appears Adequate
[2018-10-04] MEDS: Vancomycin HCl 1 GM in Sodium Chloride 0.9% 250 ML 250 ML IVPB SCH (08:20)
[2018-10-04] MEDS: Digoxin 0.25 MG TAB PO SCH (08:21)
[2018-10-04] MEDS: Thiamine 100 MG TAB PO SCH (08:21)
[2018-10-04] MEDS: Magnesium Oxide 400 MG TAB PO SCH (08:21)
[2018-10-04] MEDS: Potassium Chloride 20 MEQ TAB PO SCH ×2 (08:21→16:49)
[2018-10-04] MEDS: Furosemide 40 MG TAB PO SCH (08:21)
[2018-10-04] MEDS: Carvedilol 12.5 MG TAB PO SCH ×2 (08:21→16:48)
[2018-10-04] MEDS: Multivitamin W/ Minerals 1 TAB PO SCH (08:22)
[2018-10-04] MEDS: Hydrocortisone 1% Cream 30 GM TUBE TOP SCH ×2 (08:22→20:12)
[2018-10-04] MEDS: Folic Acid 1 MG TAB PO SCH (08:22)
[2018-10-04] MEDS: Clotrimazole 1% Cream 15 GM TUBE TOP SCH ×2 (08:22→20:11)
--- NOTE | 2018-10-04 12:57 | PRG ---
DATE OF SERVICE: 10/03/2018 SUBJECTIVE: The patient was sleeping, but was aroused to an alert state. He is getting tired to be in here. He was admitted on 09/23. He thinks he has been here for about a 4-week period. He is concerned about the dressing changes. These are being done daily, and if needed, if the dressing becomes saturated. He thinks the pain is probably reasonably controlled. The patient is alert, but is a little mixed up on his time in the hospital and tried reoriented him. He did answer my questions appropriately and said he is all right, we are trying to stay here at least another 7 to 10 days. OBJECTIVE: GENERAL: The patient does not appear in any distress. VITAL SIGNS: His temp is 98.1, pulse 84, respirations 20, O2 saturation 94% on room air, blood pressure 124/64. LUNGS: Clear. There are no wheezes or rhonchi. HEART: Regular rate. EXTREMITIES: Dressing over the left shoulder is clean. ASSESSMENT: 1. Chronic osteomyelitis of the left shoulder. a. Initiated from a steroid injection in December 2015. b. He has undergone repeated incision and drainage and arthrotomies. c. He has undergone multiple long courses of IV antibiotics. d. Cultures initially grew Propionibacterium acne and later a methicillin- resistant Staphylococcus aureus. e. Status post left humeral head resection and placement of a Prostalac antibiotic spacer on 07/02/2017. f. Status post recurrence of septic joint requiring reopening of the wound and removal of Prostalac spacer and washout. g. 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 h. Increased drainage from the left shoulder requiring incision and drainage and antibiotic spacer placement which has since come out, surgery on 2018, now hospitalized at [facility] on 09/23/2018 for an 8-week course of IV vancomycin. i. Continues to receive IV vancomycin. Wound looks much better according to the nurses and drainage is less as of 10/03/2018. 2. Dilated cardiomyopathy. a. Echocardiogram on 09/09/2018 showed an ejection fraction of 20% to 25% with global hypokinesis, dilated left ventricle, and enlarged left and right atrium. b. Refused heart catheterization and LifeVest. c. Management with Lasix, carvedilol, not tolerant to AZAEL or ARBS due to hypotension. d. No evidence of acute congestive heart failure as of 10/03/2018. 3. History of diabetes. a. Refuses any insulin. b. Hemoglobin A1c on 08/19/2017 is 5.7. 4. Paroxysmal atrial fibrillation. a. On aspirin and refused to take Eliquis or Xarelto or Coumadin. b. Recent rapid ventricular response during hospitalization at [facility] from 09/08 to 09/23/2018. c. Rate controlled. 5. History of transient ischemic attack. a. He said he initially presented with weakness of the right arm on 2015. b. No recurrence. 6. History of normocytic normochromic anemia. 7. Alcoholism. 8. Chronic obstructive pulmonary disease. 9. Chronic low back pain secondary to lumbar spondylosis with moderate to severe stenosis at L2-L3, L3-L4, and L4-L5 level. 10. Para influenza type 3. a. Presenting with cough, runny nose, and fever with clear chest x-ray on 09/27/2018. b. Bronchitis and parainfluenzal infection is gradually resolving as of . PLAN: Continue present care. Visit with the patient and to let him know that he has only been here since the , and he is scheduled for 8 weeks of therapy. So, he will be happy to arrange an appointment for him to see Dr. Barajas, if he would like, he said he wants to wait. He will continue what we are doing for another 7 to 10 days and then reassess. He is a little mixed up on time and dressings, this maybe effect of his Benadryl, hydrocodone, and the lorazepam. the lorazepam has been scheduled and he is receiving it twice today. We will change this to p.r.n. Job ID: [id number] [facility]
[2018-10-04] MEDS: HYDROcodone/Acetaminophen 10/325 mg Tablet PO PRN ×2 (14:59→20:13)
[2018-10-04] MEDS: diphenhydrAMINE 25 MG CAP PO PRN ×2 (14:59→20:13)
[2018-10-04] MEDS: Cepastat Lozenges 1 LOZ PO PRN (16:48)
[2018-10-04] MEDS: Acetaminophen 325 MG TAB PO PRN (16:49)
[2018-10-04] MEDS: Melatonin 3 MG TAB PO PRN (20:11)
[2018-10-04] MEDS: Lorazepam 1 MG TAB PO PRN (20:13)
[2018-10-05] MEDS: diphenhydrAMINE 25 MG CAP PO PRN (04:51)
[2018-10-05] MEDS: HYDROcodone/Acetaminophen 10/325 mg Tablet PO PRN ×2 (04:51→16:46)
[2018-10-05] MEDS: Vancomycin HCl 750 MG in Sodium Chloride 0.9% 250 ML 250 ML IVPB SCH ×2 (08:01→19:27)
[2018-10-05] MEDS: Hydrocortisone 1% Cream 30 GM TUBE TOP SCH ×2 (08:03→20:32)
[2018-10-05] MEDS: Clotrimazole 1% Cream 15 GM TUBE TOP SCH ×2 (08:04→20:32)
[2018-10-05] MEDS: Furosemide 40 MG TAB PO SCH (08:05)
[2018-10-05] MEDS: Carvedilol 12.5 MG TAB PO SCH ×2 (08:05→16:45)
[2018-10-05] MEDS: Potassium Chloride 20 MEQ TAB PO SCH ×2 (08:05→16:45)
[2018-10-05] MEDS: Digoxin 0.25 MG TAB PO SCH (08:06)
[2018-10-05] MEDS: Folic Acid 1 MG TAB PO SCH (08:06)
[2018-10-05] MEDS: Magnesium Oxide 400 MG TAB PO SCH (08:07)
[2018-10-05] MEDS: Multivitamin W/ Minerals 1 TAB PO SCH (08:07)
[2018-10-05] MEDS: Thiamine 100 MG TAB PO SCH (08:07)
[2018-10-05] MEDS: Cepastat Lozenges 1 LOZ PO PRN (16:45)
[2018-10-05] MEDS: Guaifenesin DM 100-10/5 ML UDCUP PO PRN (16:48)
[2018-10-05] MEDS: Keri Lotion 15 oz BOT TOP PRN (16:50)
[2018-10-05] MEDS: Lorazepam 1 MG TAB PO PRN (20:31)
[2018-10-05] MEDS: Keri Lotion 15 oz BOT TOP SCH (20:33)
[2018-10-06] MEDS: HYDROcodone/Acetaminophen 10/325 mg Tablet PO PRN ×2 (04:59→17:12)
[2018-10-06] MEDS: diphenhydrAMINE 25 MG CAP PO PRN ×2 (05:00→17:01)
[2018-10-06] MEDS: Digoxin 0.25 MG TAB PO SCH (08:48)
[2018-10-06] MEDS: Potassium Chloride 20 MEQ TAB PO SCH ×2 (08:48→16:57)
[2018-10-06] MEDS: Magnesium Oxide 400 MG TAB PO SCH (08:48)
[2018-10-06] MEDS: Thiamine 100 MG TAB PO SCH (08:48)
[2018-10-06] MEDS: Folic Acid 1 MG TAB PO SCH (08:48)
[2018-10-06] MEDS: Furosemide 40 MG TAB PO SCH (08:48)
[2018-10-06] MEDS: Carvedilol 12.5 MG TAB PO SCH ×2 (08:48→16:57)
[2018-10-06] MEDS: Multivitamin W/ Minerals 1 TAB PO SCH (08:48)
[2018-10-06] MEDS: Vancomycin HCl 750 MG in Sodium Chloride 0.9% 250 ML 250 ML IVPB SCH ×2 (08:50→20:22)
[2018-10-06] MEDS: Hydrocortisone 1% Cream 30 GM TUBE TOP SCH ×2 (09:51→20:28)
[2018-10-06] MEDS: Clotrimazole 1% Cream 15 GM TUBE TOP SCH ×2 (09:51→20:28)
[2018-10-06] MEDS: Keri Lotion 15 oz BOT TOP SCH ×2 (09:51→20:29)
[2018-10-06 19:30] LABS: Vancomycin, Trough 17.2 ug/mL
[2018-10-07] MEDS: diphenhydrAMINE 25 MG CAP PO PRN ×2 (03:55→20:31)
[2018-10-07] MEDS: HYDROcodone/Acetaminophen 10/325 mg Tablet PO PRN ×2 (03:55→20:31)
[2018-10-07] MEDS: Furosemide 40 MG TAB PO SCH (08:00)
[2018-10-07] MEDS: Carvedilol 12.5 MG TAB PO SCH ×3 (08:00→17:44)
[2018-10-07] MEDS: Vancomycin HCl 750 MG in Sodium Chloride 0.9% 250 ML 250 ML IVPB SCH ×2 (08:00→21:39)
[2018-10-07] MEDS: Multivitamin W/ Minerals 1 TAB PO SCH (08:00)
[2018-10-07] MEDS: Magnesium Oxide 400 MG TAB PO SCH (08:00)
[2018-10-07] MEDS: Thiamine 100 MG TAB PO SCH (08:00)
[2018-10-07] MEDS: Folic Acid 1 MG TAB PO SCH (08:00)
[2018-10-07] MEDS: Potassium Chloride 20 MEQ TAB PO SCH ×3 (08:00→17:44)
[2018-10-07] MEDS: Clotrimazole 1% Cream 15 GM TUBE TOP SCH ×2 (08:01→20:36)
[2018-10-07] MEDS: Keri Lotion 15 oz BOT TOP SCH ×2 (08:01→20:37)
[2018-10-07] MEDS: Hydrocortisone 1% Cream 30 GM TUBE TOP SCH ×2 (08:01→20:36)
[2018-10-07] MEDS: Digoxin 0.25 MG TAB PO SCH (08:02)
--- NOTE | 2018-10-07 08:30 | PRG ---
DATE OF SERVICE: 10/06/2018 SUBJECTIVE: The patient said he is doing pretty good this morning. He had a good night. The dressings on the left shoulder are being done twice today, because just once a day the dressing is becoming too saturated. The patient developed some peeling of the skin on the soles of his feet, but nowhere else. The Micheline lotion , the skin moisturizer has been applied to the feet. He does not complain of these hurting. He says his breathing and cough is better. OBJECTIVE: GENERAL: The patient is alert, talkative, appears in no distress. VITAL SIGNS: Shows temperature 97.8, pulse 83, respirations 15, O2 saturation 98 % on room air, and blood pressure 133/65. LUNGS: Clear. HEART: Irregularly irregular rhythm with adequate rate. EXTREMITIES: No edema. Left shoulder, the patient has a serous drainage, slightly green color. There is little yellow, slightly greenish colored mucus in the deep portion of the wound. The edges of the wound have good granulation tissue. Overall, the length of the wound is a little shorter. There is no surrounding redness. There is no odor to the wound. The patient's last vancomycin level done on 10/04 was 25.7 resulting in the reduction in the dose of the vancomycin, which being managed by pharmacy. Under the skin, the patient has some peeling of the skin on the soles of the feet. There is no redness and no open wounds. ASSESSMENT: 1. Chronic osteomyelitis of the left shoulder. a. Initiated from a steroid injection in December 2015. b. He has undergone repeated incision and drainage and arthrotomies. c. He has undergone multiple long courses of IV antibiotics. d. Cultures initially grew Propionibacterium acne and later a methicillin- resistant Staphylococcus aureus. e. Status post left humeral head resection and placement of a Prostalac antibiotic spacer on 07/02/2017. f. Status post recurrence of septic joint requiring reopening of the wound and removal of Prostalac spacer and washout. g. 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 h. Increased drainage from the left shoulder requiring incision and drainage and antibiotic spacer placement which has since come out, surgery on 2018, now hospitalized at [facility] on 09/23/2018 for an 8-week course of IV vancomycin. i. Continues to receive IV vancomycin. Wound looks better. It is a little smaller and still has the deep recesses of the wound that extends down into the joint as of 10/06/2018. CRP is down to 2.11. Sedimentation rate was up a little to 48. 2. Dilated cardiomyopathy. a. Echocardiogram on 09/09/2018 showed an ejection fraction of 20% to 25% with global hypokinesis, dilated left ventricle, and enlarged left and right atrium. b. Refused heart catheterization and LifeVest. c. Management with Lasix, carvedilol, not tolerant to AZAEL or ARBS due to hypotension. d. No evidence of acute congestive heart failure as of 10/06/2018. 3. History of diabetes. a. Refuses any insulin. b. Hemoglobin A1c on 08/19/2017 is 5.7. 4. Paroxysmal atrial fibrillation. a. On aspirin and refused to take Eliquis or Xarelto or Coumadin. b. Recent rapid ventricular response during hospitalization at [facility] from 09/08 to 09/23/2018. c. Rate controlled. 5. History of transient ischemic attack. a. He said he initially presented with weakness of the right arm on 2015. b. No recurrence. 6. History of normocytic normochromic anemia. 7. Alcoholism. 8. Chronic obstructive pulmonary disease. 9. Chronic low back pain secondary to lumbar spondylosis with moderate to severe stenosis at L2-L3, L3-L4, and L4-L5 level. 10. Para influenza type 3. a. Presenting with cough, runny nose, and fever with clear chest x-ray on 09/27/2018. b. Complicated by bronchitis as of 10/01/2018. c. Resolved as of 10/06/2018. PLAN: Continue the IV vancomycin, dose has been adjusted according to his vancomycin trough level by Pharmacy. Wound on the left shoulder is being changed twice today. There is scaling on the bottom of the feet, probably secondary to the antibiotics. There is no other rash present. There is no redness on the feet. This will be handled just with the skin moisturizer. We will switch the neb treatments to just p.r.n. The isolation can be probably be discontinued. Nurses will check with Infectious Disease. Job ID: [id number] [facility]
--- NOTE | 2018-10-07 13:52 | PRG ---
DATE OF SERVICE: 10/07/2018 SUBJECTIVE: The patient says he is feeling pretty good this morning, earlier he had a pain med tablet that is hydrocodone and Benadryl. He is feeling better now. They have changed the dressing earlier this morning. The wound looked better. See pictures. The patient is breathing good. He is trying to work a little with therapy. OBJECTIVE: GENERAL: The patient is alert, looks comfortable, is in good spirits, appears in no distress. VITAL SIGNS: His temp is 98.7, pulse 87, respirations 18, O2 saturation 98% on room air, blood pressure 145/90. LUNGS: Clear. HEART: Regular rate. MUSCULOSKELETAL: Left shoulder, the dressing over the shoulder is dry. See pictures taken from this morning. It showed wound improving. The feet, the scaling on the bottom of the feet is still present, but it looks pretty stable. There is no redness. LABORATORY DATA: The patient's vancomycin trough level yesterday was 17.2. ASSESSMENT: 1. Chronic osteomyelitis of the left shoulder. a. Initiated from a steroid injection in December 2015. b. He has undergone repeated incision and drainage and arthrotomies. c. He has undergone multiple long courses of IV antibiotics. d. Cultures initially grew Propionibacterium acne and later a methicillin- resistant Staphylococcus aureus. e. Status post left humeral head resection and placement of a Prostalac antibiotic spacer on 07/02/2017. f. Status post recurrence of septic joint requiring reopening of the wound and removal of Prostalac spacer and washout. g. 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 h. Increased drainage from the left shoulder requiring incision and drainage and antibiotic spacer placement which has since come out, surgery on 2018, now hospitalized at [facility] on 09/23/2018 for an 8-week course of IV vancomycin. i. Continues to receive the IV vancomycin with doses adjusted according to vancomycin trough level. Wound looks better as of 10/07/2018. 2. Dilated cardiomyopathy. a. Echocardiogram on 09/09/2018 showed an ejection fraction of 20% to 25% with global hypokinesis, dilated left ventricle, and enlarged left and right atrium. b. Refused heart catheterization and LifeVest. c. Management with Lasix, carvedilol, not tolerant to AZAEL or ARBS due to hypotension. d. No evidence of acute congestive heart failure as of 10/07/2018. 3. History of diabetes. a. Refuses any insulin. b. Hemoglobin A1c on 08/19/2017 is 5.7. 4. Paroxysmal atrial fibrillation. a. On aspirin and refused to take Eliquis or Xarelto or Coumadin. b. Recent rapid ventricular response during hospitalization at [facility] from 09/08 to 09/23/2018. c. The patient has an irregularly irregular rhythm, but rate controlled as of 10/07/2018. 5. History of transient ischemic attack. a. He said he initially presented with weakness of the right arm on 2015. b. No recurrence. 6. History of normocytic normochromic anemia. 7. Alcoholism. 8. Chronic obstructive pulmonary disease. 9. Chronic low back pain secondary to lumbar spondylosis with moderate to severe stenosis at L2-L3, L3-L4, and L4-L5 level. 10. Para influenza type 3. a. Presenting with cough, runny nose, and fever with clear chest x-ray on 09/27/2018. b. Complicated by bronchitis as of 10/01/2018. c. Resolved as of 10/07/2018. PLAN: The patient's respiratory isolation has been discontinued. Continue the IV vancomycin. Continue the wound care. Continue PT. Job ID: [id number] [facility]
[2018-10-07] MEDS ORDERED: Vancomycin HCl 750 MG VIAL ONE (19:36)
[2018-10-07] MEDS: Guaifenesin DM 100-10/5 ML UDCUP PO PRN (20:31)
[2018-10-08] MEDS: diphenhydrAMINE 25 MG CAP PO PRN ×3 (02:46→20:21)
[2018-10-08] MEDS: HYDROcodone/Acetaminophen 10/325 mg Tablet PO PRN ×3 (02:46→20:20)
[2018-10-08 07:44] LABS: Vancomycin, Trough 17.4 ug/mL
--- NOTE | 2018-10-08 07:58 | PRG ---
DATE OF SERVICE: 10/08/2018 SUBJECTIVE: The patient said he is feeling pretty good this morning. About 3 this morning, he had to take a pain pill and Benadryl, since then he has been comfortable. The patient is asking for a short pass to go to his home in [place] on Thursday, 10/10 to get his computer and phone, and just to see his puppies. We will consider this. He said he would have his [id number] with him and he would not drink. OBJECTIVE: GENERAL: The patient is alert, appears comfortable, is in a good mood, in no distress. VITAL SIGNS: His temp is 98.5, pulse 66, respirations 18, O2 saturation 96%, blood pressure 156/65. LUNGS: Clear. HEART: Regular rate. SKIN: Dressing over the left wound is dry. The wound overall is looking better. ASSESSMENT: 1. Chronic osteomyelitis of the left shoulder. a. Initiated from a steroid injection in December 2015. b. He has undergone repeated incision and drainage and arthrotomies. c. He has undergone multiple long courses of IV antibiotics. d. Cultures initially grew Propionibacterium acne and later a methicillin- resistant Staphylococcus aureus. e. Status post left humeral head resection and placement of a Prostalac antibiotic spacer on 07/02/2017. f. Status post recurrence of septic joint requiring reopening of the wound and removal of Prostalac spacer and washout. g. 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 h. Increased drainage from the left shoulder requiring incision and drainage and antibiotic spacer placement which has since come out, surgery on 2018, now hospitalized at [facility] on 09/23/2018 for an 8-week course of IV vancomycin. i. Continues to receive the IV vancomycin with doses adjusted according to vancomycin trough level. Wound looks better as of 10/08/2018. 2. Dilated cardiomyopathy. a. Echocardiogram on 09/09/2018 showed an ejection fraction of 20% to 25% with global hypokinesis, dilated left ventricle, and enlarged left and right atrium. b. Refused heart catheterization and LifeVest. c. Management with Lasix, carvedilol, not tolerant to AZAEL or ARBS due to hypotension. d. No evidence of acute congestive heart failure as of 10/08/2018. 3. History of diabetes. a. Refuses any insulin. b. Hemoglobin A1c on 08/19/2017 is 5.7. 4. Paroxysmal atrial fibrillation. a. On aspirin and refused to take Eliquis or Xarelto or Coumadin. b. Recent rapid ventricular response during hospitalization at [facility] from 09/08 to 09/23/2018. c. The patient has an irregularly irregular rhythm, but rate controlled as of 10/07/2018. 5. History of transient ischemic attack. a. He said he initially presented with weakness of the right arm on 2015. b. No recurrence. 6. History of normocytic normochromic anemia. 7. Alcoholism. 8. Chronic obstructive pulmonary disease. 9. Chronic low back pain secondary to lumbar spondylosis with moderate to severe stenosis at L2-L3, L3-L4, and L4-L5 level. 10. Para influenza type 3. a. Presenting with cough, runny nose, and fever with clear chest x-ray on 09/27/2018. b. Complicated by bronchitis as of 10/01/2018. c. Resolved as of 10/07/2018. PLAN: Continue IV vancomycin. Continue PT. Continue present medicines. We will consider a pass for Thursday, 10/10, for very short period with supervision. Job ID: [id number] [facility]
[2018-10-08] MEDS: Furosemide 40 MG TAB PO SCH (08:02)
[2018-10-08] MEDS: Vancomycin HCl 750 MG in Sodium Chloride 0.9% 250 ML 250 ML IVPB SCH ×2 (08:03→19:02)
[2018-10-08] MEDS: Potassium Chloride 20 MEQ TAB PO SCH ×2 (08:03→17:16)
[2018-10-08] MEDS: Carvedilol 12.5 MG TAB PO SCH ×2 (08:03→17:16)
[2018-10-08] MEDS: Magnesium Oxide 400 MG TAB PO SCH (09:08)
[2018-10-08] MEDS: Multivitamin W/ Minerals 1 TAB PO SCH (09:08)
[2018-10-08] MEDS: Thiamine 100 MG TAB PO SCH (09:08)
[2018-10-08] MEDS: Folic Acid 1 MG TAB PO SCH (09:10)
[2018-10-08] MEDS: Keri Lotion 15 oz BOT TOP SCH ×2 (09:12→20:20)
[2018-10-08] MEDS: Digoxin 0.25 MG TAB PO SCH (09:12)
[2018-10-08] MEDS: Clotrimazole 1% Cream 15 GM TUBE TOP SCH ×2 (09:12→20:19)
[2018-10-08] MEDS: Hydrocortisone 1% Cream 30 GM TUBE TOP SCH ×2 (09:12→20:19)
[2018-10-08] MEDS: Lorazepam 1 MG TAB PO PRN (20:21)
[2018-10-09] MEDS: HYDROcodone/Acetaminophen 10/325 mg Tablet PO PRN ×3 (05:07→20:14)
[2018-10-09] MEDS: diphenhydrAMINE 25 MG CAP PO PRN ×3 (05:08→17:33)
[2018-10-09] MEDS: Vancomycin HCl 750 MG in Sodium Chloride 0.9% 250 ML 250 ML IVPB SCH ×2 (08:36→20:12)
[2018-10-09] MEDS: Potassium Chloride 20 MEQ TAB PO SCH ×2 (08:37→17:27)
[2018-10-09] MEDS: Multivitamin W/ Minerals 1 TAB PO SCH (08:37)
[2018-10-09] MEDS: Hydrocortisone 1% Cream 30 GM TUBE TOP SCH ×2 (08:37→20:12)
[2018-10-09] MEDS: Furosemide 40 MG TAB PO SCH (08:37)
[2018-10-09] MEDS: Thiamine 100 MG TAB PO SCH (08:37)
[2018-10-09] MEDS: Clotrimazole 1% Cream 15 GM TUBE TOP SCH ×2 (08:37→20:13)
[2018-10-09] MEDS: Carvedilol 12.5 MG TAB PO SCH ×2 (08:37→17:27)
[2018-10-09] MEDS: Magnesium Oxide 400 MG TAB PO SCH (08:37)
[2018-10-09] MEDS: Keri Lotion 15 oz BOT TOP SCH ×2 (08:38→20:13)
[2018-10-09] MEDS: Digoxin 0.25 MG TAB PO SCH (08:38)
[2018-10-09] MEDS: Folic Acid 1 MG TAB PO SCH (08:38)
[2018-10-09] MEDS: Acetaminophen 325 MG TAB PO PRN (17:33)
[2018-10-09] MEDS: Lorazepam 1 MG TAB PO PRN (20:13)
[2018-10-09] MEDS: Melatonin 3 MG TAB PO PRN (20:14)
[2018-10-10] MEDS: diphenhydrAMINE 25 MG CAP PO PRN ×2 (06:16→16:50)
[2018-10-10] MEDS: HYDROcodone/Acetaminophen 10/325 mg Tablet PO PRN ×2 (06:16→16:50)
[2018-10-10] MEDS: Folic Acid 1 MG TAB PO SCH (08:54)
[2018-10-10] MEDS: Carvedilol 12.5 MG TAB PO SCH ×2 (08:54→16:50)
[2018-10-10] MEDS: Digoxin 0.25 MG TAB PO SCH (08:54)
[2018-10-10] MEDS: Vancomycin HCl 750 MG in Sodium Chloride 0.9% 250 ML 250 ML IVPB SCH ×2 (08:54→20:08)
[2018-10-10] MEDS: Furosemide 40 MG TAB PO SCH (08:54)
[2018-10-10] MEDS: Potassium Chloride 20 MEQ TAB PO SCH ×2 (08:54→16:50)
[2018-10-10] MEDS: Thiamine 100 MG TAB PO SCH (08:54)
[2018-10-10] MEDS: Clotrimazole 1% Cream 15 GM TUBE TOP SCH ×2 (08:55→20:09)
[2018-10-10] MEDS: Magnesium Oxide 400 MG TAB PO SCH (08:55)
[2018-10-10] MEDS: Hydrocortisone 1% Cream 30 GM TUBE TOP SCH ×2 (08:55→20:08)
[2018-10-10] MEDS: Keri Lotion 15 oz BOT TOP SCH ×2 (08:55→20:09)
[2018-10-10] MEDS: Multivitamin W/ Minerals 1 TAB PO SCH (08:55)
[2018-10-10] MEDS: Lorazepam 1 MG TAB PO PRN (20:08)
[2018-10-11] MEDS: HYDROcodone/Acetaminophen 10/325 mg Tablet PO PRN ×3 (05:16→20:11)
[2018-10-11] MEDS: diphenhydrAMINE 25 MG CAP PO PRN ×3 (05:17→20:27)
--- NOTE | 2018-10-11 08:46 | PRG ---
DATE OF SERVICE: 10/09/2018 SUBJECTIVE: The patient thinks he is doing all right. His pain has been well controlled. The drainage of the left shoulder stable. He is having no shortness of breath or chest pain. OBJECTIVE: VITAL SIGNS: The patient's vital signs show temperature 97.3, pulse 97, respirations 16, O2 saturation 98% on room air, and blood pressure 155/79. EXTREMITIES: Left shoulder, his dressing is dry and clean. LUNGS: Clear. HEART: Irregularly irregular rhythm. EXTREMITIES: No edema. ASSESSMENT: 1. Chronic osteomyelitis of the left shoulder. a. Initiated from a steroid injection in December 2015. b. He has undergone repeated incision and drainage and arthrotomies. c. He has undergone multiple long courses of IV antibiotics. d. Cultures initially grew Propionibacterium acne and later a methicillin- resistant Staphylococcus aureus. e. Status post left humeral head resection and placement of a Prostalac antibiotic spacer on 07/02/2017. f. Status post recurrence of septic joint requiring reopening of the wound and removal of Prostalac spacer and washout. g. 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 h. Increased drainage from the left shoulder requiring incision and drainage and antibiotic spacer placement which has since come out, surgery on 2018, now hospitalized at [facility] on 09/23/2018 for an 8-week course of IV vancomycin. i. The patient continues to receive the IV vancomycin with doses modified if necessary according to vancomycin trough level. Wound continues to look a little better, but still has some serous drainage as of 10/09/2018. 2. Dilated cardiomyopathy. a. Echocardiogram on 09/09/2018 showed an ejection fraction of 20% to 25% with global hypokinesis, dilated left ventricle, and enlarged left and right atrium. b. Refused heart catheterization and LifeVest. c. Management with Lasix, carvedilol, not tolerant to AZAEL or ARBS due to hypotension. d. No evidence of acute congestive heart failure as of 10/09/2018. 3. History of diabetes. a. Refuses any insulin. b. Hemoglobin A1c on 08/19/2017 is 5.7. 4. Paroxysmal atrial fibrillation. a. On aspirin and refused to take Eliquis or Xarelto or Coumadin. b. Recent rapid ventricular response during hospitalization at [facility] from 09/08 to 09/23/2018. c. The patient has an irregularly irregular rhythm, but rate controlled as of 10/07/2018. 5. History of transient ischemic attack. a. He said he initially presented with weakness of the right arm on 2015. b. No recurrence. 6. History of normocytic normochromic anemia. 7. Alcoholism. 8. Chronic obstructive pulmonary disease. 9. Chronic low back pain secondary to lumbar spondylosis with moderate to severe stenosis at L2-L3, L3-L4, and L4-L5 level. 10. Para influenza type 3. a. Presenting with cough, runny nose, and fever with clear chest x-ray on 09/27/2018. b. Complicated by bronchitis as of 10/01/2018. c. Resolved as of 10/07/2018. PLAN: Continue present care. Continue PT. Continue wound care and vancomycin. The patient again was asking about pass at home and visited with the nursing supervisor word processing, Megan, and asked about this and she spoke with the [id number] , Christy. The spafdujb-ff-axr was willing to bring his computer and phone chargers and whatever paperwork he needs up to the hospital for him and also bring his dog up for a visit. Aeuacsqe-ru-lwa said that he has lots of alcohol about in the house and is not sure she could get every bit of this out and prevent him from drinking even if he was supervised. The patient assured us that he would not drink but this has not been his track record. We have offered the patient what we felt as a reasonable compromise and let her bring the paperwork and go back if there is something more he needs and let her bring the computer and chargers, and if we can help him with chargers, we will do that and then bring his dog for a visit. This does not seem to satisfy him, he says he may consider leaving [place]. I think it would be difficult to manage him as an outpatient with the wound being dressed twice a day and receiving the vancomycin per PICC line twice a day and having to receive periodic vancomycin trough levels. Hopefully , the patient will settle down. He has been doing very well and he has not had issue with the nursing staff after the nursing supervisor word processing had visited with him. I am trying to offer him some reasonable compromise, but I am not sure what he is going to accept. Job ID: [id number] GENI
[2018-10-11] MEDS: Digoxin 0.25 MG TAB PO SCH (09:09)
[2018-10-11] MEDS: Carvedilol 12.5 MG TAB PO SCH ×2 (09:09→17:54)
[2018-10-11] MEDS: Thiamine 100 MG TAB PO SCH (09:09)
[2018-10-11] MEDS: Folic Acid 1 MG TAB PO SCH (09:09)
[2018-10-11] MEDS: Multivitamin W/ Minerals 1 TAB PO SCH (09:09)
[2018-10-11] MEDS: Furosemide 40 MG TAB PO SCH (09:09)
[2018-10-11] MEDS: Lorazepam 1 MG TAB PO PRN (09:10)
[2018-10-11] MEDS: Magnesium Oxide 400 MG TAB PO SCH (09:10)
[2018-10-11] MEDS: Potassium Chloride 20 MEQ TAB PO SCH ×2 (09:10→17:54)
[2018-10-11] MEDS: Hydrocortisone 1% Cream 30 GM TUBE TOP SCH ×2 (09:11→20:28)
[2018-10-11] MEDS: Vancomycin HCl 750 MG in Sodium Chloride 0.9% 250 ML 250 ML IVPB SCH ×2 (09:11→20:27)
[2018-10-11] MEDS: Clotrimazole 1% Cream 15 GM TUBE TOP SCH ×2 (09:11→20:27)
[2018-10-11] MEDS: Keri Lotion 15 oz BOT TOP SCH ×2 (09:11→20:28)
[2018-10-11] MEDS: Fluconazole 100 MG TAB PO SCH (10:31)
--- NOTE | 2018-10-11 10:48 | PRG ---
DATE OF SERVICE: 10/11/2018 The patient was angry at me today, because we would not allow him to go on a pass for him to go to his home to get papers, computer, and phone. Visited with the nursing finishing and shipping supervisor and she had visited with the [id number], Christy, and she said there was plenty of alcohol in the home that she was uncomfortable even accompanying him there. Previous admission when he was given a pass, he came back inebriated and very hostile. The patient did look at options of being managed as an outpatient, but this would be too expensive. He has elected to stay, but very angry about not been allowed out on a pass. This morning, his PICC line was just slightly red. This will be after he finished eating breakfast, cleaned and watched, he has had no fever. His condition was stable. We will continue his IV vancomycin. Wound dressing is clean. Continue twice a day dressing changes. Job ID: [id number]
[2018-10-12] MEDS: HYDROcodone/Acetaminophen 10/325 mg Tablet PO PRN ×3 (03:48→16:32)
[2018-10-12] MEDS: diphenhydrAMINE 25 MG CAP PO PRN ×3 (03:49→16:33)
[2018-10-12] MEDS: Vancomycin HCl 750 MG in Sodium Chloride 0.9% 250 ML 250 ML IVPB SCH ×2 (08:32→20:35)
[2018-10-12] MEDS: Carvedilol 12.5 MG TAB PO SCH ×2 (08:34→16:32)
[2018-10-12] MEDS: Fluconazole 100 MG TAB PO SCH (08:34)
[2018-10-12] MEDS: Lorazepam 1 MG TAB PO PRN (08:34)
[2018-10-12] MEDS: Folic Acid 1 MG TAB PO SCH (08:35)
[2018-10-12] MEDS: Potassium Chloride 20 MEQ TAB PO SCH ×2 (08:35→16:32)
[2018-10-12] MEDS: Furosemide 40 MG TAB PO SCH (08:35)
[2018-10-12] MEDS: Clotrimazole 1% Cream 15 GM TUBE TOP SCH ×2 (08:35→20:38)
[2018-10-12] MEDS: Thiamine 100 MG TAB PO SCH (08:35)
[2018-10-12] MEDS: Magnesium Oxide 400 MG TAB PO SCH (08:35)
[2018-10-12] MEDS: Digoxin 0.25 MG TAB PO SCH (08:35)
[2018-10-12] MEDS: Multivitamin W/ Minerals 1 TAB PO SCH (08:35)
[2018-10-12] MEDS: Hydrocortisone 1% Cream 30 GM TUBE TOP SCH ×2 (08:36→20:38)
[2018-10-12] MEDS: Keri Lotion 15 oz BOT TOP SCH ×2 (08:36→21:01)
--- NOTE | 2018-10-12 12:23 | PRG ---
DATE OF SERVICE: 10/12/2018 SUBJECTIVE: The patient is feeling good this morning. He is in good spirits. He was apologetic for the last several days. Arrangements were being made for him to see Dr. Barajas in followup visit. He is feeling well. His left shoulder pain is controlled. Yesterday, he had developed a little bit of redness and tiny white plaques on the skin at the PICC line site of the right arm. The patient said he thinks it is a little more swell there today. It is still functioning. OBJECTIVE: GENERAL: The patient is sitting on the side of the bed. He is alert, talkative, smiling and appears in no distress and very congenial. VITAL SIGNS: Show a temperature 97.1, pulse 81, respirations 18, O2 saturation 95% on room air, and blood pressure 122/78. LUNGS: Clear. HEART: Regular rate. EXTREMITIES: Left shoulder, the dressing is dry, was just dressed a couple of hours a day, requiring twice today dressing due to the serous drainage on to the dressings. His right arm PICC line in the upper arm at the insertion site, there is a little redness and puffiness and little induration and there is some small little clusters of white plaques that are just 2 or 3 mm in size. The areas are more raised than what it was yesterday. ASSESSMENT: 1. Chronic osteomyelitis of the left shoulder. a. Initiated from a steroid injection in December 2015. b. He has undergone repeated incision and drainage and arthrotomies. c. He has undergone multiple long courses of IV antibiotics. d. Cultures initially grew Propionibacterium acne and later a methicillin- resistant Staphylococcus aureus. e. Status post left humeral head resection and placement of a Prostalac antibiotic spacer on 07/02/2017. f. Status post recurrence of septic joint requiring reopening of the wound and removal of Prostalac spacer and washout. g. 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 h. Increased drainage from the left shoulder requiring incision and drainage and antibiotic spacer placement which has since come out, surgery on 2018, now hospitalized at [facility] on 09/23/2018 for an 8-week course of IV vancomycin. i. The patient continues on the IV vancomycin. The wound looks clean and culture from the wound during this admission had no growth. Still has moderate amount of serous drainage from the wound and requires dressing changes twice today as of 10/12/2018. 2. Dilated cardiomyopathy. a. Echocardiogram on 09/09/2018 showed an ejection fraction of 20% to 25% with global hypokinesis, dilated left ventricle, and enlarged left and right atrium. b. Refused heart catheterization and LifeVest. c. Management with Lasix, carvedilol, not tolerant to AZAEL or ARBS due to hypotension. d. No evidence of acute congestive heart failure as of 10/12/2018. 3. History of diabetes. a. Refuses any insulin. b. Hemoglobin A1c on 08/19/2017 is 5.7. 4. Paroxysmal atrial fibrillation. a. On aspirin and refused to take Eliquis or Xarelto or Coumadin. b. Recent rapid ventricular response during hospitalization at [facility] from 09/08 to 09/23/2018. c. The patient has an irregularly irregular rhythm, but rate controlled as of 10/07/2018. 5. History of transient ischemic attack. a. He said he initially presented with weakness of the right arm on 2015. b. No recurrence. 6. History of normocytic normochromic anemia. 7. Alcoholism. 8. Chronic obstructive pulmonary disease. 9. Chronic low back pain secondary to lumbar spondylosis with moderate to severe stenosis at L2-L3, L3-L4, and L4-L5 level. 10. Para influenza type 3. a. Presenting with cough, runny nose, and fever with clear chest x-ray on 09/27/2018. b. Complicated by bronchitis as of 10/01/2018. c. Resolved as of 10/07/2018. 11. Irritation with redness and some induration and white plaques at the insertion site of the PICC line in the right upper arm as of 10/12/2018. PLAN: The patient will receive his vancomycin infusion this morning at 08:00. We will arrange for this PICC line to be removed and new in place with Radiology dish washer in [place]. Culture of the site is taken. The area will be cleaned daily and clotrimazole cream applied twice today. Appointment has been requested for the patient to see Dr. Barajas. At present, the patient is agreeable to go, have the line changed out and continue his IV vancomycin. Job ID: [id number] [facility]
[2018-10-13] MEDS: HYDROcodone/Acetaminophen 10/325 mg Tablet PO PRN ×3 (08:38→20:57)
[2018-10-13] MEDS: diphenhydrAMINE 25 MG CAP PO PRN ×3 (08:38→20:58)
[2018-10-13] MEDS: Thiamine 100 MG TAB PO SCH (08:40)
[2018-10-13] MEDS: Potassium Chloride 20 MEQ TAB PO SCH ×2 (08:40→17:08)
[2018-10-13] MEDS: Lorazepam 1 MG TAB PO PRN (08:40)
[2018-10-13] MEDS: Multivitamin W/ Minerals 1 TAB PO SCH (08:40)
[2018-10-13] MEDS: Fluconazole 100 MG TAB PO SCH (08:40)
[2018-10-13] MEDS: Carvedilol 12.5 MG TAB PO SCH ×2 (08:40→17:08)
[2018-10-13] MEDS: Furosemide 40 MG TAB PO SCH (08:41)
[2018-10-13] MEDS: Digoxin 0.25 MG TAB PO SCH (08:41)
[2018-10-13] MEDS: Magnesium Oxide 400 MG TAB PO SCH (08:41)
[2018-10-13] MEDS: Folic Acid 1 MG TAB PO SCH (08:41)
[2018-10-13] MEDS: Keri Lotion 15 oz BOT TOP SCH ×2 (08:43→20:32)
[2018-10-13] MEDS: Clotrimazole 1% Cream 15 GM TUBE TOP SCH ×2 (08:43→20:32)
[2018-10-13] MEDS: Hydrocortisone 1% Cream 30 GM TUBE TOP SCH ×2 (08:45→20:32)
[2018-10-13] MEDS: Vancomycin HCl 750 MG in Sodium Chloride 0.9% 250 ML 250 ML IVPB SCH ×2 (09:19→20:28)
--- NOTE | 2018-10-13 11:23 | PRG ---
DATE OF SERVICE: 10/13/2018 SUBJECTIVE: The patient said that he is feeling good this morning. He is tired. Yesterday, he was sent over to [facility] and had the PICC line in the right arm removed and a new one placed due to the possible infection at the insertion site. He said he is doing good this morning, just a little tired from the increased activities and walking. OBJECTIVE: GENERAL: The patient is alert. He appears happy and in no distress. VITAL SIGNS: Shows a temperature 97.4, pulse 83, respirations 18, O2 saturation 97% on room air, blood pressure 124/68. LUNGS: Clear. HEART: Regular rate. EXTREMITIES: Left shoulder, the dressing has a moderate amount of the yellowish serous drainage. The wound itself looks smaller, but there is still the deep wound that extends down into the shoulder recess. Overall, though the wound is smaller and there is no surrounding redness. His right upper arm above the antecubital fossa, the site where the previous PICC line was removed looks better. There is less pinkness, less induration and looks much improved. The new PICC line is more proximally placed on the right upper arm and that site looks clean, and is functioning well. ASSESSMENT: 1. Chronic osteomyelitis of the left shoulder. a. Initiated from a steroid injection in December 2015. b. He has undergone repeated incision and drainage and arthrotomies. c. He has undergone multiple long courses of IV antibiotics. d. Cultures initially grew Propionibacterium acne and later a methicillin- resistant Staphylococcus aureus. e. Status post left humeral head resection and placement of a Prostalac antibiotic spacer on 07/02/2017. f. Status post recurrence of septic joint requiring reopening of the wound and removal of Prostalac spacer and washout. g. 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 h. Increased drainage from the left shoulder requiring incision and drainage and antibiotic spacer placement which has since come out, surgery on 2018, now hospitalized at [facility] on 09/23/2018 for an 8-week course of IV vancomycin. i. Doing well. Continues on the IV vancomycin. Wound looks clean, but has the chronic moderate yellow drainage from the shoulder as of 10/13/2017. 2. Dilated cardiomyopathy. a. Echocardiogram on 09/09/2018 showed an ejection fraction of 20% to 25% with global hypokinesis, dilated left ventricle, and enlarged left and right atrium. b. Refused heart catheterization and LifeVest. c. Management with Lasix, carvedilol, not tolerant to AZAEL or ARBS due to hypotension. d. No evidence of acute congestive heart failure as of 10/13/2018. 3. History of diabetes. a. Refuses any insulin. b. Hemoglobin A1c on 08/19/2017 is 5.7. 4. Paroxysmal atrial fibrillation. a. On aspirin and refused to take Eliquis or Xarelto or Coumadin. b. Recent rapid ventricular response during hospitalization at [facility] from 09/08 to 09/23/2018. c. The patient has an irregularly irregular rhythm, but rate controlled as of 10/07/2018. 5. History of transient ischemic attack. a. He said he initially presented with weakness of the right arm on 2015. b. No recurrence. 6. History of normocytic normochromic anemia. 7. Alcoholism. 8. Chronic obstructive pulmonary disease. 9. Chronic low back pain secondary to lumbar spondylosis with moderate to severe stenosis at L2-L3, L3-L4, and L4-L5 level. 10. Para influenza type 3. a. Presenting with cough, runny nose, and fever with clear chest x-ray on 09/27/2018. b. Complicated by bronchitis as of 10/01/2018. c. Resolved as of 10/07/2018. 11. Irritation with redness and some induration and white plaques at the insertion site of the PICC line in the right upper arm as of 10/12/2018. a. Old PICC line removed and replaced with a new PICC line in the right upper arm on 10/12/2018 without problems. The old insert site of the old PICC line looks better as of 10/13/2018. PLAN: Continue present wound care. Continue the IV vancomycin. The site of the old PICC line insertion will just be kept clean daily. Job ID: [id number] MTDD
[2018-10-14] MEDS: Thiamine 100 MG TAB PO SCH (08:00)
[2018-10-14] MEDS: Potassium Chloride 20 MEQ TAB PO SCH ×2 (08:00→17:12)
[2018-10-14] MEDS: Magnesium Oxide 400 MG TAB PO SCH (08:00)
[2018-10-14] MEDS: Lorazepam 1 MG TAB PO PRN (08:01)
[2018-10-14] MEDS: Carvedilol 12.5 MG TAB PO SCH ×2 (08:01→17:12)
[2018-10-14] MEDS: HYDROcodone/Acetaminophen 10/325 mg Tablet PO PRN ×2 (08:01→13:01)
[2018-10-14] MEDS: diphenhydrAMINE 25 MG CAP PO PRN ×2 (08:01→13:01)
[2018-10-14] MEDS: Digoxin 0.25 MG TAB PO SCH (08:01)
[2018-10-14] MEDS: Fluconazole 100 MG TAB PO SCH (08:02)
[2018-10-14] MEDS: Furosemide 40 MG TAB PO SCH (08:02)
[2018-10-14] MEDS: Folic Acid 1 MG TAB PO SCH (08:02)
[2018-10-14] MEDS: Vancomycin HCl 750 MG in Sodium Chloride 0.9% 250 ML 250 ML IVPB SCH ×2 (08:02→19:55)
[2018-10-14] MEDS: Multivitamin W/ Minerals 1 TAB PO SCH (08:02)
[2018-10-14] MEDS: Keri Lotion 15 oz BOT TOP SCH ×2 (08:03→20:01)
[2018-10-14] MEDS: Clotrimazole 1% Cream 15 GM TUBE TOP SCH ×2 (08:04→20:01)
[2018-10-14] MEDS: Hydrocortisone 1% Cream 30 GM TUBE TOP SCH ×2 (08:04→20:01)
[2018-10-15] MEDS: HYDROcodone/Acetaminophen 10/325 mg Tablet PO PRN ×2 (05:31→20:01)
[2018-10-15] MEDS: diphenhydrAMINE 25 MG CAP PO PRN ×2 (05:31→20:01)
[2018-10-15] MEDS: Carvedilol 12.5 MG TAB PO SCH ×2 (08:36→17:23)
[2018-10-15] MEDS: Potassium Chloride 20 MEQ TAB PO SCH ×2 (08:37→17:22)
[2018-10-15] MEDS: Vancomycin HCl 750 MG in Sodium Chloride 0.9% 250 ML 250 ML IVPB SCH ×2 (08:37→20:02)
[2018-10-15] MEDS: Furosemide 40 MG TAB PO SCH (08:37)
[2018-10-15] MEDS: Digoxin 0.25 MG TAB PO SCH (08:37)
[2018-10-15] MEDS: Clotrimazole 1% Cream 15 GM TUBE TOP SCH ×2 (08:37→20:23)
[2018-10-15] MEDS: Hydrocortisone 1% Cream 30 GM TUBE TOP SCH ×2 (08:38→20:23)
[2018-10-15] MEDS: Fluconazole 100 MG TAB PO SCH (08:38)
[2018-10-15] MEDS: Multivitamin W/ Minerals 1 TAB PO SCH (08:38)
[2018-10-15] MEDS: Folic Acid 1 MG TAB PO SCH (08:38)
[2018-10-15] MEDS: Lorazepam 1 MG TAB PO PRN (08:38)
[2018-10-15] MEDS: Thiamine 100 MG TAB PO SCH (08:38)
[2018-10-15] MEDS: Magnesium Oxide 400 MG TAB PO SCH (08:38)
[2018-10-15] MEDS: Keri Lotion 15 oz BOT TOP SCH ×2 (08:41→20:23)
--- NOTE | 2018-10-15 11:30 | PRG ---
DATE OF SERVICE: 10/15/2018 SUBJECTIVE: The patient says he is doing all right. He has some chronic pain in that left shoulder, but he is controlling it with his pain medication. Overall , he thinks he is doing okay. OBJECTIVE: GENERAL: The patient is sitting up in bed. He is alert, talkative, friendly, and appears in no distress. VITAL SIGNS: Shows a temperature 97.4, pulse 84, respirations 20, O2 saturation 96% on room air, blood pressure 139/68. LUNGS: Clear. HEART: Regular rate. EXTREMITIES: Left shoulder, the dressing is dry. PICC line in the right arm. Site is clean. The old site has a little dressing on it. The surrounding little redness, puffiness has resolved. LABORATORY DATA: The culture from the original PICC line insertion, right upper arm that had become irritated showed a few WBCs, no organisms, and culture had no growth at 48 hours. FBS this morning 180. Vancomycin trough level on 10/13 was 18, which is in the therapeutic range of the 15 to 25 for osteomyelitis. ASSESSMENT: 1. Chronic osteomyelitis of the left shoulder. a. Initiated from a steroid injection in December 2015. b. He has undergone repeated incision and drainage and arthrotomies. c. He has undergone multiple long courses of IV antibiotics. d. Cultures initially grew Propionibacterium acne and later a methicillin- resistant Staphylococcus aureus. e. Status post left humeral head resection and placement of a Prostalac antibiotic spacer on 07/02/2017. f. Status post recurrence of septic joint requiring reopening of the wound and removal of Prostalac spacer and washout. g. 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 h. Increased drainage from the left shoulder requiring incision and drainage and antibiotic spacer placement which has since come out, surgery on 2018, now hospitalized at [facility] on 09/23/2018 for an 8-week course of IV vancomycin. i. Doing well. Continues on the IV vancomycin as of 10/15/2018. 2. Dilated cardiomyopathy. a. Echocardiogram on 09/09/2018 showed an ejection fraction of 20% to 25% with global hypokinesis, dilated left ventricle, and enlarged left and right atrium. b. Refused heart catheterization and LifeVest. c. Management with Lasix, carvedilol, not tolerant to AZAEL or ARBS due to hypotension. d. No evidence of acute congestive heart failure as of 10/15/2018. 3. History of diabetes. a. Refuses any insulin. b. Hemoglobin A1c on 08/19/2017 is 5.7. 4. Paroxysmal atrial fibrillation. a. On aspirin and refused to take Eliquis or Xarelto or Coumadin. b. Recent rapid ventricular response during hospitalization at [facility] from 09/08 to 09/23/2018. c. The patient has an irregularly irregular rhythm, but rate controlled as of 10/07/2018. 5. History of transient ischemic attack. a. He said he initially presented with weakness of the right arm on 2015. b. No recurrence. 6. History of normocytic normochromic anemia. 7. Alcoholism. 8. Chronic obstructive pulmonary disease. 9. Chronic low back pain secondary to lumbar spondylosis with moderate to severe stenosis at L2-L3, L3-L4, and L4-L5 level. 10. Para influenza type 3. a. Presenting with cough, runny nose, and fever with clear chest x-ray on 09/27/2018. b. Complicated by bronchitis as of 10/01/2018. c. Resolved as of 10/07/2018. 11. Irritation with redness and some induration and white plaques at the insertion site of the PICC line in the right upper arm as of 10/12/2018. a. Old PICC line removed and replaced with a new PICC line in the right upper arm on 10/12/2018 without problems. The old insert site of the old PICC line looks better as of 10/13/2018. b. The original insertion site inflammation is healing. The culture had no growth. New insertion site in the left upper arm more proximally is clean. Dressing clean. No redness as of 10/15/2018. PLAN: The patient is doing well. We will continue present care. Continue the IV vancomycin. Job ID: [id number] MTDD
[2018-10-16 07:22] LABS: Vancomycin, Trough 19.3 ug/mL
[2018-10-16] MEDS: Carvedilol 12.5 MG TAB PO SCH ×2 (08:10→17:04)
[2018-10-16] MEDS: Digoxin 0.25 MG TAB PO SCH (08:10)
[2018-10-16] MEDS: Furosemide 40 MG TAB PO SCH (08:10)
[2018-10-16] MEDS: Multivitamin W/ Minerals 1 TAB PO SCH (08:10)
[2018-10-16] MEDS: Fluconazole 100 MG TAB PO SCH (08:10)
[2018-10-16] MEDS: diphenhydrAMINE 25 MG CAP PO PRN ×2 (08:10→16:09)
[2018-10-16] MEDS: Folic Acid 1 MG TAB PO SCH (08:10)
[2018-10-16] MEDS: Magnesium Oxide 400 MG TAB PO SCH (08:10)
[2018-10-16] MEDS: Potassium Chloride 20 MEQ TAB PO SCH ×2 (08:11→17:03)
[2018-10-16] MEDS: HYDROcodone/Acetaminophen 10/325 mg Tablet PO PRN ×2 (08:11→16:09)
[2018-10-16] MEDS: Vancomycin HCl 750 MG in Sodium Chloride 0.9% 250 ML 250 ML IVPB SCH ×2 (08:17→20:02)
[2018-10-16] MEDS: Thiamine 100 MG TAB PO SCH (08:17)
[2018-10-16] MEDS: Hydrocortisone 1% Cream 30 GM TUBE TOP SCH ×2 (08:18→20:03)
[2018-10-16] MEDS: Clotrimazole 1% Cream 15 GM TUBE TOP SCH ×2 (08:19→20:03)
[2018-10-16] MEDS: Keri Lotion 15 oz BOT TOP SCH ×2 (08:19→20:03)
[2018-10-17] MEDS: diphenhydrAMINE 25 MG CAP PO PRN ×3 (04:44→20:31)
[2018-10-17] MEDS: HYDROcodone/Acetaminophen 10/325 mg Tablet PO PRN ×3 (04:44→20:31)
[2018-10-17] MEDS: Vancomycin HCl 750 MG in Sodium Chloride 0.9% 250 ML 250 ML IVPB SCH ×2 (08:23→20:26)
[2018-10-17] MEDS: Thiamine 100 MG TAB PO SCH (08:25)
[2018-10-17] MEDS: Potassium Chloride 20 MEQ TAB PO SCH ×2 (08:25→17:01)
[2018-10-17] MEDS: Magnesium Oxide 400 MG TAB PO SCH (08:26)
[2018-10-17] MEDS: Hydrocortisone 1% Cream 30 GM TUBE TOP SCH ×2 (08:26→20:27)
[2018-10-17] MEDS: Carvedilol 12.5 MG TAB PO SCH ×2 (08:26→17:01)
[2018-10-17] MEDS: Fluconazole 100 MG TAB PO SCH (08:26)
[2018-10-17] MEDS: Furosemide 40 MG TAB PO SCH (08:26)
[2018-10-17] MEDS: Multivitamin W/ Minerals 1 TAB PO SCH (08:26)
[2018-10-17] MEDS: Folic Acid 1 MG TAB PO SCH (08:26)
[2018-10-17] MEDS: Digoxin 0.25 MG TAB PO SCH (08:27)
[2018-10-17] MEDS: Keri Lotion 15 oz BOT TOP SCH ×2 (08:27→20:27)
[2018-10-17] MEDS: Clotrimazole 1% Cream 15 GM TUBE TOP SCH ×2 (08:27→20:27)
[2018-10-18] MEDS: HYDROcodone/Acetaminophen 10/325 mg Tablet PO PRN ×3 (07:26→20:07)
[2018-10-18] MEDS: diphenhydrAMINE 25 MG CAP PO PRN ×3 (07:26→20:07)
[2018-10-18] MEDS: Vancomycin HCl 750 MG in Sodium Chloride 0.9% 250 ML 250 ML IVPB SCH ×2 (08:44→20:06)
[2018-10-18] MEDS: Thiamine 100 MG TAB PO SCH (08:46)
[2018-10-18] MEDS: Multivitamin W/ Minerals 1 TAB PO SCH (08:47)
[2018-10-18] MEDS: Digoxin 0.25 MG TAB PO SCH (08:47)
[2018-10-18] MEDS: Magnesium Oxide 400 MG TAB PO SCH (08:47)
[2018-10-18] MEDS: Furosemide 40 MG TAB PO SCH (08:47)
[2018-10-18] MEDS: Potassium Chloride 20 MEQ TAB PO SCH ×2 (08:47→17:12)
[2018-10-18] MEDS: Carvedilol 12.5 MG TAB PO SCH ×2 (08:47→17:12)
[2018-10-18] MEDS: Folic Acid 1 MG TAB PO SCH (08:47)
[2018-10-18] MEDS: Lorazepam 1 MG TAB PO PRN ×2 (08:47→20:06)
[2018-10-18] MEDS: Keri Lotion 15 oz BOT TOP SCH ×2 (08:48→20:11)
[2018-10-18] MEDS: Hydrocortisone 1% Cream 30 GM TUBE TOP SCH ×2 (08:48→20:11)
[2018-10-18] MEDS: Clotrimazole 1% Cream 15 GM TUBE TOP SCH ×2 (08:48→20:13)
[2018-10-18 09:02] LABS: ALT (SGPT) 40 U/L (8-55); AST (SGOT) 49 U/L (5-34); Albumin 4.1 g/dL (3.4-4.8); Alkaline Phosphatase 120 U/L (40-150); Anion Gap 16 mmol/L (10-20); BUN (Urea Nitrogen) 20 mg/dL (8.4-25.7); Bilirubin, Total 0.7 mg/dL (0.2-1.2); Calc. Creatinine Clearance 64 mL/min (70-130); Calcium 9.9 mg/dL (7.8-10.44); Carbon Dioxide 24 mmol/L (23-31); Chloride 104 mmol/L (98-107); Estimated GFR-MDRD 65; Glucose 165 mg/dL (83-110); Potassium 4.5 mmol/L (3.5-5.1); Protein, Total 8.1 g/dL (5.8-8.1); Sodium 139 mmol/L (136-145)
--- NOTE | 2018-10-18 09:06 | PRG ---
DATE OF SERVICE: 10/18/2018 SUBJECTIVE: The patient says he is doing okay today. He said he had a little bit of trouble sleeping last night. He had some soreness in his left shoulder. The pain medicine has helped. Yesterday, he had a little epigastric discomfort, but this was relieved after he had eaten supplement and after he had his pain medicine. This morning, his stomach feels fine. OBJECTIVE: GENERAL: The patient is sitting up in bed. He is alert, appears comfortable, in no distress. VITAL SIGNS: Temp 98, pulse 80, respirations 18, O2 saturation 96% on room air, blood pressure 139/72. LUNGS: Clear. HEART: Regular rate. EXTREMITIES: His right arm, the original insertion site for the PICC line is healing fine. The subsequent PICC line site is clean. No redness. ASSESSMENT: 1. Chronic osteomyelitis of the left shoulder. a. Initiated from a steroid injection in December 2015. b. He has undergone repeated incision and drainage and arthrotomies. c. He has undergone multiple long courses of IV antibiotics. d. Cultures initially grew Propionibacterium acne and later a methicillin- resistant Staphylococcus aureus. e. Status post left humeral head resection and placement of a Prostalac antibiotic spacer on 07/02/2017. f. Status post recurrence of septic joint requiring reopening of the wound and removal of Prostalac spacer and washout. g. 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 h. Increased drainage from the left shoulder requiring incision and drainage and antibiotic spacer placement which has since come out, surgery on 2018, now hospitalized at [facility] on 09/23/2018 for an 8-week course of IV vancomycin. i. Doing well. Continues on the IV vancomycin as of 10/18/2018. 2. Dilated cardiomyopathy. a. Echocardiogram on 09/09/2018 showed an ejection fraction of 20% to 25% with global hypokinesis, dilated left ventricle, and enlarged left and right atrium. b. Refused heart catheterization and LifeVest. c. Management with Lasix, carvedilol, not tolerant to AZAEL or ARBS due to hypotension. d. No evidence of acute congestive heart failure as of 10/18/2018. 3. History of diabetes. a. Refuses any insulin. b. Hemoglobin A1c on 08/19/2017 is 5.7. 4. Paroxysmal atrial fibrillation. a. On aspirin and refused to take Eliquis or Xarelto or Coumadin. b. Recent rapid ventricular response during hospitalization at [facility] from 09/08 to 09/23/2018. c. The patient has an irregularly irregular rhythm, but rate controlled as of 10/07/2018. 5. History of transient ischemic attack. a. He said he initially presented with weakness of the right arm on 2015. b. No recurrence. 6. History of normocytic normochromic anemia. 7. Alcoholism. 8. Chronic obstructive pulmonary disease. 9. Chronic low back pain secondary to lumbar spondylosis with moderate to severe stenosis at L2-L3, L3-L4, and L4-L5 level. 10. Para influenza type 3. a. Presenting with cough, runny nose, and fever with clear chest x-ray on 09/27/2018. b. Complicated by bronchitis as of 10/01/2018. c. Resolved as of 10/07/2018. 11. Irritation with redness and some induration and white plaques at the insertion site of the PICC line in the right upper arm as of 10/12/2018. a. Old PICC line removed and replaced with a new PICC line in the right upper arm on 10/12/2018 without problems. The old insertion site of the PICC line is healing as of 10/18/2018. b. The original insertion site inflammation is healing. The culture had no growth. New insertion site in the left upper arm more proximally is clean. Dressing clean. No redness as of 10/15/2018. PLAN: Continue present care. Continue IV vancomycin. Recheck lab in the morning including CBC, CMP, sedimentation rate, and CRP. Job ID: [id number] MTDD
[2018-10-19] MEDS: diphenhydrAMINE 25 MG CAP PO PRN ×2 (05:31→16:41)
[2018-10-19] MEDS: HYDROcodone/Acetaminophen 10/325 mg Tablet PO PRN ×2 (05:31→16:41)
[2018-10-19 07:14] LABS: #Basophils 0.1 thou/uL (0.0-0.2); #Eosinphils 0.3 thou/uL (0.0-0.7); #Lymphocytes 1.7 thou/uL (1.20-3.40); #Monocytes 0.7 thou/uL (0.11-0.59); #Neutrophils 3.3 thou/uL (1.40-6.50); %Basophils 1.2 % (0.0-1.0); %Eosinophils 4.6 % (0.0-10.0); %Lymphocytes 28.1 % (21.0-51.0); %Monocytes 11.3 % (0.0-10.0); %Neutrophils 54.8 % (42.0-75.0); Hemoglobin 12.9 g/dL (14.0-18.0); Mean Corpuscular HGB CONC 30.9 g/dL (32.0-36.0); Mean Corpuscular Hemoglobin 25.6 pg (27.0-31.0); Mean Corpuscular Volume 82.8 fL (78.0-98.0); Mean Platelet Volume 7.3 fL (7.4-10.4); Platelet Count 129 thou/uL (130-400); RBC Distribution Width 14.4 % (11.5-14.5); Red Blood Cell (RBC) Count 5.05 mill/uL (4.70-6.10)
[2018-10-19 07:24] LABS: Vancomycin, Trough 18.6 ug/mL
[2018-10-19] MEDS: Vancomycin HCl 750 MG in Sodium Chloride 0.9% 250 ML 250 ML IVPB SCH ×2 (08:14→20:20)
[2018-10-19] MEDS: Lorazepam 1 MG TAB PO PRN ×2 (08:15→21:51)
[2018-10-19] MEDS: Thiamine 100 MG TAB PO SCH (08:15)
[2018-10-19] MEDS: Multivitamin W/ Minerals 1 TAB PO SCH (08:15)
[2018-10-19] MEDS: Carvedilol 12.5 MG TAB PO SCH ×2 (08:15→16:41)
[2018-10-19] MEDS: Potassium Chloride 20 MEQ TAB PO SCH ×2 (08:15→16:41)
[2018-10-19] MEDS: Furosemide 40 MG TAB PO SCH (08:16)
[2018-10-19] MEDS: Hydrocortisone 1% Cream 30 GM TUBE TOP SCH ×2 (08:16→20:22)
[2018-10-19] MEDS: Digoxin 0.25 MG TAB PO SCH (08:16)
[2018-10-19] MEDS: Magnesium Oxide 400 MG TAB PO SCH (08:16)
[2018-10-19] MEDS: Folic Acid 1 MG TAB PO SCH (08:16)
[2018-10-19] MEDS: Clotrimazole 1% Cream 15 GM TUBE TOP SCH ×2 (08:16→20:22)
[2018-10-19] MEDS: Keri Lotion 15 oz BOT TOP SCH ×2 (08:17→20:23)
--- NOTE | 2018-10-19 08:35 | PRG ---
DATE OF SERVICE: 10/19/2018 SUBJECTIVE: The patient said he is doing okay. He is just bored being in the hospital. He still has intermittent pain in the left shoulder, but his pain medicine does help to control this. OBJECTIVE: GENERAL: The patient easily sits up from a lying position. Sits on the side of the bed or stands without any assistance. He appears comfortable and in no distress. VITAL SIGNS: His temperature is 97.4, pulse 77, respirations 20, O2 saturation 96% on room air, blood pressure 127/81. LUNGS: Clear. HEART: Irregularly irregular rhythm, rate controlled. EXTREMITIES: PICC line site in the right upper arm is clean. The original site is all healing. There is no surrounding redness and no drainage. His left shoulder, the dressing was changed this morning, is dry. The wound reported as stable, still has serous drainage. LABORATORY DATA: Shows H and H of 12.9 and 41.8, white cell count 6000 with 55% segs, 28% lymphocytes, and a platelet count of a 129,000. Sedimentation rate pending. Sodium 139, potassium 4.5, BUN 20, creatinine 1.1, GFR 65, glucose 165 , AST 49, albumin 4. Vancomycin level this morning shows 18.6, which is therapeutic. ASSESSMENT: 1. Chronic osteomyelitis of the left shoulder. a. Initiated from a steroid injection in December 2015. b. He has undergone repeated incision and drainage and arthrotomies. c. He has undergone multiple long courses of IV antibiotics. d. Cultures initially grew Propionibacterium acne and later a methicillin- resistant Staphylococcus aureus. e. Status post left humeral head resection and placement of a Prostalac antibiotic spacer on 07/02/2017. f. Status post recurrence of septic joint requiring reopening of the wound and removal of Prostalac spacer and washout. g. 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 h. Increased drainage from the left shoulder requiring incision and drainage and antibiotic spacer placement which has since come out, surgery on 2018, now hospitalized at [facility] on 09/23/2018 for an 8-week course of IV vancomycin. i. Doing well. Continues on the IV vancomycin as of 10/19/2018. 2. Dilated cardiomyopathy. a. Echocardiogram on 09/09/2018 showed an ejection fraction of 20% to 25% with global hypokinesis, dilated left ventricle, and enlarged left and right atrium. b. Refused heart catheterization and LifeVest. c. Management with Lasix, carvedilol, not tolerant to AZAEL or ARBS due to hypotension. d. No evidence of acute congestive heart failure as of 10/19/2018. 3. History of diabetes. a. Refuses any insulin. b. Hemoglobin A1c on 08/19/2017 is 5.7. 4. Paroxysmal atrial fibrillation. a. On aspirin and refused to take Eliquis or Xarelto or Coumadin. b. Recent rapid ventricular response during hospitalization at [facility] from 09/08 to 09/23/2018. c. The patient has an irregularly irregular rhythm, but rate controlled as of 10/19/2018. 5. History of transient ischemic attack. a. He said he initially presented with weakness of the right arm on 2015. b. No recurrence. 6. History of normocytic normochromic anemia. 7. Alcoholism. 8. Chronic obstructive pulmonary disease. 9. Chronic low back pain secondary to lumbar spondylosis with moderate to severe stenosis at L2-L3, L3-L4, and L4-L5 level. 10. Para influenza type 3. a. Presenting with cough, runny nose, and fever with clear chest x-ray on 09/27/2018. b. Complicated by bronchitis as of 10/01/2018. c. Resolved as of 10/07/2018. 11. Irritation with redness and some induration and white plaques at the insertion site of the PICC line in the right upper arm as of 10/12/2018. a. Old PICC line removed and replaced with a new PICC line in the right upper arm on 10/12/2018 without problems. The old insertion site of the PICC line is healing as of 10/18/2018. b. The original insertion site inflammation is healing. The culture had no growth. New insertion site in the left upper arm more proximally is clean. Dressing clean. No redness as of 10/19/2018. PLAN: Continue IV vancomycin. We will continue weekly recheck of blood tests. CRP pending. [facility] [id number] [facility]
[2018-10-19] MEDS ORDERED: Sodium Chloride Irrig Solution 250 ML BOT ONE (14:17)
[2018-10-19] MEDS: Keri Lotion 15 oz BOT TOP PRN (20:21)
[2018-10-19] MEDS: Melatonin 3 MG TAB PO PRN (21:50)
[2018-10-20] MEDS: Furosemide 40 MG TAB PO SCH (08:29)
[2018-10-20] MEDS: Thiamine 100 MG TAB PO SCH (08:29)
[2018-10-20] MEDS: Folic Acid 1 MG TAB PO SCH (08:29)
[2018-10-20] MEDS: Multivitamin W/ Minerals 1 TAB PO SCH (08:29)
[2018-10-20] MEDS: diphenhydrAMINE 25 MG CAP PO PRN ×2 (08:29→20:40)
[2018-10-20] MEDS: Potassium Chloride 20 MEQ TAB PO SCH ×2 (08:29→17:22)
[2018-10-20] MEDS: Digoxin 0.25 MG TAB PO SCH (08:29)
[2018-10-20] MEDS: Carvedilol 12.5 MG TAB PO SCH ×2 (08:29→17:22)
[2018-10-20] MEDS: Magnesium Oxide 400 MG TAB PO SCH (08:30)
[2018-10-20] MEDS: HYDROcodone/Acetaminophen 10/325 mg Tablet PO PRN ×2 (08:30→20:40)
[2018-10-20] MEDS: Vancomycin HCl 750 MG in Sodium Chloride 0.9% 250 ML 250 ML IVPB SCH ×2 (08:31→20:56)
[2018-10-20] MEDS: Clotrimazole 1% Cream 15 GM TUBE TOP SCH ×2 (08:31→20:42)
[2018-10-20] MEDS: Keri Lotion 15 oz BOT TOP SCH ×2 (08:31→20:40)
[2018-10-20] MEDS: Hydrocortisone 1% Cream 30 GM TUBE TOP SCH ×2 (08:51→20:42)
[2018-10-21] MEDS ORDERED: Mag-Al Plus 1200 MG/1200 MG/120 MG/30 ML UDCUP PO PRN (08:46)
[2018-10-21] MEDS: Potassium Chloride 20 MEQ TAB PO SCH ×2 (08:51→16:40)
[2018-10-21] MEDS: Vancomycin HCl 750 MG in Sodium Chloride 0.9% 250 ML 250 ML IVPB SCH ×2 (08:51→20:14)
[2018-10-21] MEDS: Furosemide 40 MG TAB PO SCH (08:51)
[2018-10-21] MEDS: HYDROcodone/Acetaminophen 10/325 mg Tablet PO PRN ×2 (08:53→17:03)
[2018-10-21] MEDS: Carvedilol 12.5 MG TAB PO SCH ×2 (08:54→16:41)
[2018-10-21] MEDS: Magnesium Oxide 400 MG TAB PO SCH (08:54)
[2018-10-21] MEDS: Clotrimazole 1% Cream 15 GM TUBE TOP SCH ×2 (08:54→20:11)
[2018-10-21] MEDS: Multivitamin W/ Minerals 1 TAB PO SCH (08:54)
[2018-10-21] MEDS: Digoxin 0.25 MG TAB PO SCH (08:54)
[2018-10-21] MEDS: Thiamine 100 MG TAB PO SCH (08:54)
[2018-10-21] MEDS: diphenhydrAMINE 25 MG CAP PO PRN ×2 (08:54→17:03)
[2018-10-21] MEDS: Folic Acid 1 MG TAB PO SCH (08:54)
[2018-10-21] MEDS: Keri Lotion 15 oz BOT TOP SCH ×2 (08:54→20:09)
[2018-10-21] MEDS: Hydrocortisone 1% Cream 30 GM TUBE TOP SCH ×2 (08:54→20:09)
--- NOTE | 2018-10-21 12:10 | PRG ---
DATE OF SERVICE: 10/21/2018 SUBJECTIVE: The patient said he is feeling pretty good today. Shoulder feels pretty good. He still has to take pain medicine periodically. Still getting the dressing change twice today. He was asking about his length of stay for the antibiotics, is getting tired of being here, and restless. I had told him that Dr. Barajas, infectious disease physician, had recommended that he stay on the IV antibiotics for 8 weeks. This was counted from the day of his admission here on 09/24, but he says that he was started on the vancomycin at the time of his admission at [facility], which was on 09/08. He is wanting to count the 8 weeks from the time of the admission on 09/08 to help shorten his stay here some and then visit with Dr. Barajas about oral antibiotic. In review of his records from [facility], it looks like the vancomycin was started on 09/17. The patient also says, at times with eating, he gets a little indigestion. OBJECTIVE: GENERAL: The patient is sitting up on the side of the bed. He is very pleasant, appears comfortable, in no distress. VITAL SIGNS: Temperature 98.4, pulse 83, respirations 16, O2 saturation 98% on room air, and blood pressure 141/88. LUNGS: Clear. HEART: Regular rate. ABDOMEN: Soft, nontender. Dressing of the left shoulder dry. PICC line site in the right arm is clean. ASSESSMENT: 1. Chronic osteomyelitis of the left shoulder. a. Initiated from a steroid injection in December 2015. b. He has undergone repeated incision and drainage and arthrotomies. c. He has undergone multiple long courses of IV antibiotics. d. Cultures initially grew Propionibacterium acne and later a methicillin- resistant Staphylococcus aureus. e. Status post left humeral head resection and placement of a Prostalac antibiotic spacer on 07/02/2017. f. Status post recurrence of septic joint requiring reopening of the wound and removal of Prostalac spacer and washout. g. 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 h. Increased drainage from the left shoulder requiring incision and drainage and antibiotic spacer placement which has since come out, surgery on 2018, now hospitalized at [facility] on 09/23/2018 for an 8-week course of IV vancomycin. i. Doing well. Continues on the IV vancomycin as of 10/21/2018. 2. Dilated cardiomyopathy. a. Echocardiogram on 09/09/2018 showed an ejection fraction of 20% to 25% with global hypokinesis, dilated left ventricle, and enlarged left and right atrium. b. Refused heart catheterization and LifeVest. c. Management with Lasix, carvedilol, not tolerant to AZAEL or ARBS due to hypotension. d. No evidence of acute congestive heart failure as of 10/19/2018. 3. History of diabetes. a. Refuses any insulin. b. Hemoglobin A1c on 08/19/2017 is 5.7. 4. Paroxysmal atrial fibrillation. a. On aspirin and refused to take Eliquis or Xarelto or Coumadin. b. Recent rapid ventricular response during hospitalization at [facility] from 09/08 to 09/23/2018. c. The patient has an irregularly irregular rhythm, but rate controlled as of 10/19/2018. 5. History of transient ischemic attack. a. He said he initially presented with weakness of the right arm on 2015. b. No recurrence. 6. History of normocytic normochromic anemia. 7. Alcoholism. 8. Chronic obstructive pulmonary disease. 9. Chronic low back pain secondary to lumbar spondylosis with moderate to severe stenosis at L2-L3, L3-L4, and L4-L5 level. 10. Para influenza type 3. a. Presenting with cough, runny nose, and fever with clear chest x-ray on 09/27/2018. b. Complicated by bronchitis as of 10/01/2018. c. Resolved as of 10/07/2018. 11. Irritation with redness and some induration and white plaques at the insertion site of the PICC line in the right upper arm as of 10/12/2018. a. Old PICC line removed and replaced with a new PICC line in the right upper arm on 10/12/2018 without problems. The old insertion site of the PICC line is healing as of 10/18/2018. b. The original insertion site inflammation is healing. The culture had no growth. New insertion site in the left upper arm more proximally is clean. Dressing clean. No redness as of 10/21/2018. PLAN: Continue the IV vancomycin. He needs to receive the IV vancomycin for 8 weeks. We will count this from 09/17, so he has completed 34 of the 56 days. He has 22 days remaining as of 10/21. [facility] ID: [id number] [facility]
[2018-10-22] MEDS: HYDROcodone/Acetaminophen 10/325 mg Tablet PO PRN ×3 (08:07→22:39)
[2018-10-22] MEDS: Potassium Chloride 20 MEQ TAB PO SCH ×2 (08:07→16:34)
[2018-10-22] MEDS: Carvedilol 12.5 MG TAB PO SCH ×2 (08:07→16:34)
[2018-10-22] MEDS: Thiamine 100 MG TAB PO SCH (08:07)
[2018-10-22] MEDS: Digoxin 0.25 MG TAB PO SCH (08:07)
[2018-10-22] MEDS: Furosemide 40 MG TAB PO SCH (08:07)
[2018-10-22] MEDS: Folic Acid 1 MG TAB PO SCH (08:07)
[2018-10-22] MEDS: Magnesium Oxide 400 MG TAB PO SCH (08:07)
[2018-10-22] MEDS: Multivitamin W/ Minerals 1 TAB PO SCH (08:07)
[2018-10-22] MEDS: Vancomycin HCl 750 MG in Sodium Chloride 0.9% 250 ML 250 ML IVPB SCH ×2 (08:09→21:01)
[2018-10-22] MEDS: Clotrimazole 1% Cream 15 GM TUBE TOP SCH ×2 (08:09→21:03)
[2018-10-22] MEDS: diphenhydrAMINE 25 MG CAP PO PRN ×3 (08:09→22:39)
[2018-10-22] MEDS: Keri Lotion 15 oz BOT TOP SCH ×2 (08:10→21:04)
[2018-10-22] MEDS: Hydrocortisone 1% Cream 30 GM TUBE TOP SCH ×2 (08:10→21:03)
--- NOTE | 2018-10-22 09:26 | PRG ---
DATE OF SERVICE: 10/22/2018 SUBJECTIVE: The patient said he had a good night. His left shoulder is feeling better. He thinks the drainage is less and the wound is smaller. OBJECTIVE: GENERAL: The patient is alert, appears in no distress. VITAL SIGNS: His temperature is 98, pulse 85, respirations 20, O2 saturation 96 %, and blood pressure 129/70. LUNGS: Clear. HEART: Regular rate. EXTREMITIES: Left shoulder, the wound is much smaller. There is still moderate amount of serous drainage on the dressing, that was changed yesterday. His PICC line insertion site all look clean. LABORATORY DATA: His sedimentation rate o 10/19/2018 had dropped to 27 and his CRP had dropped from 2.05 from 7.6 on 09/27. ASSESSMENT: 1. Chronic osteomyelitis of the left shoulder. a. Initiated from a steroid injection in December 2015. b. He has undergone repeated incision and drainage and arthrotomies. c. He has undergone multiple long courses of IV antibiotics. d. Cultures initially grew Propionibacterium acne and later a methicillin- resistant Staphylococcus aureus. e. Status post left humeral head resection and placement of a Prostalac antibiotic spacer on 07/02/2017. f. Status post recurrence of septic joint requiring reopening of the wound and removal of Prostalac spacer and washout. g. 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 h. Increased drainage from the left shoulder requiring incision and drainage and antibiotic spacer placement which has since come out, surgery on 2018, now hospitalized at [facility] on 09/23/2018 for an 8-week course of IV vancomycin. i. Doing well. Continues on the IV vancomycin as of 10/22/2018. 2. Dilated cardiomyopathy. a. Echocardiogram on 09/09/2018 showed an ejection fraction of 20% to 25% with global hypokinesis, dilated left ventricle, and enlarged left and right atrium. b. Refused heart catheterization and LifeVest. c. Management with Lasix, carvedilol, not tolerant to AZAEL or ARBS due to hypotension. d. No evidence of acute congestive heart failure as of 10/22/2018. 3. History of diabetes. a. Refuses any insulin. b. Hemoglobin A1c on 08/19/2017 is 5.7. 4. Paroxysmal atrial fibrillation. a. On aspirin and refused to take Eliquis or Xarelto or Coumadin. b. Recent rapid ventricular response during hospitalization at [facility] from 09/08 to 09/23/2018. c. The patient has regular rate today with rate of 85 as of 10/22/2018. 5. History of transient ischemic attack. a. He said he initially presented with weakness of the right arm on 2015. b. No recurrence. 6. History of normocytic normochromic anemia. 7. Alcoholism. 8. Chronic obstructive pulmonary disease. 9. Chronic low back pain secondary to lumbar spondylosis with moderate to severe stenosis at L2-L3, L3-L4, and L4-L5 level. 10. Para influenza type 3. a. Presenting with cough, runny nose, and fever with clear chest x-ray on 09/27/2018. b. Complicated by bronchitis as of 10/01/2018. c. Resolved as of 10/07/2018. 11. Irritation with redness and some induration and white plaques at the insertion site of the PICC line in the right upper arm as of 10/12/2018. a. Old PICC line removed and replaced with a new PICC line in the right upper arm on 10/12/2018 without problems. The old insertion site of the PICC line is healing as of 10/18/2018. b. The original insertion site inflammation is healing. The culture had no growth. New insertion site in the left upper arm more proximally is clean. Dressing clean. No redness as of 10/21/2018. PLAN: Continue the IV vancomycin. He is scheduled for an 8-week course. This was started originally at [facility] on 09/17, so he has now completed 35 of 56 days off. Continue PT. Continue local wound care. Job ID: [id number] [facility]
[2018-10-22] MEDS: Lorazepam 1 MG TAB PO PRN (21:02)
[2018-10-23] MEDS: HYDROcodone/Acetaminophen 10/325 mg Tablet PO PRN ×2 (07:20→15:36)
[2018-10-23] MEDS: diphenhydrAMINE 25 MG CAP PO PRN (07:21)
[2018-10-23] MEDS: Digoxin 0.25 MG TAB PO SCH (08:20)
[2018-10-23] MEDS: Thiamine 100 MG TAB PO SCH (08:20)
[2018-10-23] MEDS: Magnesium Oxide 400 MG TAB PO SCH (08:20)
[2018-10-23] MEDS: Furosemide 40 MG TAB PO SCH (08:20)
[2018-10-23] MEDS: Multivitamin W/ Minerals 1 TAB PO SCH (08:20)
[2018-10-23] MEDS: Carvedilol 12.5 MG TAB PO SCH ×2 (08:20→17:20)
[2018-10-23] MEDS: Folic Acid 1 MG TAB PO SCH (08:20)
[2018-10-23] MEDS: Potassium Chloride 20 MEQ TAB PO SCH ×2 (08:20→17:20)
[2018-10-23] MEDS: Vancomycin HCl 750 MG in Sodium Chloride 0.9% 250 ML 250 ML IVPB SCH ×2 (08:21→20:32)
[2018-10-23] MEDS: Clotrimazole 1% Cream 15 GM TUBE TOP SCH ×2 (08:21→20:31)
[2018-10-23] MEDS: Keri Lotion 15 oz BOT TOP SCH ×2 (08:22→20:32)
[2018-10-23] MEDS: Hydrocortisone 1% Cream 30 GM TUBE TOP SCH ×2 (08:22→20:31)
[2018-10-24 07:45] LABS: Vancomycin, Trough 20.1 ug/mL
[2018-10-24] MEDS: Vancomycin HCl 750 MG in Sodium Chloride 0.9% 250 ML 250 ML IVPB SCH ×2 (08:36→19:23)
[2018-10-24] MEDS: Digoxin 0.25 MG TAB PO SCH (08:37)
[2018-10-24] MEDS: diphenhydrAMINE 25 MG CAP PO PRN ×3 (08:37→22:07)
[2018-10-24] MEDS: Potassium Chloride 20 MEQ TAB PO SCH ×2 (08:37→17:06)
[2018-10-24] MEDS: Carvedilol 12.5 MG TAB PO SCH ×2 (08:37→17:06)
[2018-10-24] MEDS: Magnesium Oxide 400 MG TAB PO SCH (08:38)
[2018-10-24] MEDS: Folic Acid 1 MG TAB PO SCH (08:38)
[2018-10-24] MEDS: Multivitamin W/ Minerals 1 TAB PO SCH (08:38)
[2018-10-24] MEDS: HYDROcodone/Acetaminophen 10/325 mg Tablet PO PRN ×3 (08:38→22:03)
[2018-10-24] MEDS: Furosemide 40 MG TAB PO SCH (08:38)
[2018-10-24] MEDS: Thiamine 100 MG TAB PO SCH (08:38)
[2018-10-24] MEDS: Hydrocortisone 1% Cream 30 GM TUBE TOP SCH ×2 (08:39→22:02)
[2018-10-24] MEDS: Clotrimazole 1% Cream 15 GM TUBE TOP SCH ×2 (08:39→22:02)
[2018-10-24] MEDS: Keri Lotion 15 oz BOT TOP SCH ×2 (08:39→22:02)
[2018-10-24] MEDS: Lorazepam 1 MG TAB PO PRN (22:03)
[2018-10-25 07:34] LABS: Vancomycin, Trough 19.3 ug/mL
[2018-10-25] MEDS: Carvedilol 12.5 MG TAB PO SCH ×2 (08:34→17:09)
[2018-10-25] MEDS: Furosemide 40 MG TAB PO SCH (08:34)
[2018-10-25] MEDS: Potassium Chloride 20 MEQ TAB PO SCH ×2 (08:34→17:09)
[2018-10-25] MEDS: Folic Acid 1 MG TAB PO SCH (08:35)
[2018-10-25] MEDS: Digoxin 0.25 MG TAB PO SCH (08:35)
[2018-10-25] MEDS: Multivitamin W/ Minerals 1 TAB PO SCH (08:35)
[2018-10-25] MEDS: Thiamine 100 MG TAB PO SCH (08:35)
[2018-10-25] MEDS: diphenhydrAMINE 25 MG CAP PO PRN ×3 (08:35→21:31)
[2018-10-25] MEDS: HYDROcodone/Acetaminophen 10/325 mg Tablet PO PRN ×3 (08:35→21:30)
[2018-10-25] MEDS: Magnesium Oxide 400 MG TAB PO SCH (08:35)
[2018-10-25] MEDS: Vancomycin HCl 750 MG in Sodium Chloride 0.9% 250 ML 250 ML IVPB SCH ×2 (08:36→20:11)
[2018-10-25] MEDS: Clotrimazole 1% Cream 15 GM TUBE TOP SCH ×2 (09:56→20:14)
[2018-10-25] MEDS: Hydrocortisone 1% Cream 30 GM TUBE TOP SCH ×2 (09:56→20:13)
[2018-10-25] MEDS: Keri Lotion 15 oz BOT TOP SCH ×2 (09:56→20:14)
--- NOTE | 2018-10-25 09:58 | PRG ---
DATE OF SERVICE: 10/25/2018 SUBJECTIVE: The patient said he is doing all right this morning. Sometimes, his nights are little rough. He thinks overall, he is doing all right. OBJECTIVE: GENERAL: The patient is lying in bed, alert, appears comfortable, and in no distress. VITAL SIGNS: His temp is 98.2, pulse 80, respirations 18, O2 saturation 95% on room air, blood pressure 131/82. LUNGS: Clear. HEART: Regular rate. MUSCULOSKELETAL: Dressing of the left arm is dry. EXTREMITIES: No edema. LABORATORY DATA: FBS this morning 134. ASSESSMENT: 1. Chronic osteomyelitis of the left shoulder. a. Initiated from a steroid injection in December 2015. b. He has undergone repeated incision and drainage and arthrotomies. c. He has undergone multiple long courses of IV antibiotics. d. Cultures initially grew Propionibacterium acne and later a methicillin- resistant Staphylococcus aureus. e. Status post left humeral head resection and placement of a Prostalac antibiotic spacer on 07/02/2017. f. Status post recurrence of septic joint requiring reopening of the wound and removal of Prostalac spacer and washout. g. 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 h. Increased drainage from the left shoulder requiring incision and drainage and antibiotic spacer placement which has since come out, surgery on 2018, now hospitalized at [facility] on 09/23/2018 for an 8-week course of IV vancomycin. i. Doing well. Continues on the IV vancomycin as of 10/25/2018. 2. Dilated cardiomyopathy. a. Echocardiogram on 09/09/2018 showed an ejection fraction of 20% to 25% with global hypokinesis, dilated left ventricle, and enlarged left and right atrium. b. Refused heart catheterization and LifeVest. c. Management with Lasix, carvedilol, not tolerant to AZAEL or ARBS due to hypotension. d. No evidence of acute congestive heart failure as of 10/22/2018. 3. History of diabetes. a. Refuses any insulin. b. Hemoglobin A1c on 08/19/2017 is 5.7. 4. Paroxysmal atrial fibrillation. a. On aspirin and refused to take Eliquis or Xarelto or Coumadin. b. Recent rapid ventricular response during hospitalization at [facility] from 09/08 to 09/23/2018. c. The patient has regular rate with a rate of 80 as of 10/25/2018. 5. History of transient ischemic attack. a. He said he initially presented with weakness of the right arm on 2015. b. No recurrence. 6. History of normocytic normochromic anemia. 7. Alcoholism. 8. Chronic obstructive pulmonary disease. 9. Chronic low back pain secondary to lumbar spondylosis with moderate to severe stenosis at L2-L3, L3-L4, and L4-L5 level. 10. Para influenza type 3. a. Presenting with cough, runny nose, and fever with clear chest x-ray on 09/27/2018. b. Complicated by bronchitis as of 10/01/2018. c. Resolved as of 10/07/2018. 11. Irritation with redness and some induration and white plaques at the insertion site of the PICC line in the right upper arm as of 10/12/2018. a. Old PICC line removed and replaced with a new PICC line in the right upper arm on 10/12/2018 without problems. The old insertion site of the PICC line is healing as of 10/18/2018. b. The original insertion site that had become inflamed is healing as of . PLAN: Continue present care. Continue the IV vancomycin. He is now on his 38th of 56 days. Continue wound care. Job ID: [id number] [facility]
[2018-10-25] MEDS: Lorazepam 1 MG TAB PO PRN (21:30)
[2018-10-26] MEDS: Multivitamin W/ Minerals 1 TAB PO SCH (08:20)
[2018-10-26] MEDS: Potassium Chloride 20 MEQ TAB PO SCH ×2 (08:20→17:00)
[2018-10-26] MEDS: Furosemide 40 MG TAB PO SCH (08:20)
[2018-10-26] MEDS: HYDROcodone/Acetaminophen 10/325 mg Tablet PO PRN ×3 (08:20→22:56)
[2018-10-26] MEDS: Magnesium Oxide 400 MG TAB PO SCH (08:20)
[2018-10-26] MEDS: Folic Acid 1 MG TAB PO SCH (08:21)
[2018-10-26] MEDS: Digoxin 0.25 MG TAB PO SCH (08:21)
[2018-10-26] MEDS: Thiamine 100 MG TAB PO SCH (08:21)
[2018-10-26] MEDS: diphenhydrAMINE 25 MG CAP PO PRN ×3 (08:21→22:57)
[2018-10-26] MEDS: Carvedilol 12.5 MG TAB PO SCH ×2 (08:21→17:00)
[2018-10-26] MEDS: Vancomycin HCl 750 MG in Sodium Chloride 0.9% 250 ML 250 ML IVPB SCH ×2 (08:23→19:18)
[2018-10-26] MEDS: Hydrocortisone 1% Cream 30 GM TUBE TOP SCH ×2 (08:23→22:36)
[2018-10-26] MEDS: Keri Lotion 15 oz BOT TOP SCH (08:23)
[2018-10-26] MEDS: Clotrimazole 1% Cream 15 GM TUBE TOP SCH (08:23)
[2018-10-26] MEDS ORDERED: Keri Lotion 15 oz BOT TOP PRN (09:15)
[2018-10-26] MEDS ORDERED: Clotrimazole 1% Cream 15 GM TUBE TOP PRN (09:30)
[2018-10-26] MEDS: Lorazepam 1 MG TAB PO PRN (22:56)
[2018-10-27 07:47] LABS: Vancomycin, Trough 16.6 ug/mL
[2018-10-27] MEDS: Vancomycin HCl 750 MG in Sodium Chloride 0.9% 250 ML 250 ML IVPB SCH ×2 (08:16→19:57)
[2018-10-27] MEDS: Carvedilol 12.5 MG TAB PO SCH ×2 (08:17→17:03)
[2018-10-27] MEDS: Thiamine 100 MG TAB PO SCH (08:17)
[2018-10-27] MEDS: Multivitamin W/ Minerals 1 TAB PO SCH (08:17)
[2018-10-27] MEDS: diphenhydrAMINE 25 MG CAP PO PRN ×2 (08:17→14:57)
[2018-10-27] MEDS: HYDROcodone/Acetaminophen 10/325 mg Tablet PO PRN ×2 (08:17→14:57)
[2018-10-27] MEDS: Potassium Chloride 20 MEQ TAB PO SCH ×2 (08:17→17:03)
[2018-10-27] MEDS: Digoxin 0.25 MG TAB PO SCH (08:17)
[2018-10-27] MEDS: Furosemide 40 MG TAB PO SCH (08:17)
[2018-10-27] MEDS: Magnesium Oxide 400 MG TAB PO SCH (08:18)
[2018-10-27] MEDS: Folic Acid 1 MG TAB PO SCH (08:19)
[2018-10-27] MEDS: Hydrocortisone 1% Cream 30 GM TUBE TOP SCH (08:19)
[2018-10-27] MEDS ORDERED: Hydrocortisone 1% Cream 30 GM TUBE TOP PRN (12:07)
[2018-10-27] MEDS ORDERED: Sodium Chloride Irrig Solution 250 ML BOT ONE (14:14)
[2018-10-27] MEDS ORDERED: HYDROcodone/Acetaminophen 10/325 mg Tablet ONE (22:33)
[2018-10-27] MEDS ORDERED: diphenhydrAMINE 25 MG CAP ONE (22:34)
[2018-10-28] MEDS ORDERED: Folic Acid 1 MG TAB ONE (07:56)
[2018-10-28] MEDS ORDERED: Carvedilol 12.5 MG TAB ONE (07:56)
[2018-10-28] MEDS ORDERED: Potassium Chloride 20 MEQ TAB ONE (07:57)
[2018-10-28] MEDS ORDERED: Digoxin 0.125 MG TAB ONE (07:58)
[2018-10-28] MEDS ORDERED: Furosemide 40 MG/4 ML VIAL ONE (07:59)
[2018-10-28] MEDS ORDERED: Furosemide 40 MG TAB ONE (08:00)
[2018-10-28] MEDS ORDERED: Magnesium Oxide 400 MG TAB PO ONE (08:01)
[2018-10-28] MEDS ORDERED: Multivitamin W/ Minerals 1 TAB ONE (08:01)
[2018-10-28] MEDS ORDERED: Thiamine 100 MG TAB ONE (08:01)
[2018-10-28] MEDS: Furosemide 40 MG TAB PO SCH (08:48)
[2018-10-28] MEDS: Thiamine 100 MG TAB PO SCH (08:48)
[2018-10-28] MEDS: Potassium Chloride 20 MEQ TAB PO SCH ×2 (08:48→17:11)
[2018-10-28] MEDS: Multivitamin W/ Minerals 1 TAB PO SCH (08:48)
[2018-10-28] MEDS: Folic Acid 1 MG TAB PO SCH (08:48)
[2018-10-28] MEDS: Magnesium Oxide 400 MG TAB PO SCH (08:48)
[2018-10-28] MEDS: HYDROcodone/Acetaminophen 10/325 mg Tablet PO PRN ×2 (08:48→17:13)
[2018-10-28] MEDS: diphenhydrAMINE 25 MG CAP PO PRN (08:48)
[2018-10-28] MEDS: Carvedilol 12.5 MG TAB PO SCH ×2 (08:48→17:18)
[2018-10-28] MEDS: Lorazepam 1 MG TAB PO PRN (08:50)
[2018-10-28] MEDS: Vancomycin HCl 750 MG in Sodium Chloride 0.9% 250 ML 250 ML IVPB SCH ×2 (08:51→20:22)
[2018-10-28] MEDS: Digoxin 0.25 MG TAB PO SCH (09:59)
[2018-10-29] MEDS: diphenhydrAMINE 25 MG CAP PO PRN ×3 (08:03→22:29)
[2018-10-29] MEDS: Potassium Chloride 20 MEQ TAB PO SCH ×2 (08:04→16:51)
[2018-10-29] MEDS: HYDROcodone/Acetaminophen 10/325 mg Tablet PO PRN ×3 (08:04→22:29)
[2018-10-29] MEDS: Carvedilol 12.5 MG TAB PO SCH ×2 (08:04→16:51)
[2018-10-29] MEDS: Lorazepam 1 MG TAB PO PRN (08:05)
[2018-10-29] MEDS: Vancomycin HCl 750 MG in Sodium Chloride 0.9% 250 ML 250 ML IVPB SCH ×2 (08:12→20:12)
[2018-10-29] MEDS: Folic Acid 1 MG TAB PO SCH (08:17)
[2018-10-29] MEDS: Furosemide 40 MG TAB PO SCH (08:17)
[2018-10-29] MEDS: Digoxin 0.25 MG TAB PO SCH (08:17)
[2018-10-29] MEDS: Thiamine 100 MG TAB PO SCH (08:17)
[2018-10-29] MEDS: Magnesium Oxide 400 MG TAB PO SCH (08:17)
[2018-10-29] MEDS: Multivitamin W/ Minerals 1 TAB PO SCH (08:17)
--- NOTE | 2018-10-29 11:45 | PRG ---
DATE OF SERVICE: 10/29/2018 SUBJECTIVE: The patient says he is doing all right. He says he is a little sore in the right shoulder. The left shoulder is feeling better. He still has some serous drainage from that shoulder, but the wound is gradually closing. There were pictures enclosed to see. The patient said he is right at 6 weeks of IV antibiotics. OBJECTIVE: GENERAL: The patient is alert, is in good spirits. This is his 73th birthday. VITAL SIGNS: Shows a temperature of 97.3, pulse 70, respirations 16, O2 saturation 96%, and blood pressure 126/70. LUNGS: Clear. HEART: Regular rate. EXTREMITIES: His PICC line in the right upper arm is clean. There is no surrounding redness. There is no drainage. The patient has limited motion in that right shoulder with bony crepitations due to the severe arthritic change. The right arm is a little larger than the left. The left arm has lot of muscle atrophies from the multiple surgeries and infection. The right arm has no pitting edema. There is no redness. Nurses were little concerned that there might be a little swelling , but did not see any. This will continue to be watched. ASSESSMENT: 1. Chronic osteomyelitis of the left shoulder. a. Initiated from a steroid injection in December 2015. b. He has undergone repeated incision and drainage and arthrotomies. c. He has undergone multiple long courses of IV antibiotics. d. Cultures initially grew Propionibacterium acne and later a methicillin- resistant Staphylococcus aureus. e. Status post left humeral head resection and placement of a Prostalac antibiotic spacer on 07/02/2017. f. Status post recurrence of septic joint requiring reopening of the wound and removal of Prostalac spacer and washout. g. 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 h. Increased drainage from the left shoulder requiring incision and drainage and antibiotic spacer placement which has since come out, surgery on 2018, now hospitalized at [facility] on 09/23/2018 for an 8-week course of IV vancomycin. i. Doing well. Continues on IV antibiotics as of 10/29/2018. 2. Dilated cardiomyopathy. a. Echocardiogram on 09/09/2018 showed an ejection fraction of 20% to 25% with global hypokinesis, dilated left ventricle, and enlarged left and right atrium. b. Refused heart catheterization and LifeVest. c. Management with Lasix, carvedilol, not tolerant to AZAEL or ARBS due to hypotension. d. No evidence of acute congestive heart failure as of 10/22/2018. 3. History of diabetes. a. Refuses any insulin. b. Hemoglobin A1c on 08/19/2017 is 5.7. 4. Paroxysmal atrial fibrillation. a. On aspirin and refused to take Eliquis or Xarelto or Coumadin. b. Recent rapid ventricular response during hospitalization at [facility] from 09/08 to 09/23/2018. c. The patient has regular rate with a rate of 80 as of 10/29/2018. 5. History of transient ischemic attack. a. He said he initially presented with weakness of the right arm on 2015. b. No recurrence. 6. History of normocytic normochromic anemia. 7. Alcoholism. 8. Chronic obstructive pulmonary disease. 9. Chronic low back pain secondary to lumbar spondylosis with moderate to severe stenosis at L2-L3, L3-L4, and L4-L5 level. 10. Para influenza type 3. a. Presenting with cough, runny nose, and fever with clear chest x-ray on 09/27/2018. b. Complicated by bronchitis as of 10/01/2018. c. Resolved as of 10/07/2018. 11. Irritation with redness and some induration and white plaques at the insertion site of the PICC line in the right upper arm as of 10/12/2018. a. Old PICC line removed and replaced with a new PICC line in the right upper arm on 10/12/2018 without problems. The old insertion site of the PICC line is healing as of 10/18/2018. b. The original insertion site that had become inflamed is healing as of . PLAN: The patient is on his 42nd day of IV vancomycin of a 56-week course. Antibiotics were started at [facility] on 09/17. The patient said he is good to stay another week on the IV antibiotics. We will recheck lab work next week. Continue periodic checking of vancomycin trough level. We will arrange for the patient to see Dr. Barajas, his Infectious Disease physician during his 7th week. Job ID: [id number] [facility]
[2018-10-30] MEDS: Digoxin 0.25 MG TAB PO SCH (08:14)
[2018-10-30] MEDS: Potassium Chloride 20 MEQ TAB PO SCH ×2 (08:14→17:07)
[2018-10-30] MEDS: HYDROcodone/Acetaminophen 10/325 mg Tablet PO PRN ×2 (08:15→14:59)
[2018-10-30] MEDS: Magnesium Oxide 400 MG TAB PO SCH (08:15)
[2018-10-30] MEDS: Furosemide 40 MG TAB PO SCH (08:15)
[2018-10-30] MEDS: Vancomycin HCl 750 MG in Sodium Chloride 0.9% 250 ML 250 ML IVPB SCH ×2 (08:16→20:23)
[2018-10-30] MEDS: diphenhydrAMINE 25 MG CAP PO PRN ×2 (08:16→14:59)
[2018-10-30] MEDS: Multivitamin W/ Minerals 1 TAB PO SCH (08:16)
[2018-10-30] MEDS: Thiamine 100 MG TAB PO SCH (08:16)
[2018-10-30] MEDS: Carvedilol 12.5 MG TAB PO SCH ×2 (08:20→17:08)
[2018-10-30] MEDS: Folic Acid 1 MG TAB PO SCH (08:23)
[2018-10-31] MEDS: Vancomycin HCl 750 MG in Sodium Chloride 0.9% 250 ML 250 ML IVPB SCH ×2 (08:32→20:21)
[2018-10-31] MEDS: diphenhydrAMINE 25 MG CAP PO PRN ×3 (08:33→23:16)
[2018-10-31] MEDS: Multivitamin W/ Minerals 1 TAB PO SCH (08:33)
[2018-10-31] MEDS: Magnesium Oxide 400 MG TAB PO SCH (08:33)
[2018-10-31] MEDS: HYDROcodone/Acetaminophen 10/325 mg Tablet PO PRN ×3 (08:33→23:16)
[2018-10-31] MEDS: Furosemide 40 MG TAB PO SCH (08:33)
[2018-10-31] MEDS: Folic Acid 1 MG TAB PO SCH (08:33)
[2018-10-31] MEDS: Digoxin 0.25 MG TAB PO SCH (08:34)
[2018-10-31] MEDS: Carvedilol 12.5 MG TAB PO SCH ×2 (08:34→17:06)
[2018-10-31] MEDS: Thiamine 100 MG TAB PO SCH (08:34)
[2018-10-31] MEDS: Potassium Chloride 20 MEQ TAB PO SCH ×2 (08:34→17:06)
[2018-11-01] MEDS: HYDROcodone/Acetaminophen 10/325 mg Tablet PO PRN ×3 (05:10→22:51)
[2018-11-01] MEDS: diphenhydrAMINE 25 MG CAP PO PRN ×3 (05:10→22:51)
[2018-11-01 05:16] LABS: #Basophils 0.1 thou/uL (0.0-0.2); #Eosinphils 0.2 thou/uL (0.0-0.7); White Blood Cell (WBC) Count 6.1 thou/uL (4.8-10.8)
[2018-11-01 05:18] LABS: #Lymphocytes 1.9 thou/uL (1.20-3.40); #Monocytes 0.7 thou/uL (0.11-0.59); #Neutrophils 3.1 thou/uL (1.40-6.50); %Basophils 1.4 % (0.0-1.0); %Eosinophils 4.1 % (0.0-10.0); %Lymphocytes 31.9 % (21.0-51.0); %Monocytes 10.7 % (0.0-10.0); %Neutrophils 51.8 % (42.0-75.0); Hemoglobin 12.7 g/dL (14.0-18.0); Mean Corpuscular HGB CONC 32.2 g/dL (32.0-36.0); Mean Corpuscular Volume 80.6 fL (78.0-98.0); Mean Platelet Volume 6.1 fL (7.4-10.4); Platelet Count 179 thou/uL (130-400); RBC Distribution Width 14.5 % (11.5-14.5); Red Blood Cell (RBC) Count 4.89 mill/uL (4.70-6.10)
[2018-11-01 05:34] LABS: ALT (SGPT) 31 U/L (8-55); AST (SGOT) 35 U/L (5-34); Alkaline Phosphatase 110 U/L (40-150); Anion Gap 14 mmol/L (10-20); BUN (Urea Nitrogen) 25 mg/dL (8.4-25.7); Bilirubin, Total 0.4 mg/dL (0.2-1.2); Calc. Creatinine Clearance 73 mL/min (70-130); Calcium 9.2 mg/dL (7.8-10.44); Carbon Dioxide 26 mmol/L (23-31); Chloride 104 mmol/L (98-107); Estimated GFR-MDRD 74; Glucose 195 mg/dL (83-110); Protein, Total 7.1 g/dL (5.8-8.1); Sodium 140 mmol/L (136-145)
[2018-11-01 06:16] LABS: Albumin 3.7 g/dL (3.4-4.8); Globulin 3.4 g/dL (2.4-3.5)
[2018-11-01] MEDS: Vancomycin HCl 750 MG in Sodium Chloride 0.9% 250 ML 250 ML IVPB SCH ×2 (07:37→19:52)
[2018-11-01] MEDS: Potassium Chloride 20 MEQ TAB PO SCH ×2 (07:40→17:17)
[2018-11-01] MEDS: Carvedilol 12.5 MG TAB PO SCH ×2 (07:40→17:17)
[2018-11-01] MEDS: Furosemide 40 MG TAB PO SCH (08:44)
[2018-11-01] MEDS: Digoxin 0.25 MG TAB PO SCH (08:44)
[2018-11-01] MEDS: Lorazepam 1 MG TAB PO PRN ×2 (08:45→22:51)
[2018-11-01] MEDS: Magnesium Oxide 400 MG TAB PO SCH (08:45)
[2018-11-01] MEDS: Multivitamin W/ Minerals 1 TAB PO SCH (08:45)
[2018-11-01] MEDS: Folic Acid 1 MG TAB PO SCH (08:45)
[2018-11-01] MEDS: Thiamine 100 MG TAB PO SCH (08:45)
[2018-11-01 16:54] LABS: CRP (Inflammatory) 1.33 mg/dL (= or < 0.5)
--- NOTE | 2018-11-01 21:41 | PRG ---
DATE OF SERVICE: 11/01/2018 SUBJECTIVE: The patient said he is doing okay, was fussing about having to have blood work done this morning. Said his left shoulder, the drainage seemed to be a little less and little not quite as yellowish. OBJECTIVE: GENERAL: The patient is alert, talkative, appears comfortable, in no distress. He was pleasant during our visit. VITAL SIGNS: His temperature is 97, pulse 68, respirations 16, O2 saturation 96 % on room air, blood pressure 134/66. LUNGS: Clear. HEART: Regular rate. EXTREMITIES: Left shoulder, the dressing is dry. LABORATORY DATA: Shows an H and H of 12.7 and 39.4, white cell count 6100 with 52% segs, 32% lymphocytes, platelet count of 179,000. Sodium 140, potassium 4, BUN 25, creatinine 0.99. FBS 195. AST 35. C-reactive protein pending. Last vancomycin level on 10/27 was 16.3. ASSESSMENT: 1. Chronic osteomyelitis of the left shoulder. a. Initiated from a steroid injection in December 2015. b. He has undergone repeated incision and drainage and arthrotomies. c. He has undergone multiple long courses of IV antibiotics. d. Cultures initially grew Propionibacterium acne and later a methicillin- resistant Staphylococcus aureus. e. Status post left humeral head resection and placement of a Prostalac antibiotic spacer on 07/02/2017. f. Status post recurrence of septic joint requiring reopening of the wound and removal of Prostalac spacer and washout. g. 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 h. Increased drainage from the left shoulder requiring incision and drainage and antibiotic spacer placement which has since come out, surgery on 2018, now hospitalized at [facility] on 09/23/2018 for an 8-week course of IV vancomycin. i. Doing well. Continues on IV vancomycin as of 11/01/2018. 2. Dilated cardiomyopathy. a. Echocardiogram on 09/09/2018 showed an ejection fraction of 20% to 25% with global hypokinesis, dilated left ventricle, and enlarged left and right atrium. b. Refused heart catheterization and LifeVest. c. Management with Lasix, carvedilol, not tolerant to AZAEL or ARBS due to hypotension. d. No evidence of acute congestive heart failure as of 11/01/2018. 3. History of diabetes. a. Refuses any insulin. b. Hemoglobin A1c on 08/19/2017 is 5.7. 4. Paroxysmal atrial fibrillation. a. On aspirin and refused to take Eliquis or Xarelto or Coumadin. b. Recent rapid ventricular response during hospitalization at [facility] from 09/08 to 09/23/2018. c. The patient has regular rate with pulse rate of 68 as of 11/01. 5. History of transient ischemic attack. a. He said he initially presented with weakness of the right arm on 2015. b. No recurrence. 6. History of normocytic normochromic anemia. 7. Alcoholism. 8. Chronic obstructive pulmonary disease. 9. Chronic low back pain secondary to lumbar spondylosis with moderate to severe stenosis at L2-L3, L3-L4, and L4-L5 level. 10. Para influenza type 3. a. Presenting with cough, runny nose, and fever with clear chest x-ray on 09/27/2018. b. Complicated by bronchitis as of 10/01/2018. c. Resolved as of 10/07/2018. 11. Irritation with redness and some induration and white plaques at the insertion site of the PICC line in the right upper arm as of 10/12/2018. a. Old PICC line removed and replaced with a new PICC line in the right upper arm on 10/12/2018 without problems. The old insertion site of the PICC line is healing as of 10/18/2018. b. The original insertion site that had become inflamed is healing as of . PLAN: The patient is on day 45 of 56-day course of IV vancomycin. Continue present care. Continue present wound care. Job ID: [id number] MTDD
[2018-11-02] MEDS: Potassium Chloride 20 MEQ TAB PO SCH ×2 (08:34→17:34)
[2018-11-02] MEDS: Carvedilol 12.5 MG TAB PO SCH ×2 (08:34→17:34)
[2018-11-02] MEDS: Digoxin 0.25 MG TAB PO SCH (08:34)
[2018-11-02] MEDS: Multivitamin W/ Minerals 1 TAB PO SCH (08:34)
[2018-11-02] MEDS: HYDROcodone/Acetaminophen 10/325 mg Tablet PO PRN ×2 (08:34→16:08)
[2018-11-02] MEDS: Magnesium Oxide 400 MG TAB PO SCH (08:34)
[2018-11-02] MEDS: Folic Acid 1 MG TAB PO SCH (08:34)
[2018-11-02] MEDS: Thiamine 100 MG TAB PO SCH (08:34)
[2018-11-02] MEDS: Furosemide 40 MG TAB PO SCH (08:34)
[2018-11-02] MEDS: Vancomycin HCl 750 MG in Sodium Chloride 0.9% 250 ML 250 ML IVPB SCH ×2 (08:35→20:00)
[2018-11-02] MEDS: diphenhydrAMINE 25 MG CAP PO PRN ×2 (08:35→16:08)
[2018-11-02] MEDS ORDERED: Sodium Chloride Irrig Solution 250 ML BOT ONE (13:01)
[2018-11-02] MEDS: Lorazepam 1 MG TAB PO PRN (13:03)
[2018-11-03] MEDS: Lorazepam 1 MG TAB PO PRN ×2 (02:15→15:36)
[2018-11-03] MEDS: HYDROcodone/Acetaminophen 10/325 mg Tablet PO PRN ×3 (02:16→15:35)
[2018-11-03] MEDS: diphenhydrAMINE 25 MG CAP PO PRN ×3 (02:16→15:36)
[2018-11-03 07:17] LABS: Vancomycin, Trough 16.6 ug/mL
[2018-11-03] MEDS: Folic Acid 1 MG TAB PO SCH (08:31)
[2018-11-03] MEDS: Potassium Chloride 20 MEQ TAB PO SCH ×2 (08:32→17:03)
[2018-11-03] MEDS: Magnesium Oxide 400 MG TAB PO SCH (08:32)
[2018-11-03] MEDS: Vancomycin HCl 750 MG in Sodium Chloride 0.9% 250 ML 250 ML IVPB SCH ×2 (08:32→21:03)
[2018-11-03] MEDS: Multivitamin W/ Minerals 1 TAB PO SCH (08:32)
[2018-11-03] MEDS: Carvedilol 12.5 MG TAB PO SCH ×2 (08:32→17:03)
[2018-11-03] MEDS: Thiamine 100 MG TAB PO SCH (08:32)
[2018-11-03] MEDS: Furosemide 40 MG TAB PO SCH (08:32)
[2018-11-03] MEDS: Digoxin 0.25 MG TAB PO SCH (08:33)
[2018-11-04] MEDS: HYDROcodone/Acetaminophen 10/325 mg Tablet PO PRN ×3 (04:32→21:41)
[2018-11-04] MEDS: diphenhydrAMINE 25 MG CAP PO PRN ×3 (04:32→21:40)
[2018-11-04] MEDS: Lorazepam 1 MG TAB PO PRN ×2 (08:26→20:26)
[2018-11-04] MEDS: Potassium Chloride 20 MEQ TAB PO SCH ×2 (08:41→17:17)
[2018-11-04] MEDS: Vancomycin HCl 750 MG in Sodium Chloride 0.9% 250 ML 250 ML IVPB SCH ×2 (08:41→20:26)
[2018-11-04] MEDS: Multivitamin W/ Minerals 1 TAB PO SCH (08:41)
[2018-11-04] MEDS: Folic Acid 1 MG TAB PO SCH (08:42)
[2018-11-04] MEDS: Carvedilol 12.5 MG TAB PO SCH ×2 (08:42→17:17)
[2018-11-04] MEDS: Magnesium Oxide 400 MG TAB PO SCH (08:42)
[2018-11-04] MEDS: Digoxin 0.25 MG TAB PO SCH (08:42)
[2018-11-04] MEDS: Thiamine 100 MG TAB PO SCH (08:42)
[2018-11-04] MEDS: Furosemide 40 MG TAB PO SCH (08:42)
[2018-11-05] MEDS: diphenhydrAMINE 25 MG CAP PO PRN ×3 (04:15→23:55)
[2018-11-05] MEDS: HYDROcodone/Acetaminophen 10/325 mg Tablet PO PRN ×3 (04:15→23:54)
[2018-11-05] MEDS: Potassium Chloride 20 MEQ TAB PO SCH ×2 (09:36→17:14)
[2018-11-05] MEDS: Thiamine 100 MG TAB PO SCH (09:37)
[2018-11-05] MEDS: Multivitamin W/ Minerals 1 TAB PO SCH (09:37)
[2018-11-05] MEDS: Folic Acid 1 MG TAB PO SCH (09:37)
[2018-11-05] MEDS: Furosemide 40 MG TAB PO SCH (09:37)
[2018-11-05] MEDS: Carvedilol 12.5 MG TAB PO SCH ×2 (09:37→17:14)
[2018-11-05] MEDS: Magnesium Oxide 400 MG TAB PO SCH (09:37)
[2018-11-05] MEDS: Digoxin 0.25 MG TAB PO SCH (09:37)
[2018-11-05] MEDS: Lorazepam 1 MG TAB PO PRN ×2 (09:37→23:54)
[2018-11-05] MEDS: Vancomycin HCl 750 MG in Sodium Chloride 0.9% 250 ML 250 ML IVPB SCH ×2 (09:38→19:22)
[2018-11-06] MEDS: Thiamine 100 MG TAB PO SCH (09:22)
[2018-11-06] MEDS: HYDROcodone/Acetaminophen 10/325 mg Tablet PO PRN ×3 (09:22→22:20)
[2018-11-06] MEDS: Digoxin 0.25 MG TAB PO SCH (09:22)
[2018-11-06] MEDS: Folic Acid 1 MG TAB PO SCH (09:23)
[2018-11-06] MEDS: Multivitamin W/ Minerals 1 TAB PO SCH (09:23)
[2018-11-06] MEDS: Carvedilol 12.5 MG TAB PO SCH ×2 (09:23→17:26)
[2018-11-06] MEDS: diphenhydrAMINE 25 MG CAP PO PRN ×3 (09:23→22:20)
[2018-11-06] MEDS: Magnesium Oxide 400 MG TAB PO SCH (09:23)
[2018-11-06] MEDS: Furosemide 40 MG TAB PO SCH (09:24)
[2018-11-06] MEDS: Vancomycin HCl 750 MG in Sodium Chloride 0.9% 250 ML 250 ML IVPB SCH ×2 (09:24→19:35)
[2018-11-06] MEDS: Potassium Chloride 20 MEQ TAB PO SCH ×2 (09:24→17:25)
[2018-11-06] MEDS: Lorazepam 1 MG TAB PO PRN (22:21)
[2018-11-07] MEDS: HYDROcodone/Acetaminophen 10/325 mg Tablet PO PRN ×3 (05:16→22:06)
[2018-11-07] MEDS: diphenhydrAMINE 25 MG CAP PO PRN ×3 (05:17→22:06)
[2018-11-07 05:30] LABS: #Basophils 0.1 thou/uL (0.0-0.2); #Eosinphils 0.2 thou/uL (0.0-0.7); #Lymphocytes 2.2 thou/uL (1.20-3.40); #Monocytes 0.7 thou/uL (0.11-0.59); #Neutrophils 3.2 thou/uL (1.40-6.50); %Basophils 1.4 % (0.0-1.0); %Eosinophils 3.7 % (0.0-10.0); %Lymphocytes 33.8 % (21.0-51.0); %Monocytes 10.9 % (0.0-10.0); %Neutrophils 50.2 % (42.0-75.0); Hemoglobin 12.8 g/dL (14.0-18.0); Mean Corpuscular Hemoglobin 26.4 pg (27.0-31.0); Mean Platelet Volume 6.2 fL (7.4-10.4); Platelet Count 180 thou/uL (130-400); RBC Distribution Width 14.5 % (11.5-14.5); Red Blood Cell (RBC) Count 4.83 mill/uL (4.70-6.10); White Blood Cell (WBC) Count 6.4 thou/uL (4.8-10.8)
[2018-11-07 05:36] LABS: ALT (SGPT) 35 U/L (8-55); AST (SGOT) 36 U/L (5-34); Albumin 3.9 g/dL (3.4-4.8); Alkaline Phosphatase 105 U/L (40-150); Anion Gap 14 mmol/L (10-20); BUN (Urea Nitrogen) 29 mg/dL (8.4-25.7); Bilirubin, Total 0.4 mg/dL (0.2-1.2); Calc. Creatinine Clearance 71 mL/min (70-130); Calcium 9.5 mg/dL (7.8-10.44); Carbon Dioxide 26 mmol/L (23-31); Chloride 103 mmol/L (98-107); Estimated GFR-MDRD 70; Globulin 3.4 g/dL (2.4-3.5); Glucose 194 mg/dL (83-110); Potassium 4.2 mmol/L (3.5-5.1); Protein, Total 7.3 g/dL (5.8-8.1); Sodium 139 mmol/L (136-145)
[2018-11-07] MEDS: Furosemide 40 MG TAB PO SCH (09:06)
[2018-11-07] MEDS: Vancomycin HCl 750 MG in Sodium Chloride 0.9% 250 ML 250 ML IVPB SCH ×2 (09:06→20:33)
[2018-11-07] MEDS: Multivitamin W/ Minerals 1 TAB PO SCH (09:07)
[2018-11-07] MEDS: Carvedilol 12.5 MG TAB PO SCH ×2 (09:07→17:20)
[2018-11-07] MEDS: Digoxin 0.25 MG TAB PO SCH (09:07)
[2018-11-07] MEDS: Folic Acid 1 MG TAB PO SCH (09:07)
[2018-11-07] MEDS: Thiamine 100 MG TAB PO SCH (09:07)
[2018-11-07] MEDS: Potassium Chloride 20 MEQ TAB PO SCH ×2 (09:07→17:20)
[2018-11-07] MEDS: Magnesium Oxide 400 MG TAB PO SCH (09:07)
[2018-11-07 14:07] VITALS: BMI 26.3
[2018-11-07 16:58] LABS: CRP (Inflammatory) 1.48 mg/dL (= or < 0.5)
[2018-11-08] MEDS: diphenhydrAMINE 25 MG CAP PO PRN (07:02)
[2018-11-08] MEDS: Lorazepam 1 MG TAB PO PRN (07:02)
[2018-11-08] MEDS: HYDROcodone/Acetaminophen 10/325 mg Tablet PO PRN (07:03)
[2018-11-08] MEDS: Multivitamin W/ Minerals 1 TAB PO SCH (08:04)
[2018-11-08] MEDS: Carvedilol 12.5 MG TAB PO SCH (08:04)
[2018-11-08] MEDS: Potassium Chloride 20 MEQ TAB PO SCH (08:04)
[2018-11-08] MEDS: Furosemide 40 MG TAB PO SCH (08:04)
[2018-11-08] MEDS: Digoxin 0.25 MG TAB PO SCH (08:05)
[2018-11-08] MEDS: Magnesium Oxide 400 MG TAB PO SCH (08:05)
[2018-11-08] MEDS: Folic Acid 1 MG TAB PO SCH (08:05)
[2018-11-08] MEDS: Thiamine 100 MG TAB PO SCH (08:05)
[2018-11-08] MEDS: Vancomycin HCl 750 MG in Sodium Chloride 0.9% 250 ML 250 ML IVPB SCH (08:05)
[2018-11-08 08:51] VITALS: BP 123/74; TEMP 97.9
--- NOTE | 2018-11-08 10:27 | PRG ---
DATE OF SERVICE: 11/05/2018 SUBJECTIVE: The patient says he is doing good. He states he still has a little soreness in his shoulder. He is scheduled to see Dr. Barajas, Infectious Disease , on 11/08/2018 at 01:[address] Barajas is to give us some direction on what oral medication to use. Mr. Copeland says his intent is to come back afterwards and probably be discharged. He is doing better overall. He says he can take care of the wound. He has been doing that for quite a while. OBJECTIVE: GENERAL: The patient is alert, appears in good spirits. He appears in no distress. VITAL SIGNS: Temperature of 98.4, pulse 91, respirations 18, O2 saturation 98% on room air, blood pressure 138/76. LUNGS: Clear. HEART: Regular rate. EXTREMITIES: His left shoulder, the dressing is dry, that was changed yesterday. Wound was looked at and looks better. There is a small opening. He does have yellowish serous drainage, but overall less than what it had been. His right arm has a PICC line. There is just some slight redness at the insertion site. We will continue to watch this. ASSESSMENT: 1. Chronic osteomyelitis of the left shoulder. a. Initiated from a steroid injection in December 2015. b. He has undergone repeated incision and drainage and arthrotomies. c. He has undergone multiple long courses of IV antibiotics. d. Cultures initially grew Propionibacterium acne and later a methicillin- resistant Staphylococcus aureus. e. Status post left humeral head resection and placement of a Prostalac antibiotic spacer on 07/02/2017. f. Status post recurrence of septic joint requiring reopening of the wound and removal of Prostalac spacer and washout. g. 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 h. Increased drainage from the left shoulder requiring incision and drainage and antibiotic spacer placement which has since come out, surgery on 2018, now hospitalized at [facility] on 09/23/2018 for an 8-week course of IV vancomycin. i. Doing well. Continues on IV antibiotics as of 11/05/2018. 2. Dilated cardiomyopathy. a. Echocardiogram on 09/09/2018 showed an ejection fraction of 20% to 25% with global hypokinesis, dilated left ventricle, and enlarged left and right atrium. b. Refused heart catheterization and LifeVest. c. Management with Lasix, carvedilol, not tolerant to AZAEL or ARBS due to hypotension. d. No evidence of acute congestive heart failure as of 11/05/2018. 3. History of diabetes. a. Refuses any insulin. b. Hemoglobin A1c on 08/19/2017 is 5.7. 4. Paroxysmal atrial fibrillation. a. On aspirin and refused to take Eliquis or Xarelto or Coumadin. b. Recent rapid ventricular response during hospitalization at [facility] from 09/08 to 09/23/2018. c. The patient has a regular rate with a rate of 91 as of 11/05. 5. History of transient ischemic attack. a. He said he initially presented with weakness of the right arm on 2015. b. No recurrence. 6. History of normocytic normochromic anemia. 7. Alcoholism. 8. Chronic obstructive pulmonary disease. 9. Chronic low back pain secondary to lumbar spondylosis with moderate to severe stenosis at L2-L3, L3-L4, and L4-L5 level. 10. Para influenza type 3. a. Presenting with cough, runny nose, and fever with clear chest x-ray on 09/27/2018. b. Complicated by bronchitis as of 10/01/2018. c. Resolved as of 10/07/2018. 11. Irritation with redness and some induration and white plaques at the insertion site of the PICC line in the right upper arm as of 10/12/2018. a. Old PICC line removed and replaced with a new PICC line in the right upper arm on 10/12/2018 without problems. The old insertion site of the PICC line has healed as of 11/05/2018. PLAN: Continue dressing changes daily and as needed. Continue the IV vancomycin. The patient has received 49 of 56 doses. He is scheduled to see Dr. Barajas, Infectious Disease physician on 11/08/2018 at 01:30 p.m. It is anticipated that he is being placed on an oral medication and hopefully then stopping the vancomycin and PICC line. Job ID: [id number] [facility]
--- NOTE | 2018-11-08 13:43 | DIS ---
DATE OF ADMISSION: 09/23/2018 DATE OF DISCHARGE: 11/08/2018 FINAL DIAGNOSES: 1. Chronic osteomyelitis of the left shoulder. a. Initiated from a steroid injection in December 2015. b. He has undergone repeated incision and drainage and arthrotomies. c. He has undergone multiple long courses of IV antibiotics. d. Cultures initially grew Propionibacterium acne and later a methicillin- resistant Staphylococcus aureus. e. Status post left humeral head resection and placement of a Prostalac antibiotic spacer on 07/02/2017. f. Status post recurrence of septic joint requiring reopening of the wound and removal of Prostalac spacer and washout. g. 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 h. Increased drainage from the left shoulder requiring incision and drainage and antibiotic spacer placement which has since come out, surgery on 2018, now hospitalized at [facility] on 09/23/2018 for an 8-week course of IV vancomycin. i. Doing well. Completed 51 of a 56-day scheduled course of vancomycin on the evening of 11/07/2018. PICC line ceased working. The patient did not want to continue medication or have IV restarted. Due to see Dr. Barajas for recommendation for oral antibiotics on 11/08/2018. 2. Dilated cardiomyopathy. a. Echocardiogram on 09/09/2018 showed an ejection fraction of 20% to 25% with global hypokinesis, dilated left ventricle, and enlarged left and right atrium. b. Refused heart catheterization and LifeVest. c. Management with Lasix, carvedilol, not tolerant to AZAEL or ARBS due to hypotension. d. No evidence of acute congestive heart failure as of 11/08/2018. 3. History of diabetes. a. Refuses any insulin. b. Hemoglobin A1c on 08/19/2017 is 5.7. 4. Paroxysmal atrial fibrillation. a. On aspirin and refused to take Eliquis or Xarelto or Coumadin. b. Recent rapid ventricular response during hospitalization at [facility] from 09/08 to 09/23/2018. c. The patient has a regular rate, the rate is 69 as of 11/08/2018. 5. History of transient ischemic attack. a. He said he initially presented with weakness of the right arm on 2015. b. No recurrence. 6. History of normocytic normochromic anemia. 7. Alcoholism. 8. Chronic obstructive pulmonary disease. 9. Chronic low back pain secondary to lumbar spondylosis with moderate to severe stenosis at L2-L3, L3-L4, and L4-L5 level. 10. Para influenza type 3. a. Presenting with cough, runny nose, and fever with clear chest x-ray on 09/27/2018. b. Complicated by bronchitis as of 10/01/2018. c. Resolved as of 10/07/2018. 11. Irritation with redness and some induration and white plaques at the insertion site of the PICC line in the right upper arm as of 10/12/2018. a. Old PICC line removed and replaced with a new PICC line in the right upper arm on 10/12/2018 without problems. The old insertion site of the PICC line is healing as of 10/18/2018. b. Resolved. SUMMARY: The patient is a 73-year-old white male, who has a history of chronic osteomyelitis of the left shoulder that was initiated from steroid injection in December of 2015. He has undergone repeated incision, drainage, arthrotomies, and resection of the bone, and multiple long courses of IV antibiotics. Has grown MRSA from the wound and also propionibacterium acne. He has required left humeral head resection on June 2017, required reopening of the wound and removal of a Prostalac spacer that was placed in June 2017, required further resection of the proximal humerus and then was treated with a long course of IV Rocephin and vancomycin. Wound was left open with a wound VAC and allowed to try to heal by secondary intention. He was eventually discharged on oral antibiotics with minocycline and Cipro. He has been followed by orthopedic surgeon, Dr. Lima , and Infectious Disease physician, Dr. Barajas. He was recently hospitalized at [facility] from 09/08 until 09/23/2018 due to abdominal pain that was secondary to an alcoholic hepatitis. He had run out of his pain medication and began consuming large amounts of alcohol to control his pain. He also was found to have a marked increased drainage, yellow, from the left shoulder. During the hospitalization , the alcoholic hepatitis resolved. His echocardiogram showed ejection fraction of 20 % to 25% with global hypokinesis. It was recommended that he undergo a heart catheterization, which he refused. He also refused a LifeVest. MRI of the shoulder showed the partial resection of the proximal humeral head and metaphysis, and residual signal suggestive of residual osteo. There was also fluid in the area. Dr. Lima repeated an I and D and placed an antibiotic spacer with vancomycin, tobramycin, that was extruded from the wound. Dr. Barajas saw the patient. He was discharged to [facility] on 09/23/2018 for continuation of the vancomycin, that had been started on 09/17/2018 at [facility]. The patient was admitted to [facility] on 09/23/2018. While in the hospital, he received wound care to the left shoulder. Initially, there was a large amount of serous yellowish drainage that was managed with wet-to-dry dressings twice a day. Later, this improved and the wound close to about 1-1/2 cm in length, but still had a serous drainage. Dressings were able to be done just daily. The patient developed some irritation and redness and little white plaques at the insertion of the PICC line on 10/12/2018. This line was removed and was replaced at [facility] by the Radiology interventionalist. He had no trouble with this line, but the line ceased working on the evening of 11/07/2018 . The Vancomycin infusionwas running down his arm. Vancomycin was stopped. He did not want this restarted. He had received 51 of a 56-day scheduled regimen of vancomycin. He is scheduled to see Dr. Barajas, Infectious Disease on 11/08/2018 at 1:30 for his recommendations on long- term oral antibiotics. His wound was closed and linked, and there was no surrounding redness. He had limited motion in that left shoulder. He still had some pain in the shoulder and also on the right shoulder from the extensive arthritis. The wound in the left shoulder still had a little serous drainage, but much less than previous. Culture of that area had no growth. His lab work had shown that his sedimentation rate had been 48 and dropped to 27 on 11/01. His white blood cell count was not elevated and he had normal diff. On 11/07, white cell count 6400 with 50% segs, 33% lymphocytes, and a platelet count of 180, and hemoglobin 12.8. His CRP on admission was 7.65 and it dropped to 1.48 on 11/07. His liver enzymes on 11/07 were 36, and AST and ALT 35, total bilirubin 0.4. During the hospital stay, Pharmacy checked vancomycin trough levels and adjusted the vancomycin levels as needed. During his hospital stay, he had no evidence of the failure of his atrial fibrillation. He had intermittent episodes of irregularly irregular rhythm, but the rate was well controlled. During the hospitalization, he developed upper respiratory type symptoms and little cough. His respiratory viral antigen test showed evidence of parainfluenza, which resolved after about a 10-day course. The patient was placed in isolation during that time. By 11/08/2018, the patient was doing very well and ready to go home. He will see Dr. Barajas at 1:30 today. He will take care of his wound. He said he is used to this. He will do wet-to-dry dressings. Talked with him about his pain management. He has been using the hydrocodone 10/325s, that varies, he uses 1 up to 3 a day, which seems to control things well. He said as long as he has his pain medicine, there will be no need for the alcohol, thus he has stopped and does not plan to restart. He does use the lorazepam once or twice a day, which helps with his nervousness. The patient looks much better. His strength was better and his condition was such that he was discharged on 11/08. The patient's hemoglobin A1c on 09/27, was 6.7. His FBS on day of discharge was 169. DISPOSITION: DIET: Regular diet no added salt. No alcohol. ACTIVITIES: The patient is to resume his activities within his tolerance. Wound care to the left shoulder. Clean daily with saline. Apply saline moistened gauze and cover with dry gauze and bandage. MEDICATIONS: 1. Acetaminophen 325 mg two every 4 hours as needed. 2. Maalox 30 mL every 6 hours as needed. 3. Carvedilol 12.5 mg b.i.d. 4. Digoxin 0.25 mg daily. 5. Benadryl 25 mg every 6 hours as needed. 6. Folic acid 1 mg daily. 7. Furosemide 40 mg daily. 8. Hydrocodone/acetaminophen 10/325 one every 8 hours as needed, #90 prescribed. 9. Lorazepam 1 mg one b.i.d. as needed, #60 prescribed. 10. Magnesium oxide 400 mg daily. 11. Melatonin 3 mg at bedtime as needed. 12. KCl 20 mEq b.i.d. 13. Thiamin 100 mg daily. FOLLOWUP: Follow up Dr. Barajas, Infectious Disease on 11/08/2018 at 1:30 p.m. for recommendations of long-term oral antibiotic. Follow up with myself in 2 weeks. Follow up with assistant tennis professional within 2 or 3 weeks. CODE STATUS: Full code. Job ID: [id number] MTDD
== END 2018-11-08 12:18 | disposition home or self-care (01) | DRG 638 ==
LOC: MADMS 17:43
PROVIDERS: ADMIT Family Medicine; ATTEND Family Medicine
DX: E11.69 Type 2 diabetes mellitus with other specified complication (principal); M86.612 Other chronic osteomyelitis, left shoulder; I42.0 Dilated cardiomyopathy; T82.898A Other specified complication of vascular prosthetic devices, implants and grafts, initial encounter; I48.0 Paroxysmal atrial fibrillation; J44.9 Chronic obstructive pulmonary disease, unspecified; G89.29 Other chronic pain; B34.8 Other viral infections of unspecified site; J40 Bronchitis, not specified as acute or chronic; M47.816 Spondylosis without myelopathy or radiculopathy, lumbar region; D64.9 Anemia, unspecified; M48.061 Spinal stenosis, lumbar region without neurogenic claudication; M19.011 Primary osteoarthritis, right shoulder; F10.20 Alcohol dependence, uncomplicated; Z86.73 Personal history of transient ischemic attack (TIA), and cerebral infarction without residual deficits; Z79.899 Other long term (current) drug therapy; Z88.8 Allergy status to other drugs, medicaments and biological substances; Y83.8 Other surgical procedures as the cause of abnormal reaction of the patient, or of later complication, without mention of misadventure at the time of the procedure
CPT/HCPCS: 36415; 36416; 71045; 80053; 80202; 83036; 85007; 85025; 85027; 85652; 86140; 87040; 87070; 87205; 87633; 94640; J1940; J3370; J7050; J7620; Q0163

== ENCOUNTER 2019-06-14 15:22 | Outpatient (CLI) | payer MEDICARE ==
[2019-06-14 15:58] LABS: ALT (SGPT) 17 U/L (8-55); AST (SGOT) 22 U/L (5-34); Albumin 3.8 g/dL (3.4-4.8); Alkaline Phosphatase 161 U/L (40-110); Anion Gap 14 mmol/L (10-20); BUN (Urea Nitrogen) 13 mg/dL (8.4-25.7); Bilirubin, Direct 0.3 mg/dL (0.1-0.3); Bilirubin, Total 0.5 mg/dL (0.2-1.2); Calc. Creatinine Clearance 0 mL/min (70-130); Calcium 9.7 mg/dL (7.8-10.44); Carbon Dioxide 21 mmol/L (23-31); Chloride 107 mmol/L (98-107); Estimated GFR-MDRD 70; Glucose 103 mg/dL (83-110); Protein, Total 7.7 g/dL (5.8-8.1); Sodium 138 mmol/L (136-145)
[2019-06-14 16:00] LABS: #Basophils 0.1 thou/uL (0.0-0.2); #Eosinphils 0.6 thou/uL (0.0-0.7); #Lymphocytes 1.7 thou/uL (1.20-3.40); #Monocytes 0.7 thou/uL (0.11-0.59); #Neutrophils 4.5 thou/uL (1.40-6.50); %Basophils 1.5 % (0.0-1.0); %Eosinophils 8.5 % (0.0-10.0); %Lymphocytes 22.6 % (21.0-51.0); %Monocytes 9.1 % (0.0-10.0); %Neutrophils 58.4 % (42.0-75.0); Hemoglobin 13.1 g/dL (14.0-18.0); Mean Corpuscular Hemoglobin 26.6 pg (27.0-31.0); Mean Corpuscular Volume 85.9 fL (78.0-98.0); Mean Platelet Volume 7.3 fL (7.4-10.4); Platelet Count 198 thou/uL (130-400); RBC Distribution Width 13.3 % (11.5-14.5); Red Blood Cell (RBC) Count 4.94 mill/uL (4.70-6.10); White Blood Cell (WBC) Count 7.6 thou/uL (4.8-10.8)
--- NOTE | 2019-06-14 16:18 | RAD ---
Exam: XR Shoulder Lt 3 View STANDARD HISTORY: Left shoulder pain in patient with prior left shoulder surgery. COMPARISON: Chest x-ray on 09/09/2018 FINDINGS: Again noted is evidence of resection of the left humeral head and proximal left humerus. There is het erotopic ossification seen adjacent to the glenoid. Left acromioclavicular joint osteoarthritis is present. There is irregularity involving the acromion which may be related to prior partial resection . Findings are similar to appearance of the left shoulder on the prior chest x-ray. No fracture is seen. IMPRESSION: Chronic changes left shoulder with resection of the proximal left humerus. No definitive acute osseou s abnormality is seen.
== END 2019-06-14 15:23 | disposition home or self-care (01) ==
LOC: MADLAB 15:22
PROVIDERS: ATTEND Internal Medicine Infectious Disease
DX: M01.X1 Direct infection of shoulder joint in infectious and parasitic diseases classified elsewhere (principal); Z98.890 Other specified postprocedural states
CPT/HCPCS: 36415; 80048; 80076; 85025

== ENCOUNTER 2019-08-30 04:49 | Emergency (ER) | payer MEDICARE ==
[2019-08-30 05:26] LABS: #Basophils 0.1 thou/uL (0.0-0.2); #Eosinphils 0.2 thou/uL (0.0-0.7); #Monocytes 0.6 thou/uL (0.11-0.59); #Neutrophils 2.5 thou/uL (1.40-6.50); %Basophils 1.4 % (0.0-1.0); %Eosinophils 3.7 % (0.0-10.0); %Lymphocytes 37.7 % (21.0-51.0); %Monocytes 10.6 % (0.0-10.0); %Neutrophils 46.6 % (42.0-75.0); Hemoglobin 12.3 g/dL (14.0-18.0); Mean Corpuscular HGB CONC 31.7 g/dL (32.0-36.0); Mean Corpuscular Volume 85.2 fL (78.0-98.0); Mean Platelet Volume 5.7 fL (7.4-10.4); Platelet Count 258 thou/uL (130-400); RBC Distribution Width 12.9 % (11.5-14.5); Red Blood Cell (RBC) Count 4.54 mill/uL (4.70-6.10); White Blood Cell (WBC) Count 5.4 thou/uL (4.8-10.8)
[2019-08-30 05:35] LABS: PTT 36.6 SEC (22.9-36.1); Prothrombin Time 13.6 SEC (12.0-14.7)
[2019-08-30 05:36] LABS: Albumin 3.6 g/dL (3.4-4.8); Chloride 103 mmol/L (98-107); Potassium 3.4 mmol/L (3.5-5.1); Sodium 138 mmol/L (136-145)
[2019-08-30 05:49] LABS: Calcium 9.1 mg/dL (7.8-10.44); Globulin 3.6 g/dL (2.4-3.5); Glucose 132 mg/dL (83-110); Protein, Total 7.2 g/dL (5.8-8.1)
[2019-08-30] MEDS ORDERED: Potassium Chloride 20 MEQ TAB ONE (06:07)
[2019-08-30 06:15] LABS: ALT (SGPT) 13 U/L (8-55); AST (SGOT) 21 U/L (5-34); Alkaline Phosphatase 129 U/L (40-110); BUN (Urea Nitrogen) 17 mg/dL (8.4-25.7); Bilirubin, Total 0.3 mg/dL (0.2-1.2); Calc. Creatinine Clearance 0 mL/min (70-130); Carbon Dioxide 22 mmol/L (23-31); Estimated GFR-MDRD 63
[2019-08-30 06:16] LABS: Anion Gap 16 mmol/L (10-20)
--- NOTE | 2019-08-30 08:17 | CT ---
CTA OF THE THORAX UTILIZING IV CONTRAST AND PE PROTOCOL AND 3D REFORMATTED IMAGING: INDICATION: Active bleeding from infection of the left shoulder. COMPARISON: CT of the thorax dated 12/29/2016. FINDINGS: No confluent airspace opacity or pleural effusion is grossly evident. No definite central or segment al pulmonary embolus is evident. The segmental pulmonary arteries are slightly limited in evaluation due to respiratory motion artifact. There is contrast within the distal esophagus which may reflect dysmotility or reflux. There is partial resection of the left proximal humerus. There is prominent fragmentation seen withi n the region of the left glenohumeral joint. There is an open wound involving the anterior superior aspect of the left shoulder joint with suspected hyperdense packing material. The left subclavian and left axillary artery appears within normal limits. There is prominent muscul ar atrophy of the left shoulder girdle musculature. No overt active extravasation is noted. Complicated cysts involving the superior pole of the left and right kidney are stable-appearing. Lef t nephrolithiasis is stable-appearing. Gallbladder is surgically absent. IMPRESSION: 1. No definite central or segmental pulmonary embolus within the limitations of the exam. 2. No definite active extravasation seen surrounding the left glenohumeral joint. There is prominen t fragmented bone involving the proximal left humeral with partial surgical resection of the proximal left humeral. There is a radiopaque density seen involving the anterior superior left glenohumeral soft tissue would which may reflect packing material. 3. Persistent mildly complicated cystic abnormalities involving the superior pole of the left and ri ght kidney. 4. Left nephrolithiasis. POS: KELLIE
[2019-08-30] MEDS ORDERED: Sodium Chloride 0.9% 100 ML BAG ONE (08:24)
[2019-08-30] MEDS ORDERED: Sodium Chloride 0.9% 1,000 ML ONE (08:38)
== END 2019-08-30 08:30 | disposition home or self-care (01) ==
LOC: MADERS 04:49
DX: R58 Hemorrhage, not elsewhere classified (principal); E87.6 Hypokalemia; N20.0 Calculus of kidney; I48.91 Unspecified atrial fibrillation; E11.9 Type 2 diabetes mellitus without complications; I10 Essential (primary) hypertension; F32.9 Major depressive disorder, single episode, unspecified; F17.210 Nicotine dependence, cigarettes, uncomplicated; Z86.73 Personal history of transient ischemic attack (TIA), and cerebral infarction without residual deficits; Z79.82 Long term (current) use of aspirin; Z79.899 Other long term (current) drug therapy
CPT/HCPCS: 71275; 80053; 85025; 85610; 85730; 96360; J3490; J7050

== ENCOUNTER 2020-06-14 11:50 | Emergency (ER) | payer MEDICARE ==
[~2020-06-14 11:50] MED LIST: Iopamidol 370 76% 125 ML VIAL FS ONE
[2020-06-14 12:28] LABS: #Lymphocytes 1.4 thou/uL (1.20-3.40); #Monocytes 0.5 thou/uL (0.11-0.59); #Neutrophils 4.5 thou/uL (1.40-6.50); %Basophils 0.7 % (0.0-1.0); %Eosinophils 0.2 % (0.0-10.0); %Lymphocytes 21.6 % (21.0-51.0); %Monocytes 7.1 % (0.0-10.0); %Neutrophils 70.4 % (42.0-75.0); Mean Corpuscular HGB CONC 30.3 g/dL (32.0-36.0); Mean Corpuscular Hemoglobin 25.8 pg (27.0-31.0); Mean Corpuscular Volume 84.9 fL (78.0-98.0); Mean Platelet Volume 7.6 fL (7.4-10.4); Platelet Count 156 thou/uL (130-400); RBC Distribution Width 15.1 % (11.5-14.5); Red Blood Cell (RBC) Count 5.83 mill/uL (4.70-6.10); White Blood Cell (WBC) Count 6.4 thou/uL (4.8-10.8)
[2020-06-14 12:48] LABS: ALT (SGPT) 59 U/L (8-55); AST (SGOT) 136 U/L (5-34); Albumin 3.2 g/dL (3.4-4.8); Alkaline Phosphatase 138 U/L (40-110); Anion Gap 19 mmol/L (10-20); BUN (Urea Nitrogen) 47 mg/dL (8.4-25.7); Bilirubin, Total 1.8 mg/dL (0.2-1.2); Calc. Creatinine Clearance 0 mL/min (70-130); Calcium 8.8 mg/dL (7.8-10.44); Carbon Dioxide 24 mmol/L (23-31); Chloride 99 mmol/L (98-107); Globulin 2.9 g/dL (2.4-3.5); Glucose 107 mg/dL (83-110); Potassium 4.1 mmol/L (3.5-5.1); Protein, Total 6.1 g/dL (5.8-8.1); Sodium 138 mmol/L (136-145)
[2020-06-14] MEDS ORDERED: cefTRIAXone\\ROCEPHIN 2 GM VIAL ONE (13:04)
[2020-06-14] MEDS ORDERED: Sodium Chloride 0.9% 100 ML ONE (13:04)
[2020-06-14] MEDS ORDERED: Sodium Chloride 0.9% 1,000 ML ONE (13:04)
[2020-06-14] MEDS ORDERED: Aspirin Chewable 81 MG TAB ONE (13:04)
[2020-06-14 13:13] LABS: CKMB 35.4 ng/mL (0-6.6)
[2020-06-14] MEDS ORDERED: Sodium Chloride 0.9% 250 ML 250 ML ONE (14:05)
[2020-06-14] MEDS ORDERED: Azithromycin 500 MG VIAL ONE (14:05)
[2020-06-14] MEDS ORDERED: Enoxaparin Sodium 80 MG/0.8 ML SYRINGE ONE (15:44)
[2020-06-14] MEDS ORDERED: Norepinephrine 4 MG/4 ML VIAL ONE (16:02)
--- NOTE | 2020-06-14 16:04 | RAD ---
PORTABLE CHEST: Date: 06/14/2020 HISTORY: Shortness of breath. COMPARISON: 09/01/2019 exam. FINDINGS: Heart size is enlarged. Film is of suboptimal inspiration. There are some minimally increased parench ymal markings in the right mid and lower lung lloyd. I cannot exclude this as areas of early infiltr ate. IMPRESSION: 1. Questionable early infiltrative changes in the right lung base. This could just be on the basis o f poor inspiration. 2. Stable bony changes of both shoulders. 3. Cardiomegaly. POS: XOCHITL
--- NOTE | 2020-06-14 16:22 | CT ---
CT ABDOMEN AND PELVIS PERFORMED WITHOUT CONTRAST ENHANCEMENT: 06/14/20 HISTORY: Bilateral lower quadrant pain and diarrhea. COMPARISON: 02/02/16 study. There are moderate bilateral pleural effusions with some atelectatic lung changes. The liver, spleen, and pancreas regions appear unremarkable. The pancreas is mildly atrophic. The gal lbladder has been removed. Right and left adrenal glands are normal. There is a nonobstructing left renal calculus. It measures in the 12 to 13 mm range. There is a hypodense mass involving the posterior cortex of the right kidne y. There is some faint calcification along the wall. It measures 4.3 cm in size which represents an i nterval increase since the previous 2016 study when it measured in the 2.8 cm range. It does have CT Hounsfield unit numbers that would suggest a cyst while I am not completely characterized on noncontr ast study. On the left side, there is a peripherally calcified mass which also has cystic numbers. It is substantially decreased in size compared to the prior exam. It measures 3 cm on the current as co mpared to 5.3 cm on the prior exam. No obstruction of either kidney. Small periaortic and aortocaval nodes are actually somewhat less prominent than on that prior exam. Also the mesenteric nodes are les s prominent. There is moderate amount of ascites present. Suggestion of some slight wall thickening t o the stomach but this is probably just on the basis of ascites which is adjacent to the stomach. CT OF PELVIS PERFORMED WITHOUT CONTRAST ENHANCEMENT: Ascites is noted. Sigmoid diverticulosis is seen. Appendix appears unremarkable. There is some anasar ca type changes present. there are arthritic changes of the spine and hips. IMPRESSION: 1. Moderately large bilateral pleural effusions. Also with some moderate ascites. 2. Nonobstructing left renal calculus measuring 12 to 13 mm. 3. Bilateral complex hypodensities involving both kidneys probably cysts. The one on the right has increased in size and the one on the left decreased in size as compared to the 2016 exam. 4. Sigmoid diverticulosis. POS: XOCHITL
--- NOTE | 2020-06-14 16:35 | CT ---
CT PULMONARY ANGIOGRAM WITH IV CONTRAST AND 3D POSTPROCESSING: Date: 06/14/2020 HISTORY: Dyspnea. D-Dimer of 6.15. COMPARISON: 08/30/2019. FINDINGS: There is good contrast opacification of the pulmonary arterial vasculature with filling defects in th e segmental branches of the posterior segment of the right lower lobe. The thoracic aorta is well opa cified without aneurysm or dissection. No pericardial effusion is seen. There are moderate size bilateral pleural effusions with adjacent at electatic changes. No pneumothoraces are identified. There are degenerative changes in the spine. Old right-sided rib fractures are again seen. Upper abdominal tomograms demonstrate ascites. IMPRESSION: 1. Pulmonary embolism. 2. Moderate sized bilateral pleural effusions with adjacent atelectatic changes. 3. Ascites. Discussed over the telephone with ER physician, Dr. Rishabh Del Real, at 1517 hours. CODE CR. POS: OFF
== END 2020-06-14 16:30 | disposition short-term general hospital (02) ==
LOC: MADERS 11:50
DX: A41.9 Sepsis, unspecified organism (principal); J18.9 Pneumonia, unspecified organism; I50.9 Heart failure, unspecified; E86.0 Dehydration; I26.99 Other pulmonary embolism without acute cor pulmonale; J44.9 Chronic obstructive pulmonary disease, unspecified; I48.91 Unspecified atrial fibrillation; E11.9 Type 2 diabetes mellitus without complications; I10 Essential (primary) hypertension; Z86.718 Personal history of other venous thrombosis and embolism; Z79.82 Long term (current) use of aspirin; Z79.899 Other long term (current) drug therapy
CPT/HCPCS: 71045; 71275; 74176; 80053; 82553; 83605; 83880; 84484; 85025; 85379; 93005; 96365; 96367; 96372; J0456; J0696; J1650; J3490; J7050; Q9967